=== PATIENT | female | born 1955 | race Caucasian/White ===

== ENCOUNTER 2018-12-15 15:04 | Inpatient (IN) | payer OTHER ==
[~2018-12-15] VITALS: Ht 162.6 cm; Wt 70.8 kg
--- NOTE | 2018-12-15 08:30 | NUR ---
FREDDY RN NOTES ADMITTED A 63 Y/O FEMALE NON VERBAL UNABLE TO MAKE NEEDS KNOWN , ESRD PTS ON HEMODIALYSIS ,ADMITTING DX OF HYPOTENSION .PTS IS ANOXIC ENCEPHALOPATHY, ADMISSION ROUTINE CARE RENDERED ,ORDER VERIFIED WITH PATRICA BRISCOE ,PTS ON VENT DEPENDENT WTH TRACHEOSTOMY AND GTUBE FEEDING , V/S STABLE AFEBRILE , ALL NEEDS ATTENDED TOO CALL LIGHT WITHIN REACH KEPT PTS CLEAN DRY AND COMFORTABLE .WILL CONTINUE TO MONITOR PTS. Addendum: 12/16/18 at 0346 by CARRINGTON MORELOS RN PTS ADMITTED AT 2030 NOT 0830
--- NOTE | 2018-12-15 15:11 | NUR ---
PT ELI BAEZ [facility] "from [facility] was going to dialysis center and when they took BP it was 70s so they sent her here" PT IS AAOX0, NOTED RESPIRATORY DISTRESS, RT AT BEDSIDE FOR MECH VENT SET UP, ON MECH VENT VIA TRACH, HOOKED TO MONITOR, KEPT RESTED AND COMFORTABLE, WILL CONTINUE TO MONITOR.
[2018-12-15 15:25] VITALS: BP 60/27
--- NOTE | 2018-12-15 15:25 | NUR ---
PT SEEN AND EXAMINED BY DR. LIMON
--- NOTE | 2018-12-15 15:27 | NUR ---
IV LINE ESTABLISHED AT [facility], LABS DRAWNED AND SENT TO LAB.
--- NOTE | 2018-12-15 15:27 | NUR ---
RT NOTE PT PLACED ON VENT PER MD ORDER. SETTINGS ENDORSED BY TRANSPORT RT SIMV 6 500 PS 10 40% +5. ALARMS SET PER PROTOCOL AND AUDIBLE. VENT PLUGGED IN TO RED OUTLET. AMBU BAG AT BED SIDE. PT HAS SHILEY [address] CUFF INFLATED. TRACH TUBE MIDLINE AND SECURE. NO DISTRESS NOTED AT MOMENT. Addendum: 12/15/18 at 1530 by ELLIS GAMEZ RT Amended: Links added.
[2018-12-15] MEDS ORDERED: IV NS 0.9% 500 ML BAG IV ONE (15:30)
--- NOTE | 2018-12-15 15:35 | NUR ---
MINISTER AT BEDSIDE FOR XRAY.
[2018-12-15 15:45] LABS: BASOPHILS # (AUTO) 0.1 /CMM (0.0-0.2); BASOPHILS % (AUTO) 0.7 % (0.0-2.0); EOSINOPHILS % (AUTO) 3.5 % (0.0-6.0); HEMATOCRIT 32 % (33-45); HEMOGLOBIN 10.6 g/dL (11.5-14.8); LYMPHOCYTES # (AUTO) 2.6 /CMM (0.8-4.8); LYMPHOCYTES % (AUTO) 26.2 % (20.0-44.0); MEAN CORPUSCULAR HGB CONC 34 g/dl (31.0-36.0); MEAN CORPUSCULAR VOLUME 92 fL (82-100); MONOCYTES # (AUTO) 0.5 /CMM (0.1-1.30); MONOCYTES % (AUTO) 4.9 % (2.0-12.0); NEUTROPHILS # (AUTO) 6.4 /CMM (1.8-8.9); NEUTROPHILS % (AUTO) 64.7 % (43.0-81.0); PLATELET COUNT (AUTO) 397 /CMM (150-450); RED BLOOD CELL COUNT(AUTO) 3.43 MIL/uL (4.0-5.2)
[2018-12-15 15:54] LABS: CALCIUM, SERUM 10.2 mg/dL (8.5-10.1); CARBON DIOXIDE 25 mmol/L (21-32); CHLORIDE 94 mmol/L (98-107); GLUCOSE 138 mg/dL (74-106); POTASSIUM 3.3 mmol/L (3.5-5.1); SODIUM SERUM 128 mmol/L (136-145); UREA NITROGEN, BLOOD 37 mg/dL (7-18)
[2018-12-15 15:59] LABS: ALANINE AMINOTRANSFERASE 13 U/L (12-78); ALBUMIN 3.2 g/dL (3.4-5.0); ALKALINE PHOSPHATASE 87 U/L (46-116); ASPARTATE AMINOTRANSFERASE 13 U/L (15-37); BILIRUBIN,DIRECT 0.1 mg/dL (0.0-0.2); BILIRUBIN,TOTAL 0.3 mg/dL (0.2-1.0); SERUM AMMONIA 13 umol/L (11-32); TOTAL PROTEIN, SERUM 8.4 g/dL (6.4-8.2)
[2018-12-15 16:11] LABS: THYROID STIMULATING HORMONE 4.383 uIU/mL (0.358-3.74)
[2018-12-15] MEDS ORDERED: ERGO500014 GT (16:13)
[2018-12-15] MEDS ORDERED: LACT10SO GT (16:13)
[2018-12-15] MEDS ORDERED: METO-295 GT (16:13)
[2018-12-15] MEDS ORDERED: CARV25TA2 GT (16:13)
[2018-12-15] MEDS ORDERED: FOLI0.8T2 GT (16:13)
[2018-12-15] MEDS ORDERED: PANT40SU2 GT (16:13)
[2018-12-15] MEDS ORDERED: HYDR-4077 GT (16:13)
[2018-12-15] MEDS ORDERED: ISOS10TA2 GT (16:13)
[2018-12-15] MEDS ORDERED: INSU100V10 SQ (16:13)
[2018-12-15] MEDS ORDERED: BISA10SU8 RC (16:13)
[2018-12-15] MEDS ORDERED: NA P133E RC (16:13)
[2018-12-15] MEDS ORDERED: CLON0.1T GT (16:13)
[2018-12-15] MEDS ORDERED: ACET-868 GT ×2 (16:13)
[2018-12-15] MEDS ORDERED: CALC0.253 GT (16:13)
[2018-12-15] MEDS ORDERED: GLIP10TA11 GT (16:13)
[2018-12-15] MEDS ORDERED: LOSA50TA39 GT (16:13)
[2018-12-15] MEDS ORDERED: MAGN400O6 GT (16:13)
[2018-12-15] MEDS ORDERED: INSU100V11 SQ (16:13)
[2018-12-15] MEDS ORDERED: NIFE30TA89 GT (16:13)
[2018-12-15] MEDS ORDERED: FERR300L GT (16:13)
[2018-12-15] MEDS ORDERED: VIT500LI GT (16:14)
[2018-12-15] MEDS ORDERED: NUT.237L67 GT (16:14)
[2018-12-15] MEDS ORDERED: ZINC220C8 GT (16:14)
--- NOTE | 2018-12-15 16:27 | NUR ---
PT IS WHEELED TO CT SCAN VIA LAS PROTOCOL.
[2018-12-15 17:14] LABS: BAND % (MANUAL) 3 % (0.0-5.0); EOSINOPHILS % (MANUAL) 3 % (0-4); LYMPHOCYTES % (MANUAL) 23 % (16-48); MONOCYTES % (MANUAL) 6 % (0-11.0); MYELOCYTES % 1 % (0-0); NEUTROPHILS % (MANUAL) 64 (42-76)
[2018-12-15 17:15] VITALS: BP 72/30
--- NOTE | 2018-12-15 17:17 | NUR ---
CALLED NURSING SUP. FOR TELE BED
--- NOTE | 2018-12-15 17:53 | NUR ---
TELE 102
--- NOTE | 2018-12-15 17:54 | NUR ---
YONATHAN PAGED, INTELLIGENCE SPECIALIST
--- NOTE | 2018-12-15 19:20 | NUR ---
REPORT GIVEN TO MOY ABERNATHY FOR CHELSY.
--- NOTE | 2018-12-15 19:24 | NUR ---
RECEIVED REPORT FROM MARCE WINTER FOR CHELSY
--- NOTE | 2018-12-15 19:28 | NUR ---
Sammie adhikari in [facility] - 12/15/18 at 2036 by MAO GAVE REPORT TO CARRINGTON ATKINSON CHELSY
--- NOTE | 2018-12-15 19:32 | NUR ---
YONATHAN PAGED, DENIA CIFUENTES WARP SPINNER REAL ESTATE RECRUITER
--- NOTE | 2018-12-15 19:44 | NUR ---
FREDDY 102
[2018-12-15 19:50] VITALS: BP 127/66
[2018-12-15] MEDS ORDERED: MAGNESIUM HYDROXIDE 30 ML UDC PO PRN (20:00)
[2018-12-15] MEDS ORDERED: ONDANSETRON HCL/PF 4 MG/2 ML VIAL IVP PRN (20:00)
[2018-12-15] MEDS ORDERED: NEPRO VAN 237 ML CAN GT SCH ×2 (20:00→22:00)
[2018-12-15] MEDS ORDERED: Z GUARD REMEDY 2 OZ OINT TP PRN (20:00)
[2018-12-15] MEDS ORDERED: MAG HYDROX/AL HYDROX/SIMETH 30 ML UDC PO PRN (20:00)
[2018-12-15] MEDS ORDERED: ACETAMINOPHEN 325 MG TABLET PO PRN (20:00)
[2018-12-15] MEDS ORDERED: HYDROCODONE/APAP 5/325MG 1 EACH TABLET PO PRN (20:00)
[2018-12-15] MEDS ORDERED: BISACODYL SUPP (10 MG) 10 MG/SUPP.RECT SUPP.RECT RC PRN (20:00)
[2018-12-15] MEDS ORDERED: NA PHOS,M-B/NA PHOS,DI-BA 1 EA ENEMA RC PRN (20:00)
[2018-12-15] MEDS ORDERED: MAGNESIUM HYDROXIDE 30 ML UDC GT PRN (20:00)
[2018-12-15] MEDS ORDERED: ACETAMINOPHEN 325 MG TABLET MC PRN (20:00)
--- NOTE | 2018-12-15 20:00 | NUR ---
ATTEMPTED TO GIVE REPORT TO FREDDY NURSE FOR CHELSY, STATES WILL CALL BACK
--- NOTE | 2018-12-15 20:22 | NUR ---
ATTEMPTED TO GIVE REPORT TO FREDDY NURSE FOR CHELSY, STATES WILL CALL BACK
--- NOTE | 2018-12-15 20:28 | NUR ---
GAVE REPORT TO CARRINGTON WINTER FOR CHELSY
[2018-12-15 20:30] VITALS: BP 139/76
--- NOTE | 2018-12-15 20:35 | NUR ---
TRANSFERRED PT PER ACLS PROTOCOL WITH RT
--- NOTE | 2018-12-15 20:47 | NUR ---
PT MOVED TO [facility] ROOM 102. CONNECTED BACK TO VENT, PLUGGED INTO RED OUTLET. ALARMS ARE ON AUDIBLE. CONT PULSE OX CONNECTED. NO RESP DISTRESS OR SOB NOTED. Addendum: 12/15/18 at 2047 by BETZAIDA CORONADO RT Amended: Links added.
[2018-12-15] MEDS: INSULIN DETEMIR 100 UNIT/ML CARTRIDGE SQ SCH (22:00)
--- NOTE | 2018-12-15 22:00 | NUR ---
FREDDY RN NOTES LEVEMIR NOT GIVEN D/T MEDS NOT AVAILABLE AT THIS TIME.
[2018-12-16] VITALS: BP 121/58
[2018-12-16] MEDS ORDERED: DEXTROSE 50%-WATER 50 ML DISP.SYRIN IV PRN
--- NOTE | 2018-12-16 | NUR ---
FREDDY RN NOTES BLOOD SUGAR FOR 10PM IS 202MG/DL -4 UNITS OF REGULAR INSULIN GIVEN PER SLIDING SCALE,PTS ON GT FEEDING. NO RESIDUAL NOTED.
[2018-12-16] MEDS: glipiZIDE 10 MG TABLET GT SCH ×3 (00:20→21:36)
[2018-12-16] MEDS: METOCLOPRAMIDE HCL 10 MG TABLET GT SCH ×4 (00:20→18:08)
[2018-12-16] MEDS: BLOOD SUGAR DIAGNOSTIC 1 EACH STRIP IN SCH ×4 (00:55→17:08)
[2018-12-16] MEDS: INSULIN DETEMIR 100 UNIT/ML CARTRIDGE SQ SCH (00:57)
[2018-12-16] MEDS: INSULIN REGULAR, HUMAN 100 UNIT/ML 3 ML VIAL SQ PRN ×5 (00:58→22:36)
[2018-12-16] MEDS ORDERED: NEPRO 1,000 ML BOTTLE GT PRN ×2 (03:00)
[2018-12-16 04:00] VITALS: BP 111/84
[2018-12-16 07:13] LABS: BASOPHILS % (AUTO) 0.4 % (0.0-2.0); EOSINOPHILS % (AUTO) 3.5 % (0.0-6.0); HEMATOCRIT 27 % (33-45); HEMOGLOBIN 9.3 g/dL (11.5-14.8); LYMPHOCYTES # (AUTO) 2.3 /CMM (0.8-4.8); LYMPHOCYTES % (AUTO) 24.7 % (20.0-44.0); MEAN CORPUSCULAR HGB CONC 35 g/dl (31.0-36.0); MEAN CORPUSCULAR VOLUME 91 fL (82-100); MONOCYTES # (AUTO) 0.4 /CMM (0.1-1.30); MONOCYTES % (AUTO) 4.8 % (2.0-12.0); NEUTROPHILS # (AUTO) 6.1 /CMM (1.8-8.9); NEUTROPHILS % (AUTO) 66.6 % (43.0-81.0); PLATELET COUNT (AUTO) 336 /CMM (150-450); RED BLOOD CELL COUNT(AUTO) 2.96 MIL/uL (4.0-5.2); WHITE BLOOD COUNT (AUTO) 9.1 K/uL (4.3-11.0)
[2018-12-16 07:26] LABS: CALCIUM, SERUM 9.4 mg/dL (8.5-10.1); CREATININE 4.3 mg/dL (0.6-1.3); MAGNESIUM 2.8 mg/dL (1.8-2.4); PHOSPHORUS 5.7 mg/dL (2.5-4.9); POTASSIUM 3.3 mmol/L (3.5-5.1)
[2018-12-16 07:33] LABS: THYROID STIMULATING HORMONE 2.502 uIU/mL (0.358-3.74)
--- NOTE | 2018-12-16 07:44 | NUR ---
FREDDY RN NOTE RECEIVED PATIENT IN BED , ALL NEEDS ATTENDED VENT SETTING ORDERED , ANBU BAG AT [facility] AT ALL TIME , ON TELE MONITOR SR , RT AC HL INTACT BED IN LOWEST AND LOCKED POSITION , NOT IN DISTRESS AT THIS TIME ,SPUTUM CX DONE BY RT ON G TUBE FEEDING ORDERED.BED IN LOWEST AND LOCKED POSITION
[2018-12-16 08:00] VITALS: BP 122/63
[2018-12-16] MEDS: ZINC SULFATE 220 MG CAPSULE GT SCH (08:26)
[2018-12-16] MEDS: FERROUS SULFATE UDC 300 MG/5 ML UDC GT SCH ×2 (08:26→16:22)
[2018-12-16] MEDS: ASCORBIC ACID 500 MG TABLET GT SCH (08:26)
[2018-12-16] MEDS: LACTULOSE 10 G/15 ML UDC (PYXIS) GT SCH (08:26)
[2018-12-16] MEDS: CALCITRIOL 0.25 MCG CAPSULE GT SCH (08:26)
[2018-12-16] MEDS: PANTOPRAZOLE 40 MG/PACK PACK GT SCH ×2 (08:27→16:23)
[2018-12-16] MEDS: VIT B CMPLX 3/FA/VIT C/BIOTIN 1 TAB TABLET GT SCH (08:27)
[2018-12-16] MEDS ORDERED: Medication Not On Formulary EA (Folic Acid/Vitamin B Comp W-C (Nephro-Vite Tablet) 0.8 M GT SCH (09:00)
[2018-12-16] MEDS ORDERED: ACETAMINOPHEN 325 MG TABLET MC SCH (09:00)
[2018-12-16] MEDS ORDERED: PANTOPRAZOLE 40 MG VIAL IV SCH (09:00)
--- NOTE | 2018-12-16 09:36 | NUR ---
FREDDY RN NOTE MEDICAL RECORD OBTAINED FROM SNF .PLACED IN CHART
[2018-12-16 09:58] LABS: BAND % (MANUAL) 5 % (0.0-5.0); LYMPHOCYTES % (MANUAL) 23 % (16-48); MONOCYTES % (MANUAL) 10 % (0-11.0); MYELOCYTES % 1 % (0-0); NEUTROPHILS % (MANUAL) 61 (42-76)
[2018-12-16 12:00] VITALS: BP_SYST 102; BP_DIAS 29; BP_DIAS 39
--- NOTE | 2018-12-16 12:00 | NUR ---
FREDDY RN NOTE SPOKE WITH BARBARA HD NURSE ,NOTIFIED THAT PATIENT DID NOT HAD HD AT [facility]ENTER YESTERDAY STATED THAT WILL SPEAK WITH DOCTOR ABOUT HD TODAY, WILL F\\U
--- NOTE | 2018-12-16 13:45 | NUR ---
FREDDY RN NOTE [facility] MAT[facility] APPLIED ORDERED , FAMILY AT BEDSIDE ,ALL NEEDS ATTENDED
--- NOTE | 2018-12-16 14:36 | NUR ---
FREDDY RN NOTE DR STOKES NOTIFIED THAT PATIENT IS HERE , MISSED HD YESTERDAY, STATED THAT PATIENT WILL HAVE HD TODAY Addendum: 12/16/18 at 1546 by CYDNEY HELMS RN ON HD AT THIS TIME. FAMILY AT BEDSIDE, ALL NEEDS ATTENDED, WILL CONT TO MONITOR CLOSELY
[2018-12-16 16:00] VITALS: BP 140/43
--- NOTE | 2018-12-16 16:32 | NUR ---
FREDDY RN NOTE ON HD AT THIS TIME ,HOLD MEDS VIA G TUBE AT THIS TIME ,WILL F\U
--- NOTE | 2018-12-16 18:11 | NUR ---
FREDDY WINTER NOTE HD COMPLETED REMOVED 1600 ML OF FLUIDS BP 167/78 P84 T 98 Addendum: 12/16/18 at 1829 by CYDNEY HELMS RN FAMILY AT BEDSIDE, ALL NEEDS ATTENDED, KEEP CLEAN DRY , CONT ON G TUBE FEEDING ORDERED , CALL LIGHT WITHIN REACH
[2018-12-16 20:00] VITALS: BP 146/58
--- NOTE | 2018-12-16 20:20 | NUR ---
RT PT RECEIVED TRACHED ON [facility] VENT ON CHARTED SETTINGS. NO SIGNS OF RESP DISTRESS/SOB NOTED AT THIS TIME. AIRWAY PATENT AND SECURED. PT SUCTIONED. ALARMS SET AND AUDIBLE. AMBUBAG AT BEDSIDE. VENT CONNECTED TO RED OUTLET. WILL CONT. TO MONITOR. Addendum: 12/16/18 at 2020 by BRYANNA HENNESSY RT Amended: Links added.
[2018-12-16] MEDS: INSULIN GLARGINE, 100 UNIT/ML CARTRIDGE SQ SCH (22:34)
[2018-12-17] VITALS: BP 129/35
[2018-12-17] MEDS: BLOOD SUGAR DIAGNOSTIC 1 EACH STRIP IN SCH ×4 (00:49→17:43)
[2018-12-17] MEDS: METOCLOPRAMIDE HCL 10 MG TABLET GT SCH ×4 (00:51→17:21)
[2018-12-17 04:00] VITALS: BP 132/43
[2018-12-17] MEDS: INSULIN REGULAR, HUMAN 100 UNIT/ML 3 ML VIAL SQ PRN ×3 (05:39→17:46)
--- NOTE | 2018-12-17 07:45 | NUR ---
RT PT REC'D ON MECHANICAL VENT ON ORDERED SETTINGS. NO SOB, NO RESPIRATORY DISTRESS NOTED AT THIS TIME. TRACH TUBE PATENT, SECURE AND IN PLACE. BVM BY BEDSIDE. VENT PLUGGED IN RED OUTLET. VENT ALARMS ON AND AUDIBLE. PT SUCTIONED. WILL CONTINUE TO MONITOR. Addendum: 12/17/18 at 0946 by HERLINDA SPIVEY RT Amended: Links added.
[2018-12-17 08:00] VITALS: BP 119/42
--- NOTE | 2018-12-17 08:00 | NUR ---
TD/RN AM SHIFT INITIAL NOTES RECEIVED PT ASLEEP IN BED, NO ACUTE DISTRESS NOTED, PT OBTUNDED, ON VENTILATOR ON SIMV MODE, RESPIRATIONS EVEN AND UNLABORED, LUNG SOUNDS CLEAR, SUCTIONED FOR AIRWAY CLEARANCE. ON TELE WITH SINUS RHYTHM. GT FEEDING ON GOING, BOWEL SOUNDS PRESENT, NO GASTRIC GASTRIC RESIDUAL NOTED, FLUSHED, PATENT. PT IS COMFORTABLE, SCHEDULED AM MEDS TO BE GIVEN. CL WITHIN REACHED AND SAFETY MAINTAINED. ON GOING MONITORING.
[2018-12-17] MEDS: NEPRO 1,000 ML BOTTLE GT PRN (08:48)
[2018-12-17] MEDS: VIT B CMPLX 3/FA/VIT C/BIOTIN 1 TAB TABLET GT SCH (08:49)
[2018-12-17] MEDS: ASCORBIC ACID 500 MG TABLET GT SCH (08:49)
[2018-12-17] MEDS: FERROUS SULFATE UDC 300 MG/5 ML UDC GT SCH ×2 (08:49→17:20)
[2018-12-17] MEDS: PANTOPRAZOLE 40 MG/PACK PACK GT SCH ×2 (08:49→17:20)
[2018-12-17] MEDS: ZINC SULFATE 220 MG CAPSULE GT SCH (08:49)
[2018-12-17] MEDS: LACTULOSE 10 G/15 ML UDC (PYXIS) GT SCH (08:49)
[2018-12-17] MEDS: CALCITRIOL 0.25 MCG CAPSULE GT SCH (08:49)
[2018-12-17] MEDS: glipiZIDE 10 MG TABLET GT SCH ×2 (08:49→21:32)
[2018-12-17] MEDS: Z GUARD REMEDY 2 OZ OINT TP SCH (08:49)
--- NOTE | 2018-12-17 09:00 | NUR ---
TD/RN ROUNDS - DR. WYNN PT SEEN & EXAMINED BY DR. WYNN, WITH VERBAL ORDER TO CHANGE VENT SETTING TO AC, RATE OF 16. NEW ORDER NOTED AND CARRIED, RT NOTIFIED. MONITORING.
--- NOTE | 2018-12-17 09:10 | NUR ---
TD/RN ROUNDS - WOUND CONSULT PT SEEN AND EXAMINED BY WOUND NURSE PRASHANTH. NO NEW WOUND ORDER RECEIVED AT THIS TIME. NO CHANGE OF CONDITION. ON GOING MONITORING.
[2018-12-17] MEDS ORDERED: HYDROGEL DRESSING 90 GM TUBE TP PRN (09:30)
--- NOTE | 2018-12-17 09:30 | NUR ---
WOUND CARE CONSULT: PT PRESENTS WITH STAGE 3 ULCER TO SACRUM WHICH EXTENDS TO BILATERAL BUTTOCKS, LEFT HEEL STAGE 1 REDNESS AND RT HEEL CALLUS, PRESENT ON ADMISSION. RECOMMEND SURGICAL CONSULT. [facility] ALL SKIN PROTECTION AND WOUND CARE RECOMMENDATIONS DISCUSSED WITH NURSING STAFF. WILL SEE PRN. CROWLEY AGREEMENT WITH PLAN OF CARE. CURRENT DEBBY SCORE IS 10. Addendum: 12/17/18 at 0932 by PRASHANTH ADAN WNDNU Amended: Links added.
[2018-12-17 12:00] VITALS: BP 123/33
--- NOTE | 2018-12-17 12:00 | NUR ---
TD/RN NOON ROUNDS NO CHANGE OF CONDITION. MONITORING CONTINUED.
[2018-12-17] MEDS: HYDROGEL DRESSING 90 GM TUBE TP SCH (12:32)
[2018-12-17 16:00] VITALS: BP 146/33
--- NOTE | 2018-12-17 19:00 | NUR ---
TD/RN AM SHIFT END NOTES PT NOTED WITH NO ACUTE CHANGE OF CONDITION DURING THE SHIFT, ALL NEEDS MET. PT ENDORSED TO PM NURSE TO CONTINUE CARE. CL WITHIN REACHED AND SAFETY MAINTAINED.
[2018-12-17 20:00] VITALS: BP 103/81
--- NOTE | 2018-12-17 20:00 | NUR ---
FREDDY/RN NOTES: RECEIVED PT. IN BED W/ HOB ELEVATED. PT. IS OBTUNDED W/ EYES OPEN TO TACTILE STIMULI AND WHEN CALLING HER NAME. NO FACIAL GRIMACES OR MOANING NOTED. ON MECH. VENT. TOLERATING WELL. W/ GTF W/ NO RESIDUAL NOTED. ON TELE MONITOR W/ SR. HAS RIGHT SUBCLAVIAN HD CATH. HAS RAC G 2O PATENT AND INTACT W/ NO S/S OF INFECTION/INFILTRATION NOTED. BS CHECKED AT 2100 W/ LANTUS GIVEN. BEDS LOCKED AND IN LOW POSITION. WILL CONTINUE TO MONITOR. HAS A RECTAL TUBE IN PLACE. WILL CONTINUE TO MONITOR.
[2018-12-17] MEDS: INSULIN GLARGINE, 100 UNIT/ML CARTRIDGE SQ SCH (21:33)
[2018-12-18] VITALS: BP 102/54
[2018-12-18] MEDS: METOCLOPRAMIDE HCL 10 MG TABLET GT SCH ×4 (00:03→17:16)
[2018-12-18] MEDS: BLOOD SUGAR DIAGNOSTIC 1 EACH STRIP IN SCH ×4 (00:12→17:27)
[2018-12-18] MEDS: INSULIN REGULAR, HUMAN 100 UNIT/ML 3 ML VIAL SQ PRN ×5 (00:14→21:56)
[2018-12-18 04:00] VITALS: BP_SYST 140; BP_SYST 96; BP_DIAS 67; BP_DIAS 72
--- NOTE | 2018-12-18 07:10 | NUR ---
RN/FREDDY NOTES: REPORT GIVEN TO NEXT SHIFT NURSE FOR CHELSY.
--- NOTE | 2018-12-18 07:50 | NUR ---
FREDDY RN NOTE PATIENT IN BED NONVERBAL WITH TRACH TO VENT SETTING ORDERED ,AMBU BAG AT HOB AT ALL TIME WITH FLEXI SEAL RECTAL TUBE WITH LIQUID STOOL NOTED , ON [employer] MATRASS IN PLACE WITH G TUBE FEEDING ORDERED, KEEP HOB ELEVATED AT ALL TIME , RT AC HL INTACT , RT SUBCLAVIAN HD CATH IN PLACE , BED IN LOWEST AND LOCKED POSITION , WILL CONT TO MONITOR CLOSELY, NO SOB AT THIS TIME Addendum: 12/18/18 at 0844 by CYDNEY HELMS RN CORRECTION LT AC HL INTACT
[2018-12-18 08:00] VITALS: BP 111/55
[2018-12-18] MEDS: VIT B CMPLX 3/FA/VIT C/BIOTIN 1 TAB TABLET GT SCH (08:24)
[2018-12-18] MEDS: LACTULOSE 10 G/15 ML UDC (PYXIS) GT SCH (08:24)
[2018-12-18] MEDS: ZINC SULFATE 220 MG CAPSULE GT SCH (08:24)
[2018-12-18] MEDS: CALCITRIOL 0.25 MCG CAPSULE GT SCH (08:24)
[2018-12-18] MEDS: glipiZIDE 10 MG TABLET GT SCH ×2 (08:24→21:53)
[2018-12-18] MEDS: FERROUS SULFATE UDC 300 MG/5 ML UDC GT SCH ×2 (08:24→16:33)
[2018-12-18] MEDS: PANTOPRAZOLE 40 MG/PACK PACK GT SCH ×2 (08:24→16:31)
[2018-12-18] MEDS: ASCORBIC ACID 500 MG TABLET GT SCH (08:24)
[2018-12-18] MEDS: Z GUARD REMEDY 2 OZ OINT TP SCH (08:28)
[2018-12-18] MEDS: HYDROGEL DRESSING 90 GM TUBE TP SCH (08:28)
[2018-12-18] MEDS: NEPRO 1,000 ML BOTTLE GT PRN (10:11)
[2018-12-18 12:00] VITALS: BP 120/65
--- NOTE | 2018-12-18 12:00 | NUR ---
barbara rn note keep clean dry , all needs attended with g tube feeding as ordered ,will cont to monitor closely
--- NOTE | 2018-12-18 15:00 | NUR ---
FREDDY WINTER NOTE ON HD AT THIS TIME ,WILL CONT TO MONITOR CLOSELY Addendum: 12/18/18 at 1623 by CYDNEY HELMS RN HD COMPLETED, NO FLUIDS OUT BP 110/54 HR 96
[2018-12-18 16:00] VITALS: BP 98/49
[2018-12-18] MEDS: PIPERACILLIN /TAZOBACTAM 2.25 G in IV D5W 50 ML IV SCH ×2 (16:31→21:49)
[2018-12-18 17:51] LABS: BASOPHILS # (AUTO) 0.1 /CMM (0.0-0.2); BASOPHILS % (AUTO) 0.6 % (0.0-2.0); EOSINOPHILS % (AUTO) 3.5 % (0.0-6.0); HEMATOCRIT 28 % (33-45); HEMOGLOBIN 9.7 g/dL (11.5-14.8); LYMPHOCYTES # (AUTO) 2.2 /CMM (0.8-4.8); LYMPHOCYTES % (AUTO) 23.6 % (20.0-44.0); MEAN CORPUSCULAR HGB CONC 34 g/dl (31.0-36.0); MEAN CORPUSCULAR VOLUME 93 fL (82-100); MONOCYTES # (AUTO) 0.5 /CMM (0.1-1.30); MONOCYTES % (AUTO) 5.6 % (2.0-12.0); NEUTROPHILS # (AUTO) 6.2 /CMM (1.8-8.9); NEUTROPHILS % (AUTO) 66.7 % (43.0-81.0); PLATELET COUNT (AUTO) 340 /CMM (150-450); RED BLOOD CELL COUNT(AUTO) 3.07 MIL/uL (4.0-5.2); WHITE BLOOD COUNT (AUTO) 9.3 K/uL (4.3-11.0)
[2018-12-18 17:58] LABS: CALCIUM, SERUM 9.1 mg/dL (8.5-10.1); CREATININE 3.5 mg/dL (0.6-1.3)
[2018-12-18] MEDS ORDERED: PIPERACILLIN /TAZOBACTAM 3.375 G in IV D5W 50 ML IV SCH (18:00)
--- NOTE | 2018-12-18 18:05 | NUR ---
FREDDY RN NOTE TURN REPOSITION ON G TUBE FEEDING ORDERED ,NOT IN DISTRESS
--- NOTE | 2018-12-18 18:23 | NUR ---
FREDDY RN NOTE K 3.0 ,CALLED BARBARA RN HD NURSE NOTIFIED ABOUT THIS , STATED DURING HD WILL BE ADJUSTED, NO NEED TO CALL DOCTOR ,HE WILL F\U
[2018-12-18 20:00] VITALS: BP 110/62
--- NOTE | 2018-12-18 20:00 | NUR ---
FREDDY RN NOTE RECEIVED PATIENT'S REPORT FROM AM SHIFT RN. RECEIVED PATIENT IN BED NONVERBAL WITH TRACH TO VENT SETTING ORDERED ,AMBU BAG AT HOB AT ALL TIME WITH FLEXI SEAL RECTAL TUBE WITH LIQUID STOOL NOTED , ON [employer] MATRASS IN PLACE WITH G TUBE FEEDING ORDERED WITHOUT RESIDUAL NOTED. KEEP HOB ELEVATED AT ALL TIME , LEFT AC IV LINE IS PATIENT AND INTACT , RT SUBCLAVIAN HD CATH IN PLACE , NO SOB NOTED AT THIS TIME, ALL SAFETY MEASURES ARE IMPLEMENTED, BED IN LOWEST AND LOCKED POSITION , WILL CONT TO MONITOR CLOSELY.
[2018-12-18] MEDS: INSULIN GLARGINE, 100 UNIT/ML CARTRIDGE SQ SCH (21:55)
[2018-12-19] VITALS: BP 132/54
[2018-12-19] MEDS: METOCLOPRAMIDE HCL 10 MG TABLET GT SCH ×4 (01:01→17:39)
[2018-12-19] MEDS: BLOOD SUGAR DIAGNOSTIC 1 EACH STRIP IN SCH ×5 (01:02→23:07)
[2018-12-19] MEDS: INSULIN REGULAR, HUMAN 100 UNIT/ML 3 ML VIAL SQ PRN ×6 (01:12→23:00)
[2018-12-19 04:00] VITALS: BP 140/68
[2018-12-19] MEDS: PIPERACILLIN /TAZOBACTAM 2.25 G in IV D5W 50 ML IV SCH ×3 (05:19→21:37)
[2018-12-19 06:46] LABS: BASOPHILS # (AUTO) 0.1 /CMM (0.0-0.2); BASOPHILS % (AUTO) 0.8 % (0.0-2.0); EOSINOPHILS % (AUTO) 4.6 % (0.0-6.0); HEMATOCRIT 29 % (33-45); HEMOGLOBIN 9.9 g/dL (11.5-14.8); LYMPHOCYTES # (AUTO) 2.7 /CMM (0.8-4.8); LYMPHOCYTES % (AUTO) 28.3 % (20.0-44.0); MEAN CORPUSCULAR HGB CONC 35 g/dl (31.0-36.0); MEAN CORPUSCULAR VOLUME 92 fL (82-100); MONOCYTES # (AUTO) 0.5 /CMM (0.1-1.30); MONOCYTES % (AUTO) 5.1 % (2.0-12.0); NEUTROPHILS # (AUTO) 5.8 /CMM (1.8-8.9); NEUTROPHILS % (AUTO) 61.2 % (43.0-81.0); PLATELET COUNT (AUTO) 378 /CMM (150-450); RED BLOOD CELL COUNT(AUTO) 3.12 MIL/uL (4.0-5.2); WHITE BLOOD COUNT (AUTO) 9.5 K/uL (4.3-11.0)
[2018-12-19 06:48] LABS: CALCIUM, SERUM 9.7 mg/dL (8.5-10.1); CREATININE 4.1 mg/dL (0.6-1.3); POTASSIUM 3.6 mmol/L (3.5-5.1)
--- NOTE | 2018-12-19 07:07 | NUR ---
PT. RECEIVED ON AC 16, VT 550,FIO2 40% PEEP 5. BREATH SOUNDS RHONCHI BILATERAL Addendum: 12/19/18 at 0709 by CRISTY MARION RT Amended: Links added.
[2018-12-19 08:00] VITALS: BP 132/60
--- NOTE | 2018-12-19 08:00 | NUR ---
RN NOTES GOT A CALL FROM LAB PATIENT'S PROCALCITONIN IS 3.0. DR PICKETT NOTIFIED. WILL CONT. TO MONITOR PATIENT.
[2018-12-19] MEDS: FERROUS SULFATE UDC 300 MG/5 ML UDC GT SCH ×2 (09:45→16:43)
[2018-12-19] MEDS: VIT B CMPLX 3/FA/VIT C/BIOTIN 1 TAB TABLET GT SCH (09:45)
[2018-12-19] MEDS: LACTULOSE 10 G/15 ML UDC (PYXIS) GT SCH (09:45)
[2018-12-19] MEDS: CALCITRIOL 0.25 MCG CAPSULE GT SCH (09:45)
[2018-12-19] MEDS: ZINC SULFATE 220 MG CAPSULE GT SCH (09:45)
[2018-12-19] MEDS: ASCORBIC ACID 500 MG TABLET GT SCH (09:45)
[2018-12-19] MEDS: glipiZIDE 10 MG TABLET GT SCH ×2 (09:46→21:36)
[2018-12-19] MEDS: PANTOPRAZOLE 40 MG/PACK PACK GT SCH ×2 (09:51→16:43)
[2018-12-19] MEDS: Z GUARD REMEDY 2 OZ OINT TP SCH (09:52)
[2018-12-19] MEDS: HYDROGEL DRESSING 90 GM TUBE TP SCH (09:52)
[2018-12-19 12:00] VITALS: BP 138/73
--- NOTE | 2018-12-19 12:00 | NUR ---
OIL PROCESSING TECHNICIAN NOTES RECEIVED REPORT FROM MOY RYAN FOR PT'S CONTINUITY OF CARE.
[2018-12-19 16:00] VITALS: BP_SYST 177; BP_DIAS 74; BP_DIAS 75
--- NOTE | 2018-12-19 18:00 | NUR ---
PT RESTING IN BED WITH HOB ELEVATED.DTR AT BEDSIDE WHO SIGNED THE CONSENT FOR EXCISIONAL SACRAL WOUND DEBRIDEMENT THAT IS TO BE DONE TOMORROW BY RACHNA DAVIS.NO S/S OF PAIN OR DISTRESS.WILL MONITOR.
--- NOTE | 2018-12-19 19:48 | NUR ---
RT NOTE: RECEIVED TRACH PT ON [facility] VENT ON NOTED SETTINGS PER MD ORDERS. TRACH IS PATENT AND SECURED. CINDER CRANE OPERATOR DONE. SX DONE PRN. VENT PLUGGED INTO RED OUTLET. ALARMS ON AND AUDIBLE. LA MATTHEWS @ BEDSIDE. NO RESP DISTRESS AT THIS TIME. WILL CONT TO MONITOR PT. Addendum: 12/19/18 at 2311 by SHERRIE REDDING RT Amended: Links added.
[2018-12-19 20:00] VITALS: BP 128/64
--- NOTE | 2018-12-19 20:00 | NUR ---
telephone sterilizer notes received pts in bed obtunded on vent dependent well tolerated pts no sob no distress noted , on tele monitor sr on the monitor , v/s stable afebrile , due meds given as ordered ,on gt feeding well tolerated , no residual noted , turned and reposition q 2 hrs and prn hob elevated at all time for aspiration precaution , continue to monitor.
[2018-12-19] MEDS: NEPRO 1,000 ML BOTTLE GT PRN (20:26)
[2018-12-19] MEDS: INSULIN GLARGINE, 100 UNIT/ML CARTRIDGE SQ SCH (22:49)
[2018-12-20] VITALS: BP 117/51
--- NOTE | 2018-12-20 | NUR ---
telemetry nurse notes blood sugar for 12mn is 143 mg/dl,36 units of lantus and 2 units of regular insulin .given as ordered, kpt pts clean dry and comfortable,will check blood sugar again in am.
[2018-12-20] MEDS: METOCLOPRAMIDE HCL 10 MG TABLET GT SCH ×5 (00:01→23:37)
[2018-12-20 04:00] VITALS: BP 135/71
[2018-12-20] MEDS: PIPERACILLIN /TAZOBACTAM 2.25 G in IV D5W 50 ML IV SCH ×2 (04:23→12:30)
[2018-12-20] MEDS: INSULIN REGULAR, HUMAN 100 UNIT/ML 3 ML VIAL SQ PRN ×6 (05:38→23:45)
[2018-12-20] MEDS: BLOOD SUGAR DIAGNOSTIC 1 EACH STRIP IN SCH ×4 (05:55→23:31)
[2018-12-20 06:31] LABS: BASOPHILS # (AUTO) 0.1 /CMM (0.0-0.2); BASOPHILS % (AUTO) 0.7 % (0.0-2.0); HEMATOCRIT 27 % (33-45); HEMOGLOBIN 9.3 g/dL (11.5-14.8); LYMPHOCYTES # (AUTO) 2.1 /CMM (0.8-4.8); LYMPHOCYTES % (AUTO) 26.3 % (20.0-44.0); MEAN CORPUSCULAR HGB CONC 35 g/dl (31.0-36.0); MEAN CORPUSCULAR VOLUME 91 fL (82-100); MONOCYTES # (AUTO) 0.5 /CMM (0.1-1.30); MONOCYTES % (AUTO) 5.7 % (2.0-12.0); NEUTROPHILS % (AUTO) 62.3 % (43.0-81.0); PLATELET COUNT (AUTO) 349 /CMM (150-450); RED BLOOD CELL COUNT(AUTO) 2.92 MIL/uL (4.0-5.2); WHITE BLOOD COUNT (AUTO) 8.1 K/uL (4.3-11.0)
[2018-12-20 06:50] LABS: CALCIUM, SERUM 9.3 mg/dL (8.5-10.1); CREATININE 4.8 mg/dL (0.6-1.3); POTASSIUM 3.4 mmol/L (3.5-5.1)
--- NOTE | 2018-12-20 07:30 | NUR ---
telehealth director notes received pts in bed ,obtunded on vent dependent well tolerated pts.ambu bag at hob at all time ,no sob no distress noted , on tele monitor sr on the monitor , on gt feeding well tolerated , no residual noted , turned and reposition q 2 hrs and prn hob elevated at all time for aspiration precaution , continue to monitor.bed in lowest and locked position
[2018-12-20 08:00] VITALS: BP 114/75
[2018-12-20] MEDS: VIT B CMPLX 3/FA/VIT C/BIOTIN 1 TAB TABLET GT SCH (09:32)
[2018-12-20] MEDS: ZINC SULFATE 220 MG CAPSULE GT SCH (09:32)
[2018-12-20] MEDS: ASCORBIC ACID 500 MG TABLET GT SCH (09:32)
[2018-12-20] MEDS: glipiZIDE 10 MG TABLET GT SCH ×2 (09:32→20:11)
[2018-12-20] MEDS: CALCITRIOL 0.25 MCG CAPSULE GT SCH (09:33)
[2018-12-20] MEDS: FERROUS SULFATE UDC 300 MG/5 ML UDC GT SCH ×2 (09:33→17:00)
[2018-12-20] MEDS: LACTULOSE 10 G/15 ML UDC (PYXIS) GT SCH (09:33)
[2018-12-20] MEDS: PANTOPRAZOLE 40 MG/PACK PACK GT SCH ×2 (09:33→17:00)
[2018-12-20] MEDS: HYDROGEL DRESSING 90 GM TUBE TP SCH (09:34)
[2018-12-20] MEDS: Z GUARD REMEDY 2 OZ OINT TP SCH (09:35)
--- NOTE | 2018-12-20 09:39 | NUR ---
telegraphic typewriter installer notes Dr Correa at bedside aware of pt condition. no new order given at this time. all needs attended. we are continuing to monitor closely.
--- NOTE | 2018-12-20 10:05 | NUR ---
cable television access coordinator note yuan weber rn computing consultant at bedside aware that patient more awake, will try to remove restrain at this time
[2018-12-20 12:00] VITALS: BP 120/80
--- NOTE | 2018-12-20 12:00 | NUR ---
DRAPERY HAND NOTE SPOKE WITH CORINA REYNA RN UNDERWRITING SERVICE REPRESENTATIVE NOTIFIED THAT STOOL [facility] LIQUID WITH RECTAL TUBE STATED THAT WILL CHECK IT OUT
--- NOTE | 2018-12-20 13:13 | NUR ---
VETERINARY MEDICINE SCIENTIST NOTE PAT SYSTEM SOFTWARE PROGRAMMER AT BEDSIDE, SACRAL DEBRIDEMENT DONE ,KEEP CLEAN DRY WILL CONT TO MONITOR CLOSELY
--- NOTE | 2018-12-20 15:32 | NUR ---
WASHHOUSE HAND NOTE HD STARTED ,MARTHA WINTER HD AWARE THAT K 3.4 STATED THAT WILL ADJUST K WITH HD
[2018-12-20 16:00] VITALS: BP_SYST 95; BP_SYST 96; BP_DIAS 46; BP_DIAS 48
[2018-12-20] MEDS ORDERED: MEROPENEM 500 MG in IV NS 0.9% 50 ML IV SCH (16:00)
--- NOTE | 2018-12-20 17:04 | NUR ---
RT NOTE: PATIENT RECEIVED TRACHED ON ESPRIT VENT ALARMS VERIFIED AND AUDIBLE. SUCTIONED AND LAVAGED SMALL-LARGE AMOUNT OF THICK BLACK SECRETIONS. VENT PLUGGED INTO RED OUTLET. AMBU BAG AT HOB
--- NOTE | 2018-12-20 17:04 | NUR ---
SQL DATABASE ADMINISTRATOR NOTE ON HD AT THIS TIME HOLD MEDS FOR NOW
--- NOTE | 2018-12-20 18:00 | NUR ---
CT TECHNICIAN NOTE HD COMPLETED ,REMOVE 1L BP 125/46 HR 88
--- NOTE | 2018-12-20 18:27 | NUR ---
STOCK DIGGER NOTE ON G TUBE DEEDING ORDERED, KEEP HOB ELEVATED AT ALL TIME , WITH RECTAL TUBE, STILL WITH LIQUID STOOL NOTED ,NOT IN DISTRESS ,WILL CONT TO MONITOR CLOSELY
[2018-12-20] MEDS ORDERED: DOSING PER PHARMACY-AMIKACI IV XX PRN (18:30)
[2018-12-20] MEDS ORDERED: FEE PK DOSING 1 MIN EA MC ONE (18:55)
[2018-12-20] MEDS ORDERED: AMIKACIN 400 MG in IV D5W 100 ML IV PRN (19:00)
[2018-12-20] MEDS ORDERED: AMIKACIN 400 MG in IV D5W 100 ML IV ONE (19:00)
[2018-12-20 20:00] VITALS: BP 138/53
[2018-12-20] MEDS ORDERED: LEVOFLOXACIN (250MG) 250 MG TABLET PO SCH (20:00)
[2018-12-20] MEDS ORDERED: ERGOCALCIFEROL (VITAMIN D 2) 50,000 UNIT CAPSULE GT SCH (20:00)
--- NOTE | 2018-12-20 20:00 | NUR ---
INJECTION WAX MOLDER INITIAL NOTE RECEIVED PATIENT'S REPORT FROM AM SHIFT RN. RECEIVED PATIENT IN BED NONVERBAL WITH TRACH TO VENT SETTING ORDERED ,AMBU BAG AT HOB AT ALL TIME WITH FLEXI SEAL RECTAL TUBE WITH LIQUID STOOL NOTED , ON [employer] MATRASS IN PLACE WITH G TUBE FEEDING ORDERED WITHOUT RESIDUAL NOTED. KEEP HOB ELEVATED AT ALL TIME , LEFT AC IV LINE IS PATIENT AND INTACT , RT SUBCLAVIAN HD CATH IN PLACE , S/P HD 1 L OUT. NO SOB NOTED AT THIS TIME, ALL SAFETY MEASURES ARE IMPLEMENTED, BED IN LOWEST AND LOCKED POSITION , WILL CONT TO MONITOR CLOSELY.
[2018-12-20] MEDS: INSULIN GLARGINE, 100 UNIT/ML CARTRIDGE SQ SCH (21:18)
--- NOTE | 2018-12-20 23:24 | NUR ---
RT NOTES PT RECEIVED ON [facility] VENT ON THE FOLLOWING NOTED SETTINGS. PT SX'D. DOES NOT HAVE ANY BREATHING TX'S. NO RESP DISTRESS NOTED AT THIS TIME. VENT IS PLUGGED INTO RED OUTLET. ALARMS ARE ON AND AUDIBLE. AMBU BAG IS AT BEDSIDE. WILL CONT TO MONITOR PT. Addendum: 12/20/18 at 2326 by BETZAIDA CORONADO RT Amended: Links added.
[2018-12-21 00:46] VITALS: BP 139/75
[2018-12-21] MEDS: BLOOD SUGAR DIAGNOSTIC 1 EACH STRIP IN SCH ×2 (05:07→11:59)
[2018-12-21] MEDS: METOCLOPRAMIDE HCL 10 MG TABLET GT SCH ×2 (05:08→11:57)
[2018-12-21 05:18] VITALS: BP 138/76
[2018-12-21] MEDS: NEPRO 1,000 ML BOTTLE GT PRN (05:24)
--- NOTE | 2018-12-21 06:21 | NUR ---
GENERAL ADMINISTRATOR CLOSING NOTE ENDORSED PATIENT'S REPORT GIVEN TO AM SHIFT RN. RECEIVED PATIENT IN BED NONVERBAL WITH TRACH TO VENT SETTING ORDERED ,AMBU BAG AT HOB AT ALL TIME WITH FLEXI SEAL RECTAL TUBE WITH LIQUID STOOL NOTED , ON [employer] MATRASS IN PLACE WITH G TUBE FEEDING ORDERED WITHOUT RESIDUAL NOTED. KEEP HOB ELEVATED AT ALL TIME , LEFT AC IV LINE IS PATIENT AND INTACT , RT SUBCLAVIAN HD CATH IN PLACE , S/P HD 1 L OUT. NO SOB NOTED AT THIS TIME, ALL SAFETY MEASURES ARE IMPLEMENTED, BED IN LOWEST AND LOCKED POSITION , WILL CONT TO MONITOR CLOSELY.
--- NOTE | 2018-12-21 07:05 | NUR ---
RN INITIAL NOTES RECEIVED PT OBTUNDED, ON VENT. NO RESPIRATORY DISTRESS NOTED. NO SOB NOTED. HOB ELEVATED. PT SINUS RHYTHM ON MONITOR. GT IN PLACE. TOLERATING WELL. IV LINES IN PLACE. HD CATH PATENT. FLEXISEAL IN PLACE. BLE ELEVATED. PT COMFORTABLE. POSSIBLE TRANSFER TO [facility]. WILL MONITOR
[2018-12-21 07:22] LABS: CALCIUM, SERUM 9.2 mg/dL (8.5-10.1); CREATININE 3.2 mg/dL (0.6-1.3); POTASSIUM 3.3 mmol/L (3.5-5.1)
[2018-12-21 08:00] VITALS: BP 138/56
[2018-12-21] MEDS: LACTULOSE 10 G/15 ML UDC (PYXIS) GT SCH (08:17)
[2018-12-21] MEDS: FERROUS SULFATE UDC 300 MG/5 ML UDC GT SCH (08:17)
[2018-12-21] MEDS: glipiZIDE 10 MG TABLET GT SCH (08:18)
[2018-12-21] MEDS: PANTOPRAZOLE 40 MG/PACK PACK GT SCH (08:18)
[2018-12-21] MEDS: HYDROGEL DRESSING 90 GM TUBE TP SCH (08:18)
[2018-12-21] MEDS: ZINC SULFATE 220 MG CAPSULE GT SCH (08:18)
[2018-12-21] MEDS: CALCITRIOL 0.25 MCG CAPSULE GT SCH (08:18)
[2018-12-21] MEDS: Z GUARD REMEDY 2 OZ OINT TP SCH (08:18)
[2018-12-21] MEDS: VIT B CMPLX 3/FA/VIT C/BIOTIN 1 TAB TABLET GT SCH (08:18)
[2018-12-21] MEDS: ASCORBIC ACID 500 MG TABLET GT SCH (08:18)
[2018-12-21] MEDS ORDERED: AMIK250V13 IV (09:53)
[2018-12-21] MEDS ORDERED: RXAMI XX (09:53)
[2018-12-21] MEDS ORDERED: Levofloxacin (250MG) PO (09:53)
[2018-12-21] MEDS ORDERED: HYDR-4077 GT (09:53)
[2018-12-21 12:00] VITALS: BP 137/68
--- NOTE | 2018-12-21 12:04 | NUR ---
RT NOTES PT RECEIVED ON [facility] VENT ON THE FOLLOWING NOTED SETTINGS. PT SX'D. DOES NOT HAVE ANY BREATHING TX'S. NO RESP DISTRESS NOTED AT THIS TIME. VENT IS PLUGGED INTO RED OUTLET. ALARMS ARE ON AND AUDIBLE. AMBU BAG IS AT BEDSIDE. WILL CONT TO MONITOR PT.
--- NOTE | 2018-12-21 14:20 | NUR ---
RN NOTE: SPOKE WITH DR. VITAL RE: THE PATIENT'S POTASSIUM 3.3 AND PATIENT WAS LAST DIALYZED YESTERDAY. PER MD, NO NEED FOR A POTASSIUM REPLACEMENT. PATIENT CAN BE DISCHARGE TODAY AT [facility]. PRIMARY NURSE MADE AWARE.
[2018-12-21 16:00] VITALS: BP 145/64
--- NOTE | 2018-12-21 16:20 | NUR ---
RN NOTES PT LEFT VIA GURNEY TO [facility]. PT VS WNL. TRACH IN PLACE, CONNECTED TO PORTABLE VENT. NO RESPIRATORY DISTRESS NOTED. NO SIGNS OF PAIN NOTED. GT IN PLACE. IV LINE IN PLACE. FLEXISEAL PATENT. VS WNL. REPORT GIVEN TO MOY AREVALO. GIVEN ALL PERTINENT INFORMATION. PICTURES TAKEN AND PLACED IN THE CHARGE PRIOR DISCHARGE. LEFT IN STABLE CONDITION.
--- NOTE | 2018-12-21 16:30 | NUR ---
RN NOTES CALLED MAGDALENA (DAUGHTER) AND NOTIFIED OF PT'S TRANSFER TO [facility]
== END 2018-12-21 16:30 | DRG 130 ==
LOC: ER 15:11 → TELE1 19:54 → TELE-TD 20:04 → TELE1 12-19 10:06
PROVIDERS: ADMIT Registered Nurse; ATTEND Nurse Practitioner Acute Care
PROC: 5A1D70Z Performance of Urinary Filtration, Intermittent, Less than 6 Hours Per Day (ICD-10-PCS; principal; 2018-12-15)
PROC: 5A1955Z Respiratory Ventilation, Greater than 96 Consecutive Hours (ICD-10-PCS; principal; 2018-12-15)
PROC: 0JB70ZZ Excision of Back Subcutaneous Tissue and Fascia, Open Approach (ICD-10-PCS; 2018-12-20)
DX: J96.21 Acute and chronic respiratory failure with hypoxia (principal); J95.851 Ventilator associated pneumonia; G93.1 Anoxic brain damage, not elsewhere classified; L89.153 Pressure ulcer of sacral region, stage 3; D68.59 Other primary thrombophilia; E11.22 Type 2 diabetes mellitus with diabetic chronic kidney disease; R13.10 Dysphagia, unspecified; I12.0 Hypertensive chronic kidney disease with stage 5 chronic kidney disease or end stage renal disease; E83.39 Other disorders of phosphorus metabolism; E11.65 Type 2 diabetes mellitus with hyperglycemia; I95.3 Hypotension of hemodialysis; E87.1 Hypo-osmolality and hyponatremia; Z99.11 Dependence on respirator [ventilator] status; Z93.0 Tracheostomy status; N18.6 End stage renal disease; Z93.1 Gastrostomy status; Z99.2 Dependence on renal dialysis; Y84.8 Other medical procedures as the cause of abnormal reaction of the patient, or of later complication, without mention of misadventure at the time of the procedure; Y82.8 Other medical devices associated with adverse incidents; Y92.129 Unspecified place in nursing home as the place of occurrence of the external cause; E87.6 Hypokalemia; D63.1 Anemia in chronic kidney disease; E78.5 Hyperlipidemia, unspecified; Z79.4 Long term (current) use of insulin; Z86.73 Personal history of transient ischemic attack (TIA), and cerebral infarction without residual deficits; Z86.74 Personal history of sudden cardiac arrest; Z87.01 Personal history of pneumonia (recurrent); Z87.440 Personal history of urinary (tract) infections; Z90.49 Acquired absence of other specified parts of digestive tract; Z74.01 Bed confinement status; Z88.5 Allergy status to narcotic agent
CPT/HCPCS: 31720; 36415; 70450-TC; 71045-TC; 80048-TC; 80061-TC; 80076-TC; 80150; 82140-TC; 82962-TC; 83605-TC; 83735-TC; 84100-TC; 84443-TC; 84484-TC; 85025-TC; 85730-TC; 87040-TC; 87070-TC; 87081-TC; 87186-TC; 90935-TC; 94002-TC; 94003-TC; 94760-TC; 94762-TC; 94799-TC; 99082-TC; A4216; A6248; A6253; A6402; A6403; G0378; J0278; J1815; J2185; J2543; J7030; J7060; J8597

== ENCOUNTER 2019-01-26 18:06 | Inpatient (IN) | payer OTHER ==
[~2019-01-26] VITALS: Ht 160 cm; Wt 80.7 kg
[2019-01-26] VITALS (10 sets, daily range): BP systolic 91–127; BP diastolic 42–64
[~2019-01-26 18:06] MED LIST: ACET-868 GT; AMIK250V13 IV; BISA10SU8 RC; CALC0.253 GT; CLON0.1T GT; ERGO500014 GT; FERR300L GT; FOLI0.8T2 GT; GLIP10TA11 GT; HYDR-4077 GT; INSU100V10 SQ; INSU100V11 SQ; LACT10SO GT; Levofloxacin (250MG) PO; MAGN400O6 GT; METO-295 GT; NA P133E RC; NUT.237L67 GT; PANT40SU2 GT; RXAMI XX; VIT500LI GT; ZINC220C8 GT
--- NOTE | 2019-01-26 18:29 | NUR ---
RT NOTE PT PLACED ON VENT PER MD ORDER. PT HAS SHILEY 8 XLT PROXIMAL CUFFED TRACHEOSTOMY TUBE IN PLACE. CUFF INFLATED. TRACH TUBE MIDLINE AND SECURE. VENTILATOR SETTINGS ENDORSED BY TRANSPORT RT AC 16 550 40% +5. ALARMS SET PER PROTOCOL AND AUDIBLE. VENT PLUGGED IN TO RED OUTLET. AMBU BAG AT BED SIDE. NO DISTRESS NOTED AT MOMENT. Addendum: 01/26/19 at 1831 by ELLIS GAMEZ RT Amended: Links added.
--- NOTE | 2019-01-26 18:52 | NUR ---
PATIENT BB PRIVATE EMS FROM [facility] (OG FROM [facility]). WITH REPORT OF LOW HGB (6.1)
--- NOTE | 2019-01-26 18:53 | NUR ---
PATIENT OBTUNDED. VENT/TRACH. NO ACUTE DISTRESS. [facility]
[2019-01-26 19:06] LABS: BASOPHILS # (AUTO) 0.1 /CMM (0.0-0.2); BASOPHILS % (AUTO) 0.7 % (0.0-2.0); EOSINOPHILS % (AUTO) 1.1 % (0.0-6.0); LYMPHOCYTES # (AUTO) 1.4 /CMM (0.8-4.8); LYMPHOCYTES % (AUTO) 16.9 % (20.0-44.0); MEAN CORPUSCULAR HGB CONC 34 g/dl (31.0-36.0); MEAN CORPUSCULAR VOLUME 98 fL (82-100); MONOCYTES # (AUTO) 0.3 /CMM (0.1-1.30); MONOCYTES % (AUTO) 4.2 % (2.0-12.0); NEUTROPHILS # (AUTO) 6.3 /CMM (1.8-8.9); NEUTROPHILS % (AUTO) 77.1 % (43.0-81.0); PLATELET COUNT (AUTO) 325 /CMM (150-450); WHITE BLOOD COUNT (AUTO) 8.2 K/uL (4.3-11.0)
[2019-01-26 19:14] LABS: RED BLOOD CELL COUNT(AUTO) 1.98 MIL/uL (4.0-5.2)
[2019-01-26 19:16] LABS: HEMATOCRIT 19 % (33-45); HEMOGLOBIN 6.7 g/dL (11.5-14.8)
[2019-01-26 19:35] LABS: CALCIUM, SERUM 8.7 mg/dL (8.5-10.1); CARBON DIOXIDE 27 mmol/L (21-32); CHLORIDE 96 mmol/L (98-107); CREATININE 1.9 mg/dL (0.6-1.3); GLUCOSE 252 mg/dL (74-106); POTASSIUM 3.6 mmol/L (3.5-5.1); SODIUM SERUM 134 mmol/L (136-145); UREA NITROGEN, BLOOD 23 mg/dL (7-18)
--- NOTE | 2019-01-26 19:44 | NUR ---
PATIENT RESTING INSIDE ROOM. NO ACUTE DISTRESS. CONTINUE VENT/TRACH. REPORT GIVEN TO DEBBY WINTER FOR CHELSY
[2019-01-26 19:47] LABS: ALANINE AMINOTRANSFERASE 15 U/L (12-78); ALBUMIN 2.3 g/dL (3.4-5.0); ALKALINE PHOSPHATASE 104 U/L (46-116); ASPARTATE AMINOTRANSFERASE 21 U/L (15-37); BILIRUBIN,TOTAL 0.3 mg/dL (0.2-1.0); TOTAL PROTEIN, SERUM 7.3 g/dL (6.4-8.2)
--- NOTE | 2019-01-26 20:32 | NUR ---
CALLED [employer] CREDIT VERIFICATION CLERK DOCTOR PAGED
--- NOTE | 2019-01-26 20:47 | NUR ---
FREDDY BED 118-1, NURSE GRANT FOR REPORT
[2019-01-26 21:11] LABS: BAND % (MANUAL) 4 % (0.0-5.0); LYMPHOCYTES % (MANUAL) 10 % (16-48); METAMYELOCYTES % 4 % (0-0); MONOCYTES % (MANUAL) 3 % (0-11.0); NEUTROPHILS % (MANUAL) 79 (42-76)
--- NOTE | 2019-01-26 21:23 | NUR ---
PT BLOOD IS NOT READY YET, ENDORSED TO INPATIENT NURSE. CONSENT SIGNED BY DR. ARRIAGA ER PHYSICIAN
--- NOTE | 2019-01-26 21:23 | NUR ---
REPORT GIVEN TO MOY LAY FOR CHELSY; PT WILL BE TRANSPORTED VIA ACLS PROTOCOL
--- NOTE | 2019-01-26 21:35 | NUR ---
RN ADMITTING NOTES ADMITTED PT FROM ER VIA GURNEY, PT IS NONVERBAL, OBTUNDED. WITH INTACT SHILEY XLT ON MECH VENT, NO SOB NOTED. GTUBE CLAMPED, INTACT AND IN PLACED. RCHEST WALL HD CATH C/D/I. LTHUMB G20 AND LHAND G22 PATENT, C/D/I. NO OVERT BLEEDING NOTED. VS TAKEN AND PHYSICAL ASSESSMENT DONE. SAFETY MEASURES AND ASPIRATION PRECAUTION IN PLACED. WILL CONT TO MONITOR PER GALA LYONS RN, PT FOR 1UNIT RBC BLOOD TRANSFUSION, ER MD SIGNED CONSENT. AWAITING FOR BLOOD. NOTIFIED CHRISTOPHE MORRISSEY FOR ADMITTING ORDERS
[2019-01-26 21:47] LABS: THYROID STIMULATING HORMONE 2.273 uIU/mL (0.358-3.74)
[2019-01-26] MEDS ORDERED: Z GUARD REMEDY 2 OZ OINT TP PRN (23:00)
[2019-01-27] VITALS (9 sets, daily range): BP systolic 120–167; BP diastolic 43–68
[2019-01-27] MEDS ORDERED: NEPRO VAN 237 ML CAN GT SCH
[2019-01-27] MEDS ORDERED: NEPRO 1,000 ML BOTTLE GT PRN
--- NOTE | 2019-01-27 03:01 | NUR ---
MOY NOTES CLARIFIED WITH CHRISTOPHE MORRISSEY ORDER FOR BLOOD TRANSFUSION. PER CHRISTOPHE MORRISSEY, JUST TRANSFUSE 1 UNIT RBC AND CONT TUBE FEEDING Addendum: 01/27/19 at 0303 by ALIREZA DIEZ RN ENTRY FOR 2300
--- NOTE | 2019-01-27 04:00 | NUR ---
RN NOTES PT'S DIRSO=682.2, COOLING MEASURES PROVIDED. WILL CONT TO MONITOR
[2019-01-27 04:52] LABS: FERRITIN 2853 ng/mL (8-388)
--- NOTE | 2019-01-27 05:00 | NUR ---
RN NOTES RECHECKED TEMPT= 98.2. WILL CONT TO MONITOR
[2019-01-27 05:21] LABS: IRON, SERUM 37 ug/dl (50-175)
--- NOTE | 2019-01-27 06:00 | NUR ---
RN NOTES PT'S TEMPT= 98.6
--- NOTE | 2019-01-27 06:40 | NUR ---
RN NOTES PT IN STABLE CONDITION. NO ACUTE CHANGES THROUGHOUT SHIFT. NO OVERT BLEEDING NOTED. SAFETY MEASURES AND ASPIRATION PRECAUTION OBSERVED AT ALL TIMES. ALL NEEDS ANTICIPATED. ENDORSED TO AM RN FOR CHELSY
[2019-01-27 07:08] LABS: TOTAL IRON BINDING CAPACITY 129 ug/dl (250-450)
[2019-01-27 07:28] LABS: BASOPHILS % (AUTO) 0.4 % (0.0-2.0); EOSINOPHILS % (AUTO) 0.7 % (0.0-6.0); HEMATOCRIT 22 % (33-45); HEMOGLOBIN 7.5 g/dL (11.5-14.8); LYMPHOCYTES # (AUTO) 1.4 /CMM (0.8-4.8); LYMPHOCYTES % (AUTO) 15.3 % (20.0-44.0); MEAN CORPUSCULAR HGB CONC 34 g/dl (31.0-36.0); MEAN CORPUSCULAR VOLUME 96 fL (82-100); MONOCYTES # (AUTO) 0.4 /CMM (0.1-1.30); MONOCYTES % (AUTO) 4.5 % (2.0-12.0); NEUTROPHILS # (AUTO) 7.4 /CMM (1.8-8.9); NEUTROPHILS % (AUTO) 79.1 % (43.0-81.0); PLATELET COUNT (AUTO) 355 /CMM (150-450); RED BLOOD CELL COUNT(AUTO) 2.31 MIL/uL (4.0-5.2); WHITE BLOOD COUNT (AUTO) 9.4 K/uL (4.3-11.0)
--- NOTE | 2019-01-27 07:31 | NUR ---
telesales team leader note received patient in bed , awake but obtunded with trach to Vent setting as ordered . Ambu bag at hob at all time , sat 100% . with g tube feeding as ordered tolerated well ,lt thumb and lt hand hl intact , rt cw hd cath in place , bed in lowest and locked position , call light within reach. will cont to monitor closely
[2019-01-27 07:43] LABS: CALCIUM, SERUM 9.1 mg/dL (8.5-10.1); CREATININE 2.5 mg/dL (0.6-1.3); MAGNESIUM 2.6 mg/dL (1.8-2.4); PHOSPHORUS 2.3 mg/dL (2.5-4.9); POTASSIUM 3.5 mmol/L (3.5-5.1)
[2019-01-27 08:06] LABS: BAND % (MANUAL) 4 % (0.0-5.0); EOSINOPHILS % (MANUAL) 1 % (0-4); LYMPHOCYTES % (MANUAL) 14 % (16-48); MONOCYTES % (MANUAL) 6 % (0-11.0); MYELOCYTES % 2 % (0-0); NEUTROPHILS % (MANUAL) 73 (42-76)
[2019-01-27] MEDS: CALCITRIOL 0.25 MCG CAPSULE GT SCH (08:54)
[2019-01-27] MEDS: ZINC SULFATE 220 MG CAPSULE GT SCH (08:54)
[2019-01-27] MEDS: LACTULOSE 10 G/15 ML UDC (PYXIS) GT SCH (08:55)
[2019-01-27] MEDS: glipiZIDE 10 MG TABLET GT SCH ×2 (08:55→21:35)
[2019-01-27] MEDS: FERROUS SULFATE UDC 300 MG/5 ML UDC GT SCH ×2 (08:55→17:04)
[2019-01-27] MEDS: PANTOPRAZOLE 40 MG/PACK PACK GT SCH ×2 (08:55→17:04)
[2019-01-27] MEDS ORDERED: DEXTROSE 50%-WATER 50 ML DISP.SYRIN IV PRN (09:30)
--- NOTE | 2019-01-27 09:31 | NUR ---
ASHLEY WINTER NOTE NOTED T 100.2 COOLING MEASURE PROVIDED . ALSO SPOKE WITH CORINA WINTER VIBRATORY PILE DRIVER NOTIFIED THAT TYLENOL WAS HOLD AND BLOOD SUGAR FROM LAB TODAY 303 MG\DL ,ORDERED TYLENOL AND MOD SLIDING SCALE .WILL F\U Addendum: 01/27/19 at 1055 by CYDNEY HELMS RN TURN ,REPOSITION DONE, KEEP CLEAN DRY
[2019-01-27] MEDS: ACETAMINOPHEN 650 MG/20.3 ML UDC GT PRN (09:37)
[2019-01-27] MEDS ORDERED: NEUTRA PHOS 1 POWD.PACKET NG ONE (11:30)
[2019-01-27] MEDS: INSULIN REGULAR, HUMAN 100 UNIT/ML 3 ML VIAL SQ PRN ×2 (11:43→17:32)
[2019-01-27] MEDS: BLOOD SUGAR DIAGNOSTIC 1 EACH STRIP IN SCH ×2 (11:56→17:35)
--- NOTE | 2019-01-27 11:56 | NUR ---
ASHLEY WINTER NOTE BLOOD SUGAR 508 MG\DL REPEATED. CALLED TO CORINA WINTER DYNAMIC ETCHING PROCESSOR OK TO CONT TO GIVE 15 UNITES INSULIN FROM SLIDING SCALE AND NO NEW ORDER AT THIS TIME Addendum: 01/27/19 at 1159 by CYDNEY HELMS RN T 97.8 AT THIS TIME
[2019-01-27] MEDS: CLONIDINE HCL 0.1 MG TABLET GT PRN (12:02)
--- NOTE | 2019-01-27 12:07 | NUR ---
RECRUITER SPECIALIST NOTE BP 167/68 CLONIDINE 0.1 MG VIA G TUBE GIVEN. WILL CONT TO MONITOR CLOSELY
[2019-01-27] MEDS ORDERED: EPOETIN ALFA (10,000 UNIT) 10,000 UNIT/ML VIAL IV ONE (12:30)
--- NOTE | 2019-01-27 12:49 | NUR ---
public safety telecommunicator note per dr cook Epogen will be given with hd today ,will f\u
--- NOTE | 2019-01-27 13:30 | NUR ---
telephone diaphragm assembler note hd started as ordered
--- NOTE | 2019-01-27 15:42 | NUR ---
telecom network manager note per [facility] lab patient has mrsa swab , placed on isolation per protocol. Denny ramos rn senior benefits specialist notified with order Bactroban oint bid , order carried out
--- NOTE | 2019-01-27 15:50 | NUR ---
ANIMAL CYTOLOGIST NOTE HD COMPLETED, 1100 ML OF FLUIDS REMOVED, BP 110/30 P 92
[2019-01-27] MEDS: MUPIROCIN OINT 2% 22 GM TUBE TP SCH (17:04)
[2019-01-27 17:14] LABS: OCCULT BLOOD STOOL POSITIVE (NEGATIVE)
--- NOTE | 2019-01-27 17:37 | NUR ---
EMBROIDERY ASSISTANT NOTE BLOOD SUGAR 310 MG]\ DL ,12 UNITS INSULIN COVERAGE DONE ORDERED , STOOL FOR OB COLLECTED ORDERED , KEEP CLEAN DRY , ALL NEEDS ATTENDED
--- NOTE | 2019-01-27 18:40 | NUR ---
FOOD STAND MANAGER NOTE PATIENT RESTING COMFORTABLY AT THIS TIME. WITH VENT SETTING ORDERED, AMBU BAG AT HOB , RUNNING G TUBE FEEDING FOR 16 HOUR ORDERED KEEP HOB ELEVATED AT ALL TIME, NO RESIDUAL NOTED, WILL CONT TO MONITOR CLOSELY
--- NOTE | 2019-01-27 19:20 | NUR ---
HORTICULTURAL WORKER NOTE REPORT GIVEN BEDSIDE. PATIENT RECEIVED IN BED OBTUNDED. PATIENT ON TOLERATED VENT SETTINGS NO S/S OF RESP DISTRESS. PATIENT TURNED FOR COMFORT. PATIENT HR CONTROLLED AFIB ON THE MONITOR HR 110'S. MIDLINE PLACED IN ORLY. PATENT INTACT. RN WILL CONTINUE TO MONITOR. SAFETY PRECAUTIONS IN PLACE.
--- NOTE | 2019-01-27 20:03 | NUR ---
PATIENT RECEIVED ON TRACH TO VENT WITH SETTINGS OF AC 16, 500 VT, 40%, +5. SUCTIONED FOR MINIMAL, THIN, YELLOW SECRETIONS. AMBU BAG AT BEDSIDE. VENT AND PULSE OXIMETER ALARMS AUDIBLE AND VISIBLE. VENT PLUGGED INTO RED OUTLET. Addendum: 01/27/19 at 2004 by ENMANUEL ALEGRE RT Amended: Links added.
[2019-01-27] MEDS: INSULIN GLARGINE, 100 UNIT/ML CARTRIDGE SQ SCH (21:41)
[2019-01-28] VITALS (8 sets, daily range): BP systolic 118–150; BP diastolic 57–75
[2019-01-28] MEDS: INSULIN REGULAR, HUMAN 100 UNIT/ML 3 ML VIAL SQ PRN ×4 (00:10→18:33)
[2019-01-28] MEDS: BLOOD SUGAR DIAGNOSTIC 1 EACH STRIP IN SCH ×4 (00:11→18:04)
[2019-01-28] MEDS: ACETAMINOPHEN 650 MG/20.3 ML UDC GT PRN ×2 (00:15→11:49)
--- NOTE | 2019-01-28 00:43 | NUR ---
PLANE CAPTAIN NOTE PATIENT NOTED TO BE FEBRILE TYLENOL 650 MG GIVEN AND COOLING MEASURES IMPLEMENTED. RN WILL CONTINUE TO MONITOR. MD AWARE OF PT FEVER, BLOOD CULTURE PENDING Addendum: 01/28/19 at 0045 by HERMINIA GODOY RN Amended: Links added.
[2019-01-28] MEDS: MUPIROCIN OINT 2% 22 GM TUBE TP SCH ×2 (06:32→18:04)
[2019-01-28 06:56] LABS: BASOPHILS % (AUTO) 0.4 % (0.0-2.0); EOSINOPHILS % (AUTO) 0.7 % (0.0-6.0); HEMATOCRIT 23 % (33-45); HEMOGLOBIN 7.7 g/dL (11.5-14.8); LYMPHOCYTES # (AUTO) 2.4 /CMM (0.8-4.8); LYMPHOCYTES % (AUTO) 24.4 % (20.0-44.0); MEAN CORPUSCULAR HGB CONC 34 g/dl (31.0-36.0); MEAN CORPUSCULAR VOLUME 95 fL (82-100); MONOCYTES # (AUTO) 0.5 /CMM (0.1-1.30); MONOCYTES % (AUTO) 5.5 % (2.0-12.0); NEUTROPHILS # (AUTO) 6.8 /CMM (1.8-8.9); PLATELET COUNT (AUTO) 315 /CMM (150-450); RED BLOOD CELL COUNT(AUTO) 2.38 MIL/uL (4.0-5.2); WHITE BLOOD COUNT (AUTO) 9.8 K/uL (4.3-11.0)
[2019-01-28 07:16] LABS: CREATININE 2.8 mg/dL (0.6-1.3); MAGNESIUM 2.5 mg/dL (1.8-2.4); PHOSPHORUS 2.1 mg/dL (2.5-4.9); POTASSIUM 3.3 mmol/L (3.5-5.1)
[2019-01-28 07:25] LABS: BAND % (MANUAL) 6 % (0.0-5.0); LYMPHOCYTES % (MANUAL) 21 % (16-48); MONOCYTES % (MANUAL) 5 % (0-11.0); NEUTROPHILS % (MANUAL) 62 (42-76)
[2019-01-28 07:26] LABS: METAMYELOCYTES % 2 % (0-0); MYELOCYTES % 4 % (0-0)
[2019-01-28] MEDS: LACTULOSE 10 G/15 ML UDC (PYXIS) GT SCH (09:00)
--- NOTE | 2019-01-28 10:05 | NUR ---
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 INCONTINENCE ASSOCIATED SKIN DAMAGE NOTED TO RT LOWER BUTTOCK OVER SCARRING, AND LEFT GREAT TOE AMPUTATION SCAR NOTED, PRESENT ON ADMISSION. SOME LEAKAGE NOTED AROUND G TUBE SITE. PT IS INCONTINENT OF LOOSE STOOL. PT IS VENT-DEPENDENT. RECOMMENDATIONS MADE FOR WOUND CARE AND SKIN PROTECTION. RECOMMEND SURGICAL CONSULT. DR KAVYA AGUILAR NOTIFIED OF CONSULT REQUEST. WILL SEE PRRanda TRIPLETT IN AGREEMENT WITH PLAN OF CARE. PT ON BEATRICE ISOFLEX LOW AIRLOSS BED. CURRENT DEBBY SCORE IS 10. Addendum: 01/28/19 at 1008 by PRASHANTH ADAN WNDNU Amended: Links added.
[2019-01-28] MEDS: FERROUS SULFATE UDC 300 MG/5 ML UDC GT SCH ×2 (10:51→16:40)
[2019-01-28] MEDS: CALCITRIOL 0.25 MCG CAPSULE GT SCH (10:52)
[2019-01-28] MEDS: PANTOPRAZOLE 40 MG/PACK PACK GT SCH ×2 (10:52→16:40)
[2019-01-28] MEDS: ZINC SULFATE 220 MG CAPSULE GT SCH (10:52)
[2019-01-28] MEDS: glipiZIDE 10 MG TABLET GT SCH ×2 (10:52→21:39)
--- NOTE | 2019-01-28 11:00 | NUR ---
RN NOTE SPOKE WITH DR VITAL REGARDING POTASSIUM 3.3, NO NEW ORDERS, PHARMACY AWARE. WILL MONITOR.
[2019-01-28] MEDS: NEPRO 1,000 ML BOTTLE GT PRN (11:49)
[2019-01-28] MEDS ORDERED: NEUTRA PHOS 1 POWD.PACKET GT ONE (12:00)
[2019-01-28] MEDS: DAKINS QUARTER STRENGTH (0.125%) 480 ML BOTTLE TOP SCH (14:05)
--- NOTE | 2019-01-28 16:00 | NUR ---
RN NOTE PT NOTED TO HAVE FEVER, MOTOR VEHICLE CLERK JOHN NOTIFIED, HE ORDERED TO DO BLOOD CULTURES, AND URINE CULTURE, AND MONITOR FEVER. COOLING MEASURES INITIATED, WILL MONITOR CLOSELY.
--- NOTE | 2019-01-28 19:30 | NUR ---
ICE SKATING COACH NOTE REPORT GIVEN BEDSIDE. PATIENT RECEIVED IN BED OBTUNDED. PATIENT ON TOLERATED VENT SETTINGS NO S/S OF RESP DISTRESS. PATIENT TURNED FOR COMFORT. PATIENT SR ON THE MONITOR HR 90'S. MIDLINE IN ORLY PATENT INTACT NO S/S OF INFECTION. PATENT INTACT. RN WILL CONTINUE TO MONITOR. SAFETY PRECAUTIONS IN PLACE.
[2019-01-28] MEDS: INSULIN GLARGINE, 100 UNIT/ML CARTRIDGE SQ SCH (21:48)
[2019-01-29] VITALS (8 sets, daily range): BP systolic 129–161; BP diastolic 50–88
[2019-01-29] MEDS: BLOOD SUGAR DIAGNOSTIC 1 EACH STRIP IN SCH ×5 (00:53→23:17)
[2019-01-29] MEDS: MUPIROCIN OINT 2% 22 GM TUBE TP SCH ×2 (05:48→18:02)
[2019-01-29] MEDS: INSULIN REGULAR, HUMAN 100 UNIT/ML 3 ML VIAL SQ PRN ×4 (05:51→23:17)
[2019-01-29 06:28] LABS: BASOPHILS # (AUTO) 0.1 /CMM (0.0-0.2); BASOPHILS % (AUTO) 0.6 % (0.0-2.0); EOSINOPHILS % (AUTO) 1.5 % (0.0-6.0); HEMATOCRIT 22 % (33-45); HEMOGLOBIN 7.5 g/dL (11.5-14.8); LYMPHOCYTES # (AUTO) 2.2 /CMM (0.8-4.8); LYMPHOCYTES % (AUTO) 23.7 % (20.0-44.0); MEAN CORPUSCULAR HGB CONC 35 g/dl (31.0-36.0); MEAN CORPUSCULAR VOLUME 95 fL (82-100); MONOCYTES # (AUTO) 0.5 /CMM (0.1-1.30); MONOCYTES % (AUTO) 5.5 % (2.0-12.0); NEUTROPHILS # (AUTO) 6.4 /CMM (1.8-8.9); NEUTROPHILS % (AUTO) 68.7 % (43.0-81.0); PLATELET COUNT (AUTO) 323 /CMM (150-450); WHITE BLOOD COUNT (AUTO) 9.3 K/uL (4.3-11.0)
--- NOTE | 2019-01-29 06:30 | NUR ---
ITEM REPAIR MANAGER NOTE NO ACUTE CHANGES THROUGH THE SHIFT, NO S/S OF DISTRESS. ALL NEEDS MET, MEDS GIVEN ORDERED. ENDORSED POC TO AM FOR CHELSY. HR SR IN THE 90'S NO S/S OF RESP DISTRESS. SAFETY PRECAUTIONS IN PLACE .
[2019-01-29 06:40] LABS: CALCIUM, SERUM 9.4 mg/dL (8.5-10.1); CREATININE 3.6 mg/dL (0.6-1.3); POTASSIUM 3.3 mmol/L (3.5-5.1)
[2019-01-29 06:50] LABS: MAGNESIUM 2.6 mg/dL (1.8-2.4)
--- NOTE | 2019-01-29 07:39 | NUR ---
RT Pt received trached on the vent with noted settings. Pt is awake but does not seem to follow commands. Vent alarms are set and audible with BVM on bedside. DRUG ABUSE PROGRAM COORDINATOR cuff pressure noted. Vent is plugged into red outlet. No respiratory distress noted at this time. Addendum: 01/29/19 at 1400 by ALEXIS MARCELO RT Amended: Links added.
--- NOTE | 2019-01-29 07:44 | NUR ---
RN/ MS NOTES RECEIVED PATIENT IN BED AWAKE BUT OBTUNDED, OPEN EYES, ON HEMODYLAYSIS CURRENTLY, ON VENTILATOR TO TRACHE WITH ORDERED SETTINGS, NOTED RR 27, TELE MONITOR SINUS TACHY AT 119, WILL MONITOR. ON G TUBE FEEDING, AT 40CC/H L THUMB HAS A 22, L HAND HAS A 20, ORLY HD CATH ALL FLUSHING WELL, AND HD CATH BRUIT AND THRILL NOTED. BED LOCKED IN LOWEST POSITION, CALL LIGHT W/IN REACH, POC DISCUSSED WITH PATIENT.
--- NOTE | 2019-01-29 08:28 | NUR ---
inpatient coder Notes Reported to Marcin Employment Specialist that hg is 7.5 patient on hd at this time and breathing is labored 27, on telemonitor st hr 124 stated no new order at this time
[2019-01-29] MEDS: LACTULOSE 10 G/15 ML UDC (PYXIS) GT SCH (08:33)
[2019-01-29] MEDS: PANTOPRAZOLE 40 MG/PACK PACK GT SCH ×2 (08:34→16:42)
[2019-01-29] MEDS: CALCITRIOL 0.25 MCG CAPSULE GT SCH (08:34)
[2019-01-29] MEDS: ZINC SULFATE 220 MG CAPSULE GT SCH (08:34)
[2019-01-29] MEDS: ACETAMINOPHEN 650 MG/20.3 ML UDC GT PRN ×2 (08:34→20:42)
[2019-01-29] MEDS: glipiZIDE 10 MG TABLET GT SCH ×2 (08:34→20:01)
[2019-01-29] MEDS: FERROUS SULFATE UDC 300 MG/5 ML UDC GT SCH ×2 (08:35→16:42)
[2019-01-29] MEDS: DAKINS QUARTER STRENGTH (0.125%) 480 ML BOTTLE TOP SCH (08:45)
--- NOTE | 2019-01-29 08:55 | NUR ---
TELE/RN NOTES TYLENLOL GIVEN 650MG VIA G-TUBE, FOR FEVER OF 101.8. WILL CONTINUE TO MONITOR.
--- NOTE | 2019-01-29 10:01 | NUR ---
TELE/RN NOTES HEMODLYASIS COMPLETED, 126/53, HR 97, 100% O2, TEMP: 99.3. 1 LITER OF FLUID OUT. DR. AGUILAR CALLED WITH ORDER TO GET CONSENT FOR INCISIONAL DEBRIDEMENT LEFT HIP AND SACRAL.
[2019-01-29] MEDS ORDERED: CELLULOSE,OXIDIZED 1 EA PACK MC ONE (10:30)
[2019-01-29] MEDS ORDERED: CELLULOSE,OXIDIZED 1 PKT EACH MC ONE (10:30)
[2019-01-29] MEDS ORDERED: SILVER NITRATE APPLICATOR 1 EA BOX TP ONE (10:30)
--- NOTE | 2019-01-29 11:10 | NUR ---
DELINQUENCY COUNSELOR NOTE PER DR LAUREN ASHTON TO MARIA DOLORES G TUBE FEEDING AT THIS TIME CONSENT DONE , SPOKE WITH TRESSA DAUGHTER FOR SACRAL AND LR HIP DEBRIDEMENT
[2019-01-29] MEDS ORDERED: LIDOCAINE 1%-EPI 1:100,000 20 ML VIAL TP ONE (17:00)
--- NOTE | 2019-01-29 17:56 | NUR ---
TELE/RN NOTES DR. AGUILAR SURGEON AND ELANA RN. PATTERN WORKER, AT BEDSIDE DEBRIDEMENT DONE ON SACRAL AND L-HIP, PATIENT CLEANED AND DRIED REPOSITIONED WILL CONTINUE TO MONITOR.
--- NOTE | 2019-01-29 18:08 | NUR ---
SENIOR QUALITY TECHNICIAN NOTE SURECELL WAS NOT USED BY ,RETURN TP PHARMACY
--- NOTE | 2019-01-29 18:53 | NUR ---
BUNDLER SEASONAL GREENERY NOTES PATIENT OBTUNDED OPEN EYES SOMETIMES. HAS A TRACH PRESENT WITH VENTILATOR ON ORDERED SETTINGS. SATURATION IS 100%. VITAL SIGNS STABLE, HEART RATE IS AT 92. IV ACCESS IN THUMB AND ORLY MIDLINE BOTH W/O S/S OF INFECTION OR INFILTRATION. COOLING MEASURES USED FOR FEVER AND CONTROLLED. BLOOD SUGAR MONITORED AND INSULIN GIVEN PER PROTOCOL. NEPRO FEEDING VIA G TUBE @ 40ML/H. PATIENT BED LOCKED IN LOWEST POSITION WITH BED ALARM ON. ENDORSED PATIENT TO NIGHT NURSE TO CONTINUE CARE AND MONITOR PRESCRIBED.
--- NOTE | 2019-01-29 19:15 | NUR ---
TELE/RN INITIAL NOTES RECEIVED PT IN BED, OBTUNDED. DTR AT BEDSIDE. SINUS TACHY 100S ON TELE. WITH INTA[facility], SPO2 100%. NO SOB NOTED. HOB ELEVATED. GTUBE INTACT AND IN PLACED. WITH ONGOING GTF NEPRO AT 40 ML/HR, TOLERATING WELL. RCW HD CATH, C/D/I. NOTED WITH PATENT ORLY MIDLINE AND LHAND G22 HEPLOCK, C/D/I. S/P WOUND DEBRIDEMENT, DRESSING INTACT AND NO PROFUSE BLEEDING ON SACRAL AND LEFT HIP WOUND. SAFETY MEASURES AND ASPIRATION PRECAUTION IN PLACED. WILL CONT TO MONITOR
--- NOTE | 2019-01-29 20:00 | NUR ---
RN NOTES NOTED PT FEBRILE WITH TEMPT OF 101.3, COOLING MEASURES PROVIDED. WILL ADMINISTER ANTIPYRETIC ORDERED. WILL CONT TO MONITOR PT
[2019-01-29] MEDS: ONDANSETRON HCL/PF 4 MG/2 ML VIAL IVP PRN (20:01)
--- NOTE | 2019-01-29 21:30 | NUR ---
RN NOTES RECHECKED PT'S TEMPT= 98.3. WILL CONT TO MONITOR PT
[2019-01-29] MEDS: INSULIN GLARGINE, 100 UNIT/ML CARTRIDGE SQ SCH (23:16)
[2019-01-29] MEDS: NEPRO 1,000 ML BOTTLE GT PRN (23:17)
[2019-01-30] VITALS (12 sets, daily range): BP systolic 109–170; BP diastolic 49–91
[2019-01-30] MEDS: ACETAMINOPHEN 650 MG/20.3 ML UDC GT PRN ×2 (03:26→16:12)
[2019-01-30] MEDS: BLOOD SUGAR DIAGNOSTIC 1 EACH STRIP IN SCH ×3 (05:56→17:53)
[2019-01-30] MEDS: INSULIN REGULAR, HUMAN 100 UNIT/ML 3 ML VIAL SQ PRN ×3 (05:57→17:52)
[2019-01-30] MEDS: MUPIROCIN OINT 2% 22 GM TUBE TP SCH ×2 (05:58→17:40)
[2019-01-30 06:26] LABS: BASOPHILS % (AUTO) 0.3 % (0.0-2.0); EOSINOPHILS % (AUTO) 0.7 % (0.0-6.0); LYMPHOCYTES % (AUTO) 20.1 % (20.0-44.0); MEAN CORPUSCULAR HGB CONC 34 g/dl (31.0-36.0); MEAN CORPUSCULAR VOLUME 96 fL (82-100); MONOCYTES # (AUTO) 0.6 /CMM (0.1-1.30); MONOCYTES % (AUTO) 6.4 % (2.0-12.0); NEUTROPHILS # (AUTO) 7.1 /CMM (1.8-8.9); NEUTROPHILS % (AUTO) 72.5 % (43.0-81.0); PLATELET COUNT (AUTO) 308 /CMM (150-450); RED BLOOD CELL COUNT(AUTO) 2.07 MIL/uL (4.0-5.2); WHITE BLOOD COUNT (AUTO) 9.7 K/uL (4.3-11.0)
[2019-01-30 06:38] LABS: CALCIUM, SERUM 8.7 mg/dL (8.5-10.1); POTASSIUM 3.3 mmol/L (3.5-5.1)
[2019-01-30 06:46] LABS: HEMATOCRIT 20 % (33-45); HEMOGLOBIN 6.7 g/dL (11.5-14.8)
--- NOTE | 2019-01-30 06:50 | NUR ---
RN NOTES PT IN STABLE CONDITION. NO ACUTE CHANGES THROUGHOUT SHIFT. ALL NEEDS ANTICIPATED, SAFETY MEASURES OBSERVED AT ALL TIMES. RECEIVED CRIT LAB H/H: 6.7, INSULATION WORKER INTERIOR SURFACE TAHMINA BADILLO NOTIFIED. AWAITING FOR ORDERS. ENDORSE TO AM RN TO FOLLOW UP AND FOR CHELSY
--- NOTE | 2019-01-30 07:05 | NUR ---
RATING SPECIALIST OPENING NOTES RECEIVED PT LYING ON BED,OBTUNDED.ON MECH VENT.ON TEL HR IS 80 WITH SR.NO SOB AND ACUTE DISTRESS NOTED.ON G TUBE FEEDING WITH NEPRO @45ML/HR.MINIMAL GASTRIC RESIDUAL NOTED.MIDLINE IS ON ORLY AND IV LINE IS ON LEFT HAND G22,SITE IS CLEAN,DRY AND INTACT.NO INFILTRATION NOTED.NO PAIN NOTED FOR NOW.SAFETY IS MAINTAINED AT ALL TIMES.BED IS IN LOW POSITION AND LOCKED.SIDE RAILS UP X2.CALL LIGHT IS WITHIN REACH.WILL CONTINUE TO MONITOR THE PT CLOSELY AND MONITOR FOR ACTIVE BLEEDING.
[2019-01-30 07:54] LABS: BAND % (MANUAL) 9 % (0.0-5.0); EOSINOPHILS % (MANUAL) 3 % (0-4); LYMPHOCYTES % (MANUAL) 22 % (16-48); MONOCYTES % (MANUAL) 7 % (0-11.0); NEUTROPHILS % (MANUAL) 59 (42-76)
[2019-01-30] MEDS: LACTULOSE 10 G/15 ML UDC (PYXIS) GT SCH (08:39)
[2019-01-30] MEDS: glipiZIDE 10 MG TABLET GT SCH ×2 (08:39→20:31)
[2019-01-30] MEDS: FERROUS SULFATE UDC 300 MG/5 ML UDC GT SCH ×2 (08:39→16:12)
[2019-01-30] MEDS: PANTOPRAZOLE 40 MG/PACK PACK GT SCH ×2 (08:40→16:12)
[2019-01-30] MEDS: CALCITRIOL 0.25 MCG CAPSULE GT SCH (08:40)
[2019-01-30] MEDS: ZINC SULFATE 220 MG CAPSULE GT SCH (08:41)
[2019-01-30] MEDS: PROSOURCE / PROSTAT (PYXIS) 30 ML UDC GT SCH (11:22)
[2019-01-30] MEDS: DAKINS QUARTER STRENGTH (0.125%) 480 ML BOTTLE TOP SCH (12:07)
--- NOTE | 2019-01-30 12:25 | NUR ---
GIS SCIENTIST NOTES PT HAS DONE WITH BLOOD TRANSFUSION 285ML,PT TOLERATED WELL.VITAL SIGNS ARE STABLE AND NO ACTIVE ALLERGIC REACTIONS NOTED.
--- NOTE | 2019-01-30 12:25 | NUR ---
LEASE OUT MAN NOTES CLARIFIED WITH DR.HANNEN FOWLER TO OBTAIN THE ORDERS FOR TO REPEAT HEMOGLOBIN AND HEMATOCRIT S/P BLOOD TRANSFUSION,SAID WILL DO TOMORROW AM.
[2019-01-30] MEDS ORDERED: FEE PK DOSING 1 MIN EA MC ONE (16:58)
[2019-01-30] MEDS ORDERED: VANCOMYCIN 500 MG in IV D5W 100 ML IV PRN (17:00)
[2019-01-30] MEDS: SUCRALFATE 1 G/10 ML UDC GT SCH ×2 (17:40→22:23)
[2019-01-30] MEDS ORDERED: VANCOMYCIN 1 GM in IV D5W 250 ML IV ONE (18:00)
[2019-01-30] MEDS: MEROPENEM 500 MG in IV NS 0.9% 50 ML IV SCH (18:24)
--- NOTE | 2019-01-30 18:35 | NUR ---
RN HOMECARE CLOSING NOTES PT IS LYING ON BED,OBTUNDED.ON MECH VENT.ON TEL HR IS 78 WITH SR.NO SOB AND ACUTE DISTRESS NOTED.ON G TUBE FEEDING WITH NEPRO @40ML/HR.MINIMAL GASTRIC RESIDUAL NOTED.MIDLINE IS ON ORLY AND IV LINE IS ON LEFT HAND G22,SITE IS CLEAN,DRY AND INTACT.NO INFILTRATION NOTED.NO PAIN NOTED FOR NOW.SAFETY IS MAINTAINED AT ALL TIMES.BED IS IN LOW POSITION AND LOCKED.SIDE RAILS UP X2.CALL LIGHT IS WITHIN REACH.S/P 1 UNIT OF BLOOD TRANSFUSION IS DONE AND CONTINUE TO MONITOR THE H/H IN AM.NO SIGNIFICANT CHANGES NOTED IN THE SHIFT.RESPIRATIONS EVEN AND NONLABORED.WILL ENDORSE TO BANDAGE WRAPPING MACHINE OPERATOR RN FOR CHESLY.
--- NOTE | 2019-01-30 19:10 | NUR ---
TELE/RN INITIAL NOTES RECEIVED PT IN BED, OBTUNDED. SR 80S ON TELE. WITH INTACT SHILEY XLT ON MECH VENT, SPO2 100%. NO SOB NOTED. HOB ELEVATED. GTUBE INTACT AND IN PLACED. WITH ONGOING GTF NEPRO AT 40 ML/HR, TOLERATING WELL. RCW HD CATH, C/D/I. NOTED WITH PATENT ORLY MIDLINE AND LHAND G22 HEPLOCK, C/D/I. SAFETY MEASURES AND ASPIRATION PRECAUTION IN PLACED. WILL CONT TO MONITOR
[2019-01-30] MEDS: INSULIN GLARGINE, 100 UNIT/ML CARTRIDGE SQ SCH (22:24)
[2019-01-31] VITALS (33 sets, daily range): BP systolic 97–158; BP diastolic 47–103
--- NOTE | 2019-01-31 | NUR ---
RN NOTES PT'S SLDVR=515.3, WILL ADMINISTER PRN ACETAMINOPHEN ORDERED. COOLING MEASURES PROVIDED. WILL CONT TO MONITOR PT
[2019-01-31] MEDS: ACETAMINOPHEN 650 MG/20.3 ML UDC GT PRN ×3 (00:36→12:21)
[2019-01-31] MEDS: INSULIN REGULAR, HUMAN 100 UNIT/ML 3 ML VIAL SQ PRN ×2 (00:39→23:02)
[2019-01-31] MEDS: BLOOD SUGAR DIAGNOSTIC 1 EACH STRIP IN SCH ×5 (00:41→23:02)
--- NOTE | 2019-01-31 02:00 | NUR ---
RN NOTES PT'S TEMPT=99.8
[2019-01-31] MEDS: NEPRO 1,000 ML BOTTLE GT PRN (03:11)
--- NOTE | 2019-01-31 04:30 | NUR ---
RN NOTES NOTED PT SINUS TACHY HR ON 140S, NOTED PT DESATTING ON 70S WITH LABORED BREATHING. PT IS TACHYPNEIC 34-36. CN ELFEGO AT BEDSIDE. RT, CYNTHIA AT BEDSIDE. CHECKED ALL VENT SETTINGS, PT WAS SUCTIONED AND FIO2 WAS INCREASED TO 100%. ROLLER PNEUMATIC TAHMINA BADILLO AT BEDSIDE. ICU CHOPPING MACHINE OPERATOR RENEE WAS NOTIFIED. 0450 BS=94, GTF HELD FOR NOW. OPERATING ROOM RNAPOLONIA AT BEDSIDE. PT STILL NOTED IN DISTRESS, TACHYPNEIC AND TACHYCARDIC. SPOKE WITH RACHNA BADILLO TOGETHER WITH ICU CHOPPING MACHINE OPERATOR, RENEE. ABG, LABS, EKG, CXR AND TRANSFER TO ICU WAS ORDERED. VS FOLLOWS: T:101.3; P:142; R:36; BP:157/92; SPO2 100% ON 100%FIO2. RN NOTES [address] ON MONITOR 140'S. PATIENT ON VENT; NOTED WITH O2 SAT ON HIGH 70'S; HAD A FEVER EARLIER TYLENOL WAS GIVEN. PATIENT ALSO TACHYPNEIC AT 30-36. RT, CYNTHIA AT BEDSIDE. BUMPED UP TO 100%FI02. BP 183/69. CALLED OPERATING ROOM RN AND PAGED EPIC. 0450 BS TAKEN 94; GT FDG TURNED OFF FOR NOW; CONTINUE TO BE TACHYPNEIC; ABG AND EKG ORDERED. CXR ALSO ORDERED; RADIOLOGY DEPT NOTIFIED. TAHMINA BADILLO NP SPOKE TO PRIMARY RN ALIREZA AND ICU CHOPPING MACHINE OPERATORGENIE WINTER. V/S 157/92- 141- 36-101.3 TEMP. STILL ON 100% FI02. WILL TRANSFER PATIENT TO ICU. AIRCRAFT PNEUDRAULIC SYSTEMS MECHANIC, RASHIDA MADE AWARE. CALLED ICU FOR BED.
--- NOTE | 2019-01-31 05:00 | NUR ---
RN NOTES REPORT GIVEN TO CHARGE AUTHORIZER. GENIE. PT TRANSFERRED TO ICU VIA ACLS PROTOCOL, PRIMARY RN, RT, AND CN GENIE FOLLOWING
--- NOTE | 2019-01-31 05:01 | NUR ---
RN NOTES [address] ON MONITOR 140'S. PATIENT ON VENT; NOTED WITH O2 SAT ON HIGH 70'S; HAD A FEVER EARLIER TYLENOL WAS GIVEN. PATIENT ALSO TACHYPNEIC AT 30-36. RT, CYNTHIA AT BEDSIDE. BUMPED UP TO 100%FI02. BP 183/69. CALLED FLYING I INSTRUCTOR AND PAGED EPIC. 0450 BS TAKEN 94; GT FDG TURNED OFF FOR NOW; CONTINUE TO BE TACHYPNEIC; ABG AND EKG ORDERED. CXR ALSO ORDERED; RADIOLOGY DEPT NOTIFIED. TAHMINA BADILLO NP SPOKE TO PRIMARY RN ALIREZA AND ICU ELEVATED WORK PLATFORM OPERATOR GENIE. V/S 157/92- 141- 36-101.3 TEMP. STILL ON 100% FI02. WILL TRANSFER PATIENT TO ICU. FOUR ROLL CALENDER OPERATOR, RASHIDA MADE AWARE. CALLED ICU FOR BED.
[2019-01-31 05:07] LABS: ABG BASE EXCESS -0.6 mmol/L; ABG OXYGEN SATURATION 99.3 % (92.0-98.5); ABG PCO2 30.7 mmHg (35.0-45.0); ABG PH 7.477 (7.350-7.450); ABG PO2 353.9 mmHg (75.0-100.0); AaDO2 328.4 mmHg; COHb 0.3 % (0.5-1.5); MetHb 0.7 % (0.0-1.5); O2Hb 98.3 % (94.0-97.0); PEEP,BG 5 cm H2O; SITE, ABG Right Radial; VT, ABG 550 mL
--- NOTE | 2019-01-31 05:10 | NUR ---
ICU/RN-PT. TRANSFERRED TO ICU BY BED PER ACLS PROTOCOL, ON CONTINUOUS BAGGING VIA TRACH BY RT CYNTHIA W/ CONTINUOUS EKG MONITORING . PT. OBTUNDED, NOT IN ANY DISTRESS, WAS IMMEDIATELY HOOKED UP TO THE TRAVELING SALES EXECUTIVE W/ HR-135, BP-132/79, SATS-100% , W/ TRACH SHILEY XLT#8 W/ SETTINGS AC-16,VT-550, FIO2-100%,PEEP+5. PT. IS A FULL CODE. TEMPT-101.9/F. WILL INITIATE CONTINUOUS COOLING MEASURES. PT. IS ON CONTACT ISOLATION FOR MRSA NARES.
[2019-01-31] MEDS: MEROPENEM 500 MG in IV NS 0.9% 50 ML IV SCH ×2 (05:18→17:02)
--- NOTE | 2019-01-31 05:18 | NUR ---
pt was transferred to ICU due to increase in HR. Addendum: 01/31/19 at 0519 by AL SIMPSON RT Amended: Links added.
--- NOTE | 2019-01-31 05:30 | NUR ---
RN NOTES BP = 163/83 Addendum: 01/31/19 at 0619 by ALIREZA DIEZ RN WRONG ENTRY
--- NOTE | 2019-01-31 05:40 | NUR ---
ICU/RN- ACNP Randa BADILLO NOTIFIED OF PT. ABGS, EKG AND LATEST CXR, WELL PT. RECENT BLOOD CULTURES AND ANTIBIOTIC. ALSO MADE AWARE OF PT. LATEST TEMPT.-101.9/AX, W/ PHONE ORDER. TO GIVE NS 500ML IV BOLUS.
[2019-01-31 05:42] LABS: BASOPHILS % (AUTO) 0.2 % (0.0-2.0); EOSINOPHILS % (AUTO) 1.6 % (0.0-6.0); HEMATOCRIT 24 % (33-45); LYMPHOCYTES % (AUTO) 10.5 % (20.0-44.0); MEAN CORPUSCULAR HGB CONC 34 g/dl (31.0-36.0); MEAN CORPUSCULAR VOLUME 92 fL (82-100); MONOCYTES # (AUTO) 0.3 /CMM (0.1-1.30); MONOCYTES % (AUTO) 2.7 % (2.0-12.0); PLATELET COUNT (AUTO) 322 /CMM (150-450); RED BLOOD CELL COUNT(AUTO) 2.56 MIL/uL (4.0-5.2); WHITE BLOOD COUNT (AUTO) 9.5 K/uL (4.3-11.0)
[2019-01-31] MEDS ORDERED: IV NS 0.9% 500 ML IV ONE (06:00)
[2019-01-31] MEDS: MUPIROCIN OINT 2% 22 GM TUBE TP SCH ×2 (06:10→17:03)
--- NOTE | 2019-01-31 06:22 | NUR ---
ICU/RN-REMAINS FEBRILE. T-102.7/F, CONTINUOUS COOLING MEASURES DONE, MEDICATED W/ TYLENOL 650MG/GT. WILL REASSESS FOR PRN EFFECTIVENESS.
[2019-01-31 06:24] LABS: CALCIUM, SERUM 9.4 mg/dL (8.5-10.1); CREATININE 3.5 mg/dL (0.6-1.3); MAGNESIUM 2.3 mg/dL (1.8-2.4); PHOSPHORUS 2.6 mg/dL (2.5-4.9); POTASSIUM 3.4 mmol/L (3.5-5.1)
--- NOTE | 2019-01-31 07:15 | NUR ---
LENS EXAMINER INITIAL NOTES RECEIVED PT IN BED, SLEEPING HOWEVER EASILY AROUSABLE TO TOUCH. PT OBTUNDED. NO SOB OR ACUTE SIGNS OF DISTRESS NOTED. BREATHING IS EVEN AND UNLABORED. PT TRACHED AND ON MECHANICAL VENT. VENT SETTINGS ASSESSED FOR ACCURACY. PT TOLERATING SETTINGS WELL. RIGHT UPPER ARM MIDLINE LINE NOTED TO BE C/D/I. NO REDNESS OR SIGNS OF INFILTRATION NOTED. RIGHT CHEST WALL HD CATH IN PLACE AND DRESSING SECURED AND CLEANED. GTUBE NOTED. PLACEMENT VERIFIED VIA AUSCULTATION. PT TOLERATING TUBE FEEDINGS WELL. NO RESIDUALS ASPIRATED AT THIS TIME. HOB ELEVATED, ASPIRATION PRECAUTIONS MAINTAINED. CHINO CATHETER NOTED TO BE C/D/I AND DRAINING TOP GRAVITY. PT NOTED TO BE FEBRILE AT THIS TIME WITH A CURRENT TEMP OF 101.3. WILL CONTINUE WITH COOLING MEASURES. BED IN LOW LOCKED POSITION, SIDE RAILS UP X3, WILL CONTINUE TO MONITOR
[2019-01-31] MEDS: LACTULOSE 10 G/15 ML UDC (PYXIS) GT SCH (08:46)
[2019-01-31] MEDS: SUCRALFATE 1 G/10 ML UDC GT SCH ×4 (08:46→21:41)
[2019-01-31] MEDS: FERROUS SULFATE UDC 300 MG/5 ML UDC GT SCH ×2 (08:47→17:02)
[2019-01-31] MEDS: PANTOPRAZOLE 40 MG/PACK PACK GT SCH ×2 (08:47→17:02)
[2019-01-31] MEDS: ZINC SULFATE 220 MG CAPSULE GT SCH (08:47)
[2019-01-31] MEDS: PROSOURCE / PROSTAT (PYXIS) 30 ML UDC GT SCH (08:47)
[2019-01-31] MEDS: DAKINS QUARTER STRENGTH (0.125%) 480 ML BOTTLE TOP SCH (09:16)
[2019-01-31] MEDS: CALCITRIOL 0.25 MCG CAPSULE GT SCH (09:16)
[2019-01-31] MEDS: glipiZIDE 10 MG TABLET GT SCH ×2 (09:16→21:41)
--- NOTE | 2019-01-31 18:30 | NUR ---
RCP NOTES: FLEXI SEAL PT NOTED WITH LIQUID STOOL POST LACTULOSE ADMINISTRATION. FLEXI SEAL INSERTED TO FURTHER PROTECT PT'S SACRAL WOUNDS
--- NOTE | 2019-01-31 19:03 | NUR ---
POST ANESTHESIA CARE UNIT NURSE CLOSING NOTES PT REMAINS STABLE. FIO2 TITRATED TO 45%. PT TOLERATING WELL. VSS. PT AFEBRILE WITH A CURRENT TEMP OF 98.9. FLEXI SEAL REMAINS INTACT. INVASIVE LINES C/D/I. PT REPOSITIONED AND TURNED PER PROTOCOL. PRN CARE RENDERED. SAFETY MEASURES IN PLACE. ENDORSED TO NIGHTSHIFT RN FOR CHELSY
--- NOTE | 2019-01-31 19:30 | NUR ---
OPERATIONS PROGRAM MANAGER NOTE RECEIVED PT IN BED SLEEPING BUT EASILY AROUSABLE TO LIGHT TOUCH. ON MECH VENT WITH SETTINGS WELL TOLERATED. HOB ELEVATED AND ON ASPIRATION PRECAUTIONS. ISOLATION PRECAUTIONS OBSERVED. TELE-SR 90'S. IV ORLY MIDLINE CLEAN AND PATENT. GT FEEDING WELL TOLERATED AND NO RESIDUALS NOTED. RECTAL TUBE IN PLACE AND DRAINING BY GRAVITY. WILL CONTINUE TO MONITOR.
[2019-01-31] MEDS: ERGOCALCIFEROL (VITAMIN D 2) 50,000 UNIT CAPSULE GT SCH (22:32)
[2019-01-31] MEDS: INSULIN GLARGINE, 100 UNIT/ML CARTRIDGE SQ SCH (23:00)
[2019-02-01] VITALS (42 sets, daily range): BP systolic 106–184; BP diastolic 30–99
[2019-02-01] MEDS: hydrALAZINE HCL 50 MG TABLET GT PRN ×3 (00:07→21:47)
[2019-02-01 04:27] LABS: BASOPHILS # (AUTO) 0.1 /CMM (0.0-0.2); BASOPHILS % (AUTO) 0.5 % (0.0-2.0); EOSINOPHILS % (AUTO) 2.1 % (0.0-6.0); HEMATOCRIT 22 % (33-45); HEMOGLOBIN 7.4 g/dL (11.5-14.8); LYMPHOCYTES # (AUTO) 1.8 /CMM (0.8-4.8); LYMPHOCYTES % (AUTO) 14.5 % (20.0-44.0); MEAN CORPUSCULAR HGB CONC 34 g/dl (31.0-36.0); MEAN CORPUSCULAR VOLUME 93 fL (82-100); MONOCYTES # (AUTO) 0.5 /CMM (0.1-1.30); MONOCYTES % (AUTO) 3.9 % (2.0-12.0); NEUTROPHILS # (AUTO) 9.7 /CMM (1.8-8.9); PLATELET COUNT (AUTO) 326 /CMM (150-450); RED BLOOD CELL COUNT(AUTO) 2.32 MIL/uL (4.0-5.2); WHITE BLOOD COUNT (AUTO) 12.3 K/uL (4.3-11.0)
[2019-02-01] MEDS: MEROPENEM 500 MG in IV NS 0.9% 50 ML IV SCH ×2 (04:33→16:55)
[2019-02-01] MEDS: NEPRO 1,000 ML BOTTLE GT PRN (04:34)
[2019-02-01 04:38] LABS: CALCIUM, SERUM 9.3 mg/dL (8.5-10.1); CREATININE 3.9 mg/dL (0.6-1.3); MAGNESIUM 2.4 mg/dL (1.8-2.4); PHOSPHORUS 2.5 mg/dL (2.5-4.9); POTASSIUM 3.5 mmol/L (3.5-5.1)
[2019-02-01] MEDS: BLOOD SUGAR DIAGNOSTIC 1 EACH STRIP IN SCH ×4 (05:50→23:09)
[2019-02-01] MEDS: MUPIROCIN OINT 2% 22 GM TUBE TP SCH ×2 (05:51→17:20)
[2019-02-01] MEDS: INSULIN REGULAR, HUMAN 100 UNIT/ML 3 ML VIAL SQ PRN ×4 (06:19→23:10)
[2019-02-01] MEDS: ACETAMINOPHEN 650 MG/20.3 ML UDC GT PRN ×2 (06:28→16:56)
--- NOTE | 2019-02-01 06:53 | NUR ---
HVAC DESIGN MECHANICAL ENGINEER NOTE PT REMAINED STABLE DURING SHIFT. NO ACUTE DISTRESS NOTED. VENT SETTINGS WELL TOLERATED. SUCTIONED NEEDED. ALL DUE MEDS GIVEN ORDERED AND WELL TOLERATED. ALL NEEDS ATTENDED TO PROMPTLY. REPOSITIONED Q2H. ISOLATION PRECAUTIONS MAINTAINED. NOTED WITH TEMP 99.6, GAVE TYLENOL AND STARTED COOLING MEASURES. WILL ENDORSE TO NEXT SHIFT FOR CONTINUITY OF CARE.
--- NOTE | 2019-02-01 07:05 | NUR ---
REPAIRER FINISHED METAL INITIAL NOTES RECEIVED PT IN BED, SLEEPING HOWEVER EASILY AROUSABLE TO TOUCH. PT OBTUNDED. NO SOB OR ACUTE SIGNS OF DISTRESS NOTED. BREATHING IS EVEN AND UNLABORED. PT TRACHED AND ON MECHANICAL VENT. VENT SETTINGS ASSESSED FOR ACCURACY. PT TOLERATING SETTINGS WELL. RIGHT UPPER ARM MIDLINE LINE NOTED TO BE C/D/I. NO REDNESS OR SIGNS OF INFILTRATION NOTED. RIGHT CHEST WALL HD CATH IN PLACE AND DRESSING SECURED AND CLEANED. GTUBE NOTED. PLACEMENT VERIFIED VIA AUSCULTATION. PT TOLERATING TUBE FEEDINGS WELL. NO RESIDUALS ASPIRATED AT THIS TIME. HOB ELEVATED, ASPIRATION PRECAUTIONS MAINTAINED. CHINO CATHETER NOTED TO BE C/D/I AND DRAINING TOP GRAVITY. PT AFEBRILE WITH A TEMP OF 98.7. VSS. BED IN LOW LOCKED POSITION, SIDE RAILS UP X3, WILL CONTINUE TO MONITOR
[2019-02-01] MEDS: FERROUS SULFATE UDC 300 MG/5 ML UDC GT SCH ×2 (08:09→16:54)
[2019-02-01] MEDS: SUCRALFATE 1 G/10 ML UDC GT SCH ×4 (08:09→21:45)
[2019-02-01] MEDS: ZINC SULFATE 220 MG CAPSULE GT SCH (08:09)
[2019-02-01] MEDS: PROSOURCE / PROSTAT (PYXIS) 30 ML UDC GT SCH (08:09)
[2019-02-01] MEDS: PANTOPRAZOLE 40 MG/PACK PACK GT SCH ×2 (08:09→16:54)
[2019-02-01] MEDS: glipiZIDE 10 MG TABLET GT SCH ×2 (08:09→21:45)
[2019-02-01] MEDS: LACTULOSE 10 G/15 ML UDC (PYXIS) GT SCH (08:10)
[2019-02-01] MEDS: DAKINS QUARTER STRENGTH (0.125%) 480 ML BOTTLE TOP SCH (09:00)
--- NOTE | 2019-02-01 09:00 | NUR ---
CONSULTING NETWORKING ENGINEER NOTES: LINE REMOVAL F/U DR NAVA CONTACTED IN REGARDS TO PT'S HD LINE REMOVAL. STATES THAT HE IS SORTING OUT WHO WILL REMOVE PT'S HD LINE. PT SCHEDULED TO RECEIVE HD BEFORE LINE REMOVAL
[2019-02-01] MEDS: CALCITRIOL 0.25 MCG CAPSULE GT SCH (11:48)
--- NOTE | 2019-02-01 18:00 | NUR ---
PT S/P HD. 500 CC REMOVED
--- NOTE | 2019-02-01 18:57 | NUR ---
FIELD ACCOUNT DIRECTOR CLOSING NOTES PT REMAINS STABLE AND CONTINUES TOLERATING VENT SETTINGS WELL. VSS. FLEXI SEAL REMAINS INTACT. INVASIVE LINES C/D/I. PT REPOSITIONED AND TURNED PER PROTOCOL. PRN CARE RENDERED. SAFETY MEASURES IN PLACE. ENDORSED TO NIGHTSHIFT RN FOR CHELSY
--- NOTE | 2019-02-01 19:21 | NUR ---
PATIENT RECEIVED TRACHED SHILEY 8 XLT ON MECHANICAL VENTILATION WITH NOTED SETTINGS. AMBU BAG @ BEDSIDE. VENT PLUGGED TO RED OUTLET. ALARMS ON AND AUDIBLE. SUCTIONED SMALL AMOUNT OF WHITE THICK SECRETIONS. PATIENT STABLE AND NO RESPIRATORY DISTRESS NOTED AT THIS TIME. WILL MONITOR T/O SHIFT.
[2019-02-01] MEDS ORDERED: VANCOMYCIN 1 GM in IV D5W 250 ML IV ONE (20:00)
--- NOTE | 2019-02-01 21:50 | NUR ---
AIRPORT CLERK: HYDRALAZINE GIVEN FOR SBP ABOVE 160. WILL CONTINUE TO MONITOR EFFECTIVITY. VENT SETTINGS ORDERED WT NO ACUTE DISTRESS. OBEYS SIMPLE COMMANDS IN MALAY LANGUAGE SUCH OPENS MOUTH, OPENS HANDS/SQUEEZE HAND WHEN ASKED TO. GTF TOLERATED WELL. HOB AT 30 DEGREES. RECTAL TUBE INTACT WT BROWN LIQUID STOOLS NOTED. SAFETY PRECAUTION NOTED.
--- NOTE | 2019-02-01 23:00 | NUR ---
MARINE EQUIPMENT PRESERVATION INSPECTOR: REASSESSED AFTER GIVEN HYDRALAZINE WT GOOD EFFECT. SBP LESS THAN 160. WILL CONTINUE TO MONITOR.
[2019-02-01] MEDS: INSULIN GLARGINE, 100 UNIT/ML CARTRIDGE SQ SCH (23:09)
[2019-02-02] VITALS (19 sets, daily range): BP systolic 108–157; BP diastolic 48–82
--- NOTE | 2019-02-02 01:35 | NUR ---
DOMESTIC VIOLENCE COUNSELOR: OBTAINED ORDER FROM RACHNA MARTEL TO TRANSFER TO [facility].
[2019-02-02] MEDS: ACETAMINOPHEN 650 MG/20.3 ML UDC GT PRN ×3 (01:48→21:08)
--- NOTE | 2019-02-02 03:00 | NUR ---
CHANGE MANAGEMENT SPECIALIST: REASSESSED AFTER GIVEN TYLENOL WT GOOD EFFECT. NO FACIAL GRIMACE AT THIS TIME. APPEARS CALM AND RELAXED. FI02 DECREASED TO 40%.
[2019-02-02] MEDS: MEROPENEM 500 MG in IV NS 0.9% 50 ML IV SCH ×2 (05:00→16:18)
[2019-02-02] MEDS: NEPRO 1,000 ML BOTTLE GT PRN (05:01)
[2019-02-02] MEDS: MUPIROCIN OINT 2% 22 GM TUBE TP SCH ×2 (05:07→17:41)
[2019-02-02] MEDS: BLOOD SUGAR DIAGNOSTIC 1 EACH STRIP IN SCH ×4 (05:17→23:56)
[2019-02-02] MEDS: INSULIN REGULAR, HUMAN 100 UNIT/ML 3 ML VIAL SQ PRN (05:20)
[2019-02-02 05:22] LABS: BASOPHILS # (AUTO) 0.1 /CMM (0.0-0.2); BASOPHILS % (AUTO) 0.6 % (0.0-2.0); EOSINOPHILS % (AUTO) 1.8 % (0.0-6.0); LYMPHOCYTES # (AUTO) 1.5 /CMM (0.8-4.8); LYMPHOCYTES % (AUTO) 14.6 % (20.0-44.0); MEAN CORPUSCULAR HGB CONC 33 g/dl (31.0-36.0); MEAN CORPUSCULAR VOLUME 92 fL (82-100); MONOCYTES # (AUTO) 0.4 /CMM (0.1-1.30); MONOCYTES % (AUTO) 3.9 % (2.0-12.0); NEUTROPHILS # (AUTO) 8.4 /CMM (1.8-8.9); NEUTROPHILS % (AUTO) 79.1 % (43.0-81.0); PLATELET COUNT (AUTO) 277 /CMM (150-450); WHITE BLOOD COUNT (AUTO) 10.6 K/uL (4.3-11.0)
[2019-02-02 05:37] LABS: CALCIUM, SERUM 8.9 mg/dL (8.5-10.1); CREATININE 2.7 mg/dL (0.6-1.3); MAGNESIUM 2.2 mg/dL (1.8-2.4); PHOSPHORUS 1.4 mg/dL (2.5-4.9); RED BLOOD CELL COUNT(AUTO) 1.96 MIL/uL (4.0-5.2)
[2019-02-02 05:38] LABS: HEMATOCRIT 18 % (33-45)
--- NOTE | 2019-02-02 05:45 | NUR ---
INTERNAL AFFAIRS INVESTIGATOR: REPORT GIVEN TO MOY LI.
--- NOTE | 2019-02-02 06:00 | NUR ---
SHELL SORTER: TRANSFERRED TO [facility] ROOM 114-1 WT NO CHANGE OF CONDITION.
--- NOTE | 2019-02-02 06:03 | NUR ---
RN [facility] NOTE PATIENT TRANSFERRED FROM ICU, RESTING IN BED, TRACH TO VENT ON SETTINGS ORDERED, NO S/SX OF CARDIAC OR RESPIRATORY DISTRESS, ON TELE SR/ST, RECTAL TUBE IN PLACE DRAINING DARK BROWN STOOL, ORLY MIDLINE TKO, LEFT HAND 22G SL, RCW HD CATHETER COVERED, SKIN KEPT CLEAN AND DRY, SAFETY MAINTAINED AT ALL TIMES, BED IN LOW, LOCKED POSITION, CALL LIGHT WITHIN REACH, WILL CONTINUE TO MONITOR FOR ANY CHANGES IN CONDITION.
[2019-02-02] MEDS ORDERED: VANCOMYCIN 500 MG in IV D5W 100 ML IV PRN (07:00)
--- NOTE | 2019-02-02 07:00 | NUR ---
[facility]/RN OPENING NOTES PATIENT RECEIVED IN BED RESTING COMFORTABLY. ON TELE, HR IS 84 WITH A SR. PATIENT ON VENTILATOR WITH PRESCRIBED SETTINGS. O2 SATURATION NOTED 98%. PATIENT ALERT ABLE TO RESPOND WITH STIMULI. SKIN WARM AND DRY TO TOUCH. NO S/S OF ACUTE DISTRESS NOTED. RESPIRATION EVEN AND UNLABORED. NO SHORTNESS OF BREATH NOTED. NO S/S OF PAIN OR DISCOMFORT NOTED AT THIS TIME. IV SITE ON LEFT HAND GAUGE 22 NOTED WITH NO S/S OF INFECTION, NO S/S OF INFILTRATION NOTED. IV FLUSHED AT THIS TIME. WILL CONTINUE TO MONITOR PATIENT PER PLAN OF CARE. SAFETY MEASURES MAINTAINED. CALL LIGHT WITHIN REACH.
[2019-02-02] MEDS: glipiZIDE 10 MG TABLET GT SCH ×2 (08:42→21:07)
[2019-02-02] MEDS: CALCITRIOL 0.25 MCG CAPSULE GT SCH (08:42)
[2019-02-02] MEDS: ZINC SULFATE 220 MG CAPSULE GT SCH (08:42)
[2019-02-02] MEDS: SUCRALFATE 1 G/10 ML UDC GT SCH ×4 (08:43→21:07)
[2019-02-02] MEDS: FERROUS SULFATE UDC 300 MG/5 ML UDC GT SCH ×2 (08:43→16:17)
[2019-02-02] MEDS: PANTOPRAZOLE 40 MG/PACK PACK GT SCH ×2 (08:43→16:18)
[2019-02-02] MEDS: LACTULOSE 10 G/15 ML UDC (PYXIS) GT SCH (08:43)
[2019-02-02] MEDS: DAKINS QUARTER STRENGTH (0.125%) 480 ML BOTTLE TOP SCH (08:44)
[2019-02-02] MEDS: PROSOURCE / PROSTAT (PYXIS) 30 ML UDC GT SCH (08:49)
[2019-02-02 08:58] LABS: BAND % (MANUAL) 2 % (0.0-5.0); EOSINOPHILS % (MANUAL) 1 % (0-4); LYMPHOCYTES % (MANUAL) 6 % (16-48); MONOCYTES % (MANUAL) 4 % (0-11.0); NEUTROPHILS % (MANUAL) 87 (42-76)
[2019-02-02] MEDS ORDERED: NEUTRA PHOS 1 POWD.PACKET GT ONE (12:00)
--- NOTE | 2019-02-02 12:00 | NUR ---
[facility] RN NOTES ORDERED TO GIVE 1 UNIT OF PRBC FOR HGB IS 6.NEW ORDERS NOTED AND CARRIED OUT.
--- NOTE | 2019-02-02 15:00 | NUR ---
[facility] RN NOTES TEMP IS NOTED 101.2 ORALLY WHILE WE START THE BLOOD TRANSFUSION.HOLD THE BLOOD TRANSFUSION AND PROVIDED COOLING MEASURES AND TYLENOL BY G TUBE.,PCP MADE AWARE.
--- NOTE | 2019-02-02 16:04 | NUR ---
[facility] RN NOTES PER PHARMACIST MICHELA FORBES VANCO LEVEL IS 26 POST HD,HOLD IV VANCOMYCIN 500MG FOR TODAY.
--- NOTE | 2019-02-02 16:30 | NUR ---
PATIENT SEEN AND EXAMINED BY DR FOWLER, RELAYED TO DR REGARDING PATIENT ELEVATED TEMP. DR DUQUE WITH NEW ORDER TO HOLD BLOOD TRANSFUSION UNTILL TEMPERATURE <99 F. VERBAL ORDER NOTED AND CARRIED OUT AND READ BACK TO THE DOCTOR.
--- NOTE | 2019-02-02 16:31 | NUR ---
RT NOTE: PATIENT RECEIVED TRACH ON MECHANICAL VENT. ALARMS VERIFIED AND AUDIBLE. SUCTIONED MODERATE-LARGE AMOUNT OF THICK BLACK SECRETIONS. VENT PLUGGED INTO RED OUTLET. AMBU BAG AT [facility].
--- NOTE | 2019-02-02 19:10 | NUR ---
[facility]/RN CLOSING NOTES PATIENT IN BED RESTING COMFORTABLY. ON TELE, HR IS 94 WITH SR. PATIENT ON VENTILATOR WITH PRESCRIBED SETTINGS. O2 SATURATION NOTED 99. TRACH INTACT, PATENT, IN MIDLINE, SECURED WITH TRACH TIE. PATIENT OBTUNDED, NON VERBAL. NO S/S OF ACUTE DISTRESS NOTED. RESPIRATION EVEN AND UNLABORED. NO SHORTNESS OF BREATH NOTED. NO S/S OF PAIN OR DISCOMFORT NOTED. ORLY MIDLINE AND LEFT HAND 22 GAUGE PERIPHERAL NOTED WITH NO S/S OF INFECTION, NO S/S OF INFILTRATION NOTED. IV LINES FLUSHED. ALL DUE MEDS GIVEN ORDER. PATIENT TOLERATED WELL. G-TUBE IN PLACE, PATENT. NO RESIDUAL NOTED. RECTAL TUBE PATENT DRAINING WELL. HOB KEPT ELEVATED AT ALL TIME. SUCTIONED PATIENT NEEDED. SAFETY MEASURES MAINTAINED. BED AT THE LOWEST POSITION. CALL LIGHT WITHIN REACH. Addendum: 02/02/19 at 1915 by MARTÍNEZ NORIEGA RN ENDORSED TO MEDICAL DEVICE SALES RN FOR CHELSY
--- NOTE | 2019-02-02 19:16 | NUR ---
RN OPENING NOTES RECEIVED BEDSIDE REPORT, PATIENT IN BED NON VERBAL, OPENS EYES. NO SIGNS OF ANY PAIN OR ANY DISCOMFORT. ON TELE MONITOR, SR. HAS A RECTAL TUBE. LAST HD TODAY WITH 1 LITER OUT. PATIENT IS CONTRACTED WITH MULTIPLE WOUNDS. ON GTF WITH NEPRO RUNNING AT 40ML/HR. HAS A RIGHT UA MIDLINE TKO, LEFT HAND #22 SALINE LOCKED. AND RIGHT CHEST WALL HD CATH THAT IS PENDING TO BE REMOVED DUE TO INFECTION. LAST GLUCOSE WAS 65, PER NOC SHIFT RN, BS 60-100 NO ORDERS. BLOOD TRANSFUSION WAS HELD DUE TO PATIENT'S TEMPERATURE >99F. FAMILY ON BEDSIDE. BED LOCKED AND IN LOWEST POSITION. WILL CONT TO MONITOR CLOSELY
--- NOTE | 2019-02-02 21:00 | NUR ---
RN NOTE TYLENOL WAS GIVEN Q6H PRN FOR 100.0F
[2019-02-02] MEDS: INSULIN GLARGINE, 100 UNIT/ML CARTRIDGE SQ SCH (21:18)
--- NOTE | 2019-02-02 21:19 | NUR ---
RN NOTE LANTUS WAS HELD DUE TO PATIENT'S BS WAS 84 MG/DL. PER DAY SHIFT, PATIENT'S BS AT 1200 WAS 65 AND AT 1800 WAS 66.
--- NOTE | 2019-02-02 22:59 | NUR ---
RN NOTE LUDWIN CALLED, TALKED TO KIMI SHIRLEY. PATIENT'S BLOOD CX CAME BACK GRAM NEGATIVE RODS.
[2019-02-03] VITALS (8 sets, daily range): BP systolic 123–178; BP diastolic 65–78
[2019-02-03] MEDS: hydrALAZINE HCL 50 MG TABLET GT PRN (00:17)
--- NOTE | 2019-02-03 00:17 | NUR ---
RN NOTE PATIENT'S BP PER VAULT MECHANIC WAS 178/72, RECHECKED AND IT WAS 170/67. WILL ADMINISTER HYDRALAZINE PRN FOR SBP >160
[2019-02-03] MEDS: CLONIDINE HCL 0.1 MG TABLET GT PRN (01:42)
--- NOTE | 2019-02-03 01:42 | NUR ---
RN NOTE RECHECKED PATIENT'S BLOOD PRESSURE AFTER HYDRALAZINE ADMINISTRATION. BP 162/65 WITH HR OF 80. WILL ADMINISTER ANOTHER PRN BP MEDICATION CLONIDINE 0.1 MG. WILL CONTINUE TO MONITOR PATIENT CLOSELY
--- NOTE | 2019-02-03 02:29 | NUR ---
RN NOTES RECHECKED PATIENT'S TEMP, IT WAS 100F. WILL ADMINISTER TYLENOL. RECHECKED PATIENT'S SBP ON RIGHT ARM, IT WAS 167. BUT ON THE RIGHT LEG, SBP IS 127. WILL CONTINUE TO MONITOR CLOSELY. Addendum: 02/03/19 at 0325 by EUGENIA AUGUST RN COLD MEASURES WAS GIVEN TO THE PATIENT TO LOWER TEMP
[2019-02-03] MEDS: ACETAMINOPHEN 650 MG/20.3 ML UDC GT PRN ×3 (03:08→23:59)
[2019-02-03] MEDS: NEPRO 1,000 ML BOTTLE GT PRN (04:17)
--- NOTE | 2019-02-03 04:45 | NUR ---
RN NOTE PATIENT'S TEMPERATURE WENT DOWN TO 98.8F. WILL GO TO LAB TO ADMINISTER 1 UNIT OF RBC. BLOOD PRESSURE ALSO WENT DOWN TO 153/66
--- NOTE | 2019-02-03 05:50 | NUR ---
RN NOTE WILL ADMINISTER MERREM IV AFTER BLOOD TRANSFUSION
[2019-02-03] MEDS: BLOOD SUGAR DIAGNOSTIC 1 EACH STRIP IN SCH ×3 (06:29→18:15)
[2019-02-03] MEDS: MUPIROCIN OINT 2% 22 GM TUBE TP SCH ×2 (06:30→17:10)
--- NOTE | 2019-02-03 06:56 | NUR ---
RN CLOSING NOTE PATIENT IN BED, NONVERBAL. RECEIVING BLOOD TRANSFUSION, TOLERATING WELL. AFEBRILE, BP WNL, VS WNL. MERREM NOT GIVEN AT 0500, WILL ENDORSE TO DAY SHIFT TO ADMINISTER AFTER BLOOD TRANSFUSION. PATIENT HAS A RECTAL TUBE, 350ML OUT. REPLACE THE BAG. WOUND CARE DONE. ON TELE MONITOR, SR. ON GTF NEPRO AT 40ML/HR, NO RESIDUAL. NO INSULIN COVERAGE GIVEN. PLAN TO REMOVE HD CATH DUE TO INFECTION. PATIENT WAS GIVEN HYDRALAZINE X1 AND CLONIDINE X1 FOR SBP >160. WILL ENDORSE EVERYTHING TO DAY SHIFT NURSE
--- NOTE | 2019-02-03 08:00 | NUR ---
TD/RN AM SHIFT INITIAL NOTES RECEIVED PT ASLEEP IN BED, PT NON-VERBAL, OPEN EYES. NO GRIMACING, ACTIVE BLEEDING OR ACUTE RESPIRATORY DISTRESS NOTED. VENTILATOR DEPENDENT WITH RATES SET PRESCRIBED, SATURATING @ 100% RESPIRATIONS EVEN AND UNLABORED, LUNG SOUNDS CLEAR. ON TELE MONITORING, SINUS TACHY, HR 119. PT WITH ON GOING TRANSFUSION OF 1 UNIT OF PRBC @ 120CC/HR, IV SITE, FLUSHED, PATENT WITH NO S/S OF INFECTION. GTF ON GOING @ 40CC/HR, NO GASTRIC RESIDUAL NOTED, FLUSHED, PATENT. RECTAL TUBE IN PLACED NOTED WITH LIQUID LIGHT BROWN FECAL OUTPUT. DVT SLEEVE AND PUMP ON. PT IS COMFORTABLE AT THIS TIME. WILL CALL LAB FOR CBC DRAW AFTER TRANSFUSION IS COMPLETED. SCHEDULED AM MEDS TO BE GIVEN. CL WITHIN REACHED, SAFETY MAINTAINED AND ISOLATION OBSERVED. ON GOING MONITORING.
--- NOTE | 2019-02-03 08:30 | NUR ---
TD/RN TRANSFUSION - COMPLETED PT TOLERATED TRANSFUSION OF 1 UNIT OF PRBC, NO ADVERSE REACTION NOTED DURING OR POST TRANSFUSION. LABORATORY CALLED TO DRAW CBC. ON GOING MONITORING.
[2019-02-03 08:40] LABS: BASOPHILS # (AUTO) 0.2 /CMM (0.0-0.2); BASOPHILS % (AUTO) 1.3 % (0.0-2.0); EOSINOPHILS % (AUTO) 1.8 % (0.0-6.0); HEMATOCRIT 23 % (33-45); HEMOGLOBIN 7.9 g/dL (11.5-14.8); LYMPHOCYTES # (AUTO) 1.7 /CMM (0.8-4.8); LYMPHOCYTES % (AUTO) 13.8 % (20.0-44.0); MEAN CORPUSCULAR HGB CONC 34 g/dl (31.0-36.0); MEAN CORPUSCULAR VOLUME 92 fL (82-100); MONOCYTES # (AUTO) 0.5 /CMM (0.1-1.30); MONOCYTES % (AUTO) 4.1 % (2.0-12.0); PLATELET COUNT (AUTO) 333 /CMM (150-450); RED BLOOD CELL COUNT(AUTO) 2.52 MIL/uL (4.0-5.2); WHITE BLOOD COUNT (AUTO) 12.6 K/uL (4.3-11.0)
[2019-02-03] MEDS: MEROPENEM 500 MG in IV NS 0.9% 50 ML IV SCH ×2 (08:41→16:27)
[2019-02-03 08:45] LABS: CALCIUM, SERUM 8.7 mg/dL (8.5-10.1); CREATININE 2.3 mg/dL (0.6-1.3); POTASSIUM 3.6 mmol/L (3.5-5.1)
[2019-02-03] MEDS: SUCRALFATE 1 G/10 ML UDC GT SCH ×4 (09:10→22:37)
[2019-02-03] MEDS: PANTOPRAZOLE 40 MG/PACK PACK GT SCH ×2 (09:10→16:27)
[2019-02-03] MEDS: LACTULOSE 10 G/15 ML UDC (PYXIS) GT SCH (09:10)
[2019-02-03] MEDS: FERROUS SULFATE UDC 300 MG/5 ML UDC GT SCH ×2 (09:10→16:26)
[2019-02-03] MEDS: glipiZIDE 10 MG TABLET GT SCH ×2 (09:10→22:38)
[2019-02-03] MEDS: ZINC SULFATE 220 MG CAPSULE GT SCH (09:10)
[2019-02-03] MEDS: CALCITRIOL 0.25 MCG CAPSULE GT SCH (09:10)
[2019-02-03] MEDS: DAKINS QUARTER STRENGTH (0.125%) 480 ML BOTTLE TOP SCH (09:12)
[2019-02-03] MEDS: PROSOURCE / PROSTAT (PYXIS) 30 ML UDC GT SCH (09:13)
[2019-02-03 09:32] LABS: BAND % (MANUAL) 8 % (0.0-5.0); EOSINOPHILS % (MANUAL) 3 % (0-4); LYMPHOCYTES % (MANUAL) 10 % (16-48); MONOCYTES % (MANUAL) 4 % (0-11.0); NEUTROPHILS % (MANUAL) 75 (42-76)
[2019-02-03] MEDS: INSULIN REGULAR, HUMAN 100 UNIT/ML 3 ML VIAL SQ PRN ×2 (12:55→18:17)
--- NOTE | 2019-02-03 13:10 | NUR ---
TELE1/RN CONSENTS OBTAINED CONSENTS FOR DIALYSIS TREATMENT AND REMOVAL OF DIALYSIS CATHETER OBTAINED FROM PT'S AND WITNESSED BY ANOTHER NURSE. CONSENTS FILED IN PT'S CHART. PT NOTED WITH ELEVATED TEMPERATURE, COOLING MEASURES APPLIED. ON GOING MONITORING.
--- NOTE | 2019-02-03 18:10 | NUR ---
TELE1/WAREHOUSE PRICING AND INVENTORY CLERK CATHETER REMOVED DIALYSIS CATHETER REMOVED BY RACHNA EDDY. CATHETER TIP AND CATHETER SITE CULTURES TAKEN. PT TOLERATED PROCEDURE.
--- NOTE | 2019-02-03 19:30 | NUR ---
TELE1/RN AM SHIFT END NOTES ALL NEEDS MET. PT NOTED WITH SLIGHT ELEVATED TEMPERATURE AROUND NOON, LAST CHECKED 98.7. PT ENDORSED TO PM NURSE TO CONTINUE CARE. CL WITHIN REACHED, SAFETY MAINTAINED AND ISOLATION OBSERVED.
--- NOTE | 2019-02-03 20:14 | NUR ---
SUPPLY SERVICE WORKER OPENING NOTES: PATIENT OBTUNDED. VENT/TRACH. NO ACUTE DISTRESS. AMBUBAG AT BEDSIDE. WILL CONTINUE TO MONITER
[2019-02-03] MEDS: INSULIN GLARGINE, 100 UNIT/ML CARTRIDGE SQ SCH (22:39)
[2019-02-04] VITALS (7 sets, daily range): BP systolic 120–181; BP diastolic 52–89
[2019-02-04] MEDS: BLOOD SUGAR DIAGNOSTIC 1 EACH STRIP IN SCH ×5 (00:44→21:13)
[2019-02-04] MEDS: INSULIN REGULAR, HUMAN 100 UNIT/ML 3 ML VIAL SQ PRN ×5 (00:48→21:15)
[2019-02-04] MEDS: CLONIDINE HCL 0.1 MG TABLET GT PRN (01:53)
[2019-02-04] MEDS: NEPRO 1,000 ML BOTTLE GT PRN (03:39)
[2019-02-04] MEDS: MEROPENEM 500 MG in IV NS 0.9% 50 ML IV SCH ×2 (05:00→16:19)
--- NOTE | 2019-02-04 06:26 | NUR ---
BUTCHER OR [employer]GOODS MAKER CLOSING NOTES PATIENT OBTUNDED. VENT/TRACH. NO ACUTE DISTRESS. AMBUBAG AT BEDSIDE.SPIKED FEVER DURING THE NIGHT AND HAD A SLIGHT CHANGE IN BP TRENDING UP. GAVE ALL PRN MEDICATIONS PROTOCOL. PT IS NOW STABLE. WILL ENDORE TO MORNING SHIFT TO MONITER.
[2019-02-04] MEDS: MUPIROCIN OINT 2% 22 GM TUBE TP SCH ×2 (06:31→17:13)
[2019-02-04 06:59] LABS: CALCIUM, SERUM 9.2 mg/dL (8.5-10.1); CREATININE 2.9 mg/dL (0.6-1.3); POTASSIUM 3.3 mmol/L (3.5-5.1)
--- NOTE | 2019-02-04 08:00 | NUR ---
TELE1/RN AM SHIFT INITIAL NOTES RECEIVED PT ASLEEP IN BED, PT NON-VERBAL, OPEN EYES. NO GRIMACING, ACTIVE BLEEDING OR ACUTE RESPIRATORY DISTRESS NOTED. VENTILATOR DEPENDENT WITH RATES SET PRESCRIBED, SATURATING @ 100% RESPIRATIONS EVEN AND UNLABORED, LUNG SOUNDS CLEAR. ON TELE MONITORING, SINUS RHYTHM, HR 92. IV SITE FLUSHED, PATENT WITH NO S/S OF INFECTION, SL. DRESSING INTACT AND DRY WHERE DIALYSIS CATHETER WAS REMOVED, YESTERDAY. GTF ON GOING @ 40CC/HR, NO GASTRIC RESIDUAL NOTED, FLUSHED, PATENT. RECTAL TUBE IN PLACED NOTED WITH LIQUID LIGHT BROWN FECAL OUTPUT. DVT SLEEVE AND PUMP ON. PT IS COMFORTABLE AT THIS TIME. SCHEDULED AM MEDS TO BE GIVEN. CL WITHIN REACHED, SAFETY MAINTAINED AND ISOLATION OBSERVED. ON GOING MONITORING.
[2019-02-04] MEDS: CALCITRIOL 0.25 MCG CAPSULE GT SCH (08:39)
[2019-02-04] MEDS: glipiZIDE 10 MG TABLET GT SCH ×2 (08:40→21:13)
[2019-02-04] MEDS: PANTOPRAZOLE 40 MG/PACK PACK GT SCH ×2 (08:40→16:19)
[2019-02-04] MEDS: LACTULOSE 10 G/15 ML UDC (PYXIS) GT SCH (08:40)
[2019-02-04] MEDS: PROSOURCE / PROSTAT (PYXIS) 30 ML UDC GT SCH (08:40)
[2019-02-04] MEDS: SUCRALFATE 1 G/10 ML UDC GT SCH ×4 (08:40→21:13)
[2019-02-04] MEDS: ZINC SULFATE 220 MG CAPSULE GT SCH (08:40)
[2019-02-04] MEDS: FERROUS SULFATE UDC 300 MG/5 ML UDC GT SCH ×2 (08:40→16:19)
[2019-02-04] MEDS: DAKINS QUARTER STRENGTH (0.125%) 480 ML BOTTLE TOP SCH (08:41)
[2019-02-04] MEDS ORDERED: DEXTROSE 50%-WATER 50 ML DISP.SYRIN IV PRN (11:00)
--- NOTE | 2019-02-04 12:00 | NUR ---
TELE1/RN NOON ROUNDS NO ACUTE CHANGE OF CONDITION. MONITORING CONTINUED.
--- NOTE | 2019-02-04 17:30 | NUR ---
TELE1/RN AM SHIFT END NOTES ALL NEEDS. NO ACUTE CHANGE OF CONDITION NOTED DURING THE SHIFT. PT ENDORSED TO PM NURSE TO CONTINUE CARE.
--- NOTE | 2019-02-04 17:30 | NUR ---
TELE1/RN PM ROUNDS PM CARE PROVIDED, NO CHANGE OF CONDITION. MONITORING CONTINUED.
--- NOTE | 2019-02-04 19:45 | NUR ---
FREELANCE TRANSLATOR NOTE: RECEIVED PT ON BED OBTUNDED WITH NO APPARENT DISTRESS NOTED. NO FACIAL GRIMACING OR ANY SIGNS OF PAIN NOTED. [facility], SETTINGS ORDERED. SATURATING WELL. GT INTACT WITH NO RESIDUAL NOTED AT THIS TIME. FLEXISEAL INTACT AND PATENT, DRAINING WELL. KEPT CLEAN, DRY AND COMFORTABLE. SAFETY AND FALL PRECAUTIONS OBSERVED AND MAINTAINED. WILL CONTINUE TO MONITOR PT.
[2019-02-04] MEDS: ACETAMINOPHEN 650 MG/20.3 ML UDC GT PRN (21:13)
[2019-02-04] MEDS: hydrALAZINE HCL 50 MG TABLET GT PRN ×2 (21:13)
[2019-02-04] MEDS: INSULIN GLARGINE, 100 UNIT/ML CARTRIDGE SQ SCH (21:14)
--- NOTE | 2019-02-04 22:01 | NUR ---
PRODUCTION OFFICER NOTE: BP 175/62, HYDRALAZINE PRN GIVEN ORDERED FOR SBP >160. BP RECHECKED AFTER 45MINS, BP WENT DOWN TO 160/54. WILL CONTINUE TO MONITOR PT.
[2019-02-05] VITALS (7 sets, daily range): BP systolic 125–189; BP diastolic 47–60
[2019-02-05] MEDS: BLOOD SUGAR DIAGNOSTIC 1 EACH STRIP IN SCH ×6 (00:02→21:50)
[2019-02-05] MEDS: INSULIN REGULAR, HUMAN 100 UNIT/ML 3 ML VIAL SQ PRN ×5 (00:04→21:51)
[2019-02-05] MEDS: CLONIDINE HCL 0.1 MG TABLET GT PRN ×2 (00:56→12:48)
--- NOTE | 2019-02-05 01:30 | NUR ---
TRUCK DISPATCHER NOTE: BP 171/57, CLONIDINE PRN GIVEN ORDERED. BP RECHECKED, IT WENT DOWN TO 157/60. WILL CONTINUE TO MONITOR PT.
[2019-02-05] MEDS: NEPRO 1,000 ML BOTTLE GT PRN (04:40)
[2019-02-05] MEDS: MEROPENEM 500 MG in IV NS 0.9% 50 ML IV SCH ×2 (04:41→16:36)
[2019-02-05] MEDS: hydrALAZINE HCL 50 MG TABLET GT PRN (05:12)
[2019-02-05] MEDS: MUPIROCIN OINT 2% 22 GM TUBE TP SCH ×2 (05:12→18:10)
[2019-02-05 06:24] LABS: BASOPHILS # (AUTO) 0.1 /CMM (0.0-0.2); BASOPHILS % (AUTO) 1.1 % (0.0-2.0); EOSINOPHILS % (AUTO) 2.4 % (0.0-6.0); HEMATOCRIT 23 % (33-45); HEMOGLOBIN 7.9 g/dL (11.5-14.8); LYMPHOCYTES # (AUTO) 1.7 /CMM (0.8-4.8); LYMPHOCYTES % (AUTO) 14.1 % (20.0-44.0); MEAN CORPUSCULAR HGB CONC 34 g/dl (31.0-36.0); MEAN CORPUSCULAR VOLUME 93 fL (82-100); MONOCYTES # (AUTO) 0.5 /CMM (0.1-1.30); MONOCYTES % (AUTO) 4.2 % (2.0-12.0); NEUTROPHILS # (AUTO) 9.3 /CMM (1.8-8.9); NEUTROPHILS % (AUTO) 78.2 % (43.0-81.0); PLATELET COUNT (AUTO) 335 /CMM (150-450); RED BLOOD CELL COUNT(AUTO) 2.53 MIL/uL (4.0-5.2); WHITE BLOOD COUNT (AUTO) 11.9 K/uL (4.3-11.0)
--- NOTE | 2019-02-05 06:34 | NUR ---
FINANCIAL ASSISTANCE ADVISOR NOTE: NO CHANGES NOTED THROUGHOUT THE SHIFT. BP WAS HIGH AROUND 0400, 174/55. HYDRALAZINE PRN GIVEN, BP RECHECKED 159/62. NO FACIAL GRIMACING OR ANY SIGNS OF PAIN NOTED. PT AFEBRILE. ON MECH VENT, SETTINGS ORDERED. SATURATING WELL. SINUS RHYTHM ON TELE MONITOR HR 86BPM. GT INTACT AND PATENT, NO RESIDUAL NOTED AT THIS TIME. HEAD OF BED KEPT ELEVATED. ABLE TO TOLERATE FEEDING WELL. FLEXISEAL INTACT WITH 300CC OUTPUT. KEPT CLEAN, DRY AND COMFORTABLE. SAFETY AND FALL PRECAUTIONS OBSERVED AND MAINTAINED. WILL ENDORSE TO DAY SHIFT RN FOR CONTINUITY OF CARE.
[2019-02-05 07:03] LABS: CALCIUM, SERUM 9.9 mg/dL (8.5-10.1); CREATININE 3.1 mg/dL (0.6-1.3); MAGNESIUM 2.5 mg/dL (1.8-2.4); POTASSIUM 3.4 mmol/L (3.5-5.1)
[2019-02-05 07:04] LABS: BAND % (MANUAL) 4 % (0.0-5.0); EOSINOPHILS % (MANUAL) 3 % (0-4); LYMPHOCYTES % (MANUAL) 21 % (16-48); METAMYELOCYTES % 1 % (0-0); MONOCYTES % (MANUAL) 3 % (0-11.0); MYELOCYTES % 1 % (0-0); NEUTROPHILS % (MANUAL) 67 (42-76)
--- NOTE | 2019-02-05 07:50 | NUR ---
RT Pt received with a Curex.Coley 8 xlt proximal trach on the vent with noted settings. Pt is awake but does not follow commands. Vent alarms are set and audible with BVM by bedside. LICENSED MENTAL HEALTH PROFESSIONAL cuff pressure noted. Vent is plugged into red outlet. No respiratory distress noted at this time. Addendum: 02/05/19 at 0846 by ALEXIS MARCELO RT Amended: Links added.
--- NOTE | 2019-02-05 08:00 | NUR ---
TELE1/RN AM SHIFT INITIAL NOTES RECEIVED PT ASLEEP IN BED, PT NON-VERBAL, OPEN EYES. NO GRIMACING, ACTIVE BLEEDING OR ACUTE RESPIRATORY DISTRESS NOTED. VENTILATOR DEPENDENT WITH RATES SET PRESCRIBED, SATURATING @ 100% RESPIRATIONS EVEN AND UNLABORED, LUNG SOUNDS CLEAR. ON TELE MONITORING, SINUS RHYTHM WITH ELEVATED T-WAVE, HR 84. IV SITE FLUSHED, PATENT WITH NO S/S OF INFECTION, SL. DRESSING INTACT AND DRY WHERE DIALYSIS CATHETER WAS REMOVED, YESTERDAY. GTF ON GOING @ 40CC/HR, NO GASTRIC RESIDUAL NOTED, FLUSHED, PATENT. RECTAL TUBE IN PLACED NOTED WITH LIQUID LIGHT BROWN FECAL OUTPUT. DVT SLEEVE AND PUMP ON. PT IS COMFORTABLE AT THIS TIME. BS CHECKED, 141 NO S/S OF HYPERGLYCEMIA, WILL BE GIVEN 2 UNITS OF REGULAR INSULIN PER ORDERED SIDING SCALE. OTHER SCHEDULED AM MEDS TO BE GIVEN. CL WITHIN REACHED, SAFETY MAINTAINED AND ISOLATION OBSERVED. ON GOING MONITORING.
[2019-02-05] MEDS: PROSOURCE / PROSTAT (PYXIS) 30 ML UDC GT SCH (08:33)
[2019-02-05] MEDS: PANTOPRAZOLE 40 MG/PACK PACK GT SCH ×2 (08:35→16:34)
[2019-02-05] MEDS: CALCITRIOL 0.25 MCG CAPSULE GT SCH (08:35)
[2019-02-05] MEDS: FERROUS SULFATE UDC 300 MG/5 ML UDC GT SCH ×2 (08:35→16:34)
[2019-02-05] MEDS: ZINC SULFATE 220 MG CAPSULE GT SCH (08:35)
[2019-02-05] MEDS: SUCRALFATE 1 G/10 ML UDC GT SCH ×4 (08:35→21:50)
[2019-02-05] MEDS: glipiZIDE 10 MG TABLET GT SCH ×2 (08:35→21:50)
[2019-02-05] MEDS: LACTULOSE 10 G/15 ML UDC (PYXIS) GT SCH (08:35)
[2019-02-05] MEDS: DAKINS QUARTER STRENGTH (0.125%) 480 ML BOTTLE TOP SCH (08:36)
--- NOTE | 2019-02-05 15:00 | NUR ---
TELE1/RN ROUNDS - DR. DUMONT NOTIFIED DR. DUMONT OF TRENDING ELEVATED BP OF PT. PT HAS NO ROUTINE BP MEDS, ONLY PRN. NO NEW ORDERS RECEIVED AT THIS TIME.
[2019-02-05] MEDS: hydrALAZINE HCL 50 MG TABLET PO SCH (16:34)
[2019-02-05] MEDS ORDERED: hydrALAZINE HCL 50 MG TABLET PO SCH (17:00)
--- NOTE | 2019-02-05 17:30 | NUR ---
TELE1/RN AFTERNOON ROUNDS PM CARE PROVIDED, NO CHANGE OF CONDITION.
--- NOTE | 2019-02-05 19:33 | NUR ---
TELE1/RN AM SHIFT END NOTES ALL NEEDS MET, NO ACUTE CHANGE OF CONDITION NOTED DURING THE SHIFT. PT ENDORSED TO PM NURSE TO CONTINUE CARE. CL WITHIN REACHED, SAFETY MAINTAINED AND ISOLATION OBSERVED.
--- NOTE | 2019-02-05 19:45 | NUR ---
AUTOMATION MACHINE BUILDER NOTE PATIENT RECEIVED IN BED. PATIENT'S FAMILY AT BEDSIDE. FAMILY INSTRUCTED ON INFECTION CONTROL. INSTRUCTED ON USE OF GOWNS AND HAND WASHING. PATIENT TOLERATING VENT SETTINGS NO S/S OF ACUTE DISTRESS. FECAL TUBE DRAINING. HR SR 84 WITH ELEVATED T WAVE NOTED. PATIENT TURNED FOR FOR COMFORT. SAFETY PRECAUTIONS IN PLACE. RN WILL CONTINUE TO MONITOR.
[2019-02-05] MEDS: INSULIN GLARGINE, 100 UNIT/ML CARTRIDGE SQ SCH (21:52)
--- NOTE | 2019-02-05 22:07 | NUR ---
PATIENT RECEIVED TRACHED SHILEY 8 XLT ON MECHANICAL VENTILATION WITH NOTED SETTINGS. PT IS ALERT AND NON VERBAL. AMBU BAG @ BEDSIDE. VENT PLUGGED TO RED OUTLET. ALARMS ON AND AUDIBLE. SUCTIONED SMALL AMOUNT OF WHITE THICK SECRETIONS. PATIENT STABLE AND NO RESPIRATORY DISTRESS NOTED AT THIS TIME. WILL CONTINUE TO MONITOR THE PT.
[2019-02-06] VITALS (9 sets, daily range): BP systolic 142–180; BP diastolic 5–77
[2019-02-06] MEDS: BLOOD SUGAR DIAGNOSTIC 1 EACH STRIP IN SCH ×6 (01:27→21:54)
[2019-02-06] MEDS: INSULIN REGULAR, HUMAN 100 UNIT/ML 3 ML VIAL SQ PRN ×4 (01:28→21:59)
[2019-02-06] MEDS: MEROPENEM 500 MG in IV NS 0.9% 50 ML IV SCH ×2 (04:16→16:34)
[2019-02-06] MEDS: MUPIROCIN OINT 2% 22 GM TUBE TP SCH ×2 (05:42→17:11)
[2019-02-06 06:32] LABS: BASOPHILS # (AUTO) 0.2 /CMM (0.0-0.2); BASOPHILS % (AUTO) 1.9 % (0.0-2.0); EOSINOPHILS % (AUTO) 3.1 % (0.0-6.0); HEMATOCRIT 25 % (33-45); HEMOGLOBIN 8.4 g/dL (11.5-14.8); LYMPHOCYTES # (AUTO) 1.6 /CMM (0.8-4.8); LYMPHOCYTES % (AUTO) 16.7 % (20.0-44.0); MEAN CORPUSCULAR HGB CONC 34 g/dl (31.0-36.0); MEAN CORPUSCULAR VOLUME 91 fL (82-100); MONOCYTES # (AUTO) 0.4 /CMM (0.1-1.30); NEUTROPHILS # (AUTO) 7.2 /CMM (1.8-8.9); NEUTROPHILS % (AUTO) 74.3 % (43.0-81.0); PLATELET COUNT (AUTO) 411 /CMM (150-450); WHITE BLOOD COUNT (AUTO) 9.7 K/uL (4.3-11.0)
[2019-02-06 07:16] LABS: CALCIUM, SERUM 9.8 mg/dL (8.5-10.1); CREATININE 3.4 mg/dL (0.6-1.3); MAGNESIUM 2.4 mg/dL (1.8-2.4); PHOSPHORUS 3.1 mg/dL (2.5-4.9); POTASSIUM 3.2 mmol/L (3.5-5.1)
--- NOTE | 2019-02-06 07:20 | NUR ---
RN OPENING NOTES RECEIVED BEDSIDE REPORT, PATIENT OBTUNDED AND NON VERBAL. PER NOC SHIFT, PATIENT ONLY RESPONDS TO DUTCH LANGUAGE. IN TELE MONITOR SR/ST. HAS FLEXI SEAL WITH 500 TOTAL FROM YESTERDAY. PATIENT HAS MULTIPLE WOUNDS, NOTED IN CHART. ON GTF WITH NEPRO RUNNING AT 40ML/HR. HAS A RIGHT UPPER ARM MIDLINE SALINE LOCKED. ACCUCHECKS Q4H. CONTINUE HOSPITALIZATIONS. BED LOCKED AND IN LOWEST POSITION. WILL CONTINUE TO MONITOR PATIENT
--- NOTE | 2019-02-06 07:57 | NUR ---
RN NOTES LAB CALLED, BUN IS CRITICAL HIGH - 82. PATIENT HAS NOT HAD DIALYSIS SINCE 02/02.
[2019-02-06] MEDS: PANTOPRAZOLE 40 MG/PACK PACK GT SCH ×2 (08:13→16:17)
[2019-02-06] MEDS: SUCRALFATE 1 G/10 ML UDC GT SCH ×4 (08:13→21:54)
[2019-02-06] MEDS: PROSOURCE / PROSTAT (PYXIS) 30 ML UDC GT SCH (08:13)
[2019-02-06] MEDS: CALCITRIOL 0.25 MCG CAPSULE GT SCH (08:13)
[2019-02-06] MEDS: glipiZIDE 10 MG TABLET GT SCH ×2 (08:13→21:54)
[2019-02-06] MEDS: hydrALAZINE HCL 50 MG TABLET PO SCH ×3 (08:14→16:17)
[2019-02-06] MEDS: ZINC SULFATE 220 MG CAPSULE GT SCH (08:14)
[2019-02-06] MEDS: LACTULOSE 10 G/15 ML UDC (PYXIS) GT SCH (08:15)
[2019-02-06] MEDS: DAKINS QUARTER STRENGTH (0.125%) 480 ML BOTTLE TOP SCH (08:16)
[2019-02-06] MEDS: FERROUS SULFATE UDC 300 MG/5 ML UDC GT SCH ×2 (08:19→16:17)
[2019-02-06 10:24] LABS: BAND % (MANUAL) 4 % (0.0-5.0); EOSINOPHILS % (MANUAL) 1 % (0-4); LYMPHOCYTES % (MANUAL) 26 % (16-48); MONOCYTES % (MANUAL) 7 % (0-11.0); MYELOCYTES % 2 % (0-0); NEUTROPHILS % (MANUAL) 60 (42-76)
[2019-02-06] MEDS: NEPRO 1,000 ML BOTTLE GT PRN (16:24)
--- NOTE | 2019-02-06 16:31 | NUR ---
RN NOTES PATIENT'S BP WENT UP TO SBP 179. ADMINISTERED SCHEDULED APRESOLINE AT 1630. WILL RECHECK BP IN 30 MINUTES
--- NOTE | 2019-02-06 17:20 | NUR ---
RT RECD PT TRACHED INTACT AND SECURED ON MECH VENT CHUCKIE ORDERED SETTING ALARMS ON AND AUDIBLE BAG AND MASK AT HOB SX THICK YELLOW MOD AMOUNT OF SECRETIONS NO RESP DISTRESS THROUGHT SHIIFT WILL CONT TO MONITOR
--- NOTE | 2019-02-06 17:23 | NUR ---
RN NOTES RECHECKED BP, 142/62
--- NOTE | 2019-02-06 18:39 | NUR ---
RN CLOSING NOTES PATIENT IN BED, OBTUNDED. RESPONDS TO [place] LANGUAGE. ALL MEDS GIVEN. PATIENT HAS GTF, NEPRO AT 40 ML/HR. HAS RIGHT UPPER ARM MIDLINE, SALINE LOCKED. INSULIN COVERAGE GIVEN ONCE. WOUND CARE DONE. HAS FLEXISEAL WITH 100ML OUTPUT. ORDER FOR BETADINE ON OLD HD SITE. PATIENT ON VENT, SATING 100%. NO SIGNS OF PAIN OR ANY SOB. BED LOCKED, WILL ENDORSE TO NOC SHIFT RN FOR CONT OF CARE
--- NOTE | 2019-02-06 19:50 | NUR ---
RN INITIAL NOTES: RECEIVED REPORT FROM DAY RN. PT IN BED, OBTUNDED, MECH VENT TRACHE DEPENDENT WITH THE FF SETTINGS, AC 16, TV 550, FIO2 40% PEEP 5, GIOVANI AGUIRRE #[id number]. PT IS NON VERBAL, OPEN EYES, PER REPORT ABL;E TO FOLLOW COMMAND IN LUXEMBOURGER. ISOLATION MRSA AND ESBL URINE. S/P REMOVAL OF HD CATHETER BY DR LAUREN Finney ON 02/03/19, NO ACTIVE BLEEDING NOTED ON THE PREVIOUS HD SITE. IV ACCESS PATENT AND FLUSHING WELL, ON HL. PT CONNECTED TO SPO2 MONITOR, CURRENT SPO2 100%. ON TELE SINUS RHYTHM HR 97. BLE OFFLOADED, AND PLACED PILLOWS IN BETWEEN LEGS. HAS GTUBE IN PLACED, RECEIVING NEPHRO 40ML/HR. SAFETY PRECAUTIONS FOR FALL INITIATED, CALL LIGHT IN REACH, WILL CONTINUE MONITORING PT. Addendum: 02/07/19 at 0053 by OLIVA WHEAT RN CORRECTION OF ENTRY: GIOVANI AGUIRRE #[id number] NOT 18
--- NOTE | 2019-02-06 19:58 | NUR ---
PATIENT RECEIVED TRACHED SHILEY 8 XLT ON MECHANICAL VENTILATION WITH NOTED SETTINGS. TRACH INTACT AND SECURED. PT IS NON VERBAL AND RESPONDS TO STIMULI WHEN SUCTION . AMBU BAG @ BEDSIDE. VENT PLUGGED TO RED OUTLET. ALARMS ON AND AUDIBLE. SUCTIONED SMALL AMOUNT OF WHITE THICK SECRETIONS. PATIENT STABLE AND NO RESPIRATORY DISTRESS NOTED AT THIS TIME. WILL CONTINUE TO MONITOR THE PT.
--- NOTE | 2019-02-06 20:00 | NUR ---
RN NOTES: ASPIRATION PRECAUTIONS INITIATED
--- NOTE | 2019-02-06 20:14 | NUR ---
RN NOTES: ABDOMEN SOFT TO TOUCH WITH ACTIVE BOWEL SOUND HEAR UPON AUSCULTATION. PT HAS GTUBE IN PLACED, NO RESIDUAL OBTAINED, ABLE TO FLUSHED WITH 30CC OF WATER WITHOUT ANY RESISTANCE. NO ACTIVE BLEEDING NOTED ON GTUBE SITE. WILL CONTINUE TO MONITOR
[2019-02-06] MEDS: INSULIN GLARGINE, 100 UNIT/ML CARTRIDGE SQ SCH (21:59)
--- NOTE | 2019-02-06 22:00 | NUR ---
RN NOTES: OLD HD ACCESS SITE PAINTED WITH BETADINE ORDERED
--- NOTE | 2019-02-06 22:00 | NUR ---
ACCU CHECK: BLOOD SUGAR TEST RESULT IS 250, 6UNITS OF INSULIN GIVEN PER SLIDING SCALE, PT ON GTUBE FEEDING, WILL MONITOR FOR ANY S/S OF HYPOGLYCEMIA
[2019-02-06] MEDS: hydrALAZINE HCL 50 MG TABLET GT PRN (22:13)
--- NOTE | 2019-02-06 22:15 | NUR ---
PRN APRESOLINE: RECHECK PT'S BP AND RESULT FOLLOWS: 180/77 HR 103 RR 20 SPO2 100%, PRN APRESOLINE 50 MG TAB ADMINISTERED VIA GTUBE AT THIS TIME, WILL RECHECK BP IN AN HOUR
[2019-02-07] VITALS (10 sets, daily range): BP systolic 114–217; BP diastolic 43–96
[2019-02-07] MEDS: CLONIDINE HCL 0.1 MG TABLET GT PRN (00:16)
--- NOTE | 2019-02-07 00:17 | NUR ---
PRN CATAPRES: PT BP STILL ELEVATED 179/75 PRN CATAPRES ADMINISTERED VIA GTUBE, WILL RECHECK BP IN AN HOUR TO EVALUATE EFFECTIVENESS OF THE MEDICATION
[2019-02-07] MEDS: BLOOD SUGAR DIAGNOSTIC 1 EACH STRIP IN SCH ×6 (01:07→22:21)
[2019-02-07] MEDS: INSULIN REGULAR, HUMAN 100 UNIT/ML 3 ML VIAL SQ PRN ×3 (01:10→22:22)
--- NOTE | 2019-02-07 01:10 | NUR ---
ACCU CHECK: BLOOD SUGAR RESULT OF 266, 9UNITS OF INSULIN GIVEN PER SLIDING SCALE
--- NOTE | 2019-02-07 02:16 | NUR ---
RN NOTES: RECHECK BP 217/43 HR 108 SPO2 100%, PAGED SUPERVISOR KOSHER DIETARY SERVICE EPIC MD AWAITING FOR CALL BACK
--- NOTE | 2019-02-07 02:22 | NUR ---
RN NOTES: SPOKED WITH DR GOTTI, RELAYED THE SITUATION, PER MD T/O CLONIDINE PATCH 0.1MG/24HR PATCH WEEKLY FOR HTN
--- NOTE | 2019-02-07 02:38 | NUR ---
RN NOTES: CONTACTED CAMERA TUNING ENGINEER PHARMACIST TO VERIFY NEW MED ORDER
[2019-02-07] MEDS: CLONIDINE HCL 0.1MG/24H PTWK 1 EA PATCH TD SCH (02:48)
[2019-02-07] MEDS: MEROPENEM 500 MG in IV NS 0.9% 50 ML IV SCH ×2 (04:36→17:31)
--- NOTE | 2019-02-07 05:00 | NUR ---
RN NOTES: ASSISTED CYLINDER STEAMER IN PROVING BED BATH TO THE PT, CHANGED JUAN JOSÉ VALVE, WOUND CARE PROVIDED AT THIS TIME, NEW SUCTION SET UP PROVIDED.
[2019-02-07] MEDS: MUPIROCIN OINT 2% 22 GM TUBE TP SCH ×2 (05:27→17:40)
[2019-02-07] MEDS: ONDANSETRON HCL/PF 4 MG/2 ML VIAL IVP PRN ×2 (06:20→14:42)
--- NOTE | 2019-02-07 06:20 | NUR ---
RN NOTES: PT BEEN COUGHING, AND ENDED UP VOMITING THE FEEDING SHE RECEIVED, X1 EPISODE, HOB 30 DEGREES, REMAINS ON ASPIRATION PRECAUTIONS, ABDOMEN SOFT TO TOUCH, GTUBE HAS NO RESIDUAL OBTAINED. PRN ZOFRAN ADMINISTERED IVP, WILL CONTINUE TO MONITOR AND REASSESS
--- NOTE | 2019-02-07 06:21 | NUR ---
RN NOTES: TURNED OFF FEEDING AT THIS TIME, GTUBE CLAMPED, WILL MONITOR FOR ANY EPISODE OF VOMITING.
--- NOTE | 2019-02-07 06:36 | NUR ---
RN CLOSING NOTES: PT IN BED, OPEN EYES SPONTANEOUSLY, TOLERATED MECH VENT SETTING WELL, AMBU BAG AT BED SIDE. CLONIDINE PATCH REMAINS IN PLACED/ATTACHED ON LEFT UPPER CHEST AREA. GTUBE REMAINS IN PLACED, CLAMPED. ON SINUS TACH HR 101. BLE KEPT OFFLOADED. IV ACCESS REMAINS PATENT AND FLUSHING WELL. ASPIRATION PRECAUTIONS MAINTAINED, KEPT HOB 30 DEGREES. VS REMAINS STABLE, NEEDS ATTENDED. NO ACTIVE BLEEDING NOTED. SAFETY PRECAUTIONS FOR FALL REMAINS ENGAGED, CALL LIGHT IN REACH, WILL ENDORSE TO DAY RN FOR CONTINUITY OF CARE.
[2019-02-07 06:48] LABS: CALCIUM, SERUM 9.7 mg/dL (8.5-10.1); CREATININE 3.3 mg/dL (0.6-1.3); MAGNESIUM 2.7 mg/dL (1.8-2.4); PHOSPHORUS 3.6 mg/dL (2.5-4.9); POTASSIUM 3.7 mmol/L (3.5-5.1)
[2019-02-07 06:53] LABS: BASOPHILS % (AUTO) 0.3 % (0.0-2.0); EOSINOPHILS % (AUTO) 2.2 % (0.0-6.0); HEMATOCRIT 26 % (33-45); LYMPHOCYTES % (AUTO) 22.3 % (20.0-44.0); MEAN CORPUSCULAR HGB CONC 35 g/dl (31.0-36.0); MEAN CORPUSCULAR VOLUME 91 fL (82-100); MONOCYTES # (AUTO) 0.4 /CMM (0.1-1.30); MONOCYTES % (AUTO) 4.5 % (2.0-12.0); NEUTROPHILS # (AUTO) 6.2 /CMM (1.8-8.9); NEUTROPHILS % (AUTO) 70.7 % (43.0-81.0); PLATELET COUNT (AUTO) 421 /CMM (150-450); RED BLOOD CELL COUNT(AUTO) 2.85 MIL/uL (4.0-5.2); WHITE BLOOD COUNT (AUTO) 8.7 K/uL (4.3-11.0)
--- NOTE | 2019-02-07 07:10 | NUR ---
READING RECOVERY TEACHER OPENING NOTES: RECEIVED REPORT FROM PM NURSE.PT IN BED, OPEN EYES SPONTANEOUSLY, TOLERATING VENT SETTINGS ORDERED , AMBU BAG AT BED SIDE.ON GTUBE FEEDING. ON TELE MONITOR SINUS RHYTHM. HR 90. IV ACCESS REMAINS PATENT AND FLUSHING WELL. ASPIRATION PRECAUTIONS MAINTAINED, KEPT HOB 30 DEGREES. NO SOB NO DISTRESS NOTED.BED IS LOW AND IN LOCKED POSITION.CALL LIGHT IN REACH.WILL CONTINUE TO MONITOR.
[2019-02-07 08:25] LABS: BAND % (MANUAL) 6 % (0.0-5.0); EOSINOPHILS % (MANUAL) 1 % (0-4); LYMPHOCYTES % (MANUAL) 26 % (16-48); MONOCYTES % (MANUAL) 5 % (0-11.0); NEUTROPHILS % (MANUAL) 62 (42-76)
[2019-02-07] MEDS: SUCRALFATE 1 G/10 ML UDC GT SCH ×4 (08:45→22:16)
[2019-02-07] MEDS: CALCITRIOL 0.25 MCG CAPSULE GT SCH (08:46)
[2019-02-07] MEDS: FERROUS SULFATE UDC 300 MG/5 ML UDC GT SCH ×2 (08:46→17:33)
[2019-02-07] MEDS: PANTOPRAZOLE 40 MG/PACK PACK GT SCH ×2 (08:47→17:31)
[2019-02-07] MEDS: ZINC SULFATE 220 MG CAPSULE GT SCH (08:47)
[2019-02-07] MEDS: hydrALAZINE HCL 50 MG TABLET PO SCH ×4 (08:47→17:32)
[2019-02-07] MEDS: glipiZIDE 10 MG TABLET GT SCH ×2 (08:47→22:16)
[2019-02-07] MEDS: LACTULOSE 10 G/15 ML UDC (PYXIS) GT SCH (08:59)
[2019-02-07] MEDS: PROSOURCE / PROSTAT (PYXIS) 30 ML UDC GT SCH (09:01)
[2019-02-07] MEDS: DAKINS QUARTER STRENGTH (0.125%) 480 ML BOTTLE TOP SCH (09:30)
[2019-02-07] MEDS: NITROGLYCERIN PACKET 1 GM PACKET TOP SCH ×2 (12:35→17:49)
[2019-02-07] MEDS: ACETAMINOPHEN 650 MG/20.3 ML UDC GT PRN (12:37)
--- NOTE | 2019-02-07 13:00 | NUR ---
FARM PRODUCT PURCHASER NOTE SEEN BY ,UPDATED ABOUT PATIENT CONDITION WITH LABS,GOT NEW ORDERS.ON LINE HOLIDAY.SHE SAID SHE WILL TALK TO ID REGARDING NEW CATH INSERTION.
[2019-02-07] MEDS ORDERED: VANCOMYCIN 1 GM in IV D5W 250 ML IV ONE (16:00)
--- NOTE | 2019-02-07 16:00 | NUR ---
PREMIUM NOTE INTEREST CALCULATOR CLERK NOTE RELAYED KUB RESULT GOT ORDER O DECREASE TUBE G TUBE FEEDING TO 20ML/HR.
--- NOTE | 2019-02-07 17:15 | NUR ---
PATIENT AMBASSADOR NOTE ENDORSED TO MOY LAMAS FOR CHELSY.PATIENT IN STABLE CONDITION.
--- NOTE | 2019-02-07 17:20 | NUR ---
CYLINDER GRINDER NOTE RECEIVED PATIENT FROM CHAYO RN ,PATIENTWITH TRACH TO VENT SETTING ORDERED , AMBU BAG AT HOB AT ALL TIME ,PATIENT IS OBTUNDED, NONVERBAL , WITH FLEXSEAL RECTAL TUBE IN PLACE WITH BROWN LIQUID STOOL NOTED , ON H TUBE FEEDING ORDERED AT 20 ML PER HOUR KEEP HOB ELEVATED AT ALL TIME , RT UPPER ARM MID LINE IN PLACE, NOTED VANCOMYCIN INFUSION , BLOOD SUGAR CHECKED 117 MG\DL, NO COVERAGE WITH INSULIN NEED AT THIS TIME , ON ISOFLEX AIR BED FOR SKIN MANAGEMENT, WILL CONT TO MONIOTR CLOSELY
--- NOTE | 2019-02-07 20:00 | NUR ---
DISEASE AND INSECT CONTROL BOSS NOTES RECEIVED PT ON BED. A/O X 1. NON VERBAL ON TELE MONITOR SR 100. [facility] SETTING SATURATING WELL. IV ACCESS ORLY MIDLINE HL, PATENT AND INTACT. GTUBE FEEDING NEPRO @ 20CC/HR. HEAD OF BED ELEVATED. SIDE RAILS UP. CALL LIGHT WITHIN REACH. BED ALARM ON. WILL CONTINUE TO MONITOR PT CLOSELY.
[2019-02-07] MEDS: ERGOCALCIFEROL (VITAMIN D 2) 50,000 UNIT CAPSULE GT SCH (22:18)
[2019-02-07] MEDS: INSULIN GLARGINE, 100 UNIT/ML CARTRIDGE SQ SCH (22:21)
[2019-02-08] VITALS (8 sets, daily range): BP systolic 100–133; BP diastolic 40–85
[2019-02-08] MEDS: NITROGLYCERIN PACKET 1 GM PACKET TOP SCH ×4 (00:21→18:21)
[2019-02-08] MEDS: NEPRO 1,000 ML BOTTLE GT PRN ×2 (00:42→15:59)
[2019-02-08] MEDS: BLOOD SUGAR DIAGNOSTIC 1 EACH STRIP IN SCH ×6 (00:47→21:14)
[2019-02-08] MEDS: INSULIN REGULAR, HUMAN 100 UNIT/ML 3 ML VIAL SQ PRN ×5 (00:48→21:21)
[2019-02-08] MEDS: MEROPENEM 500 MG in IV NS 0.9% 50 ML IV SCH ×2 (04:56→17:35)
[2019-02-08] MEDS: MUPIROCIN OINT 2% 22 GM TUBE TP SCH ×2 (04:57→18:48)
[2019-02-08] MEDS ORDERED: VANCOMYCIN 500 MG in IV D5W 100 ML IV PRN (06:00)
[2019-02-08 06:54] LABS: BASOPHILS # (AUTO) 0.1 /CMM (0.0-0.2); BASOPHILS % (AUTO) 0.5 % (0.0-2.0); EOSINOPHILS % (AUTO) 2.1 % (0.0-6.0); HEMATOCRIT 25 % (33-45); HEMOGLOBIN 8.6 g/dL (11.5-14.8); LYMPHOCYTES % (AUTO) 20.1 % (20.0-44.0); MEAN CORPUSCULAR HGB CONC 34 g/dl (31.0-36.0); MEAN CORPUSCULAR VOLUME 91 fL (82-100); MONOCYTES # (AUTO) 0.5 /CMM (0.1-1.30); MONOCYTES % (AUTO) 5.1 % (2.0-12.0); NEUTROPHILS # (AUTO) 7.3 /CMM (1.8-8.9); NEUTROPHILS % (AUTO) 72.2 % (43.0-81.0); PLATELET COUNT (AUTO) 440 /CMM (150-450); RED BLOOD CELL COUNT(AUTO) 2.76 MIL/uL (4.0-5.2); WHITE BLOOD COUNT (AUTO) 10.1 K/uL (4.3-11.0)
--- NOTE | 2019-02-08 07:14 | NUR ---
SURGICAL SUPPLY ASSISTANT NOTES NO ACUTE CHANGES NOTED DURING THE SHIFT. NO BLEEDING NOTED IN THE WOUNDS. PROVIDED COMFORT AND SAFETY. WILL ENDORSE TO THE AM NURSE FOR CONTINUITY OF CARE.
[2019-02-08 07:31] LABS: BILIRUBIN,TOTAL 0.4 mg/dL (0.2-1.0); CREATININE 3.6 mg/dL (0.6-1.3); MAGNESIUM 2.6 mg/dL (1.8-2.4); PHOSPHORUS 4.5 mg/dL (2.5-4.9); POTASSIUM 3.6 mmol/L (3.5-5.1); TOTAL PROTEIN, SERUM 7.2 g/dL (6.4-8.2)
--- NOTE | 2019-02-08 07:31 | NUR ---
BUTCHER SCULLION OPENING NOTES RECEIVED PT ON BED. A/O X 1. NON VERBAL ON TELE MONITOR SR 105. PT ON MECH VENT SETTINGS PRESCRIBED, SATURATING WELL. ORLY MIDLINE INTACT AND PATENT. GTUBE FEEDING NEPRO @ 20CC/HR. HEAD OF BED ELEVATED. SAFETY MEASURES IN PLACE. BED IN LOW LOCKED POSITION, SIDE RAILS UP, CALL LIGHT WITHIN REACH, BED ALARM ON. WILL CONTINUE TO MONITOR.
[2019-02-08 07:40] LABS: BAND % (MANUAL) 6 % (0.0-5.0); EOSINOPHILS % (MANUAL) 1 % (0-4); LYMPHOCYTES % (MANUAL) 16 % (16-48); METAMYELOCYTES % 1 % (0-0); MONOCYTES % (MANUAL) 6 % (0-11.0); NEUTROPHILS % (MANUAL) 70 (42-76)
[2019-02-08] MEDS: FERROUS SULFATE UDC 300 MG/5 ML UDC GT SCH ×2 (08:23→16:55)
[2019-02-08] MEDS: LACTULOSE 10 G/15 ML UDC (PYXIS) GT SCH (08:23)
[2019-02-08] MEDS: CALCITRIOL 0.25 MCG CAPSULE GT SCH (08:23)
[2019-02-08] MEDS: SUCRALFATE 1 G/10 ML UDC GT SCH ×4 (08:23→21:13)
[2019-02-08] MEDS: PANTOPRAZOLE 40 MG/PACK PACK GT SCH ×2 (08:23→16:55)
[2019-02-08] MEDS: glipiZIDE 10 MG TABLET GT SCH ×2 (08:23→21:13)
[2019-02-08] MEDS: ZINC SULFATE 220 MG CAPSULE GT SCH (08:23)
[2019-02-08] MEDS: hydrALAZINE HCL 50 MG TABLET PO SCH ×3 (08:24→16:56)
[2019-02-08] MEDS: DAKINS QUARTER STRENGTH (0.125%) 480 ML BOTTLE TOP SCH (09:38)
[2019-02-08] MEDS: PROSOURCE / PROSTAT (PYXIS) 30 ML UDC GT SCH (09:39)
--- NOTE | 2019-02-08 19:55 | NUR ---
SEWER BRICKLAYER CLOSING NOTES PT ON BED. A/O X 1. NON VERBAL ON TELE MONITOR ST 10O'S. PT ON MECH VENT SETTINGS PRESCRIBED, SATURATING WELL. ORLY MIDLINE INTACT AND PATENT. GTUBE FEEDING NEPRO @ 20CC/HR. HEAD OF BED ELEVATED. SAFETY MEASURES IN PLACE. BED IN LOW LOCKED POSITION, SIDE RAILS UP, CALL LIGHT WITHIN REACH, BED ALARM ON. CARE ENDORSED TO CLAMPER RN. .
--- NOTE | 2019-02-08 20:00 | NUR ---
RN INITIAL NOTES RECEIVED PT ON BED. A/O X 1.FAMILY AT BEDSIDE. NON VERBAL ON TELE MONITOR ST HR111. [facility] PRESCRIBED, SATURATING WELL. R UA MIDLINE INTACT AND PATENT S/L. G-TUBE FEEDING NEPRO @ 20CC/HR. HEAD OF BED ELEVATED. SAFETY MEASURES IN PLACE. BED IN LOW LOCKED POSITION, SIDE RAILS UP, CALL LIGHT WITHIN REACH, BED ALARM ON. WILL CONTINUE TO MONITOR.
[2019-02-08] MEDS: INSULIN GLARGINE, 100 UNIT/ML CARTRIDGE SQ SCH (21:19)
[2019-02-09] VITALS: BP 110/62
[2019-02-09] MEDS: BLOOD SUGAR DIAGNOSTIC 1 EACH STRIP IN SCH ×6 (00:53→22:29)
[2019-02-09] MEDS: NITROGLYCERIN PACKET 1 GM PACKET TOP SCH ×4 (00:53→19:13)
[2019-02-09] MEDS: INSULIN REGULAR, HUMAN 100 UNIT/ML 3 ML VIAL SQ PRN ×4 (00:59→22:44)
[2019-02-09 04:00] VITALS: BP 124/61
[2019-02-09] MEDS: MEROPENEM 500 MG in IV NS 0.9% 50 ML IV SCH ×2 (05:14→19:15)
[2019-02-09] MEDS: MUPIROCIN OINT 2% 22 GM TUBE TP SCH ×2 (05:28→18:00)
--- NOTE | 2019-02-09 06:16 | NUR ---
RN CLOSING NOTES PT ON BED. A/O X 1. NON VERBAL ON TELE MONITOR ST 10O'S. PT ON MECH VENT SETTINGS PRESCRIBED, SATURATING WELL. ORLY MIDLINE INTACT AND PATENT. GTUBE FEEDING NEPRO @ 20CC/HR. HEAD OF BED ELEVATED. SAFETY MEASURES IN PLACE. BED IN LOW LOCKED POSITION, SIDE RAILS UP, CALL LIGHT WITHIN REACH, BED ALARM ON. CARE ENDORSED TO AM SHIFT RN.
[2019-02-09 06:46] LABS: BASOPHILS % (AUTO) 0.5 % (0.0-2.0); EOSINOPHILS % (AUTO) 1.8 % (0.0-6.0); HEMATOCRIT 22 % (33-45); HEMOGLOBIN 7.3 g/dL (11.5-14.8); LYMPHOCYTES # (AUTO) 2.1 /CMM (0.8-4.8); LYMPHOCYTES % (AUTO) 22.6 % (20.0-44.0); MEAN CORPUSCULAR HGB CONC 34 g/dl (31.0-36.0); MEAN CORPUSCULAR VOLUME 92 fL (82-100); MONOCYTES # (AUTO) 0.4 /CMM (0.1-1.30); NEUTROPHILS # (AUTO) 6.5 /CMM (1.8-8.9); NEUTROPHILS % (AUTO) 71.1 % (43.0-81.0); PLATELET COUNT (AUTO) 471 /CMM (150-450); RED BLOOD CELL COUNT(AUTO) 2.34 MIL/uL (4.0-5.2); WHITE BLOOD COUNT (AUTO) 9.2 K/uL (4.3-11.0)
[2019-02-09 07:03] LABS: ALBUMIN 1.9 g/dL (3.4-5.0); BILIRUBIN,TOTAL 0.3 mg/dL (0.2-1.0); CALCIUM, SERUM 9.6 mg/dL (8.5-10.1); CREATININE 3.9 mg/dL (0.6-1.3); MAGNESIUM 2.7 mg/dL (1.8-2.4); PHOSPHORUS 4.5 mg/dL (2.5-4.9); POTASSIUM 3.6 mmol/L (3.5-5.1); TOTAL PROTEIN, SERUM 6.8 g/dL (6.4-8.2)
--- NOTE | 2019-02-09 07:47 | NUR ---
PAINT TESTER OPENING NOTES RECEIVED PT ON BED. A/O X 1. NON VERBAL ON TELE MONITOR SR 90's. PT ON MECH VENT SETTINGS PRESCRIBED, SATURATING WELL. ORLY MIDLINE INTACT AND PATENT. GTUBE FEEDING NEPRO @ 20CC/HR. HEAD OF BED ELEVATED. SAFETY MEASURES IN PLACE. BED IN LOW LOCKED POSITION, SIDE RAILS UP, CALL LIGHT WITHIN REACH, BED ALARM ON. WILL CONTINUE TO MONITOR.
[2019-02-09 08:00] VITALS: BP 148/75
[2019-02-09] MEDS: glipiZIDE 10 MG TABLET GT SCH ×2 (08:27→22:28)
[2019-02-09] MEDS: CALCITRIOL 0.25 MCG CAPSULE GT SCH (08:27)
[2019-02-09] MEDS: SUCRALFATE 1 G/10 ML UDC GT SCH ×4 (08:27→22:22)
[2019-02-09] MEDS: LACTULOSE 10 G/15 ML UDC (PYXIS) GT SCH (08:27)
[2019-02-09] MEDS: ZINC SULFATE 220 MG CAPSULE GT SCH (08:27)
[2019-02-09] MEDS: hydrALAZINE HCL 50 MG TABLET PO SCH ×3 (08:28→19:14)
[2019-02-09] MEDS: FERROUS SULFATE UDC 300 MG/5 ML UDC GT SCH ×2 (08:28→19:12)
[2019-02-09] MEDS: PANTOPRAZOLE 40 MG/PACK PACK GT SCH ×2 (08:28→19:12)
[2019-02-09 08:29] LABS: BAND % (MANUAL) 4 % (0.0-5.0); EOSINOPHILS % (MANUAL) 3 % (0-4); LYMPHOCYTES % (MANUAL) 13 % (16-48); MONOCYTES % (MANUAL) 3 % (0-11.0); MYELOCYTES % 1 % (0-0); NEUTROPHILS % (MANUAL) 76 (42-76)
[2019-02-09] MEDS: PROSOURCE / PROSTAT (PYXIS) 30 ML UDC GT SCH (09:00)
[2019-02-09] MEDS: DAKINS QUARTER STRENGTH (0.125%) 480 ML BOTTLE TOP SCH (11:27)
[2019-02-09 12:00] VITALS: BP 136/67
[2019-02-09 16:00] VITALS: BP 124/61
[2019-02-09 20:00] VITALS: BP 133/68
--- NOTE | 2019-02-09 20:00 | NUR ---
RN INITIAL NOTES RECEIVED PT ON BED. A/O X 1. NON VERBAL ON TELE MONITOR SR 93. PT ON MECH VENT SETTINGS PRESCRIBED, SATURATING WELL. ORLY MIDLINE INTACT AND PATENT. GTUBE FEEDING NEPRO @ 20CC/HR. HEAD OF BED ELEVATED. SAFETY MEASURES IN PLACE. BED IN LOW LOCKED POSITION, SIDE RAILS UP, CALL LIGHT WITHIN REACH, BED ALARM ON. PT COMPLETED HD. WILL CONTINUE TO MONITOR.
--- NOTE | 2019-02-09 20:01 | NUR ---
RT Pt rec'd with a shiley 8 xlt proximal trach on mechanical vent with charted settings. Pt is awake but does not follow commands. Vent alarms are set and audible with BVM by bedside. CORN MILLER cuff pressure noted. Vent is plugged into red outlet. No respiratory distress noted at this time. will continue to monitor. Addendum: 02/09/19 at 2002 by HERLINDA SPIVEY RT Amended: Links added.
--- NOTE | 2019-02-09 20:16 | NUR ---
CLAIMS ACCOUNT SPECIALIST CLOSING NOTES PT ON BED. A/O X 1. NON VERBAL ON TELE MONITOR SR 90's. PT ON MECH VENT SETTINGS PRESCRIBED, SATURATING WELL. ORLY MIDLINE INTACT AND PATENT. GTUBE FEEDING NEPRO @ 20CC/HR. HEAD OF BED ELEVATED. CVC CATHETER SUCCESFULLY PLACED TODAY. DIALYSIS COMPLETED W/ 1900CC REMOVED. SAFETY MEASURES IN PLACE. BED IN LOW LOCKED POSITION, SIDE RAILS UP, CALL LIGHT WITHIN REACH, BED ALARM ON. WILL CONTINUE TO MONITOR.
[2019-02-09] MEDS: INSULIN GLARGINE, 100 UNIT/ML CARTRIDGE SQ SCH (22:38)
[2019-02-10] VITALS (8 sets, daily range): BP systolic 92–143; BP diastolic 41–63
[2019-02-10] MEDS: NITROGLYCERIN PACKET 1 GM PACKET TOP SCH ×4 (01:03→17:09)
[2019-02-10] MEDS: BLOOD SUGAR DIAGNOSTIC 1 EACH STRIP IN SCH ×6 (02:13→21:18)
[2019-02-10] MEDS: INSULIN REGULAR, HUMAN 100 UNIT/ML 3 ML VIAL SQ PRN ×2 (02:17→21:20)
[2019-02-10] MEDS: NEPRO 1,000 ML BOTTLE GT PRN (05:33)
[2019-02-10] MEDS: MEROPENEM 500 MG in IV NS 0.9% 50 ML IV SCH ×2 (05:33→16:37)
[2019-02-10] MEDS: MUPIROCIN OINT 2% 22 GM TUBE TP SCH ×2 (05:38→17:06)
--- NOTE | 2019-02-10 07:31 | NUR ---
RN CLOSING NOTES PT ON BED. A/O X 1. NON VERBAL ON TELE MONITOR SR 90's. PT ON MECH VENT SETTINGS PRESCRIBED, SATURATING WELL. ORLY MIDLINE INTACT AND PATENT. GTUBE FEEDING NEPRO @ 20CC/HR. HEAD OF BED ELEVATED. SAFETY MEASURES IN PLACE. BED IN LOW LOCKED POSITION, SIDE RAILS UP, CALL LIGHT WITHIN REACH, BED ALARM ON. WILL CONTINUE TO MONITOR.
--- NOTE | 2019-02-10 07:39 | NUR ---
AUTOMATIC OUTSOLE CUTTER OPENING NOTES RECEIVED PT LYING ON BED,CAM OPEN EYES AND NONVERBAL.TRACH AND VENT DEPENDENT,TOLERATING WELL.ON TELE HR IS [address]NO SOB AND ACUTE DISTRESS NOTED.HAS G TUBE WITH G TUBE FEEDING PRESENT AND FLEXI SEAL IN PLACE.MINIMAL GASTRIC RESIDUAL NOTED.HD CATH ON RIGHT FEMORAL AND IV LINE IS ON RIGHT UA MIDLINE,SL.SITE IS CLEAN,DRY AND INTACT.NO INFILTRATION NOTED.SAFETY IS MAINTAINED AT ALL TIMES.BED IS IN LOW POSITION AND LOCKED.CALL LIGHT IS WITHIN REACH.WILL CONTINUE TO MONITOR THE PT CLOSELY.
[2019-02-10] MEDS: SUCRALFATE 1 G/10 ML UDC GT SCH ×4 (08:02→21:18)
[2019-02-10] MEDS: LACTULOSE 10 G/15 ML UDC (PYXIS) GT SCH (08:05)
[2019-02-10] MEDS: glipiZIDE 10 MG TABLET GT SCH ×2 (08:05→21:18)
[2019-02-10] MEDS: ZINC SULFATE 220 MG CAPSULE GT SCH (08:05)
[2019-02-10] MEDS: hydrALAZINE HCL 50 MG TABLET PO SCH ×3 (08:05→16:38)
[2019-02-10] MEDS: FERROUS SULFATE UDC 300 MG/5 ML UDC GT SCH ×2 (08:05→16:37)
[2019-02-10] MEDS: CALCITRIOL 0.25 MCG CAPSULE GT SCH (08:05)
[2019-02-10] MEDS: PANTOPRAZOLE 40 MG/PACK PACK GT SCH ×2 (08:11→16:37)
[2019-02-10] MEDS: DAKINS QUARTER STRENGTH (0.125%) 480 ML BOTTLE TOP SCH (08:20)
[2019-02-10] MEDS: PROSOURCE / PROSTAT (PYXIS) 30 ML UDC GT SCH (08:21)
[2019-02-10 08:31] LABS: CALCIUM, SERUM 9.6 mg/dL (8.5-10.1); CREATININE 3.1 mg/dL (0.6-1.3); MAGNESIUM 2.6 mg/dL (1.8-2.4); PHOSPHORUS 3.6 mg/dL (2.5-4.9); POTASSIUM 3.5 mmol/L (3.5-5.1)
--- NOTE | 2019-02-10 09:00 | NUR ---
DEBT MANAGEMENT COUNSELOR NOTES HD IS STARTED.PT TOLERATED WELL. Addendum: 02/10/19 at 1112 by DAVID GARCIA RN WRONG INTERVENTION.
[2019-02-10 09:10] LABS: BASOPHILS % (AUTO) 0.4 % (0.0-2.0); EOSINOPHILS % (AUTO) 1.1 % (0.0-6.0); HEMATOCRIT 23 % (33-45); HEMOGLOBIN 7.9 g/dL (11.5-14.8); LYMPHOCYTES # (AUTO) 2.4 /CMM (0.8-4.8); LYMPHOCYTES % (AUTO) 22.9 % (20.0-44.0); MEAN CORPUSCULAR HGB CONC 34 g/dl (31.0-36.0); MEAN CORPUSCULAR VOLUME 93 fL (82-100); MONOCYTES # (AUTO) 0.5 /CMM (0.1-1.30); MONOCYTES % (AUTO) 4.3 % (2.0-12.0); NEUTROPHILS # (AUTO) 7.6 /CMM (1.8-8.9); NEUTROPHILS % (AUTO) 71.3 % (43.0-81.0); PLATELET COUNT (AUTO) 479 /CMM (150-450); RED BLOOD CELL COUNT(AUTO) 2.51 MIL/uL (4.0-5.2); WHITE BLOOD COUNT (AUTO) 10.7 K/uL (4.3-11.0)
--- NOTE | 2019-02-10 13:00 | NUR ---
BRAND AMBASSADORS PROMOTIONAL SALES NOTES CHECKED BLOOD SUGAR IS 67,RECHECKED AGAIN IT IS 66.NO COMPLICATIONS NOTED.FAMILY IS AT BEDSIDE.
[2019-02-10 13:11] LABS: EOSINOPHILS % (MANUAL) 2 % (0-4); LYMPHOCYTES % (MANUAL) 25 % (16-48); METAMYELOCYTES % 1 % (0-0); MONOCYTES % (MANUAL) 2 % (0-11.0); MYELOCYTES % 5 % (0-0); NEUTROPHILS % (MANUAL) 65 (42-76)
--- NOTE | 2019-02-10 15:43 | NUR ---
LAMP STACK DEVELOPER NOTES DR.ANDONIAN Amaya SEEN AND EXAMINED THE PT,THE ABDOMEN IS SOFT AND NO FURTHER EPISODES OF NAUSEA AND VOMITING,ORDERED TO INCREASE THE TUBE FEEDING NEPRO TO 45CC/HR.NEW ORDERS NOTED AND CARRIED OUT.
--- NOTE | 2019-02-10 17:10 | NUR ---
HOG FEEDER NOTES CHECKED THE BLOOD SUGAR IS 27,RECHECKED IT IS 33.GIVEN IV DEXTROSE 50ML.RECHECKED IT IS 165
--- NOTE | 2019-02-10 18:46 | NUR ---
CONTROL TOWER OPERATOR CLOSING NOTES PT IS LYING ON BED WITH TRACH AND VENT DEPENDENT,CAN OPEN EYES AND NON VERBAL.ON TELE HR IS 100 WITH SR.WITH G TUBE FEEDING,TOLERATING WELL WITH INCREASED DOSE RATE.WITH FLEXI SEAL WITH SOFT LIQUID STOOL WITH NO SIGNIFICANT CHANGES NOTED IN THE SHIFT.RESPIRATION IS EVEN AND NONLABORED.IV LINE IS IN PLACE.ENDORSED TO CORPORATE PILOT RN FOR CHELSY.
--- NOTE | 2019-02-10 20:15 | NUR ---
PATTERNMAKER PRESSURE CAST OPENING NOTES RECEIVED REPORT FROM DAVID RN. PATIENT OBTUNDED BUT RESPONDS TO TACTILE STIMULI. BREATHING EVEN & UNLABORED W/ TRACH INTACT & TOLERATING VENT SETTINGS AC 16, TV 550, FIO2 40%, PEEP 5. NO S/S OF RESPIRATORY DISTRESS. ON TELE W/ SINUS RHYTHM W/ PVC'S, HR 91. RIGHT UPPER ARM MIDLINE INTACT & PATENT W/ DRESSING CDI ON TKO. RIGHT FEMORAL HD CATH IN PLACE W/ NO SIGNS OF COMPLICATION NOTED. G-TUBE PATENT & FLUSHING WELL W/ GTF @ 45 ML/HR, TOLERATING WELL. FLEXISEAL W/ LIQUID, BROWN STOOL NOTED. NO S/S OF PAIN OR DISCOMFORT @ THIS TIME. SAFETY MEASURES IN PLACE W/ SIDE RAILS UP & BED ALARM ON. HOB ELEVATED FOR ASPIRATION PRECAUTIONS. WILL CONTINUE TO MONITOR.
--- NOTE | 2019-02-10 20:23 | NUR ---
RT Pt rec'd with a shiley 8 xlt proximal trach on mechanical vent with charted settings. Pt is awake but does not follow commands. Vent alarms are set and audible with BVM by bedside. STACK SUPERVISOR cuff pressure noted. Vent is plugged into red outlet. No respiratory distress noted at this time. will continue to monitor. Addendum: 02/10/19 at 2022 by HERLINDA SPIVEY RT Amended: Links added.
[2019-02-10] MEDS: INSULIN GLARGINE, 100 UNIT/ML CARTRIDGE SQ SCH (21:21)
[2019-02-11] VITALS: BP 157/60
[2019-02-11] MEDS: NITROGLYCERIN PACKET 1 GM PACKET TOP SCH ×4 (01:05→17:00)
[2019-02-11] MEDS: ACETAMINOPHEN 650 MG/20.3 ML UDC GT PRN ×2 (01:05→12:41)
[2019-02-11] MEDS: BLOOD SUGAR DIAGNOSTIC 1 EACH STRIP IN SCH ×6 (01:09→22:06)
[2019-02-11] MEDS: INSULIN REGULAR, HUMAN 100 UNIT/ML 3 ML VIAL SQ PRN ×6 (01:11→22:16)
[2019-02-11 04:00] VITALS: BP 126/57
[2019-02-11] MEDS: MEROPENEM 500 MG in IV NS 0.9% 50 ML IV SCH ×2 (05:25→16:51)
[2019-02-11] MEDS: MUPIROCIN OINT 2% 22 GM TUBE TP SCH ×2 (05:28→17:13)
[2019-02-11 06:47] LABS: BASOPHILS # (AUTO) 0.1 /CMM (0.0-0.2); BASOPHILS % (AUTO) 0.7 % (0.0-2.0); EOSINOPHILS % (AUTO) 1.3 % (0.0-6.0); HEMATOCRIT 24 % (33-45); HEMOGLOBIN 8.3 g/dL (11.5-14.8); LYMPHOCYTES # (AUTO) 2.2 /CMM (0.8-4.8); LYMPHOCYTES % (AUTO) 20.3 % (20.0-44.0); MEAN CORPUSCULAR HGB CONC 34 g/dl (31.0-36.0); MEAN CORPUSCULAR VOLUME 92 fL (82-100); MONOCYTES # (AUTO) 0.4 /CMM (0.1-1.30); MONOCYTES % (AUTO) 3.7 % (2.0-12.0); NEUTROPHILS # (AUTO) 7.9 /CMM (1.8-8.9); PLATELET COUNT (AUTO) 546 /CMM (150-450); RED BLOOD CELL COUNT(AUTO) 2.62 MIL/uL (4.0-5.2); WHITE BLOOD COUNT (AUTO) 10.6 K/uL (4.3-11.0)
[2019-02-11 06:59] LABS: CALCIUM, SERUM 9.3 mg/dL (8.5-10.1); CREATININE 2.8 mg/dL (0.6-1.3); POTASSIUM 3.8 mmol/L (3.5-5.1)
--- NOTE | 2019-02-11 07:05 | NUR ---
AUTOMOTIVE GENERAL SALES MANAGER OPENING NOTES RECEIVED PT LYING ON BED,CAN OPEN EYES AND NONVERBAL.TRACH AND VENT DEPENDENT WITH AC 16,TV-550,FIO2-40%,PEEP-5,TOLERATING WELL.ON TELE HR IS [address]NO SOB AND ACUTE DISTRESS NOTED.HAS G TUBE WITH G TUBE FEEDING NEPRO @45CC/HR IS RUNNING AND FLEXI SEAL IN PLACE.MINIMAL GASTRIC RESIDUAL NOTED.HD CATH ON RIGHT FEMORAL AND IV LINE IS ON RIGHT UA MIDLINE,SL.SITE IS CLEAN,DRY AND INTACT.NO INFILTRATION NOTED.SAFETY IS MAINTAINED AT ALL TIMES.BED IS IN LOW POSITION AND LOCKED.CALL LIGHT IS WITHIN REACH.WILL CONTINUE TO MONITOR THE PT CLOSELY.
[2019-02-11 08:00] VITALS: BP 127/51
[2019-02-11 08:00] LABS: BAND % (MANUAL) 3 % (0.0-5.0); LYMPHOCYTES % (MANUAL) 15 % (16-48); MONOCYTES % (MANUAL) 1 % (0-11.0); MYELOCYTES % 1 % (0-0); NEUTROPHILS % (MANUAL) 80 (42-76)
[2019-02-11] MEDS: SUCRALFATE 1 G/10 ML UDC GT SCH ×4 (08:10→22:06)
[2019-02-11] MEDS: CALCITRIOL 0.25 MCG CAPSULE GT SCH (08:38)
[2019-02-11] MEDS: LACTULOSE 10 G/15 ML UDC (PYXIS) GT SCH (08:38)
[2019-02-11] MEDS: glipiZIDE 10 MG TABLET GT SCH ×2 (08:38→22:07)
[2019-02-11] MEDS: FERROUS SULFATE UDC 300 MG/5 ML UDC GT SCH ×2 (08:38→16:53)
[2019-02-11] MEDS: PANTOPRAZOLE 40 MG/PACK PACK GT SCH ×2 (08:39→16:53)
[2019-02-11] MEDS: ZINC SULFATE 220 MG CAPSULE GT SCH (08:39)
[2019-02-11] MEDS: hydrALAZINE HCL 50 MG TABLET PO SCH ×3 (08:40→16:52)
[2019-02-11] MEDS: DAKINS QUARTER STRENGTH (0.125%) 480 ML BOTTLE TOP SCH (08:49)
[2019-02-11] MEDS: PROSOURCE / PROSTAT (PYXIS) 30 ML UDC GT SCH (09:39)
[2019-02-11 12:00] VITALS: BP 117/51
[2019-02-11] MEDS: NEPRO 1,000 ML BOTTLE GT PRN (12:42)
[2019-02-11 16:00] VITALS: BP 131/54
[2019-02-11] MEDS ORDERED: VANCOMYCIN 1 GM in IV D5W 250 ML IV ONE (17:00)
--- NOTE | 2019-02-11 18:30 | NUR ---
CRYPTOLOGIC SUPPORT SPECIALIST CLOSING NOTES PT IS LYING ON BED WITH TRACH AND VENT DEPEND,TOLERATING WELL.RESPIRATION IS EVEN AND NONLABORED.NO SIGNIFICANT CHANGES NOTED IN THE SHIFT.PT IS CLEAN AND DRY.ALL DUE MEDS ARE GIVEN.WITH FLEXI SEAL.ENDORSED TO ELECTROMECHANICAL ASSEMBLY TECHNICIAN RN FOR CHELSY
[2019-02-11 20:00] VITALS: BP 117/42
--- NOTE | 2019-02-11 20:00 | NUR ---
RN INITIAL NOTES RECEIVED PT LYING ON BED,CAM OPEN EYES AND NONVERBAL.TRACH AND VENT DEPENDENT,TOLERATING WELL. ON TELE HR IS [address]NO SOB AND ACUTE DISTRESS NOTED.HAS G TUBE WITH G TUBE FEEDING PRESENT AND FLEXI SEAL IN PLACE.MINIMAL GASTRIC RESIDUAL NOTED.HD CATH ON RIGHT FEMORAL AND IV LINE IS ON RIGHT UA MIDLINE,SL.SITE IS CLEAN,DRY AND INTACT.NO INFILTRATION NOTED.SAFETY IS MAINTAINED AT ALL TIMES.BED IS IN LOW POSITION AND LOCKED.CALL LIGHT IS WITHIN REACH.WILL CONTINUE TO MONITOR THE PT CLOSELY.
[2019-02-11] MEDS: INSULIN GLARGINE, 100 UNIT/ML CARTRIDGE SQ SCH (22:14)
[2019-02-12] VITALS (7 sets, daily range): BP systolic 93–146; BP diastolic 42–75
[2019-02-12] MEDS: NITROGLYCERIN PACKET 1 GM PACKET TOP SCH ×5 (00:51→23:52)
[2019-02-12] MEDS: BLOOD SUGAR DIAGNOSTIC 1 EACH STRIP IN SCH ×6 (02:05→21:40)
[2019-02-12] MEDS: INSULIN REGULAR, HUMAN 100 UNIT/ML 3 ML VIAL SQ PRN ×5 (02:07→21:49)
[2019-02-12] MEDS: MEROPENEM 500 MG in IV NS 0.9% 50 ML IV SCH ×2 (05:37→17:10)
[2019-02-12] MEDS: MUPIROCIN OINT 2% 22 GM TUBE TP SCH ×2 (06:35→17:11)
[2019-02-12 07:01] LABS: CALCIUM, SERUM 9.8 mg/dL (8.5-10.1); CREATININE 3.4 mg/dL (0.6-1.3); POTASSIUM 3.8 mmol/L (3.5-5.1)
--- NOTE | 2019-02-12 07:30 | NUR ---
RN NOTED RECEIVED PATIENT IN BED, ASLEEP,AROUSES TO TACTILE STIMULI, TRACH TO VENT, NO SOB AND TOLERATES VENT SETTING ORDERED, SATURATING 98%. HOB ELEVATED. SINUS TACH ON THE MONITOR WITH HR 113. IV ACCES ON THE (R) UA: MIDLINE-INTACT AND PATENT WITH DRESSING IN PLACE,CLEAN AND DRY. GT IN PLACE, PLACEMENT CONFIRMED THROUGH AUSCULTATION. NO GASTRIC RESIDUAL TAKEN AT THIS TIME. WITH FLEXISEAL IN PLACE, DRAINAGE: BROWNISH, LIQUIDITY. HOB KEPT ELEVATED, SAFETY MEASURES OBSERVED AND MAINTAINED. BED IN LOW AND LOCKED POSITIONED. CALL LIGHT WITHIN REACH. ISOLATION PRECAUTION IMPLEMENTED.WILL CONTINUE TO MONITOR AND ANTICIPATE NEEDS
--- NOTE | 2019-02-12 07:31 | NUR ---
RN CLOSING NOTES PT IS LYING ON BED WITH TRACH AND VENT DEPEND,TOLERATING WELL.RESPIRATION IS EVEN AND NONLABORED.NO SIGNIFICANT CHANGES NOTED IN THE SHIFT.PT IS CLEAN AND DRY.ALL DUE MEDS ARE GIVEN.WITH FLEXI SEAL.ENDORSED TO VERTICAL MILL OPERATOR RN FOR CHELSY
[2019-02-12] MEDS: hydrALAZINE HCL 50 MG TABLET PO SCH ×3 (09:00→17:00)
--- NOTE | 2019-02-12 09:00 | NUR ---
RN NOTES BLOOD PRESSURE NOT GIVEN DUE TO BP BELOW PARAMETER BP SYSTOLIC BP AT 90
[2019-02-12] MEDS: LACTULOSE 10 G/15 ML UDC (PYXIS) GT SCH (09:36)
[2019-02-12] MEDS: glipiZIDE 10 MG TABLET GT SCH ×2 (09:36→21:43)
[2019-02-12] MEDS: FERROUS SULFATE UDC 300 MG/5 ML UDC GT SCH ×2 (09:36→17:08)
[2019-02-12] MEDS: PROSOURCE / PROSTAT (PYXIS) 30 ML UDC GT SCH (09:36)
[2019-02-12] MEDS: SUCRALFATE 1 G/10 ML UDC GT SCH ×4 (09:36→21:43)
[2019-02-12] MEDS: PANTOPRAZOLE 40 MG/PACK PACK GT SCH ×2 (09:37→17:09)
[2019-02-12] MEDS: ZINC SULFATE 220 MG CAPSULE GT SCH (09:37)
[2019-02-12] MEDS: CALCITRIOL 0.25 MCG CAPSULE GT SCH (09:37)
[2019-02-12] MEDS: NEPRO 1,000 ML BOTTLE GT PRN (09:38)
[2019-02-12] MEDS: DAKINS QUARTER STRENGTH (0.125%) 480 ML BOTTLE TOP SCH (09:38)
--- NOTE | 2019-02-12 13:00 | NUR ---
RN NOTES BLOOD PRESSURE MEDICATION NOT GIVEN DUE TO BLOOD PRESSURE BELOW PARAMETER SYSTOLIC BLOOD PRESSURE AT 90
--- NOTE | 2019-02-12 16:00 | NUR ---
RN NOTES OBTAINED CONSENT FOR SERIES DEBRIDEMENT OF THE SACRAL AREA FROM MAGDALENA HUNT (DAUGHTER). VERIFIED WITH JOSE, CHARGE NURSE
--- NOTE | 2019-02-12 17:00 | NUR ---
RN NOTES BLOOD PRESSURE MEDICATION NOT GIVEN DUE TO PATIENT SCHEDULE FOR DIALYSIS TREATMENT
--- NOTE | 2019-02-12 19:20 | NUR ---
RN NOTES ENDORSED PATIENT FOR CONTINUITY OF CARE. PATIENT ON ONGOING DIALYSIS TREATMENT. NO ACUTE CHANGES WITHIN THE SHIFT. NOT ON ANY FORM OF DISTRESS. ALL NURSING NEEDS ATTENDED. SAFETY MEASURES IN PLACE AT ALL TIMES. CALL LIGHT WITHIN REACH. ISOLATION PRECAUTION IMPLEMENTED AT ALL TIMES
[2019-02-12] MEDS: INSULIN GLARGINE, 100 UNIT/ML CARTRIDGE SQ SCH (21:47)
[2019-02-13] VITALS: BP 110/54
[2019-02-13] MEDS: BLOOD SUGAR DIAGNOSTIC 1 EACH STRIP IN SCH ×6 (01:11→21:03)
[2019-02-13] MEDS: INSULIN REGULAR, HUMAN 100 UNIT/ML 3 ML VIAL SQ PRN ×4 (01:16→21:07)
[2019-02-13 04:00] VITALS: BP 131/44
[2019-02-13] MEDS: MEROPENEM 500 MG in IV NS 0.9% 50 ML IV SCH ×2 (04:43→16:37)
[2019-02-13] MEDS: MUPIROCIN OINT 2% 22 GM TUBE TP SCH ×2 (05:04→16:37)
[2019-02-13] MEDS: NITROGLYCERIN PACKET 1 GM PACKET TOP SCH ×3 (05:06→17:52)
--- NOTE | 2019-02-13 07:30 | NUR ---
RN NOTED RECEIVED PATIENT IN BED, ASLEEP,AROUSES TO TACTILE STIMULI, TRACH TO VENT, NO SOB AND TOLERATES VENT SETTING ORDERED, SATURATING 98%. HOB ELEVATED. SINUS TACH ON THE MONITOR WITH HR . IV ACCES ON THE (R) UA: MIDLINE-INTACT AND PATENT WITH DRESSING IN PLACE,CLEAN AND DRY. GT IN PLACE, PLACEMENT CONFIRMED THROUGH AUSCULTATION. NO GASTRIC RESIDUAL TAKEN AT THIS TIME. WITH FLEXISEAL IN PLACE, DRAINAGE: BROWNISH, LIQUIDITY. HOB KEPT ELEVATED, SAFETY MEASURES OBSERVED AND MAINTAINED. BED IN LOW AND LOCKED POSITIONED. CALL LIGHT WITHIN REACH. ISOLATION PRECAUTION IMPLEMENTED.WILL CONTINUE TO MONITOR AND ANTICIPATE NEEDS
[2019-02-13 08:00] VITALS: BP 127/57
[2019-02-13] MEDS: SUCRALFATE 1 G/10 ML UDC GT SCH ×4 (09:16→21:03)
[2019-02-13] MEDS: LACTULOSE 10 G/15 ML UDC (PYXIS) GT SCH (09:16)
[2019-02-13] MEDS: FERROUS SULFATE UDC 300 MG/5 ML UDC GT SCH ×2 (09:17→12:26)
[2019-02-13] MEDS: PROSOURCE / PROSTAT (PYXIS) 30 ML UDC GT SCH (09:17)
[2019-02-13] MEDS: glipiZIDE 10 MG TABLET GT SCH ×2 (09:17→21:03)
[2019-02-13] MEDS: PANTOPRAZOLE 40 MG/PACK PACK GT SCH ×2 (09:18→16:32)
[2019-02-13] MEDS: ZINC SULFATE 220 MG CAPSULE GT SCH (09:18)
[2019-02-13] MEDS: CALCITRIOL 0.25 MCG CAPSULE GT SCH (09:18)
[2019-02-13] MEDS: hydrALAZINE HCL 50 MG TABLET PO SCH ×3 (09:20→16:34)
[2019-02-13] MEDS: DAKINS QUARTER STRENGTH (0.125%) 480 ML BOTTLE TOP SCH (09:20)
[2019-02-13] MEDS: NEPRO 1,000 ML BOTTLE GT PRN (10:43)
[2019-02-13 12:00] VITALS: BP 127/54
[2019-02-13 16:00] VITALS: BP 109/57
--- NOTE | 2019-02-13 18:12 | NUR ---
RT RECD PT TRACHED INTACT & SECURED ON MECH VENT CHUCKIE'D ORDERED SETTINGS, ALARMS ON AND AUDIBLE BAG AND MASK AT HOB SX THICK YELLOW OD AMOUNT OF SECRETIONS NO RESP DISTRESS THROUGHOUT SHIFT WILL CONT TO MONITOR
--- NOTE | 2019-02-13 19:20 | NUR ---
RN NOTES ENDORSED PATIENT FOR CONTINUITY OF CARE. NO ACUTE CHANGES WITHIN THE SHIFT. NOT ON ANY FORM OF DISTRESS. ALL NURSING NEEDS ATTENDED. SAFETY MEASURES IN PLACE AT ALL TIMES. CALL LIGHT WITHIN REACH. ISOLATION PRECAUTION IMPLEMENTED AT ALL TIMES
[2019-02-13 20:00] VITALS: BP 110/53
[2019-02-13] MEDS: METRONIDAZOLE 500 MG TABLET PO SCH (21:03)
[2019-02-13] MEDS: INSULIN GLARGINE, 100 UNIT/ML CARTRIDGE SQ SCH (21:08)
[2019-02-14] VITALS: BP 124/54
[2019-02-14] MEDS: NITROGLYCERIN PACKET 1 GM PACKET TOP SCH ×4 (00:57→17:06)
[2019-02-14] MEDS: BLOOD SUGAR DIAGNOSTIC 1 EACH STRIP IN SCH ×6 (01:26→21:49)
[2019-02-14] MEDS: INSULIN REGULAR, HUMAN 100 UNIT/ML 3 ML VIAL SQ PRN ×5 (01:31→21:51)
[2019-02-14 04:00] VITALS: BP 146/57
[2019-02-14] MEDS: MEROPENEM 500 MG in IV NS 0.9% 50 ML IV SCH ×2 (05:01→17:05)
[2019-02-14] MEDS: METRONIDAZOLE 500 MG TABLET PO SCH ×3 (05:08→21:43)
[2019-02-14] MEDS: CLONIDINE HCL 0.1MG/24H PTWK 1 EA PATCH TD SCH (05:08)
[2019-02-14] MEDS: MUPIROCIN OINT 2% 22 GM TUBE TP SCH ×2 (05:10→17:08)
--- NOTE | 2019-02-14 07:00 | NUR ---
MOP WORKER OPENING NOTES RECEIVED PATIENT IN BED, ASLEEP, AROUSES TO TACTILE STIMULI. TRACH TO VENT, TOLERATES VENT SETTING ORDERED, SATURATING 98%, NO SOB NOTED. HOB ELEVATED. ON TELE MONITOR SR WITH HR 80S. IV ACCES ON THE (R) UA: MIDLINE-INTACT AND PATENT WITH DRESSING IN PLACE, CLEAN AND DRY. GT IN PLACE, PLACEMENT CONFIRMED THROUGH AUSCULTATION. NO GASTRIC RESIDUAL TAKEN AT THIS TIME. WITH FLEXISEAL IN PLACE, DRAINAGE: BROWNISH, LIQUIDITY. SAFETY MEASURES IN PLACE. BED IN LOW AND LOCKED POSITIONED. CALL LIGHT WITHIN REACH. ISOLATION PRECAUTION IMPLEMENTED. WILL CONTINUE TO MONITOR AND ANTICIPATE NEEDS.
[2019-02-14 08:00] VITALS: BP 159/71
--- NOTE | 2019-02-14 08:45 | NUR ---
JUSTICE PROFESSOR NOTES HD AT BEDSIDE. WILL HOLD MEDICATIONS FOR NOW. WILL CONT TO MONITOR PT.
[2019-02-14] MEDS: DAKINS QUARTER STRENGTH (0.125%) 480 ML BOTTLE TOP SCH (09:00)
--- NOTE | 2019-02-14 10:15 | NUR ---
DIETITIAN NOTES SPOKE WITH FNS REGARDING PATIENT'S LACTULOSE AND PATIENT'S LOOSE STOOL. SPOKE WITH RACHNA BARNHART STUDENT AND STATED "I WILL TALK TO DR. MORRISSEY IF WE SHOULD CONTINUE IT OR HOLD IT." HOLDING PATIENT'S LACTULOSE FOR NOW.
[2019-02-14] MEDS: SUCRALFATE 1 G/10 ML UDC GT SCH ×4 (10:47→21:43)
[2019-02-14] MEDS: FERROUS SULFATE UDC 300 MG/5 ML UDC GT SCH ×2 (10:47→17:07)
[2019-02-14] MEDS: ZINC SULFATE 220 MG CAPSULE GT SCH (10:47)
[2019-02-14] MEDS: hydrALAZINE HCL 50 MG TABLET PO SCH ×3 (10:48→17:07)
[2019-02-14] MEDS: PANTOPRAZOLE 40 MG/PACK PACK GT SCH ×2 (10:48→17:07)
[2019-02-14] MEDS: CALCITRIOL 0.25 MCG CAPSULE GT SCH (10:48)
[2019-02-14] MEDS: glipiZIDE 10 MG TABLET GT SCH ×2 (10:48→21:43)
[2019-02-14] MEDS: PROSOURCE / PROSTAT (PYXIS) 30 ML UDC GT SCH (10:51)
[2019-02-14 12:00] VITALS: BP 122/63
[2019-02-14] MEDS: LACTULOSE 10 G/15 ML UDC (PYXIS) GT SCH (12:39)
[2019-02-14] MEDS: NEPRO 1,000 ML BOTTLE GT PRN (13:21)
[2019-02-14 16:00] VITALS: BP 119/50
[2019-02-14] MEDS ORDERED: SILVER NITRATE APPLICATOR 1 EA BOX TP STA (18:50)
--- NOTE | 2019-02-14 19:15 | NUR ---
HIDE AND SKIN COLERER CLOSING NOTES PATIENT IN BED, ASLEEP, AROUSES TO TACTILE STIMULI. TRACH TO VENT, TOLERATES VENT SETTING ORDERED, SATURATING 100%, NO SOB NOTED. HOB ELEVATED. ON TELE MONITOR SINUS TACHY WITH HR 100S. IV ACCES ON THE (R) UA: MIDLINE-INTACT AND PATENT WITH DRESSING IN PLACE, CLEAN AND DRY. GT IN PLACE, PLACEMENT CONFIRMED THROUGH AUSCULTATION. NO GASTRIC RESIDUAL NOTED. WITH FLEXISEAL IN PLACE, DRAINAGE: BROWNISH, LIQUIDITY. SAFETY MEASURES IN PLACE THROUGHOUT SHIFT. BED IN LOW AND LOCKED POSITIONED. CALL LIGHT WITHIN REACH. ISOLATION PRECAUTION IMPLEMENTED. ALL MD ORDERS ATTENDED. ALL PATIENT NEEDS ANTICIPATE AND ATTENDED. ENDORSED TO CROWN PERFORATOR OPERATOR NURSE FOR CHELSY.
--- NOTE | 2019-02-14 19:21 | NUR ---
RT NOTE: RECEIVED TRACH PT ON [facility] VENT ON NOTED SETTINGS PER MD ORDERS. TRACH IS PATENT AND SECURED. OSHA INSPECTOR DONE. SX DONE PRN. VENT PLUGGED INTO RED OUTLET. ALARMS ON AND AUDIBLE. LA MATTHEWS @ BEDSIDE. NO RESP DISTRESS AT THIS TIME. WILL CONT TO MONITOR PT. Addendum: 02/15/19 at 0554 by SHERRIE REDDING RT Amended: Links added.
[2019-02-14 20:00] VITALS: BP 103/44
[2019-02-14] MEDS: INSULIN GLARGINE, 100 UNIT/ML CARTRIDGE SQ SCH (21:50)
[2019-02-14] MEDS: ERGOCALCIFEROL (VITAMIN D 2) 50,000 UNIT CAPSULE GT SCH (22:00)
[2019-02-15] VITALS (9 sets, daily range): BP systolic 99–148; BP diastolic 43–68
[2019-02-15] MEDS: BLOOD SUGAR DIAGNOSTIC 1 EACH STRIP IN SCH ×6 (01:00→21:10)
[2019-02-15] MEDS: MEROPENEM 500 MG in IV NS 0.9% 50 ML IV SCH ×2 (05:18→18:04)
[2019-02-15] MEDS: METRONIDAZOLE 500 MG TABLET PO SCH ×3 (05:21→21:09)
[2019-02-15] MEDS: MUPIROCIN OINT 2% 22 GM TUBE TP SCH ×2 (05:22→17:40)
[2019-02-15] MEDS: NITROGLYCERIN PACKET 1 GM PACKET TOP SCH ×5 (05:22→23:21)
[2019-02-15 05:27] LABS: BASOPHILS # (AUTO) 0.1 /CMM (0.0-0.2); EOSINOPHILS % (AUTO) 2.3 % (0.0-6.0); LYMPHOCYTES # (AUTO) 2.4 /CMM (0.8-4.8); LYMPHOCYTES % (AUTO) 22.4 % (20.0-44.0); MEAN CORPUSCULAR HGB CONC 34 g/dl (31.0-36.0); MEAN CORPUSCULAR VOLUME 92 fL (82-100); MONOCYTES # (AUTO) 0.6 /CMM (0.1-1.30); MONOCYTES % (AUTO) 5.2 % (2.0-12.0); NEUTROPHILS # (AUTO) 7.3 /CMM (1.8-8.9); NEUTROPHILS % (AUTO) 69.1 % (43.0-81.0); PLATELET COUNT (AUTO) 391 /CMM (150-450); RED BLOOD CELL COUNT(AUTO) 2.23 MIL/uL (4.0-5.2); WHITE BLOOD COUNT (AUTO) 10.5 K/uL (4.3-11.0)
[2019-02-15 05:29] LABS: HEMATOCRIT 20 % (33-45)
[2019-02-15 05:30] LABS: HEMOGLOBIN 6.8 g/dL (11.5-14.8)
[2019-02-15 05:40] LABS: CALCIUM, SERUM 9.2 mg/dL (8.5-10.1); CREATININE 3.3 mg/dL (0.6-1.3); MAGNESIUM 2.4 mg/dL (1.8-2.4); PHOSPHORUS 2.7 mg/dL (2.5-4.9); POTASSIUM 4.2 mmol/L (3.5-5.1)
[2019-02-15 06:00] LABS: LYMPHOCYTES % (MANUAL) 15 % (16-48); MONOCYTES % (MANUAL) 5 % (0-11.0); NEUTROPHILS % (MANUAL) 80 (42-76)
--- NOTE | 2019-02-15 06:05 | NUR ---
TELE-1/EDUCATIONAL PROGRAMMING DIRECTOR RECEIVED CRITICAL RESULT HGB 6.[address] MCCRACKEN. NEW ORDER FOR 1 UNIT PRBC STAT.
--- NOTE | 2019-02-15 07:20 | NUR ---
AUTOMATION TECHNOLOGIST NOTES BLOOD READY. PICKED UP BY SOON CHARGE NURSE
[2019-02-15] MEDS: SUCRALFATE 1 G/10 ML UDC GT SCH ×4 (07:30→21:09)
--- NOTE | 2019-02-15 07:30 | NUR ---
PSYCHOLOGICAL ANTHROPOLOGIST NOTES PT PICKED UP FOR SCHEDULED SURGERY. 1 UNIT PRBC SENT WITH THEM
--- NOTE | 2019-02-15 07:30 | NUR ---
ASSEMBLER HANDBAGS AM NOTES RECEIVED PATIENT IN BED, ASLEEP, AROUSES TO TACTILE STIMULI. SHILEY #8 TRACH TO MECHANICAL VENT, WELL TOLERATED,VENT SETTING ORDERED, SATURATING 100%, NO SOB NOTED. BREATHING EVEN AND UNLABORED, HOB ELEVATED. ON TELE MONITOR SR WITH HR 80S. IV ACCES ON THE (R) UA: MIDLINE-INTACT AND PATENT WITH DRESSING IN PLACE, CLEAN AND DRY. GT IN PLACE,CHECKED FOR PLACEMENT, 0 RESIDUAL, NPO FOR NOW. WITH FLEXISEAL IN PLACE, DRAINAGE: BROWNISH, LIWUID TO SEMIFORMED, SAFETY MEASURES IN PLACE. BED IN LOW AND LOCKED POSITIONED. CALL LIGHT WITHIN REACH. ISOLATION PRECAUTION IMPLEMENTED. WILL CONTINUE TO MONITOR AND ANTICIPATE NEEDS.
[2019-02-15] MEDS ORDERED: ANESTHESIA TRAY IN PYXIS 1 EA TRAY MC ONE (07:47)
[2019-02-15] MEDS ORDERED: HEPARIN SODIUM, PORCINE 1,000 UNIT/ML VIAL ONE (07:48)
[2019-02-15] MEDS ORDERED: LIDOCAINE HCL/PF 1% 30 ML SDV ONE (08:00)
[2019-02-15] MEDS: glipiZIDE 10 MG TABLET GT SCH ×2 (08:26→21:09)
[2019-02-15] MEDS: ZINC SULFATE 220 MG CAPSULE GT SCH (08:26)
[2019-02-15] MEDS: CALCITRIOL 0.25 MCG CAPSULE GT SCH (08:26)
[2019-02-15] MEDS: PANTOPRAZOLE 40 MG/PACK PACK GT SCH ×2 (08:26→17:39)
[2019-02-15] MEDS: PROSOURCE / PROSTAT (PYXIS) 30 ML UDC GT SCH (08:26)
[2019-02-15] MEDS: FERROUS SULFATE UDC 300 MG/5 ML UDC GT SCH ×2 (08:26→17:39)
[2019-02-15] MEDS: DAKINS QUARTER STRENGTH (0.125%) 480 ML BOTTLE TOP SCH (08:27)
[2019-02-15] MEDS: hydrALAZINE HCL 50 MG TABLET PO SCH ×3 (08:27→17:00)
--- NOTE | 2019-02-15 08:36 | NUR ---
HAND SILVERING SUPERVISOR NOTES PATIETN BACK FROM SURGERY. S/P PERMACATH PLACEMENT LAKIA Chaparro Y DR MCCRACKEN. VSS
[2019-02-15] MEDS: NEPRO 1,000 ML BOTTLE GT PRN (10:13)
--- NOTE | 2019-02-15 13:15 | NUR ---
SKIING INSTRUCTOR NOTES ACCUCHECK, BS 134 MG/DL. NO INSULIN COVERAGE GIVEN, PATIENT JUST RESTARTED ON GT FEEDING.
--- NOTE | 2019-02-15 15:00 | NUR ---
GROCERY SPECIALIST NOTES PM CARE AND PRESCRIBED WOUND TREATMENT DONE. LARGE HEMATOMA FOUND ABOVE THE MIDLINE AREA. NOT WARM. NON TENDER. PICTURE TAKEN. REPORTED TO DR. LEONARD MORRISSEY. CHARGE NURSE SOON AWARE. PATIENT HAD PERMACATH PLACEMENT THIS MORNING AND HAD 1 UNIT PRBC GIVEN AT SURGERY. Addendum: 02/15/19 at 1604 by BRANDAN PURVIS RN ADDENDUM INCIDENT REPORT FILED: Unique Id: [id number]
--- NOTE | 2019-02-15 16:39 | NUR ---
BATCH MIXING TRUCK DRIVER NOTES PER DR. MORRISSEY, DC MIDLINE. ALSO INFORMED THAT PER EMILIO HD NURSE, HD WILL BE DONE TOMORROW AND HE WILL ALSO REMOVE RIGHT FEMORAL CATH.
[2019-02-15] MEDS: INSULIN REGULAR, HUMAN 100 UNIT/ML 3 ML VIAL SQ PRN ×2 (17:56→21:15)
--- NOTE | 2019-02-15 17:56 | NUR ---
DRILL PRESS OPERATOR FOR METAL NOTES ACCUCHECK. BS 207 MG/DL. ADMINISTERED 6 UNITS HUM R PER SS.
--- NOTE | 2019-02-15 18:00 | NUR ---
hep lock started in to right hand with # 22 angio catheter used all technical documentation specialist , midline discontinued with all aseptic tech no signs of redness or swelling noted around midline site, Midline catheter completed pressure dressing applied with no bleeding noted
--- NOTE | 2019-02-15 18:11 | NUR ---
RT NOTE PT REMAINS MECHANICALLY VENTILATED VIA SHILEY 8 XLT-P CUFFED TRACHEOSTOMY TUBE. CUFF INFLATED. TRACH TUBE MIDLINE AND SECURE. VENTILATOR SETTINGS PRESCRIBED. ALARMS SET PER PROTOCOL AND AUDIBLE. VENT PLUGGED IN TO RED OUTLET. AMBU BAG AT BED SIDE. NO DISTRESS NOTED. PT AWAKE AND ALERT. Addendum: 02/15/19 at 1811 by ELLIS GAMEZ RT Amended: Links added.
--- NOTE | 2019-02-15 18:31 | NUR ---
RIDES ATTENDANT AM NOTES PATIENT RESTING IN BED, ASLEEP, AROUSES TO TACTILE STIMULI. SHILEY #8 TRACH TO MECHANICAL VENT, WELL TOLERATED,VENT SETTING ORDERED, SATURATING 100%, NO SOB NOTED. BREATHING EVEN AND UNLABORED, HOB ELEVATED. ON TELE MONITOR ST WITH HR 100S. IV ACCES ON THE (R) HAND G 22, INTACT AND PATENT, SITE CLEAR. S/P PERMACATH PLACEMENT LCW, CDI DRESSING. GT IN PLACE,CHECKED FOR PLACEMENT, ONGOING AT 45 ML/HR,0 RESIDUAL. WITH FLEXISEAL IN PLACE, DRAINAGE: BROWNISH, LIQUID TO SEMIFORMED, SAFETY MEASURES IN PLACE. BED IN LOW AND LOCKED POSITIONED. CALL LIGHT WITHIN REACH. ISOLATION PRECAUTION IMPLEMENTED. TURNED AND REPOSITIONED Q 2 HOURS. ALL NEEDS MET AT THIS TIME. NO OTHER SIGNIFICANT CHANGE IN CONDITION. WILL ENDORSE TO NEXT SHIFT FOR CHELSY.
--- NOTE | 2019-02-15 19:10 | NUR ---
COLORS CUSTODIAN NOTE RECEIVED PT RESTING WITH HOB ELEVATED, OBTUNDED, TRACH TO VENT ON SETTINGS ORDERED, ON TELE SR, NO S/SX OF CARDIAC OR RESPIRATORY DISTRESS, FLEXISEAL IN PLACE DRAINING BROWN LIQUID STOOL, R FEMORAL HD CATH, LCW PERMACATH, BOTH DRESSINGS COVERED, RIGHT HAND #22G PATENT FLUSHING WELL WITH NS AT 75ML/HR, SKIN KEPT CLEAN AND DRY, SAFETY MAINTAINED AT ALL TIMES, BED IN LOW LOCKED POSITION WILL CONTINUE TO MONITOR FOR ANY CHANGES.
[2019-02-15] MEDS: ACETAMINOPHEN 650 MG/20.3 ML UDC GT PRN (21:09)
[2019-02-15] MEDS: INSULIN GLARGINE, 100 UNIT/ML CARTRIDGE SQ SCH (21:13)
[2019-02-16] VITALS (10 sets, daily range): BP systolic 92–156; BP diastolic 40–62
[2019-02-16] MEDS: BLOOD SUGAR DIAGNOSTIC 1 EACH STRIP IN SCH ×7 (01:08→21:13)
[2019-02-16] MEDS: INSULIN REGULAR, HUMAN 100 UNIT/ML 3 ML VIAL SQ PRN (01:11)
[2019-02-16] MEDS: METRONIDAZOLE 500 MG TABLET PO SCH ×3 (05:05→21:06)
[2019-02-16] MEDS: MEROPENEM 500 MG in IV NS 0.9% 50 ML IV SCH ×2 (05:05→16:50)
[2019-02-16] MEDS: MUPIROCIN OINT 2% 22 GM TUBE TP SCH ×2 (05:06→18:34)
[2019-02-16] MEDS: NITROGLYCERIN PACKET 1 GM PACKET TOP SCH ×3 (05:06→18:32)
--- NOTE | 2019-02-16 05:58 | NUR ---
RT NOTE RECEIVED TRACH PATIENT WITH SHILEY # 8 XLT ON NOTED VENT SETTINGS. PRN SUCTION WAS DONE VENT PLUGGED INTO RED OUTLET . ALARMS ARE SET AND AUDIBLE. PATIENT TRACH IS SECURED AND PATENT. PATIENT STABLE THROUGHOUT THE SHIFT. WILL CONTINUE TO MONITOR PATIENT. Addendum: 02/16/19 at 0558 by NAVEEN GAMEZ RT Amended: Links added.
[2019-02-16 06:16] LABS: BASOPHILS # (AUTO) 0.1 /CMM (0.0-0.2); BASOPHILS % (AUTO) 0.6 % (0.0-2.0); EOSINOPHILS % (AUTO) 2.9 % (0.0-6.0); LYMPHOCYTES # (AUTO) 2.3 /CMM (0.8-4.8); MEAN CORPUSCULAR HGB CONC 34 g/dl (31.0-36.0); MEAN CORPUSCULAR VOLUME 93 fL (82-100); MONOCYTES # (AUTO) 0.5 /CMM (0.1-1.30); MONOCYTES % (AUTO) 5.1 % (2.0-12.0); NEUTROPHILS # (AUTO) 6.9 /CMM (1.8-8.9); NEUTROPHILS % (AUTO) 68.4 % (43.0-81.0); PLATELET COUNT (AUTO) 366 /CMM (150-450); RED BLOOD CELL COUNT(AUTO) 2.07 MIL/uL (4.0-5.2); WHITE BLOOD COUNT (AUTO) 10.1 K/uL (4.3-11.0)
[2019-02-16 06:31] LABS: CALCIUM, SERUM 9.2 mg/dL (8.5-10.1); CREATININE 3.6 mg/dL (0.6-1.3); MAGNESIUM 2.7 mg/dL (1.8-2.4); PHOSPHORUS 3.3 mg/dL (2.5-4.9); POTASSIUM 4.1 mmol/L (3.5-5.1)
[2019-02-16 06:42] LABS: HEMATOCRIT 19 % (33-45); HEMOGLOBIN 6.5 g/dL (11.5-14.8)
--- NOTE | 2019-02-16 06:45 | NUR ---
SLAB STRIPPER NOTE CALL FROM LAB REPORTING CRITICAL VALUE OF HGB 6.5 AND HCT 19, CONTACTED SHELBY LOPEZ MD FOR FURTHER ORDERS, AWAITING RESPONSE.
--- NOTE | 2019-02-16 06:59 | NUR ---
NOVELTY MAKER NOTE CALL TO [employer] PAGE TO LYNN SIMONS
[2019-02-16 07:19] LABS: BAND % (MANUAL) 4 % (0.0-5.0); LYMPHOCYTES % (MANUAL) 23 % (16-48); MONOCYTES % (MANUAL) 4 % (0-11.0); NEUTROPHILS % (MANUAL) 67 (42-76)
[2019-02-16 07:20] LABS: EOSINOPHILS % (MANUAL) 2 % (0-4)
--- NOTE | 2019-02-16 07:45 | NUR ---
RN NOTE: RECEIVED PATIENT IN BED, AWAKE, NON-VERBAL AND SPONTANEOUSLY OPEN HER EYES. RESPIRATION EVEN AND UNLABORED. ON VENT-TRACH AND SATURATING 100%. NO FACIAL GRIMACING NOTED. GT FEEDING NEPHRO @45ML/HR CONTINUOUSLY INFUSING, WITH NO RESIDUAL NOTED. (L) CHEST WALL HD CATH AND (R) FEMORAL GROIN HD CATH NOTED IN PLACED WITH TRANSPARENT DRESSING. FLEXISEAL IN PLACED AND NOTED WITH LIQUID DARK RED STOOL. HOB ELEVATED. ON CONTACT ISOLATION FOR MRSA NARES AND ESBL URINE. CALL LIGHT WITHIN REACH. NEEDS ANTICIPATED.
[2019-02-16] MEDS: SUCRALFATE 1 G/10 ML UDC GT SCH ×4 (07:55→21:06)
--- NOTE | 2019-02-16 08:04 | NUR ---
RN NOTE: CALLED AND SPOKE WITH DR. VITAL REGARDING THE PATIENT'S HGB/HCT 6.5 TODAY. PER MD, GIVE 1 UNIT PRBC WITH HEMODIALYSIS TODAY. ORDER, NOTED AND CARRIED OUT.
[2019-02-16] MEDS: PROSOURCE / PROSTAT (PYXIS) 30 ML UDC GT SCH (08:29)
[2019-02-16] MEDS: FERROUS SULFATE UDC 300 MG/5 ML UDC GT SCH ×2 (08:29→16:50)
[2019-02-16] MEDS: CALCITRIOL 0.25 MCG CAPSULE GT SCH (08:29)
[2019-02-16] MEDS: ZINC SULFATE 220 MG CAPSULE GT SCH (08:29)
[2019-02-16] MEDS: glipiZIDE 10 MG TABLET GT SCH ×2 (08:29→21:06)
[2019-02-16] MEDS: PANTOPRAZOLE 40 MG/PACK PACK GT SCH ×2 (08:29→16:50)
[2019-02-16] MEDS: DAKINS QUARTER STRENGTH (0.125%) 480 ML BOTTLE TOP SCH (08:30)
[2019-02-16] MEDS: hydrALAZINE HCL 50 MG TABLET PO SCH ×3 (09:00→17:30)
--- NOTE | 2019-02-16 09:00 | NUR ---
RN NOTE: PATIENT'S BP MEDICATION APRESOLINE WAS HELD DUE TO HEMODIALYSIS TODAY. AWAITING FOR THE HD NURSE.
--- NOTE | 2019-02-16 11:10 | NUR ---
RN NOTE: DR MORRISSEY IN THE ROOM AND SHOWED HIM THE LIQUID DARK RED STOOL OBSERVED IN THE FLEXISEAL. MD WITH NO NEW ORDER AT THIS TIME. HE WAS AWARE THAT PATIENT WILL RECEIVE A 1 UNIT PRBC WITH HEMODIALYSIS TODAY.
--- NOTE | 2019-02-16 12:00 | NUR ---
RN NOTE: PATIENT CURRENTLY ON HEMODIALYSIS. NITROGLYCERIN OINTMENT WAS HELD. 1 UNIT PRBC WILL BE ADMINISTERED WITH HEMODIALYSIS.
--- NOTE | 2019-02-16 13:00 | NUR ---
RN NOTE: PATIENT STILL ON HEMODIALYSIS AT THIS TIME. HELD APRESOLINE.
[2019-02-16] MEDS: NEPRO 1,000 ML BOTTLE GT PRN (15:07)
--- NOTE | 2019-02-16 18:00 | NUR ---
RN NOTE: CALLED AND SPOKE WITH MAGDALENA (DAUGHTER) AND SHE WAS INFORMED ABOUT THE PATIENT'S HGB FOR TODAY. AND THAT PATIENT WAS NOT DISCHARGE YET AND HAD HEMODIALYSIS AND 1 UNIT OF PRBC WAS INFUSED.
[2019-02-16 19:09] LABS: BASOPHILS # (AUTO) 0.1 /CMM (0.0-0.2); BASOPHILS % (AUTO) 0.6 % (0.0-2.0); EOSINOPHILS % (AUTO) 2.9 % (0.0-6.0); HEMATOCRIT 22 % (33-45); HEMOGLOBIN 7.4 g/dL (11.5-14.8); LYMPHOCYTES # (AUTO) 1.9 /CMM (0.8-4.8); LYMPHOCYTES % (AUTO) 20.2 % (20.0-44.0); MEAN CORPUSCULAR HGB CONC 34 g/dl (31.0-36.0); MEAN CORPUSCULAR VOLUME 90 fL (82-100); MONOCYTES # (AUTO) 0.4 /CMM (0.1-1.30); MONOCYTES % (AUTO) 4.6 % (2.0-12.0); NEUTROPHILS # (AUTO) 6.7 /CMM (1.8-8.9); NEUTROPHILS % (AUTO) 71.7 % (43.0-81.0); PLATELET COUNT (AUTO) 308 /CMM (150-450); RED BLOOD CELL COUNT(AUTO) 2.41 MIL/uL (4.0-5.2); WHITE BLOOD COUNT (AUTO) 9.3 K/uL (4.3-11.0)
--- NOTE | 2019-02-16 19:20 | NUR ---
TELE/RN RECEIVED PT IN BED, OBTUNDED. WITH INTACT SHILEY XLT, TOLERATING CURRENT VENT SETTINGS WELL. NO SOB. SR ON TELE. IN NO SIGNS OF PAIN NOTED. GTUBE INTACT AND IN PLACED, WITH ONGOING GTF NEPRO AT 45 ML/HR, TOLERATING WELL. HOB ELEVATED. LHAND G22 HEPLOCK PATENT, C/D/I. RFEMORAL HD CATH AND LCHEST WALL HD CATH C/D/I. FLEXISEAL INTACT AND IN PLACED. CALL LIGHT WITHIN EASY REACH. SAFETY MEASURES AND ASPIRATION PRECAUTION IN PLACED. CALL LIGHT WITHIN EASY REACH. WILL CONT TO MONITOR
--- NOTE | 2019-02-16 19:30 | NUR ---
RN NOTE: BEDSIDE REPORT GIVEN TO PM SHIFT NURSE FOR CONTINUITY OF CARE. PATIENT ON STABLE CONDITION. STAT CBC WAS DONE AND RELAYED TO PM SHIFT NURSE TO REPORT WITH THE GENETICIST MD.
[2019-02-16 20:54] LABS: BAND % (MANUAL) 2 % (0.0-5.0); EOSINOPHILS % (MANUAL) 5 % (0-4); LYMPHOCYTES % (MANUAL) 13 % (16-48); MONOCYTES % (MANUAL) 2 % (0-11.0); NEUTROPHILS % (MANUAL) 78 (42-76)
[2019-02-16] MEDS: INSULIN GLARGINE, 100 UNIT/ML CARTRIDGE SQ SCH (21:14)
[2019-02-17] VITALS (11 sets, daily range): BP systolic 94–164; BP diastolic 47–95
[2019-02-17] MEDS: INSULIN REGULAR, HUMAN 100 UNIT/ML 3 ML VIAL SQ PRN ×3 (00:13→21:11)
[2019-02-17] MEDS: BLOOD SUGAR DIAGNOSTIC 1 EACH STRIP IN SCH ×6 (00:13→21:04)
[2019-02-17] MEDS: NITROGLYCERIN PACKET 1 GM PACKET TOP SCH ×4 (00:17→18:16)
[2019-02-17] MEDS: ACETAMINOPHEN 650 MG/20.3 ML UDC GT PRN ×2 (00:31→15:56)
[2019-02-17] MEDS: MUPIROCIN OINT 2% 22 GM TUBE TP SCH ×2 (05:03→18:18)
[2019-02-17] MEDS: MEROPENEM 500 MG in IV NS 0.9% 50 ML IV SCH ×2 (05:05→19:01)
[2019-02-17] MEDS: METRONIDAZOLE 500 MG TABLET PO SCH ×3 (05:06→21:03)
[2019-02-17 06:36] LABS: BASOPHILS # (AUTO) 0.1 /CMM (0.0-0.2); BASOPHILS % (AUTO) 0.8 % (0.0-2.0); HEMATOCRIT 21 % (33-45); HEMOGLOBIN 7.2 g/dL (11.5-14.8); LYMPHOCYTES # (AUTO) 2.6 /CMM (0.8-4.8); LYMPHOCYTES % (AUTO) 22.6 % (20.0-44.0); MEAN CORPUSCULAR HGB CONC 35 g/dl (31.0-36.0); MEAN CORPUSCULAR VOLUME 90 fL (82-100); MONOCYTES # (AUTO) 0.6 /CMM (0.1-1.30); MONOCYTES % (AUTO) 5.2 % (2.0-12.0); NEUTROPHILS # (AUTO) 7.8 /CMM (1.8-8.9); NEUTROPHILS % (AUTO) 68.4 % (43.0-81.0); PLATELET COUNT (AUTO) 346 /CMM (150-450); RED BLOOD CELL COUNT(AUTO) 2.27 MIL/uL (4.0-5.2); WHITE BLOOD COUNT (AUTO) 11.5 K/uL (4.3-11.0)
--- NOTE | 2019-02-17 06:39 | NUR ---
RN NOTES PT IN STABLE CONDITION. NO ACUTE CHANGES THROUGHOUT SHIFT. ALL NEEDS ANTICIPATED. SAFETY MEASURES AND ASPIRATION PRECAUTION OBSERVED AT ALL TIMES. ENDORSED TO AM RN FOR CHELSY
[2019-02-17 07:18] LABS: BAND % (MANUAL) 3 % (0.0-5.0); EOSINOPHILS % (MANUAL) 4 % (0-4); LYMPHOCYTES % (MANUAL) 26 % (16-48); MONOCYTES % (MANUAL) 5 % (0-11.0); NEUTROPHILS % (MANUAL) 62 (42-76)
[2019-02-17 07:34] LABS: CALCIUM, SERUM 9.1 mg/dL (8.5-10.1); CREATININE 2.9 mg/dL (0.6-1.3); MAGNESIUM 2.5 mg/dL (1.8-2.4); PHOSPHORUS 2.7 mg/dL (2.5-4.9); POTASSIUM 3.3 mmol/L (3.5-5.1)
[2019-02-17] MEDS: FERROUS SULFATE UDC 300 MG/5 ML UDC GT SCH ×2 (08:12→16:35)
[2019-02-17] MEDS: SUCRALFATE 1 G/10 ML UDC GT SCH ×4 (08:12→21:03)
[2019-02-17] MEDS: PANTOPRAZOLE 40 MG/PACK PACK GT SCH ×2 (08:12→16:35)
[2019-02-17] MEDS: glipiZIDE 10 MG TABLET GT SCH ×2 (08:12→21:03)
[2019-02-17] MEDS: PROSOURCE / PROSTAT (PYXIS) 30 ML UDC GT SCH (08:12)
[2019-02-17] MEDS: CALCITRIOL 0.25 MCG CAPSULE GT SCH (08:13)
[2019-02-17] MEDS: ZINC SULFATE 220 MG CAPSULE GT SCH (08:13)
[2019-02-17] MEDS: DAKINS QUARTER STRENGTH (0.125%) 480 ML BOTTLE TOP SCH (08:24)
[2019-02-17] MEDS: hydrALAZINE HCL 50 MG TABLET PO SCH ×4 (08:28→18:16)
--- NOTE | 2019-02-17 11:13 | NUR ---
RN NOTE PER DR VITAL NO NEED TO REPLACE POTASSIUM TODAY. PHARMACY AWARE.
--- NOTE | 2019-02-17 13:53 | NUR ---
RT Pt received trach'd and on [facility] vent w charted settings. Vent is plugged into the red outlet w alarms on and audible. Pt trach is secure and patent. Pt sx'd for moderate secretions. No respiratory distress noted. Will continue to monitor. Addendum: 02/17/19 at 1400 by OLIVIER SALINAS RT Amended: Links added.
[2019-02-17] MEDS: NEPRO 1,000 ML BOTTLE GT PRN (16:40)
[2019-02-17] MEDS ORDERED: FEE PK DOSING 1 MIN EA MC ONE (17:53)
[2019-02-17] MEDS ORDERED: VANCOMYCIN 1 GM in IV D5W 250 ML IV ONE (18:00)
[2019-02-17] MEDS ORDERED: FUROSEMIDE 20 MG/2 ML VIAL IV ONE (18:30)
--- NOTE | 2019-02-17 19:20 | NUR ---
MANAGER MACHINE NOTE RECEIVED PT RESTING WITH HOB ELEVATED, OBTUNDED, TRACH TO VENT ON SETTINGS ORDERED, ON TELE ST, NO S/SX OF CARDIAC OR RESPIRATORY DISTRESS, FLEXISEAL IN PLACE DRAINING BROWN LIQUID STOOL, LCW PERMACATH, DRESSING COVERED, RIGHT HAND #22G AND LEFT THUMB #22G, BOTH PATENT FLUSHING WELL, SKIN KEPT CLEAN AND DRY, SAFETY MAINTAINED AT ALL TIMES, BED IN LOW LOCKED POSITION WILL CONTINUE TO MONITOR FOR ANY CHANGES.
[2019-02-17] MEDS ORDERED: diphenhydrAMINE HCL 50 MG/ML VIAL IV PRN (19:30)
--- NOTE | 2019-02-17 19:30 | NUR ---
RN NOTE PT HAD BLOOD TRANSFUSION STARTED AROUND 1620, PRE TRANSFUSION TEMP WAS 100.0F AXILLARY, PER DR YUNI SANTANA TO GIVE TYLENOL AND PROCEED WITH TRANSFUSION. FIRST HOUR OF TRANSFUSION VS WERE STABLE, TEMP FLUCTUATED TO 99.5 F AXILLARY. AFTER INCREASING RATE OF BLOOD TO 150ML/HR, WITHIN 30 MIN, AROUND 1800 PT BECAME TACHYCARDIC, HR 160S, AND TACHYPNEIC RR 35-40. BLOOD STOPPED, LEONARD MORRISSEY NOTIFIED, ORDERED LASIX 60 MG IVP ONCE, SBP SPIKED TO 160-180MMHG, SCHEDULED HYDRALAZINE ADMINISTERED, LASIX GIVEN. COOLING MEASURES IN PLACE. LATER TEMP SPIKED TO 103F AX. BLOOD TRANSFUSION REACTION WORK UP ORDERED AND FOLLOWED THROUGH. VS STABLE. ENDORSED TO CARAMEL CANDY MAKER HELPER TO COLLECT URINE AND GIVE BENADRYL.
--- NOTE | 2019-02-17 20:00 | NUR ---
ARC AND GAS WELDER NOTE COOLING MEASURES INITIATED DUE TO TEMPERATURE 102.8, WILL COTNINUE TO MONITOR FOR ANY CHANGES.
[2019-02-17] MEDS ORDERED: methylPREDNISolone SOD SUCC 125 MG/2ML VIAL IV ONE (21:00)
[2019-02-17] MEDS: INSULIN GLARGINE, 100 UNIT/ML CARTRIDGE SQ SCH (21:10)
[2019-02-17 22:22] LABS: BASOPHILS % (AUTO) 0.2 % (0.0-2.0); EOSINOPHILS % (AUTO) 0.9 % (0.0-6.0); HEMATOCRIT 24 % (33-45); HEMOGLOBIN 8.1 g/dL (11.5-14.8); LYMPHOCYTES # (AUTO) 0.2 /CMM (0.8-4.8); LYMPHOCYTES % (AUTO) 4.9 % (20.0-44.0); MEAN CORPUSCULAR HGB CONC 34 g/dl (31.0-36.0); MEAN CORPUSCULAR VOLUME 91 fL (82-100); MONOCYTES % (AUTO) 0.5 % (2.0-12.0); NEUTROPHILS # (AUTO) 4.6 /CMM (1.8-8.9); NEUTROPHILS % (AUTO) 93.5 % (43.0-81.0); PLATELET COUNT (AUTO) 348 /CMM (150-450); RED BLOOD CELL COUNT(AUTO) 2.66 MIL/uL (4.0-5.2); WHITE BLOOD COUNT (AUTO) 4.9 K/uL (4.3-11.0)
[2019-02-17 23:15] LABS: BAND % (MANUAL) 12 % (0.0-5.0); LYMPHOCYTES % (MANUAL) 7 % (16-48); METAMYELOCYTES % 4 % (0-0); MONOCYTES % (MANUAL) 1 % (0-11.0); MYELOCYTES % 2 % (0-0); NEUTROPHILS % (MANUAL) 74 (42-76)
--- NOTE | 2019-02-17 23:20 | NUR ---
JOINERY PATTERNMAKER NOTE CALL FROM LAB TO REPORT POSSIBLE BLOOD TRANSFUSION REACTION AND HOLD ALL BLOOD TRANSFUSIONS UNTIL RED CROSS TESTS BLOOD GIVEN TO PT.
[2019-02-18] VITALS: BP 117/59
[2019-02-18] MEDS: BLOOD SUGAR DIAGNOSTIC 1 EACH STRIP IN SCH ×6 (00:02→21:33)
[2019-02-18] MEDS: INSULIN REGULAR, HUMAN 100 UNIT/ML 3 ML VIAL SQ PRN ×6 (00:06→21:38)
[2019-02-18] MEDS: NITROGLYCERIN PACKET 1 GM PACKET TOP SCH ×4 (00:50→17:34)
[2019-02-18 04:00] VITALS: BP 168/77
[2019-02-18] MEDS: ACETAMINOPHEN 650 MG/20.3 ML UDC GT PRN (05:19)
[2019-02-18] MEDS: hydrALAZINE HCL 50 MG TABLET GT PRN (05:19)
[2019-02-18] MEDS: METRONIDAZOLE 500 MG TABLET PO SCH ×3 (05:19→21:02)
[2019-02-18] MEDS: MUPIROCIN OINT 2% 22 GM TUBE TP SCH ×2 (05:21→17:34)
[2019-02-18] MEDS: MEROPENEM 500 MG in IV NS 0.9% 50 ML IV SCH ×2 (05:21→17:00)
[2019-02-18] MEDS ORDERED: VANCOMYCIN 500 MG in IV D5W 100 ML IV PRN (06:00)
--- NOTE | 2019-02-18 06:08 | NUR ---
AUCTION CLERK NOTE PT GLUCOSE CHECKED 538 GIVEN 15 U INSULIN PER PROTOCOL AND RECHECKED 30 MINUTES LATER BS 500 CALL TO LYNN LOPEZ FOR FURTHER ORDERS, NEW ORDER FOR 10 UNITS INSULIN AND RECHECK IN 30 MINUTES. WILL CONTINUE TO MONITOR FOR CHANGES.
[2019-02-18] MEDS ORDERED: INSULIN REGULAR, HUMAN 100 UNIT/ML 3 ML VIAL SQ ONE (06:11)
--- NOTE | 2019-02-18 06:43 | NUR ---
PT SKILLED NOTE GLUCOSE RECHECKED NOW 458, INFORMED SHELBY LOPEZ MD AWAITING FOR ANY NEW ORDERS.
[2019-02-18 06:53] LABS: EOSINOPHILS % (AUTO) 0.1 % (0.0-6.0); HEMATOCRIT 26 % (33-45); HEMOGLOBIN 8.8 g/dL (11.5-14.8); LYMPHOCYTES # (AUTO) 0.5 /CMM (0.8-4.8); LYMPHOCYTES % (AUTO) 3.4 % (20.0-44.0); MEAN CORPUSCULAR HGB CONC 33 g/dl (31.0-36.0); MEAN CORPUSCULAR VOLUME 91 fL (82-100); MONOCYTES # (AUTO) 0.2 /CMM (0.1-1.30); MONOCYTES % (AUTO) 1.2 % (2.0-12.0); NEUTROPHILS # (AUTO) 13.6 /CMM (1.8-8.9); NEUTROPHILS % (AUTO) 95.3 % (43.0-81.0); PLATELET COUNT (AUTO) 288 /CMM (150-450); WHITE BLOOD COUNT (AUTO) 14.3 K/uL (4.3-11.0)
[2019-02-18 07:06] LABS: APPEARANCE,URINE CLEAR (CLEAR); BILIRUBIN,URINE NEGATIVE (NEGATIVE); BLOOD, URINE 2+ Ery/uL (NEGATIVE); COLOR,URINE YELLOW (YELLOW); KETONES,URINE NEGATIVE (NEGATIVE); LEUKOCYTE ESTERASE ,URINE NEGATIVE (NEGATIVE); NITRITE, URINE NEGATIVE (NEGATIVE); PROTEIN,URINE 2+ mg/dl (NEGATIVE); UGLUCOSE 1+ mg/dL (NEGATIVE); UROBILINOGEN,URINE 0.2 EU/dL (0.2)
[2019-02-18 07:19] LABS: BACTERIA,URINE Few /HPF (None Seen); SQUAMOUS EPITHELIAL CELL,UR Few /HPF (None Seen); WBC,URINE 0-2 /HPF (0-3); YEAST,URINE Moderate /HPF (None Seen)
--- NOTE | 2019-02-18 07:20 | NUR ---
RN OPENING NOTES RECEIVED BEDSIDE REPORT, PATIENT IN BED OBTUNDED, NON VERBAL. RESPONDS TO TACTILE STIMULI. ON A VENT, SATING GOOD AT 100%. HAS A FLEXISEAL. ANURIC. LAST HD WAS 02/16 WITH 1.4L OUT. PER NOC SHIFT RNYOBANY GTF HAS BEEN HELD AT 0500 DUE TO GLUCOSE OF >500. ALSO, PATIENT WAS GIVEN SOLUMEDROL. MD AWARE, PER NOC SHIFT. WILL MONITOR BLOOD GLUCOSE THROUGHOUT THE DAY. PATIENT HAD A BLOOD TRANSFUSION YESTERDAY BUT HAD A REACTION. FOR NOW, HOLD ALL BLOOD TRANSFUSIONS. H&H THIS MORNING WAS NOT CRITICAL LOW, HGB OF 8.8. HAS A LEFT THUMB $22 AND RIGHT HAND #22 BOTH SALINE LOCKED. BED LOCKED AND IN LOWEST POSITION, WILL CONTINUE TO MONITOR
[2019-02-18 07:50] LABS: BAND % (MANUAL) 12 % (0.0-5.0); LYMPHOCYTES % (MANUAL) 4 % (16-48); NEUTROPHILS % (MANUAL) 81 (42-76)
[2019-02-18 07:51] LABS: MONOCYTES % (MANUAL) 1 % (0-11.0); MYELOCYTES % 2 % (0-0)
[2019-02-18 08:00] VITALS: BP 156/58
[2019-02-18 08:21] LABS: CALCIUM, SERUM 8.9 mg/dL (8.5-10.1); CREATININE 3.5 mg/dL (0.6-1.3); MAGNESIUM 2.5 mg/dL (1.8-2.4); PHOSPHORUS 3.1 mg/dL (2.5-4.9); POTASSIUM 4.1 mmol/L (3.5-5.1)
[2019-02-18] MEDS: SUCRALFATE 1 G/10 ML UDC GT SCH ×4 (08:43→21:02)
[2019-02-18] MEDS: ZINC SULFATE 220 MG CAPSULE GT SCH (08:43)
[2019-02-18] MEDS: PANTOPRAZOLE 40 MG/PACK PACK GT SCH ×2 (08:43→17:26)
[2019-02-18] MEDS: FERROUS SULFATE UDC 300 MG/5 ML UDC GT SCH ×2 (08:43→17:26)
[2019-02-18] MEDS: CALCITRIOL 0.25 MCG CAPSULE GT SCH (08:43)
[2019-02-18] MEDS: PROSOURCE / PROSTAT (PYXIS) 30 ML UDC GT SCH (08:44)
[2019-02-18] MEDS: hydrALAZINE HCL 50 MG TABLET PO SCH ×3 (08:44→17:00)
[2019-02-18] MEDS: glipiZIDE 10 MG TABLET GT SCH ×2 (08:44→21:02)
--- NOTE | 2019-02-18 08:45 | NUR ---
RN NOTES PATIENT'S BLOOD GLUCOSE WAS HIGH - 511, 545 AND 543. ADMINISTERED 10 UNITS OF INSULINE, MADE MD FROM LAST NIGHT AWARE. STILL AWAITING FOR TODAY'S MD LIST.
[2019-02-18] MEDS: DAKINS QUARTER STRENGTH (0.125%) 480 ML BOTTLE TOP SCH (09:05)
--- NOTE | 2019-02-18 09:40 | NUR ---
RN NOTES STILL WAITING FOR THE DOCTOR'S LIST.
--- NOTE | 2019-02-18 10:24 | NUR ---
RN NOTES DR MORRISSEY ORDERED 20 UNITS OF REG INSULIN ONCE SQ. AND ORDERED TO CONTINUE FEEDING EVEN PATIENT'S BLOOD GLUCOSE IS HIGH. IT WAS HIGH BECAUSE OF THE SOLUMEDROL THAT WAS GIVEN LAST NIGHT. ALSO, WBC WAS HIGH BECAUSE OF THE SAME REASON
[2019-02-18] MEDS ORDERED: INSULIN REGULAR, HUMAN 100 UNIT/ML 10 ML VIAL SQ ONE (10:30)
[2019-02-18 12:00] VITALS: BP 174/56
--- NOTE | 2019-02-18 12:00 | NUR ---
RN NOTES PATIENT'S BLOOD PRESSURE WAS 174/56. SCHEDULED HYPERTENSION MEDICATIONS ADMINISTERED. WILL CONTINUE MONITOR
--- NOTE | 2019-02-18 13:30 | NUR ---
RN NOTES BLOOD GLUCOSE AT 1300 WAS 438. ADMINISTERED THE SCHEDULED 15 UNITS. RECHECKED AFTER 30 MINS. BLOOD GLUCOSE WENT DOWN TO 403. MADE AWARE
[2019-02-18 16:00] VITALS: BP 167/65
--- NOTE | 2019-02-18 17:35 | NUR ---
RN NOTES PATIENT IS HAVING DIALYSIS RIGHT NOW. PER DIALYSIS NURSE, HOLD THE BLOOD PRESSURE MEDICATIONS. ALSO, WILL ENDORSE TO NOC SHIFT TO GIVE MERREM IV
--- NOTE | 2019-02-18 17:48 | NUR ---
RT RECD PT TRACHED INTATC & SECURED ON MECH VENT CHUCKIE ORDERED SETTINGS ALARMS ON AND AUDIBLE BAG AND MASK AT HOB VENT PLUGGED IN RED OUTLET, SX THICK YELLOW MOD AMOUNT OF SECRETIONS, MAINTAINED SP02 > 92% NO SOB WILL CONT TO MONITOR
--- NOTE | 2019-02-18 18:22 | NUR ---
RN NOTES RIGHT FEMORAL CATHETER HAS BEEN REMOVED BY DIALYSIS NURSE, PER MD ORDER.
--- NOTE | 2019-02-18 18:36 | NUR ---
RN CLOSING NOTES PATIENT STILL ON DIALYSIS. NO SOB OR PAIN. ON VENT, SATING >90%. BLOOD GLUCOSE HAS BEEN HIGH THROUGHOUT THE DAY ~ 400-500s. THIS AFTERNOON WAS AT 200s. MD AWARE. GIVE INSULIN FOR COVERAGE. ON GTF, NO RESIDUAL NOTED. MERREM IV HAS BEEN HELD BECAUSE OF DIALYSIS. HAS FLEXISEAL. WILL ENDORSE TO NOC SHIFT FOR CHELSY
--- NOTE | 2019-02-18 19:00 | NUR ---
RN NOTES MERREM IV NOT ADMINISTERED BECAUSE OF DIALYSIS.
--- NOTE | 2019-02-18 19:30 | NUR ---
WATER CHASER NOTE: RECEIVED PT ON BED OBTUNDED. FAMILY MEMBER AT BEDSIDE. NO APPARENT DISTRESS NOTED. NO FACIAL GRIMACING OR ANY SIGNS OF PAIN NOTED. ON [facility] VENT, SETTINGS ORDERED. SATURATING WELL. ON TELE MONITOR SINUS RHYTHM HR 78BPM. GT INTACT AND PATENT, NO RESIDUAL NOTED AT THIS TIME. FLEXISEAL INTACT, DRAINING WELL. KEPT CLEAN, DRY AND COMFORTABLE. SAFETY AND FALL PRECAUTIONS OBSERVED AND MAINTAINED. WILL CONTINUE TO MONITOR PT.
[2019-02-18 20:00] VITALS: BP 105/55
[2019-02-18] MEDS: INSULIN GLARGINE, 100 UNIT/ML CARTRIDGE SQ SCH (21:38)
[2019-02-19] VITALS: BP 108/60
[2019-02-19] MEDS: BLOOD SUGAR DIAGNOSTIC 1 EACH STRIP IN SCH ×6 (00:56→21:06)
[2019-02-19] MEDS: INSULIN REGULAR, HUMAN 100 UNIT/ML 3 ML VIAL SQ PRN ×4 (00:57→12:26)
[2019-02-19] MEDS: NEPRO 1,000 ML BOTTLE GT PRN (00:57)
[2019-02-19 04:00] VITALS: BP 100/56
[2019-02-19] MEDS: NITROGLYCERIN PACKET 1 GM PACKET TOP SCH ×4 (05:07→17:50)
[2019-02-19] MEDS: METRONIDAZOLE 500 MG TABLET PO SCH ×3 (05:08→20:54)
[2019-02-19] MEDS: MUPIROCIN OINT 2% 22 GM TUBE TP SCH ×2 (05:09→18:06)
[2019-02-19] MEDS: MEROPENEM 500 MG in IV NS 0.9% 50 ML IV SCH ×2 (05:09→17:50)
[2019-02-19 06:27] LABS: EOSINOPHILS % (AUTO) 0.4 % (0.0-6.0); HEMATOCRIT 24 % (33-45); HEMOGLOBIN 8.2 g/dL (11.5-14.8); LYMPHOCYTES # (AUTO) 1.6 /CMM (0.8-4.8); LYMPHOCYTES % (AUTO) 12.3 % (20.0-44.0); MEAN CORPUSCULAR HGB CONC 34 g/dl (31.0-36.0); MEAN CORPUSCULAR VOLUME 90 fL (82-100); MONOCYTES # (AUTO) 0.5 /CMM (0.1-1.30); NEUTROPHILS # (AUTO) 10.6 /CMM (1.8-8.9); NEUTROPHILS % (AUTO) 83.3 % (43.0-81.0); PLATELET COUNT (AUTO) 254 /CMM (150-450); RED BLOOD CELL COUNT(AUTO) 2.66 MIL/uL (4.0-5.2); WHITE BLOOD COUNT (AUTO) 12.7 K/uL (4.3-11.0)
--- NOTE | 2019-02-19 06:31 | NUR ---
DRAINLAYER NOTE: NO CHANGES NOTED THROUGHOUT THE SHIFT. ON [facility] VENT, SETTINGS ORDERED. NO SOB NOTED. NO FEVER NOTED THROUGHOUT THE SHIFT. GT INTACT AND PATENT, ABLE TO TOLERATE FEEDING WELL. KEPT HEAD OF BED ELEVATED. SINUS RHYTHM ON TELE MONITOR HR 78BPM. KEPT CLEAN, DRY AND COMFORTABLE. SAFETY AND FALL PRECAUTIONS OBSERVED AND MAINTAINED. WILL ENDORSE TO DAY SHIFT RN FOR CONTINUITY OF CARE.
[2019-02-19 06:57] LABS: CALCIUM, SERUM 8.7 mg/dL (8.5-10.1); CREATININE 2.7 mg/dL (0.6-1.3); MAGNESIUM 2.4 mg/dL (1.8-2.4); POTASSIUM 3.5 mmol/L (3.5-5.1)
[2019-02-19 07:17] LABS: BAND % (MANUAL) 4 % (0.0-5.0); LYMPHOCYTES % (MANUAL) 12 % (16-48); MONOCYTES % (MANUAL) 3 % (0-11.0); NEUTROPHILS % (MANUAL) 79 (42-76); PHOSPHORUS 1.9 mg/dL (2.5-4.9)
[2019-02-19 07:18] LABS: METAMYELOCYTES % 1 % (0-0); MYELOCYTES % 1 % (0-0)
--- NOTE | 2019-02-19 07:30 | NUR ---
MEDIA SERVICES SPECIALIST INITIAL NOTES RECEIVED PT IN BED, ON VENT TO TRACH SETTINGS MD ORDERED. AMBU BAG AT BEDSIDE. ISOLATION PRECAUTIONS IN PLACE. IV SITES FLUSHED/PATENT. NO S/SX OF DISTRESS NOTED. NEPRO RUNNING AT 45ML/HR. NO RESIDUAL NOTED. FLEXISEAL DRAINING. VS MONITORED. BED IN LOCKED/LOWEST POSITION. CALL LIGHT IN REACH.
[2019-02-19 08:00] VITALS: BP 110/62
--- NOTE | 2019-02-19 08:40 | NUR ---
RT NOTE: RECEIVED PT ON NOTED AC VENT SETTINGS. PT HAS TRACH SIZE 8 SHILEY XLT CUFFED. TRACH CHECKED SECURE AND PATENT. SPARE TRACH AND AMBU BAG @ BEDSIDE. ALARMS ON CHECKED AND AUDIBLE. WILL CONTINUE TO MONITOR. Addendum: 02/19/19 at 0842 by PIYUSH MORALES RT Amended: Links added.
[2019-02-19] MEDS: SUCRALFATE 1 G/10 ML UDC GT SCH ×4 (08:44→21:11)
[2019-02-19] MEDS: ZINC SULFATE 220 MG CAPSULE GT SCH (08:44)
[2019-02-19] MEDS: FERROUS SULFATE UDC 300 MG/5 ML UDC GT SCH ×2 (08:44→17:49)
[2019-02-19] MEDS: CALCITRIOL 0.25 MCG CAPSULE GT SCH (08:44)
[2019-02-19] MEDS: glipiZIDE 10 MG TABLET GT SCH ×2 (08:44→21:07)
[2019-02-19] MEDS: PANTOPRAZOLE 40 MG/PACK PACK GT SCH ×2 (08:44→17:50)
[2019-02-19] MEDS: PROSOURCE / PROSTAT (PYXIS) 30 ML UDC GT SCH (08:44)
[2019-02-19] MEDS: hydrALAZINE HCL 50 MG TABLET PO SCH ×3 (08:45→17:50)
[2019-02-19] MEDS: DAKINS QUARTER STRENGTH (0.125%) 480 ML BOTTLE TOP SCH (08:45)
[2019-02-19 12:00] VITALS: BP 129/60
[2019-02-19 16:00] VITALS: BP 130/87
--- NOTE | 2019-02-19 19:04 | NUR ---
CREAM CHEESE MAKER CLOSING NOTES PT IN STABLE CONDITION. PT TOLERATED TREATMENTS WELL. NO S/SX OF DISTRESS NOTED. WILL ENDORSE TO PM NURSE FOR CHELSY.
[2019-02-19 20:00] VITALS: BP 137/46
--- NOTE | 2019-02-19 20:00 | NUR ---
TELE/RN NOTES: RECEIVED PT. IN BED W/ HOB ELEVATED. OBTUNDED. NO S/S OF RESPIRATORY DISTRESS. NO FACIAL GRIMACES OR MOANING NOTED. ON CONTACT ISOLATION. ON MECH. VENT. AMBU BAG AT BEDSIDE. VENT. PLUGGED IN RED OUTLET. ON TELE MONITOR W/ SR. TOLERATING SETTINGS WELL. W/ GTF TOLERATING WELL W/ NO RESIDUAL NOTED. W/ FLEXISEAL DRAINING WELL. INCONTINENT CARE RENDERED. WILL CONTINUE TO MONITOR.
[2019-02-19] MEDS: INSULIN GLARGINE, 100 UNIT/ML CARTRIDGE SQ SCH (21:08)
[2019-02-20] VITALS (7 sets, daily range): BP systolic 109–149; BP diastolic 28–77
[2019-02-20] MEDS: BLOOD SUGAR DIAGNOSTIC 1 EACH STRIP IN SCH ×6 (00:28→22:03)
[2019-02-20] MEDS: INSULIN REGULAR, HUMAN 100 UNIT/ML 3 ML VIAL SQ PRN ×5 (00:39→22:10)
[2019-02-20] MEDS: NITROGLYCERIN PACKET 1 GM PACKET TOP SCH ×4 (00:40→17:52)
[2019-02-20] MEDS: NEPRO 1,000 ML BOTTLE GT PRN (00:42)
[2019-02-20] MEDS: MEROPENEM 500 MG in IV NS 0.9% 50 ML IV SCH ×2 (05:23→17:52)
[2019-02-20] MEDS: METRONIDAZOLE 500 MG TABLET PO SCH ×3 (05:24→22:04)
[2019-02-20] MEDS: MUPIROCIN OINT 2% 22 GM TUBE TP SCH ×2 (06:00→17:53)
--- NOTE | 2019-02-20 07:15 | NUR ---
CARDIOPULMONARY TECHNICIAN OPENING NOTES RECEIVED PT. IN BED W/ HOB ELEVATED. OBTUNDED. NO S/S OF RESPIRATORY DISTRESS. NO FACIAL GRIMACES OR MOANING NOTED. ON CONTACT ISOLATION. ON MECH. VENT. AMBU BAG AT BEDSIDE. VENT. PLUGGED IN RED OUTLET. ON TELE MONITOR W/ SR. TOLERATING SETTINGS WELL. W/ GTF TOLERATING WELL W/ NO RESIDUAL NOTED. W/ FLEXISEAL DRAINING WELL. INCONTINENT CARE RENDERED. WILL CONTINUE TO MONITOR.
[2019-02-20 07:25] LABS: BASOPHILS % (AUTO) 0.3 % (0.0-2.0); EOSINOPHILS % (AUTO) 1.6 % (0.0-6.0); HEMATOCRIT 24 % (33-45); HEMOGLOBIN 8.4 g/dL (11.5-14.8); LYMPHOCYTES # (AUTO) 2.4 /CMM (0.8-4.8); MEAN CORPUSCULAR HGB CONC 35 g/dl (31.0-36.0); MEAN CORPUSCULAR VOLUME 90 fL (82-100); MONOCYTES # (AUTO) 0.6 /CMM (0.1-1.30); MONOCYTES % (AUTO) 5.3 % (2.0-12.0); NEUTROPHILS # (AUTO) 7.4 /CMM (1.8-8.9); NEUTROPHILS % (AUTO) 69.8 % (43.0-81.0); PLATELET COUNT (AUTO) 257 /CMM (150-450); RED BLOOD CELL COUNT(AUTO) 2.65 MIL/uL (4.0-5.2); WHITE BLOOD COUNT (AUTO) 10.6 K/uL (4.3-11.0)
--- NOTE | 2019-02-20 07:36 | NUR ---
TELE/RN NOTES: REPORT GIVEN TO AM SHIFT NURSE FOR CHELSY.
[2019-02-20 07:37] LABS: CREATININE 3.1 mg/dL (0.6-1.3); MAGNESIUM 2.7 mg/dL (1.8-2.4); PHOSPHORUS 1.4 mg/dL (2.5-4.9); POTASSIUM 3.6 mmol/L (3.5-5.1)
[2019-02-20] MEDS: SUCRALFATE 1 G/10 ML UDC GT SCH ×4 (08:08→22:03)
[2019-02-20] MEDS: PANTOPRAZOLE 40 MG/PACK PACK GT SCH ×2 (09:16→17:52)
[2019-02-20] MEDS: glipiZIDE 10 MG TABLET GT SCH ×2 (09:16→22:03)
[2019-02-20] MEDS: CALCITRIOL 0.25 MCG CAPSULE GT SCH (09:16)
[2019-02-20] MEDS: FERROUS SULFATE UDC 300 MG/5 ML UDC GT SCH ×2 (09:16→17:52)
[2019-02-20] MEDS: ZINC SULFATE 220 MG CAPSULE GT SCH (09:16)
[2019-02-20] MEDS: hydrALAZINE HCL 50 MG TABLET PO SCH ×3 (09:17→17:53)
[2019-02-20] MEDS: DAKINS QUARTER STRENGTH (0.125%) 480 ML BOTTLE TOP SCH (09:17)
[2019-02-20] MEDS: PROSOURCE / PROSTAT (PYXIS) 30 ML UDC GT SCH (09:18)
[2019-02-20] MEDS ORDERED: MERO500V3 IV (14:21)
[2019-02-20] MEDS ORDERED: METR500T PO (14:21)
[2019-02-20] MEDS ORDERED: LINE600T2 PO (14:21)
--- NOTE | 2019-02-20 19:35 | NUR ---
RN CLOSING NOTES GAVE REPORT TO CATTERY OPERATOR RN. IN BED W/ HOB ELEVATED. OBTUNDED. NO S/S OF RESPIRATORY DISTRESS. NO FACIAL GRIMACES OR MOANING NOTED. ON CONTACT ISOLATION. ON MECH. VENT. AMBU BAG AT BEDSIDE. VENT. PLUGGED IN RED OUTLET. ON TELE MONITOR W/ SR. TOLERATING SETTINGS WELL. W/ GTF TOLERATING WELL W/ NO RESIDUAL NOTED. W/ FLEXISEAL DRAINING WELL. INCONTINENT CARE RENDERED. WILL ENDORSE CONTINUITY OF CARE TO CATTERY OPERATOR RN.
--- NOTE | 2019-02-20 20:00 | NUR ---
FREDDY RN OPENING NOTES RECEIVED PT. IN BED W/ HOB ELEVATED. OBTUNDED. NO S/S OF RESPIRATORY DISTRESS. PATIENT IS BEING DIALYSES WITH HD RN AT THE BEDSIDE. NO FACIAL GRIMACES OR MOANING NOTED. ON CONTACT ISOLATION. ON MECH. VENT. AMBU BAG AT BEDSIDE. VENT. PLUGGED IN RED OUTLET. ON TELE MONITOR W/ SR. TOLERATING SETTINGS WELL. W/ GTF TOLERATING WELL W/ NO RESIDUAL NOTED. W/ FLEXISEAL DRAINING WELL. INCONTINENT CARE RENDERED. PATIENT IS DISCHARGED TO [facility]. AWAITING FOR WAREHOUSE OPERATIONS ASSOCIATE AT 2300.BY AM SHIFT RN PATIENT REPORT IS ALREADY GIVEN TO SNF ADMITTING RN. WILL CONTINUE TO MONITOR PATIENT.
[2019-02-20] MEDS ORDERED: LINEZOLID 600 MG TABLET PO SCH (21:00)
[2019-02-20] MEDS: INSULIN GLARGINE, 100 UNIT/ML CARTRIDGE SQ SCH (22:08)
--- NOTE | 2019-02-20 23:00 | NUR ---
RT NOTE PT REC'D TRACHED ON [facility] VENT ON AC MODE. NO RESP DISTRESS OR SOB NOTED. CLIENT FINANCE ANALYST CUFF PRESSURE NOTED TRACH PATENT AND SECURED. SX'D FOR MOD AMT OF THICK PALE YELLOW SECRETIONS. ALARMS ARE SET AND AUDIBLE. VENT PLUGGED INTO RED OUTLET. AMBU BAG BEDSIDE. WILL CONTINUE TO MONITOR CLOSELY. Addendum: 02/20/19 at 2315 by HANNAH MARIANO RT Amended: Links added.
--- NOTE | 2019-02-20 23:15 | NUR ---
barbara rn note Patient left [facility] at 2315 with ambulnz. Patient is vent trach dependant tolerating settings well. patient has left with IV line in place due to continues iv antibiotics at the SNF. Wrist band and awake overnight monitor has been removed. wound care provided and pictures are taken, placed in the chart. vital sighs are wnl. B/P 122/30, HR 93 SPO2 100% RR 16 .
== END 2019-02-20 23:15 | DRG 711 ==
LOC: ER 18:10 → TELE1 21:06 → ICU 01-31 05:02 → TELE-TD 02-02 06:11 → TELE1 02-03 10:16
PROVIDERS: ADMIT Nurse Practitioner Acute Care; ATTEND Hospitalist
PROC: 30233N1 Transfusion of Nonautologous Red Blood Cells into Peripheral Vein, Percutaneous Approach (ICD-10-PCS; 2019-01-26)
PROC: 5A1955Z Respiratory Ventilation, Greater than 96 Consecutive Hours (ICD-10-PCS; 2019-01-26)
PROC: 5A1D70Z Performance of Urinary Filtration, Intermittent, Less than 6 Hours Per Day (ICD-10-PCS; 2019-01-27)
PROC: 0KBP0ZZ Excision of Left Hip Muscle, Open Approach (ICD-10-PCS; principal; 2019-01-29)
PROC: 5A1D70Z Performance of Urinary Filtration, Intermittent, Less than 6 Hours Per Day (ICD-10-PCS; principal; 2019-01-29)
PROC: 0JB70ZZ Excision of Back Subcutaneous Tissue and Fascia, Open Approach (ICD-10-PCS; principal; 2019-01-29)
PROC: 0KBN0ZZ Excision of Right Hip Muscle, Open Approach (ICD-10-PCS; principal; 2019-01-29)
PROC: 5A1D70Z Performance of Urinary Filtration, Intermittent, Less than 6 Hours Per Day (ICD-10-PCS; 2019-02-01)
PROC: 5A1D70Z Performance of Urinary Filtration, Intermittent, Less than 6 Hours Per Day (ICD-10-PCS; 2019-02-02)
PROC: 05PYX3Z Removal of Infusion Device from Upper Vein, External Approach (ICD-10-PCS; 2019-02-03)
PROC: 06HM33Z Insertion of Infusion Device into Right Femoral Vein, Percutaneous Approach (ICD-10-PCS; 2019-02-09)
PROC: 5A1D70Z Performance of Urinary Filtration, Intermittent, Less than 6 Hours Per Day (ICD-10-PCS; 2019-02-09)
PROC: B54BZZA Ultrasonography of Right Lower Extremity Veins, Guidance (ICD-10-PCS; 2019-02-09)
PROC: 5A1D70Z Performance of Urinary Filtration, Intermittent, Less than 6 Hours Per Day (ICD-10-PCS; 2019-02-10)
PROC: B546ZZA Ultrasonography of Right Subclavian Vein, Guidance (ICD-10-PCS; 2019-02-12)
PROC: 05H533Z Insertion of Infusion Device into Right Subclavian Vein, Percutaneous Approach (ICD-10-PCS; 2019-02-12)
PROC: 5A1D70Z Performance of Urinary Filtration, Intermittent, Less than 6 Hours Per Day (ICD-10-PCS; 2019-02-12)
PROC: 5A1D70Z Performance of Urinary Filtration, Intermittent, Less than 6 Hours Per Day (ICD-10-PCS; 2019-02-14)
PROC: 02HV33Z Insertion of Infusion Device into Superior Vena Cava, Percutaneous Approach (ICD-10-PCS; 2019-02-15)
PROC: B518YZA Fluoroscopy of Superior Vena Cava using Other Contrast, Guidance (ICD-10-PCS; 2019-02-15)
PROC: 0JH63XZ Insertion of Tunneled Vascular Access Device into Chest Subcutaneous Tissue and Fascia, Percutaneous Approach (ICD-10-PCS; 2019-02-15)
PROC: 5A1D70Z Performance of Urinary Filtration, Intermittent, Less than 6 Hours Per Day (ICD-10-PCS; 2019-02-16)
PROC: 5A1D70Z Performance of Urinary Filtration, Intermittent, Less than 6 Hours Per Day (ICD-10-PCS; 2019-02-18)
PROC: 5A1D70Z Performance of Urinary Filtration, Intermittent, Less than 6 Hours Per Day (ICD-10-PCS; 2019-02-20)
DX: T80.211A Bloodstream infection due to central venous catheter, initial encounter (principal); R65.20 Severe sepsis without septic shock; G93.1 Anoxic brain damage, not elsewhere classified; G93.41 Metabolic encephalopathy; E43 Unspecified severe protein-calorie malnutrition; Z99.11 Dependence on respirator [ventilator] status; A41.9 Sepsis, unspecified organism; J96.10 Chronic respiratory failure, unspecified whether with hypoxia or hypercapnia; L89.223 Pressure ulcer of left hip, stage 3; L89.154 Pressure ulcer of sacral region, stage 4; Y84.8 Other medical procedures as the cause of abnormal reaction of the patient, or of later complication, without mention of misadventure at the time of the procedure; E11.22 Type 2 diabetes mellitus with diabetic chronic kidney disease; Y92.129 Unspecified place in nursing home as the place of occurrence of the external cause; I12.0 Hypertensive chronic kidney disease with stage 5 chronic kidney disease or end stage renal disease; D62 Acute posthemorrhagic anemia; N18.6 End stage renal disease; Z99.2 Dependence on renal dialysis; E66.01 Morbid (severe) obesity due to excess calories; E87.1 Hypo-osmolality and hyponatremia; E83.41 Hypermagnesemia; E78.5 Hyperlipidemia, unspecified; E11.65 Type 2 diabetes mellitus with hyperglycemia; E83.39 Other disorders of phosphorus metabolism; N39.0 Urinary tract infection, site not specified; R13.10 Dysphagia, unspecified; R53.2 Functional quadriplegia; Z88.0 Allergy status to penicillin; Z93.1 Gastrostomy status; Z93.0 Tracheostomy status; Z86.74 Personal history of sudden cardiac arrest; Z90.49 Acquired absence of other specified parts of digestive tract; Z68.31 Body mass index [BMI] 31.0-31.9, adult; Z22.322 Carrier or suspected carrier of Methicillin resistant Staphylococcus aureus; B96.20 Unspecified Escherichia coli [E. coli] as the cause of diseases classified elsewhere; B96.4 Proteus (mirabilis) (morganii) as the cause of diseases classified elsewhere; Z16.12 Extended spectrum beta lactamase (ESBL) resistance; M46.28 Osteomyelitis of vertebra, sacral and sacrococcygeal region; E88.09 Other disorders of plasma-protein metabolism, not elsewhere classified; D63.8 Anemia in other chronic diseases classified elsewhere; L02.31 Cutaneous abscess of buttock; Z79.4 Long term (current) use of insulin; Z87.820 Personal history of traumatic brain injury; Z74.01 Bed confinement status
CPT/HCPCS: 31720; 36415; 36569; 36600; 71045-TC; 74018; 80048-TC; 80053-TC; 80061-TC; 80076-TC; 80202-TC; 81000-TC; 82272-TC; 82728-TC; 82803-TC; 82962-TC; 83540-TC; 83605-TC; 83735-TC; 84100-TC; 84443-TC; 84484-TC; 85025-TC; 85610-TC; 85730-TC; 86706; 86850-TC; 86921-TC; 87040-TC; 87070-TC; 87081-TC; 87086-TC; 87186-TC; 87340; 90935-TC; 93307-TC; 94002-TC; 94003-TC; 94760-TC; 94762-TC; 94799-TC; 99082-TC; A4216; A4623; A6253; A6402; A6403; A7526; C1750; G0378; J0885; J1200; J1644; J1815; J1940; J2185; J2405; J2930; J3370; J3490; J7040; J7050; J7060; P9016-BL

== ENCOUNTER 2019-03-26 18:59 | Inpatient (IN) | payer OTHER ==
[~2019-03-26] VITALS: Ht 149.9 cm; Wt 73.9 kg
[~2019-03-26 18:59] MED LIST changes: -AMIK250V13 IV; +LINE600T2 PO; -Levofloxacin (250MG) PO; +MERO500V3 IV; +METR500T PO; -RXAMI XX
--- NOTE | 2019-03-26 19:24 | NUR ---
[facility]E FROM [facility] C/O UNSTABLE VITAL SIGNS. PT IS VENT DEPENDENT. PT FINISHED DIALYSIS SESSION. PT IS NONVERBAL, REACTS TO AUDITORY STIMULI, TACHYCARDIC AND HYPERTENSIVE. VENT SETTINGS: 12BPM, TIDAL VOLUME 550, O2 40%, PEEP 5. GTUBE IN PLACE. HAS LEFT GREAT TOE AMPUTATION, BANDAGES ON BILATERAL FEET. ON MONITOR AND READY FOR EVAL.
[2019-03-26 20:00] VITALS: BP 135/52
--- NOTE | 2019-03-26 20:07 | NUR ---
FAMILY LIVING EDUCATOR AT BEDSIDE FOR BLOOD DRAW
[2019-03-26 20:20] LABS: BASOPHILS % (AUTO) 0.4 % (0.0-2.0); EOSINOPHILS % (AUTO) 3.2 % (0.0-6.0); HEMATOCRIT 22 % (33-45); HEMOGLOBIN 7.4 g/dL (11.5-14.8); LYMPHOCYTES # (AUTO) 0.9 /CMM (0.8-4.8); LYMPHOCYTES % (AUTO) 7.7 % (20.0-44.0); MEAN CORPUSCULAR HGB CONC 33 g/dl (31.0-36.0); MEAN CORPUSCULAR VOLUME 93 fL (82-100); MONOCYTES # (AUTO) 0.5 /CMM (0.1-1.30); MONOCYTES % (AUTO) 4.2 % (2.0-12.0); NEUTROPHILS # (AUTO) 9.8 /CMM (1.8-8.9); NEUTROPHILS % (AUTO) 84.5 % (43.0-81.0); PLATELET COUNT (AUTO) 369 /CMM (150-450); RED BLOOD CELL COUNT(AUTO) 2.37 MIL/uL (4.0-5.2); WHITE BLOOD COUNT (AUTO) 11.6 K/uL (4.3-11.0)
[2019-03-26 20:27] LABS: CARBON DIOXIDE 19 mmol/L (21-32); CHLORIDE 97 mmol/L (98-107); CREATININE 2.3 mg/dL (0.6-1.3); GLUCOSE 198 mg/dL (74-106); SODIUM SERUM 134 mmol/L (136-145); UREA NITROGEN, BLOOD 56 mg/dL (7-18)
[2019-03-26 20:33] LABS: POTASSIUM 2.8 mmol/L (3.5-5.1)
[2019-03-26 20:36] LABS: ALKALINE PHOSPHATASE 127 U/L (46-116); ASPARTATE AMINOTRANSFERASE 19 U/L (15-37); BILIRUBIN,DIRECT 0.1 mg/dL (0.0-0.2); BILIRUBIN,TOTAL 0.4 mg/dL (0.2-1.0)
[2019-03-26 20:37] LABS: ALANINE AMINOTRANSFERASE 18 U/L (12-78); ALBUMIN 2.3 g/dL (3.4-5.0); LIPASE 103 U/L (73-393); TOTAL PROTEIN, SERUM 7.3 g/dL (6.4-8.2)
[2019-03-26] MEDS ORDERED: POTASSIUM CHLORIDE 20 MEQ TAB.PRT.SR PO ONE ×2 (21:00→21:03)
--- NOTE | 2019-03-26 21:14 | NUR ---
CALLED [employer]. JALOUSIES INSTALLER DR HADLEY
--- NOTE | 2019-03-26 21:31 | NUR ---
CALLED [facility] FOR TELE BED
--- NOTE | 2019-03-26 21:34 | NUR ---
TELE BED 119-2 GIVEN
[2019-03-26 21:59] LABS: BAND % (MANUAL) 8 % (0.0-5.0); LYMPHOCYTES % (MANUAL) 10 % (16-48); METAMYELOCYTES % 4 % (0-0); MYELOCYTES % 2 % (0-0); NEUTROPHILS % (MANUAL) 76 (42-76)
[2019-03-26] MEDS ORDERED: POTASSIUM CHLORIDE 20 MEQ POWDER PACKET PO ONE (22:00)
--- NOTE | 2019-03-26 22:06 | NUR ---
REPORT GIVEN TO MOY LI FOR 119-2T
[2019-03-26] MEDS ORDERED: POTASSIUM CHLORIDE 20 MEQ POWDER PACKET ONE (22:09)
[2019-03-26 22:47] VITALS: BP 135/52
--- NOTE | 2019-03-26 22:47 | NUR ---
CHIEF OPERATOR SYNTHESIS NOTE RECEIVED PATIENT FROM ER, NON VERBAL RESTING WITH HOB ELEVATED, ST ON MONITOR, TRACH TO VENT ON SETTINGS ORDERED, NO PAIN NOTED VIA FLACC, G TUBE CLAMPED, CHINO CATHETER DRAINING CLOUDY YELLOW URINE, MULTIPLE WOUNDS COVERED WITH DRESSINGS, RAC # 20 G PATENT AND FLUSHING WELL, HEELS OFFLOADED, SAFETY MAINTAINED AT ALL TIMES, BED IN LOW LOCKED POSITION, CALL LIGHT WITHIN REACH, WILL CONTINUE TO MONITOR FOR ANY CHANGES.
--- NOTE | 2019-03-26 22:55 | NUR ---
[facility]
[2019-03-26] MEDS ORDERED: ONDANSETRON HCL/PF 4 MG/2 ML VIAL IVP PRN (23:30)
[2019-03-26] MEDS ORDERED: ACETAMINOPHEN 325 MG TABLET PO PRN (23:30)
[2019-03-26] MEDS ORDERED: MAGNESIUM HYDROXIDE 30 ML UDC PO PRN (23:30)
[2019-03-26] MEDS ORDERED: MAG HYDROX/AL HYDROX/SIMETH 30 ML UDC PO PRN (23:30)
[2019-03-26] MEDS ORDERED: Z GUARD REMEDY 2 OZ OINT TP PRN (23:30)
[2019-03-26] MEDS ORDERED: HYDROCODONE/APAP 5/325MG 1 EACH TABLET PO PRN (23:30)
[2019-03-26] MEDS ORDERED: ZOLPIDEM TARTRATE 5 MG TABLET PO PRN (23:30)
[2019-03-27] VITALS (9 sets, daily range): BP systolic 114–178; BP diastolic 33–81
[2019-03-27 06:56] LABS: BASOPHILS # (AUTO) 0.1 /CMM (0.0-0.2); BASOPHILS % (AUTO) 0.6 % (0.0-2.0); EOSINOPHILS % (AUTO) 2.5 % (0.0-6.0); LYMPHOCYTES # (AUTO) 1.9 /CMM (0.8-4.8); LYMPHOCYTES % (AUTO) 19.8 % (20.0-44.0); MEAN CORPUSCULAR HGB CONC 34 g/dl (31.0-36.0); MEAN CORPUSCULAR VOLUME 92 fL (82-100); MONOCYTES # (AUTO) 0.7 /CMM (0.1-1.30); MONOCYTES % (AUTO) 6.7 % (2.0-12.0); NEUTROPHILS # (AUTO) 6.9 /CMM (1.8-8.9); NEUTROPHILS % (AUTO) 70.4 % (43.0-81.0); PLATELET COUNT (AUTO) 338 /CMM (150-450); RED BLOOD CELL COUNT(AUTO) 2.16 MIL/uL (4.0-5.2); WHITE BLOOD COUNT (AUTO) 9.8 K/uL (4.3-11.0)
[2019-03-27 06:58] LABS: ALBUMIN 2.3 g/dL (3.4-5.0); BILIRUBIN,TOTAL 0.4 mg/dL (0.2-1.0); CALCIUM, SERUM 8.9 mg/dL (8.5-10.1); CREATININE 2.9 mg/dL (0.6-1.3); MAGNESIUM 2.2 mg/dL (1.8-2.4); PHOSPHORUS 3.8 mg/dL (2.5-4.9); POTASSIUM 3.4 mmol/L (3.5-5.1); TOTAL PROTEIN, SERUM 7.1 g/dL (6.4-8.2)
--- NOTE | 2019-03-27 07:15 | NUR ---
CRITICAL LAB TAKEN BY PANDA WINTER HGB 6.8 HCT 20
[2019-03-27 07:17] LABS: HEMATOCRIT 20 % (33-45); HEMOGLOBIN 6.8 g/dL (11.5-14.8)
--- NOTE | 2019-03-27 07:51 | NUR ---
QUALITY ASSURANCE MONITOR OPENING NOTES RECEIVED PATIENT IN BED. A/O X4 TAJIK SPEAKING NO SIGNS OR SYMPTOMS OF RESPIRATORY DISTRESS C/O LOW FLANK PAIN WILL MEDICATE ORDERED. SINUS ON THE MONITOR SKIN INATCT IVF RUNNING IN RAC # 20 GAUGE @ 75 ML/HR. AWAITING FOR BLOOD FROM BLOOD BANK HGB 5.9 HCT 18. SAFETY AND FALL PRECAUTIONS IN PLACE BED IN LOW POSITION CALL LIGHT WITHIN REACH WILL CONT TO MONITOR ACCORDINGLY. Addendum: 03/27/19 at 0755 by KAMLA MARCELO RN CHARTED ON WRONG PATIENT
--- NOTE | 2019-03-27 07:56 | NUR ---
VICE PRESIDENT OF PROCUREMENT OPENING NOTES RECEIVED PATIENT IN BED NOV VERBAL OBTUNDED. OPENS EYES SPONTANEOUSLY. NO SIGNS OR SYMPTOMS OF RESPIRATORY DISTRESS ON VENT TOLERATING SETTINGS ORDERED. SINUS ON MONITOR IN 80'S GT CLAMPED DIETARY CONSULT ORDERED.CHINO CATH DRAINING CLEAR YELLOW URINE. RAC #20 GAUGE SALINE LOCK PATENT AND FLUSHING WELL. LCW PORT A CATH.WOUNDS TO SACRUM AND BUTTOCKS. CRITICAL LAB HGB 6.8 AND HCT 20.WILL INFORM MD SAFETY AND ASPIRATION PRECAUTIONS IN PLACE BED IN LOW LOCKED POSITION CALL LIGHT WITHIN REACH WILL MONITOR ACCORDINGLY
[2019-03-27 08:50] LABS: EOSINOPHILS % (MANUAL) 3 % (0-4); LYMPHOCYTES % (MANUAL) 10 % (16-48); MONOCYTES % (MANUAL) 12 % (0-11.0); NEUTROPHILS % (MANUAL) 75 (42-76)
--- NOTE | 2019-03-27 09:39 | NUR ---
WOUND CARE CONSULT: PT PRESENTS WITH MULTIPLE WOUNDS INCLUDING RT HIP UNSTAGEABLE ULCER, BILATERAL BUTTOCK ULCERS AND LARGE STAGE 4 ULCER TO SACRUM WITH FOUL PURULENT DRAINAGE, PRESENT ON ADMISSION. RECOMMEND SURGICAL CONSULT. DR KAVYA AGUILAR AWARE OF CONSULT REQUEST. RECOMMENDATIONS MADE FOR WOUND CARE AND SKIN PROTECTION. DISCUSSED WITH NURSING STAFF. FIRST STEP LOW AIRLOSS MATTRESS ORDERED. DIETARY CONSULT ORDERED. WILL SEE PRRanda TRIPLETT IN AGREEMENT WITH PLAN OF CARE. CURRENT DEBBY SCORE IS 11. Addendum: 03/27/19 at 0941 by PRASHANTH ADAN WNDNU Amended: Links added.
[2019-03-27] MEDS ORDERED: INSU100V39 SQ (09:57)
[2019-03-27] MEDS ORDERED: ATOR10TA GT (09:57)
[2019-03-27] MEDS ORDERED: HYDR-4077 PO (09:57)
[2019-03-27] MEDS ORDERED: DIPH-530 GT (09:57)
[2019-03-27] MEDS ORDERED: INSU100I26 SQ (09:57)
[2019-03-27] MEDS ORDERED: CRAN450C GT (09:57)
[2019-03-27] MEDS ORDERED: ONDA4TAB5 GT (09:57)
[2019-03-27] MEDS ORDERED: OMEP40CA37 GT (09:57)
[2019-03-27] MEDS ORDERED: HYDROGEL DRESSING 90 GM TUBE TP PRN (10:00)
--- NOTE | 2019-03-27 11:11 | NUR ---
LEFT MESSAGE WITH EPIC FOR LEONARD MORRISSEY IN REGARDS TO LOW HGB AND ORDERS FRO TRANSFUSION OR IF PATIENT IS HAVING HD
[2019-03-27] MEDS: DAKINS HALF STRENGTH (0.25%) 480 ML BOTTLE TOP SCH (11:43)
[2019-03-27] MEDS: HYDROGEL DRESSING 90 GM TUBE TP SCH (11:44)
--- NOTE | 2019-03-27 12:39 | NUR ---
TELEPHONE CONSENT OBTAINED BY DAUGHTER MAGDALENA FOR PATIENT TO RECEIVE HEMODIALYSIS WHILE INPATIENT
--- NOTE | 2019-03-27 14:01 | NUR ---
DR PICKETT ORDERED 1 UNIT PRBC TELPHONE CONSENT OBTAINED FROM DAUGHTER MAGDALENA. AWITING TO SEE IF PATIENT WILL BE RECEIVING HD TODAY.
[2019-03-27] MEDS ORDERED: BISACODYL SUPP (10 MG) 10 MG/SUPP.RECT SUPP.RECT RC PRN (15:00)
[2019-03-27] MEDS ORDERED: NA PHOS,M-B/NA PHOS,DI-BA 1 EA ENEMA RC PRN (15:00)
[2019-03-27] MEDS ORDERED: BLOOD SUGAR DIAGNOSTIC 1 EACH STRIP IN PRN (15:00)
[2019-03-27] MEDS ORDERED: ACETAMINOPHEN 650 MG/20.3 ML UDC GT PRN (15:00)
[2019-03-27] MEDS ORDERED: CLONIDINE HCL 0.1 MG TABLET GT PRN (15:00)
[2019-03-27] MEDS ORDERED: ONDANSETRON 4 MG TAB.RAPDIS GT PRN (15:00)
[2019-03-27] MEDS ORDERED: INSULIN ASPART/LISPRO 100 UNIT/ML CARTRIDGE SQ PRN (15:00)
[2019-03-27] MEDS ORDERED: LACTULOSE 10 G/15 ML UDC (PYXIS) PO PRN (15:00)
[2019-03-27] MEDS ORDERED: DEXTROSE 50%-WATER 50 ML DISP.SYRIN IV PRN ×2 (15:00→22:30)
[2019-03-27] MEDS ORDERED: diphenhydrAMINE HCL ELIX 25 MG/10 ML UDC PO PRN (15:00)
[2019-03-27] MEDS ORDERED: NEPRO 1,000 ML BOTTLE GT PRN (15:30)
[2019-03-27] MEDS: ACETAMINOPHEN 650 MG/20.3 ML UDC GT SCH (15:38)
[2019-03-27] MEDS: FERROUS SULFATE UDC 300 MG/5 ML UDC GT SCH (17:47)
[2019-03-27] MEDS: NEPRO 1,000 ML BOTTLE GT SCH ×2 (17:48→19:18)
--- NOTE | 2019-03-27 18:03 | NUR ---
BLOOD BANK CALLED. PATIENT HAS ANTIBODIES AND BLOOD NOT AVAILABLE. WILL ORDER BLOOD FROM [facility] STAT
--- NOTE | 2019-03-27 18:55 | NUR ---
SALESFORCE CONSULTANT NOTES PATIENT IN BED NON VERBAL OBTUNDED. OPENS EYES SPONTANEOUSLY. NO SIGNS OR SYMPTOMS OF RESPIRATORY DISTRESS ON VENT TOLERATING SETTINGS ORDERED. SINUS ON MONITOR IN 80'S GTF RESUMED ORDERED 45 ML/HR .CHINO CATH DRAINING TEA COLORED URINE. RAC #20 GAUGE SALINE LOCK PATENT AND FLUSHING WELL. LCW PORT A CATH.WOUNDS TO SACRUM AND BUTTOCKS TREATMENT DONE ORDERED. ORDER FOR PRBCS TO BE INFUSED DURING HD AWAITING FOR BLOOD FROM [facility]. HD NURSES STATED PATIENT VOMITED ASSESSED AND MOSTY MUCUS NO FEEDING. SAFETY AND ASPIRATION PRECAUTIONS IN PLACE BED IN LOW LOCKED POSITION CALL LIGHT WILL ENDORSE TO NOC
--- NOTE | 2019-03-27 19:17 | NUR ---
REPORT ENDORSED TO NOC
--- NOTE | 2019-03-27 19:22 | NUR ---
RECREATIONAL THERAPIST NOTES RECEIVED PT ON BED. [facility] NO RESPIRATORY DISTRESS NOTED. ON TELE MONITOR ST 108. ON GOING HD, DIALYSIS NURSE AT BEDSIDE. IV ACCESS RAC G20 PATENT AND INTACT. CHINO CATH DRAINING YELLOW URINE. HEAD OF BED ELEVATED. SIDE RAILS UP. CALL LIGHT WITHIN REACH. BED ALARM ON. WILL CONTINUE TO MONITOR PT CLOSELY.
--- NOTE | 2019-03-27 20:22 | NUR ---
ROBOTIC WELD TECHNICIAN NOTES CALLED BLOODBANK FOR PRBC ORDERS. PER BLOODBANK BLOOD IS NOT READY.
[2019-03-27] MEDS: ATORVASTATIN 10 MG TABLET GT SCH (21:32)
[2019-03-27] MEDS: hydrALAZINE HCL 50 MG TABLET PO SCH (21:32)
[2019-03-27] MEDS: PANTOPRAZOLE 40 MG/PACK PACK GT SCH (21:32)
[2019-03-27] MEDS: INSULIN GLARGINE, 100 UNIT/ML CARTRIDGE SQ SCH (21:35)
[2019-03-27] MEDS: glipiZIDE 10 MG TABLET GT SCH (21:35)
--- NOTE | 2019-03-27 21:36 | NUR ---
CASH VAN SALESPERSON NOTES HD DONE. BP 152/69.
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
--- NOTE | 2019-03-27 21:50 | NUR ---
FLOOR COVERINGS INSTALLER NOTES CALLED DR RUSH FOR ORDER CLARIFICATION. PER DR RUSH. ACCUCHECK Q6H WITH INSULIN ASPART MODERATE SLIDING SCALE.
[2019-03-27] MEDS ORDERED: DEXTROSE 50%-WATER 50 ML DISP.SYRIN IVP PRN (22:30)
[2019-03-27] MEDS ORDERED: INSULIN REGULAR, HUMAN 100 UNIT/ML 3 ML VIAL SQ PRN (22:30)
--- NOTE | 2019-03-27 23:08 | NUR ---
TRAVELIFT OPERATOR NOTES BT INFUSING. V/S STABLE. NO RESPIRATORY DISTRESS NOTED. HD NURSE AT BEDSIDE.
[2019-03-27] MEDS: BLOOD SUGAR DIAGNOSTIC 1 EACH STRIP IN SCH (23:59)
[2019-03-28] VITALS (8 sets, daily range): BP systolic 121–158; BP diastolic 29–89
[2019-03-28] MEDS ORDERED: BLOOD SUGAR DIAGNOSTIC 1 EACH STRIP IN SCH
[2019-03-28] MEDS: INSULIN ASPART/LISPRO 100 UNIT/ML CARTRIDGE SQ PRN ×3 (00:02→17:29)
--- NOTE | 2019-03-28 00:58 | NUR ---
AUDIO VISUAL PROJECT MANAGER NOTES BT DONE. V/S STABLE. NO RESPIRATORY DISTRESS NOTED. WILL CONTINUE TO MONITOR PT CLOSELY.
[2019-03-28] MEDS: BLOOD SUGAR DIAGNOSTIC 1 EACH STRIP IN SCH ×3 (05:33→17:27)
[2019-03-28] MEDS: hydrALAZINE HCL 50 MG TABLET PO SCH ×3 (05:33→22:13)
[2019-03-28 06:34] LABS: CALCIUM, SERUM 9.3 mg/dL (8.5-10.1); CREATININE 2.6 mg/dL (0.6-1.3); MAGNESIUM 2.2 mg/dL (1.8-2.4); PHOSPHORUS 3.8 mg/dL (2.5-4.9); POTASSIUM 4.5 mmol/L (3.5-5.1)
[2019-03-28 06:40] LABS: BASOPHILS # (AUTO) 0.1 /CMM (0.0-0.2); HEMATOCRIT 27 % (33-45); HEMOGLOBIN 9.1 g/dL (11.5-14.8); MEAN CORPUSCULAR HGB CONC 34 g/dl (31.0-36.0); MEAN CORPUSCULAR VOLUME 91 fL (82-100); MONOCYTES # (AUTO) 0.6 /CMM (0.1-1.30); RED BLOOD CELL COUNT(AUTO) 2.95 MIL/uL (4.0-5.2)
[2019-03-28 06:43] LABS: PLATELET COUNT (AUTO) 366 /CMM (150-450)
[2019-03-28 06:44] LABS: BASOPHILS % (AUTO) 0.8 % (0.0-2.0); EOSINOPHILS % (AUTO) 2.9 % (0.0-6.0); LYMPHOCYTES # (AUTO) 1.9 /CMM (0.8-4.8); LYMPHOCYTES % (AUTO) 18.5 % (20.0-44.0); NEUTROPHILS # (AUTO) 7.2 /CMM (1.8-8.9); NEUTROPHILS % (AUTO) 71.8 % (43.0-81.0); WHITE BLOOD COUNT (AUTO) 10.1 K/uL (4.3-11.0)
[2019-03-28 07:18] LABS: BAND % (MANUAL) 1 % (0.0-5.0); EOSINOPHILS % (MANUAL) 1 % (0-4); LYMPHOCYTES % (MANUAL) 28 % (16-48); MONOCYTES % (MANUAL) 10 % (0-11.0); NEUTROPHILS % (MANUAL) 60 (42-76)
--- NOTE | 2019-03-28 07:21 | NUR ---
BARREL LEVELER NOTES NO ACUTE CHANGES NOTED DURING THE SHIFT. WILL ENDORSE TO THE AM NURSE FOR CONTINUITY OF CARE.
--- NOTE | 2019-03-28 07:27 | NUR ---
OCCUPATIONAL WORK EXPERIENCE TEACHER OPENING NOTES RECEIVED PATIENT IN BED NON VERBAL OBTUNDED. OPENS EYES SPONTANEOUSLY. NO SIGNS OR SYMPTOMS OF RESPIRATORY DISTRESS ON VENT TOLERATING SETTINGS ORDERED. SINUS ON MONITOR IN 80'S GTF RUNNING NEPHRO @ 45 ML/HR FOR 16 HRS CHINO CATH DRAINING DARK YELLOW URINE. RAC #20 GAUGE SALINE LOCK PATENT AND FLUSHING WELL. LCW PORT A CATH.WOUNDS TO SACRUM AND BUTTOCKS SAFETY AND ASPIRATION PRECAUTIONS IN PLACE BED IN LOW LOCKED POSITION CALL LIGHT WITHIN REACH WILL MONITOR ACCORDINGLY
[2019-03-28] MEDS: FERROUS SULFATE UDC 300 MG/5 ML UDC GT SCH ×2 (08:48→16:27)
[2019-03-28] MEDS: glipiZIDE 10 MG TABLET GT SCH ×2 (08:48→22:06)
[2019-03-28] MEDS: PANTOPRAZOLE 40 MG/PACK PACK GT SCH ×2 (08:49→22:03)
[2019-03-28] MEDS: CALCITRIOL 0.25 MCG CAPSULE GT SCH (08:49)
[2019-03-28] MEDS: VIT B CMPLX 3/FA/VIT C/BIOTIN 1 TAB TABLET GT SCH (08:49)
[2019-03-28] MEDS: ASCORBIC ACID 500 MG TABLET GT SCH (08:49)
[2019-03-28] MEDS: ACETAMINOPHEN 650 MG/20.3 ML UDC GT SCH (08:49)
[2019-03-28] MEDS: INSULIN GLARGINE, 100 UNIT/ML CARTRIDGE SQ SCH ×2 (08:50→22:08)
[2019-03-28] MEDS: DAKINS HALF STRENGTH (0.25%) 480 ML BOTTLE TOP SCH (08:53)
[2019-03-28] MEDS: HYDROGEL DRESSING 90 GM TUBE TP SCH (08:54)
[2019-03-28] MEDS ORDERED: ERGOCALCIFEROL (VITAMIN D 2) 50,000 UNIT CAPSULE GT SCH (15:00)
--- NOTE | 2019-03-28 17:41 | NUR ---
IV REMOVED FROM RAC # 20 UNABLE TO FLUSH LEAKING AT SITE. CATH INTACT MINIMAL BLEEDING
--- NOTE | 2019-03-28 18:47 | NUR ---
REGIONAL ECONOMIST NOTES PATIENT IN BED NON VERBAL OBTUNDED. OPENS EYES SPONTANEOUSLY. NO SIGNS OR SYMPTOMS OF RESPIRATORY DISTRESS ON VENT TOLERATING SETTINGS ORDERED. SINUS ON MONITOR IN 80'S GTF RESUMED ORDERED 45 ML/HR X 16 HR NO NAUSEA VOMITIG NOTED NO RESIDUAL CHINO CATH DRAINING TEA COLORED URINE. R HAND #20 GAUGE SALINE LOCK PATENT AND FLUSHING WELL. LCW PORT A CATH.WOUNDS TO SACRUM AND BUTTOCKS TREATMENT DONE ORDERED EXCESIONAL DEBRIDEMENT DONE TO SACRAL AND LEFT BUTTOCKS SAFETY AND ASPIRATION PRECAUTIONS IN PLACE BED IN LOW LOCKED POSITION CALL LIGHT WILL ENDORSE TO NOC
--- NOTE | 2019-03-28 19:12 | NUR ---
REPORT ENDORSED TO NOC
--- NOTE | 2019-03-28 19:50 | NUR ---
FREDDY RN NOTES PATIENT IN BED NON VERBAL OBTUNDED. OPENS EYES. NO SIGNS OR SYMPTOMS OF RESPIRATORY DISTRESS ON VENT TOLERATING SETTINGS ORDERED. SINUS TACH ON MONITOR HR 106. GTF ORDERED 45 ML/HR X16HR NO NAUSEA VOMITING NOTED NO RESIDUAL. CHINO CATH DRAINING URINE ON GRAVITY. R HAND #20 GAUGE SALINE LOCK PATENT AND FLUSHING WELL. LCW PORT A CATH IS INTACT. SAFETY AND ASPIRATION PRECAUTIONS ARE IN PLACE BED IN LOW LOCKED POSITION CALL LIGHT WITH IN REACH. WILL CONTINUE TO MONITOR PATIENT CLOSELY.
[2019-03-28] MEDS: ATORVASTATIN 10 MG TABLET GT SCH (22:03)
[2019-03-29] VITALS: BP 123/55
[2019-03-29] MEDS: BLOOD SUGAR DIAGNOSTIC 1 EACH STRIP IN SCH ×4 (00:33→18:29)
[2019-03-29] MEDS: INSULIN ASPART/LISPRO 100 UNIT/ML CARTRIDGE SQ PRN ×4 (00:37→18:30)
[2019-03-29 04:00] VITALS: BP 148/83
[2019-03-29] MEDS: hydrALAZINE HCL 50 MG TABLET PO SCH ×2 (05:33→12:43)
[2019-03-29 07:16] LABS: BASOPHILS # (AUTO) 0.1 /CMM (0.0-0.2); EOSINOPHILS % (AUTO) 3.8 % (0.0-6.0); HEMATOCRIT 27 % (33-45); LYMPHOCYTES # (AUTO) 1.8 /CMM (0.8-4.8); LYMPHOCYTES % (AUTO) 22.3 % (20.0-44.0); MEAN CORPUSCULAR HGB CONC 34 g/dl (31.0-36.0); MEAN CORPUSCULAR VOLUME 91 fL (82-100); MONOCYTES # (AUTO) 0.5 /CMM (0.1-1.30); MONOCYTES % (AUTO) 6.6 % (2.0-12.0); NEUTROPHILS # (AUTO) 5.4 /CMM (1.8-8.9); NEUTROPHILS % (AUTO) 66.3 % (43.0-81.0); PLATELET COUNT (AUTO) 375 /CMM (150-450); RED BLOOD CELL COUNT(AUTO) 2.94 MIL/uL (4.0-5.2); WHITE BLOOD COUNT (AUTO) 8.2 K/uL (4.3-11.0)
[2019-03-29 07:38] LABS: CALCIUM, SERUM 9.5 mg/dL (8.5-10.1); CREATININE 3.2 mg/dL (0.6-1.3); MAGNESIUM 2.3 mg/dL (1.8-2.4); PHOSPHORUS 4.3 mg/dL (2.5-4.9)
--- NOTE | 2019-03-29 07:49 | NUR ---
STARCH FACTORY LABORER OPENING NOTES RECEIVED BEDSIDE REPORT PATIENT IN BED NON VERBAL OBTUNDED. OPENS EYES SPONTANEOUSLY. NO SIGNS OR SYMPTOMS OF RESPIRATORY DISTRESS ON VENT TOLERATING SETTINGS ORDERED. SINUS ON MONITOR IN 80'S GTF RUNNING NEPHRO @ 45 ML/HR CHINO CATH DRAINING MINIMAL DARK YELLOW URINE. R HAND #20 GAUGE SL FLUSHING WELL. LCW PORT A CATH CURRENTLY RECEIVING HD SAFETY AND ASPIRATION PRECAUTIONS IN PLACE BED IN LOW LOCKED POSITION CALL LIGHT WITHIN REACH WILL MONITOR ACCORDINGLY
[2019-03-29 08:00] VITALS: BP 100/45
[2019-03-29 08:03] LABS: BAND % (MANUAL) 2 % (0.0-5.0); LYMPHOCYTES % (MANUAL) 22 % (16-48); MONOCYTES % (MANUAL) 5 % (0-11.0); MYELOCYTES % 2 % (0-0); NEUTROPHILS % (MANUAL) 69 (42-76)
[2019-03-29 09:03] VITALS: BP 100/45
[2019-03-29] MEDS: HYDROGEL DRESSING 90 GM TUBE TP SCH (09:50)
[2019-03-29] MEDS: DAKINS HALF STRENGTH (0.25%) 480 ML BOTTLE TOP SCH (09:50)
[2019-03-29] MEDS: VIT B CMPLX 3/FA/VIT C/BIOTIN 1 TAB TABLET GT SCH (09:51)
[2019-03-29] MEDS: FERROUS SULFATE UDC 300 MG/5 ML UDC GT SCH ×2 (09:51→17:16)
[2019-03-29] MEDS: ASCORBIC ACID 500 MG TABLET GT SCH (09:51)
[2019-03-29] MEDS: ACETAMINOPHEN 650 MG/20.3 ML UDC GT SCH (09:51)
[2019-03-29] MEDS: glipiZIDE 10 MG TABLET GT SCH (09:51)
[2019-03-29] MEDS: PANTOPRAZOLE 40 MG/PACK PACK GT SCH (09:51)
[2019-03-29] MEDS: INSULIN GLARGINE, 100 UNIT/ML CARTRIDGE SQ SCH (09:51)
[2019-03-29] MEDS: CALCITRIOL 0.25 MCG CAPSULE GT SCH (09:51)
[2019-03-29 12:00] VITALS: BP 114/50
[2019-03-29 16:00] VITALS: BP 119/57
--- NOTE | 2019-03-29 19:03 | NUR ---
GUTTER HANGER NOTES PATIENT IN BED NON VERBAL OBTUNDED. OPENS EYES SPONTANEOUSLY. NO SIGNS OR SYMPTOMS OF RESPIRATORY DISTRESS ON VENT TOLERATING SETTINGS ORDERED. SINUS ON MONITOR IN 80'S GTF RESUMED ORDERED 45 ML/HR X 16 HR NO NAUSEA VOMITING NOTED NO RESIDUAL CHINO CATH DRAINING TEA COLORED URINE. R HAND #20 GAUGE SALINE LOCK PATENT AND FLUSHING WELL. LCW PORT A CATH.WOUNDS TO SACRUM AND BUTTOCKS TREATMENT DONE ORDERED EXCISIONAL DEBRIDEMENT DONE TO SACRAL AND LEFT BUTTOCKS 03/18 . HD THIS AM 900 OUT SAFETY AND ASPIRATION PRECAUTIONS IN PLACE BED IN LOW LOCKED POSITION CALL LIGHT WILL ENDORSE TO NOC
--- NOTE | 2019-03-29 19:25 | NUR ---
PT VIA AMBULENZ DISCHARGED TO [facility]
== END 2019-03-29 19:25 | DRG 951 ==
LOC: ER 19:05 → TELE1 21:37
PROVIDERS: ADMIT Internal Medicine; ATTEND Nurse Practitioner Acute Care
PROC: 5A1945Z Respiratory Ventilation, 24-96 Consecutive Hours (ICD-10-PCS; principal; 2019-03-26)
PROC: 30233P1 Transfusion of Nonautologous Frozen Red Cells into Peripheral Vein, Percutaneous Approach (ICD-10-PCS; 2019-03-27)
PROC: 5A1D70Z Performance of Urinary Filtration, Intermittent, Less than 6 Hours Per Day (ICD-10-PCS; 2019-03-27)
PROC: 0KBP0ZZ Excision of Left Hip Muscle, Open Approach (ICD-10-PCS; 2019-03-28)
PROC: 0KBN0ZZ Excision of Right Hip Muscle, Open Approach (ICD-10-PCS; 2019-03-28)
PROC: 5A1D70Z Performance of Urinary Filtration, Intermittent, Less than 6 Hours Per Day (ICD-10-PCS; 2019-03-29)
DX: E87.6 Hypokalemia (principal); G93.1 Anoxic brain damage, not elsewhere classified; Z99.11 Dependence on respirator [ventilator] status; L89.154 Pressure ulcer of sacral region, stage 4; J96.11 Chronic respiratory failure with hypoxia; L89.894 Pressure ulcer of other site, stage 4; E11.22 Type 2 diabetes mellitus with diabetic chronic kidney disease; R53.2 Functional quadriplegia; I12.0 Hypertensive chronic kidney disease with stage 5 chronic kidney disease or end stage renal disease; N18.6 End stage renal disease; Z99.2 Dependence on renal dialysis; E78.5 Hyperlipidemia, unspecified; E03.9 Hypothyroidism, unspecified; I25.10 Atherosclerotic heart disease of native coronary artery without angina pectoris; D63.8 Anemia in other chronic diseases classified elsewhere; Z86.74 Personal history of sudden cardiac arrest; E11.65 Type 2 diabetes mellitus with hyperglycemia; E66.01 Morbid (severe) obesity due to excess calories; Z68.32 Body mass index [BMI] 32.0-32.9, adult; R13.10 Dysphagia, unspecified; Z93.1 Gastrostomy status; D72.829 Elevated white blood cell count, unspecified; Z74.01 Bed confinement status
CPT/HCPCS: 31720; 36415; 71045-TC; 80048-TC; 80053-TC; 80061-TC; 80076-TC; 82962-TC; 83690-TC; 83735-TC; 84100-TC; 84484-TC; 85025-TC; 86706; 86850-TC; 86921-TC; 87070-TC; 87081-TC; 87186-TC; 87340; 90935-TC; 94003-TC; 94760-TC; A4217; A6248; A6253; A6402; A6403; G0378; J1815; J7050; P9016-BL; Q0163

== ENCOUNTER 2019-04-02 18:45 | Inpatient (IN) | payer OTHER ==
[~2019-04-02] VITALS: Ht 160 cm; Wt 76.2 kg
[~2019-04-02 18:45] MED LIST changes: +ATOR10TA GT; +BISA10SU11 RC; -BISA10SU8 RC; +CRAN450C GT; +DIPH-530 GT; -HYDR-4077 GT; +HYDR-4077 PO; +INSU100I26 SQ; -INSU100V10 SQ; -INSU100V11 SQ; +INSU100V39 SQ; -LINE600T2 PO; -MAGN400O6 GT; -MERO500V3 IV; -METO-295 GT; -METR500T PO; +OMEP40CA37 GT; +ONDA4TAB5 GT; -PANT40SU2 GT; -ZINC220C8 GT
[2019-04-02] MEDS ORDERED: METH200S IJ (19:03)
[2019-04-02] MEDS ORDERED: METO-295 PO (19:03)
[2019-04-02] MEDS ORDERED: NIFE10CA2 PO (19:03)
[2019-04-02] MEDS ORDERED: LOSA50TA39 PO (19:03)
[2019-04-02] MEDS ORDERED: CARV25TA GT (19:03)
[2019-04-02] MEDS ORDERED: ISOS30TA6 PO (19:03)
--- NOTE | 2019-04-02 19:10 | NUR ---
Note undone in EDM - 04/02/19 at 0 by RAMAN PT BIB PA FROM SNF WITH A C/O ABNORMAL H&H. PT IS NON VERBAL, ON 3L O2 VIA NC, GTUBE NOTED, CHINO TO GRAVITY, BILATERAL HEEL PROTECTORS. WOUND NOTED ON RT FOOT. PT IS ON THE MONITOR AND CONTINUOUS PULSE OX.
--- NOTE | 2019-04-02 19:24 | NUR ---
PT REC'D THROUGH ER. PLACED ON [facility] VENT. CHUCKIE WELL NO ADVERSE REACTION. WILL CONTINUE TO MONITOR. Addendum: 04/02/19 at 1925 by YEE ERICKSON RT Amended: Links added.
[2019-04-02] MEDS ORDERED: IV NS 0.9% 500 ML BAG IV ONE (19:30)
[2019-04-02] MEDS ORDERED: ACETAMINOPHEN 650 MG/SUPP.RECT RC ONE ×2 (19:30→20:02)
[2019-04-02 19:48] LABS: BASOPHILS # (AUTO) 0.1 /CMM (0.0-0.2); BASOPHILS % (AUTO) 0.7 % (0.0-2.0); EOSINOPHILS % (AUTO) 3.4 % (0.0-6.0); HEMATOCRIT 23 % (33-45); HEMOGLOBIN 7.6 g/dL (11.5-14.8); LYMPHOCYTES # (AUTO) 1.2 /CMM (0.8-4.8); LYMPHOCYTES % (AUTO) 13.4 % (20.0-44.0); MEAN CORPUSCULAR HGB CONC 34 g/dl (31.0-36.0); MEAN CORPUSCULAR VOLUME 92 fL (82-100); MONOCYTES # (AUTO) 0.3 /CMM (0.1-1.30); MONOCYTES % (AUTO) 3.7 % (2.0-12.0); NEUTROPHILS # (AUTO) 6.8 /CMM (1.8-8.9); NEUTROPHILS % (AUTO) 78.8 % (43.0-81.0); PLATELET COUNT (AUTO) 378 /CMM (150-450); RED BLOOD CELL COUNT(AUTO) 2.46 MIL/uL (4.0-5.2); WHITE BLOOD COUNT (AUTO) 8.6 K/uL (4.3-11.0)
[2019-04-02 19:49] LABS: APPEARANCE,URINE Turbid (CLEAR); BILIRUBIN,URINE Negative (NEGATIVE); BLOOD, URINE Trace-lysed Ery/uL (NEGATIVE); COLOR,URINE Yellow (YELLOW); KETONES,URINE Negative (NEGATIVE); LEUKOCYTE ESTERASE ,URINE Large (NEGATIVE); NITRITE, URINE Negative (NEGATIVE); PROTEIN,URINE >=300 mg/dl (NEGATIVE); UGLUCOSE Negative (NEGATIVE); UROBILINOGEN,URINE 0.2 EU/dL (0.2)
[2019-04-02 19:55] LABS: PH,URINE >9.0 (5.0-8.0)
[2019-04-02 19:57] LABS: CALCIUM, SERUM 9.4 mg/dL (8.5-10.1); CARBON DIOXIDE 22 mmol/L (21-32); CHLORIDE 100 mmol/L (98-107); CREATININE 1.6 mg/dL (0.6-1.3); GLUCOSE 88 mg/dL (74-106); POTASSIUM 3.5 mmol/L (3.5-5.1); SODIUM SERUM 135 mmol/L (136-145); UREA NITROGEN, BLOOD 34 mg/dL (7-18)
--- NOTE | 2019-04-02 20:00 | NUR ---
VENT SETTINGS: AC18, TV550, FIO2 40%, PEEP 5
[2019-04-02 20:03] LABS: ALANINE AMINOTRANSFERASE 17 U/L (12-78); ALBUMIN 2.3 g/dL (3.4-5.0); ALKALINE PHOSPHATASE 115 U/L (46-116); ASPARTATE AMINOTRANSFERASE 15 U/L (15-37); BILIRUBIN,DIRECT 0.1 mg/dL (0.0-0.2); BILIRUBIN,TOTAL 0.3 mg/dL (0.2-1.0); TOTAL PROTEIN, SERUM 7.7 g/dL (6.4-8.2)
[2019-04-02 20:34] LABS: BACTERIA,URINE Many /HPF (None Seen); SQUAMOUS EPITHELIAL CELL,UR Few /HPF (None Seen)
[2019-04-02 20:35] LABS: URINE AMORPHOUS PHOSPHATES Many /HPF (None Seen)
[2019-04-02 20:44] LABS: BAND % (MANUAL) 4 % (0.0-5.0); EOSINOPHILS % (MANUAL) 1 % (0-4); LYMPHOCYTES % (MANUAL) 16 % (16-48); MONOCYTES % (MANUAL) 3 % (0-11.0); MYELOCYTES % 2 % (0-0); NEUTROPHILS % (MANUAL) 74 (42-76)
[2019-04-02] MEDS ORDERED: CEFTRIAXONE 1GM BAG (ER ONLY) 50 ML IV ONE ×2 (22:00→22:37)
[2019-04-02] MEDS ORDERED: CLONIDINE HCL 0.1 MG TABLET GT PRN (22:30)
[2019-04-02] MEDS ORDERED: DEXTROSE 50%-WATER 50 ML DISP.SYRIN IV PRN (22:30)
[2019-04-02] MEDS ORDERED: MAG HYDROX/AL HYDROX/SIMETH 30 ML UDC PO PRN (22:30)
[2019-04-02] MEDS ORDERED: BISACODYL SUPP (10 MG) 10 MG/SUPP.RECT SUPP.RECT RC PRN (22:30)
[2019-04-02] MEDS ORDERED: ONDANSETRON HCL/PF 4 MG/2 ML VIAL IVP PRN (22:30)
[2019-04-02] MEDS ORDERED: NEPRO VAN 237 ML CAN GT SCH (22:30)
[2019-04-02] MEDS ORDERED: MAGNESIUM HYDROXIDE 30 ML UDC PO PRN (22:30)
--- NOTE | 2019-04-02 22:30 | NUR ---
Erica CALLOWAY NP IS AT THE BEDSIDE.
--- NOTE | 2019-04-02 23:00 | NUR ---
REPORT GIVEN TO MOY WAY
--- NOTE | 2019-04-02 23:00 | NUR ---
PER BRODIE, PAPER COLORER- PT IS GOING TO [facility].
--- NOTE | 2019-04-02 23:31 | NUR ---
PT WAS CLEANED AND A NEW DIAPER APPLIED. PT HAS SACRAL WOUND AND RT BUTTOCK WOUND. NEW PACKING INSERTED IN SACRAL WOUND.
--- NOTE | 2019-04-02 23:38 | NUR ---
RT AT THE BEDSIDE FOR TRANSPORT TO [facility]. PT LEFT VIA GURNEY WITH VICKY, EMT AND RT.
--- NOTE | 2019-04-02 23:45 | NUR ---
YARDAGE CONTROL CLERKBUDGET CLERK NOTES Patient came to unit via joni. Patient is non-verbal, vent/trach dependent from SNF. Vent settings: AC-12, FiO2- 40%, TV- 550, PEEP- 5 with Shiley 8XL. Patient has sauceda catheter in place, draining clear placido colored urine. On tele monitor- sinus rhythm 95. Patient has a Dedrick cath on BEATRIZ. Upon skin assessment, sacral wound noted. Wound cleansed with NS, packed with gauze, covered with abdominal pad and secured by tape. Wound consult ordered. Patient is on KCl mattress. Safety measures in place. Head of bed elevated, side rails x 3 up. Will continue to monitor accordingly Addendum: 04/03/19 at 0614 by RAYNA VALERIO RN ADDITIONAL NOTES Patient is on rogers bed. KCl mattress ordered
[2019-04-03] VITALS (9 sets, daily range): BP systolic 98–155; BP diastolic 31–68
[2019-04-03] MEDS ORDERED: MEROPENEM 500 MG in IV NS 0.9% 50 ML IV SCH ×2
[2019-04-03] MEDS ORDERED: MEROPENEM 500 MG VIAL IV ONE (00:28)
[2019-04-03] MEDS: INSULIN REGULAR, HUMAN 100 UNIT/ML 3 ML VIAL SQ PRN ×4 (00:37→17:40)
[2019-04-03] MEDS: BLOOD SUGAR DIAGNOSTIC 1 EACH STRIP IN SCH ×4 (00:37→17:28)
--- NOTE | 2019-04-03 00:40 | NUR ---
RN NOTES BSL- 84mg/dL. No insulin coverage per sliding scale
[2019-04-03] MEDS: METOCLOPRAMIDE HCL 10 MG TABLET PO SCH ×4 (00:42→17:27)
[2019-04-03] MEDS ORDERED: NEPRO 1,000 ML BOTTLE GT PRN (02:00)
--- NOTE | 2019-04-03 04:00 | NUR ---
RN NOTES Patient's temp- 100F. Cooling measures in place. Will continue to monitor
[2019-04-03] MEDS: hydrALAZINE HCL 50 MG TABLET PO SCH ×4 (04:45→22:21)
[2019-04-03] MEDS: ISOSORBIDE MONONITRATE 20 MG TABLET PO SCH ×4 (04:45→22:21)
[2019-04-03] MEDS ORDERED: ISOSORBIDE MONONITRATE (30MG) 30 MG TAB.SR.24H PO SCH (05:00)
--- NOTE | 2019-04-03 05:10 | NUR ---
RN NOTES BSL- 94mg/dL. No insulin coverage per sliding scale
--- NOTE | 2019-04-03 05:30 | NUR ---
RN NOTES Patient's temp rechecked, 99.8F. Will continue to monitor
--- NOTE | 2019-04-03 06:16 | NUR ---
RN NOTES Called central supply for the [facility] bed, no answer. Left a message. Will endorse to AM MOY
[2019-04-03] MEDS: PANTOPRAZOLE 40 MG/PACK PACK GT SCH (06:28)
[2019-04-03 06:44] LABS: CALCIUM, SERUM 8.9 mg/dL (8.5-10.1); CREATININE 2.2 mg/dL (0.6-1.3); MAGNESIUM 2.3 mg/dL (1.8-2.4); PHOSPHORUS 2.9 mg/dL (2.5-4.9); POTASSIUM 3.6 mmol/L (3.5-5.1)
--- NOTE | 2019-04-03 06:48 | NUR ---
OPERATIONS GENERAL AGENT CLOSING NOTES Patient is non-verbal, vent dependent with the following settings: AC-12, FiO2- 40%, TV- 550, PEEP- 5 with Shiley 8XL. Patient on tele monitor- sinus rhythm to sinus tach 105. IV access on LAC g#18 intact and patent. Dedrick cath on BEATRIZ. On Gtube feeding: Nephro at 45mL/hr, no residuals. Santiago catheter in place, draining clear, placido- colored urine. Dressing changed, turned and repositioned, bilateral heels floated. All needs attended to. Will endorse continuity of care to oncoming RN
[2019-04-03 06:55] LABS: BASOPHILS % (AUTO) 0.5 % (0.0-2.0); EOSINOPHILS % (AUTO) 2.4 % (0.0-6.0); LYMPHOCYTES # (AUTO) 1.9 /CMM (0.8-4.8); LYMPHOCYTES % (AUTO) 22.1 % (20.0-44.0); MEAN CORPUSCULAR HGB CONC 34 g/dl (31.0-36.0); MEAN CORPUSCULAR VOLUME 92 fL (82-100); MONOCYTES # (AUTO) 0.4 /CMM (0.1-1.30); MONOCYTES % (AUTO) 4.9 % (2.0-12.0); NEUTROPHILS # (AUTO) 6.1 /CMM (1.8-8.9); NEUTROPHILS % (AUTO) 70.1 % (43.0-81.0); PLATELET COUNT (AUTO) 358 /CMM (150-450); WHITE BLOOD COUNT (AUTO) 8.8 K/uL (4.3-11.0)
[2019-04-03 06:59] LABS: THYROID STIMULATING HORMONE 3.499 uIU/mL (0.358-3.74)
[2019-04-03 07:01] LABS: HEMATOCRIT 20 % (33-45)
--- NOTE | 2019-04-03 07:03 | NUR ---
RN NOTES Critical value called by lab of Hct/Hgb of 7.0/ 20, respectively. WELDER APPRENTICE ARC Krzysztof made aware. A/W for orders
--- NOTE | 2019-04-03 07:41 | NUR ---
NUMERICAL TOOL PROGRAMMER OPENING NOTES RECEIVED PT IN BED LYING COMFORTABLY IN MODERATE HIGH BACKREST POSITION. OPEN HER EYES. NON VERBAL. NO FACIAL GRIMACING OR MOANING OBSERVED AT THIS TIME. CONTACT PRECAUTIONS MAINTAINED. ON [facility] VENT AT SETTINGS OF: AC TV- 550,R 12, FiO2- 40%, PEEP- 5 with Shiley 8XL, TOLERATING SETTINGS WELL WITH NO ACUTE DISTRESS NOTED. ON TELE-MONITORING SHOWS SR TO ST 95-110HR. IV ACCESS ON RIGHT HAND g#18 INTACT AND PATENT. SHAVONNE CATH ON BEATRIZ IN PLACE WITH DRESSING C/D/I. G-TUBE IN PLACE WITH FEEDING OF NEPHRO @ 45ML/HR IN PROGRESS AND TOLERATING WELL. ASPIRATION PRECAUTIONS MAINTAINED. CHINO CATH IN PLACE AND ACTIVELY DRAINING CLEAR YELLOW URINE TO BEDSIDE URINARY BAG. SAFETY MEASURES IN PLACE / BED IN LOW LOCKED POSITION WITH SR UP X3. CALL LIGHT IN REACH. WILL CONTINUE TO MONITOR PT ACCORDINGLY.
[2019-04-03] MEDS: ACETAMINOPHEN 325 MG TABLET PO PRN (08:58)
[2019-04-03] MEDS: LOSARTAN POTASSIUM 50 MG TABLET PO SCH ×3 (09:00→22:21)
[2019-04-03] MEDS ORDERED: FERROUS SULFATE UDC 300 MG/5 ML UDC GT SCH (09:00)
[2019-04-03] MEDS ORDERED: Medication Not On Formulary EA (Lactulose (Duphalac) 20 GM) GT SCH (09:00)
[2019-04-03] MEDS: NIFEdipine (10MG) 10 MG CAPSULE PO SCH (09:00)
[2019-04-03] MEDS: LACTULOSE 10 G/15 ML UDC (PYXIS) GT SCH (09:00)
[2019-04-03] MEDS ORDERED: Medication Not On Formulary EA (Omeprazole 40 MG) GT SCH (09:00)
[2019-04-03] MEDS: CARVEDILOL 25 MG TABLET PO SCH ×2 (09:00→17:00)
--- NOTE | 2019-04-03 09:00 | NUR ---
RN NOTES PT NOTED WITH ELEVATED TEMP OF 100.1F THIS MORNING. PRN TYLENOL 650MG ADMINISTERED VIA GT. COOLING MEASURES PROVIDED. WILL CONTINUE TO MONITOR.
[2019-04-03 09:11] LABS: EOSINOPHILS % (MANUAL) 1 % (0-4); LYMPHOCYTES % (MANUAL) 15 % (16-48); MONOCYTES % (MANUAL) 4 % (0-11.0); NEUTROPHILS % (MANUAL) 80 (42-76)
--- NOTE | 2019-04-03 10:08 | NUR ---
WOUND CARE CONSULT: PT PRESENTS WITH MULTIPLE WOUNDS INCLUDING LEFT EAR ESCHAR, LEFT BUTTOCK AND SACRAL STAGE 4 ULCERS, UNSTAGEABLE ULCER TO RT HIP AND STAGE 3 ULCER TO RT BUTTOCK, ALL PRESENT ON ADMISSION. G TUBE STOMA IS LARGE WITH HYPERGRANULAR TISSUE. DR KAVYA AGUILAR AWARE OF SURGICAL CONSULT REQUEST. RECOMMENDATIONS MADE FOR WOUND CARE AND SKIN PROTECTION. DISCUSSED WITH NURSING STAFF. PT ON BEATRICE ISOFLEX LOW AIRLOSS BED. WILL SEE PRN. TRIPLETT IN AGREEMENT WITH PLAN OF CARE. Addendum: 04/03/19 at 1015 by PRASHANTH ADAN WNDNU Amended: Links added.
--- NOTE | 2019-04-03 11:40 | NUR ---
RN NOTES PATIENT WITH LOW HGB 7 TODAY, DR MORRISSEY MADE AWARE WITH ORDER TO OBTAIN CONSENT AND TO TRANSFUSE 1 BAG OF PRBC. CALLED AND RECEIVED CONSENT FROM PT'S DAUGHTER MAGDALENA HUNT AND VERIFIED BY ANOTHER RN.
[2019-04-03] MEDS: DAKINS QUARTER STRENGTH (0.125%) 480 ML BOTTLE TOP SCH (12:06)
[2019-04-03] MEDS: MEROPENEM 500 MG in IV NS 0.9% 100 ML IV SCH (12:06)
[2019-04-03] MEDS: HYDROGEL DRESSING 90 GM TUBE TP SCH (12:06)
[2019-04-03] MEDS: Z GUARD REMEDY 2 OZ OINT TP PRN (12:14)
--- NOTE | 2019-04-03 14:00 | NUR ---
RN NOTES RECEIVED A CALL FROM [facility] ([employer]) THAT PATIENT HAS SPECIAL ANTIBODIES SO THEY WILL ORDER BLOOD OUTSIDE, IT WILL TAKE 4-5 HRS AND THEY WILL CALL IF THE BLOOD IS READY. CHARGE NURSE MADE AWARE.
[2019-04-03] MEDS ORDERED: *INSULIN ASPART NOVOLOG 100 UNIT/ML CARTRIDGE SQ PRN (15:30)
[2019-04-03] MEDS: FERROUS SULFATE UDC 300 MG/5 ML UDC GT SCH (17:17)
--- NOTE | 2019-04-03 19:30 | NUR ---
BIOLOGICAL TECHNICAL OFFICER NOTES RECEIVED ON BED,NON VERBAL,ON TRACH TO VENT,SETTINGS TOLERATED WELL.WITH CHINO CATH IN PLACE DRAINING SCANTY OUTPUT.WITH BEATRIZ SHAVONNE CATH FOR HD ACCESS.WITH SALINE LOCK LEFT HAND INTACT AND PATENT FOR MEDS.ON GT FEEDING OF NEPHRO AT 45ML/HR RATE X 16 HOURS.WITH 5ML RESIDUAL NOTED.ISOLATION PRECAUTION FOR HX OF ESBL OF WOUND AND NARES.MULTIPLE WOUND ON SACRAL AREA NOTED,DRESSING INTACT AND DRY.GEL BED IN USED FOR WOUND MANAGEMENT.FOR BLOOD TRANSFUSION OF 1 UNIT PRBC FOR HEMOGLOBIN OF 7.WILL CONTINUE TO MONITOR STATUS.SR-99 ON TELE MONITOR.
--- NOTE | 2019-04-03 19:31 | NUR ---
RN NOTES CALLED AND FOLLOWED UP BLOOD BANK ON PT 1 BAG OF PRBC, SPOKED TO BERT AND SAID THAT THE BLOOD WILL BE AVAILABLE IN 1 HOUR. ENDORSED TO DIRECTOR OF STRATEGIC PARTNERSHIPS NURSE EDUARDA TO F/U.
--- NOTE | 2019-04-03 19:47 | NUR ---
V BLOCK SAW OPERATOR CLOSING NOTES PATIENT IN BED WITH EYES OPEN AND LYING AT MODERATE HIGH BACK REST POSITION. NON-VERBAL. NO FACIAL GRIMACING OR MOANING OBSERVED AT THIS TIME. ALL NEEDS AND CARE PROVIDED WELL. SAFETY MEASURES KEPT IN PLACE. CONTACT PRECAUTIONS MAINTAINED. ON [facility] VENT AT SETTINGS OF: AC TV- 550,R 12, FiO2- 40%, PEEP- 5 with Shiley 8XL, TOLERATING SETTINGS WELL WITH NO ACUTE DISTRESS NOTED. ON TELE-MONITORING SHOWS SR TO ST 103 HR AT THIS TIME. IV ACCESS ON RIGHT HAND G#18 INTACT AND PATENT. SHAVONNE CATH ON BEATRIZ IN PLACE WITH DRESSING C/D/I. G-TUBE IN PLACE , FEEDING STOPPED AT 1800 AND TO RESTART AT 0200. ASPIRATION PRECAUTIONS MAINTAINED. CHINO CATH IN PLACE AND ACTIVELY DRAINING CLEAR YELLOW URINE TO BEDSIDE URINARY BAG. TURNED AND REPOSITIONED Q 2HRS AND PRN. KEPT CLEAN, DRY AND COMFORTABLE. BED IN LOW LOCKED POSITION WITH SIDE RAILS UP X3. BEDSIDE TABLE AND CALL LIGHT WITHIN REACH. ENDORSED TO ENTRY REP NURSE FOR CHELSY.
--- NOTE | 2019-04-03 20:26 | NUR ---
PATIENT RECEIVED TRACH SHILEY #8 XLT CUFFED ON MECHANICAL VENT WITH NOTED SETTINGS. PT IS NON VERBAL, RESPONDS TO STIMULI WHEN SUCTION. PROCUREMENT REPRESENTATIVE DONE. VENT PLUGGED INTO RED OUTLET. SPARE TRACH AND AMBU BAG AT BEDSIDE. SUCTIONED MODERATE AMOUNTS OF YELLOW THICK SECRETIONS. ALARMS ON AND AUDIBLE. WILL CONTINUE TO MONITOR THE PATIENT FOR ANY CHANGES
--- NOTE | 2019-04-03 22:00 | NUR ---
DERMATOLOGY NURSE NOTES STARTED ON 1 UNIT PRBC 320ML.WITH BP 155/61.DUE BLOOD PRESSURE MEDS ADMINISTERED VIA GT,FLUSHED AND KEPT PATENT.
[2019-04-04] VITALS (9 sets, daily range): BP systolic 114–162; BP diastolic 45–68
--- NOTE | 2019-04-04 00:15 | NUR ---
POST HOLE DIGGER NOTES ACCU-CHECK BLOOD SUGAR CHECK 266,COVERED WITH HUMULIN R 6 UNITS,GIVEN SQ ON LEFT DELTOID
[2019-04-04] MEDS: METOCLOPRAMIDE HCL 10 MG TABLET PO SCH ×4 (00:16→17:40)
[2019-04-04] MEDS: BLOOD SUGAR DIAGNOSTIC 1 EACH STRIP IN SCH ×4 (00:16→17:57)
[2019-04-04] MEDS: MEROPENEM 500 MG in IV NS 0.9% 100 ML IV SCH ×2 (00:17→11:00)
[2019-04-04] MEDS: INSULIN REGULAR, HUMAN 100 UNIT/ML 3 ML VIAL SQ PRN ×4 (00:30→17:54)
--- NOTE | 2019-04-04 01:11 | NUR ---
OPERATIONS ASST NOTES BLOOD TRANSFUSION COMPLETED,NO ADVERSE SIDE EFFECTS NOTED,BREATHING REGULAR,NOT IN NAY FORM OF DISTRESS.
--- NOTE | 2019-04-04 05:00 | NUR ---
FIREWOOD CUTTER NOTES MORNING CARE RENDERED,TOLERATED WELL.DRESSING CHANGED DONE ON SACRAL AREA WITH DAKINS SOLUTION.
--- NOTE | 2019-04-04 05:30 | NUR ---
REGISTERED NURSE CARDIAC TELEMETRY NOTES ACCU-CHECK BLOOD SUGAR CHECK 247,COVERED WITH HUMULIN R 4 UNITS PER SLIDING SCALE,GIVEN SQ ON LEFT LOWER ABDOMEN
[2019-04-04] MEDS: hydrALAZINE HCL 50 MG TABLET PO SCH ×3 (05:40→20:44)
[2019-04-04] MEDS: ISOSORBIDE MONONITRATE 20 MG TABLET PO SCH ×3 (05:41→20:43)
[2019-04-04] MEDS: NEPRO 1,000 ML BOTTLE GT PRN (05:48)
--- NOTE | 2019-04-04 06:29 | NUR ---
TICK ERADICATOR NOTES NO SIGNIFICANT CHANGE IN STATUS.AFEBRILE.GT FEEDING TOLERATED WELL.NO N/V/D NOTED.REPOSITION PER PROTOCOL,SPECIALTY MATTRESS ORDERED FOR WOUND MANAGEMENT.IN NO ACUTE DISTRESS.WILL ENDORSE TRO DAY NURSE FOR CHELSY.
[2019-04-04] MEDS: PANTOPRAZOLE 40 MG/PACK PACK GT SCH (07:16)
[2019-04-04 07:21] LABS: BASOPHILS # (AUTO) 0.1 /CMM (0.0-0.2); BASOPHILS % (AUTO) 0.9 % (0.0-2.0); EOSINOPHILS % (AUTO) 3.3 % (0.0-6.0); HEMATOCRIT 26 % (33-45); HEMOGLOBIN 8.8 g/dL (11.5-14.8); LYMPHOCYTES # (AUTO) 1.3 /CMM (0.8-4.8); LYMPHOCYTES % (AUTO) 15.6 % (20.0-44.0); MEAN CORPUSCULAR HGB CONC 34 g/dl (31.0-36.0); MEAN CORPUSCULAR VOLUME 91 fL (82-100); MONOCYTES # (AUTO) 0.4 /CMM (0.1-1.30); NEUTROPHILS # (AUTO) 6.4 /CMM (1.8-8.9); NEUTROPHILS % (AUTO) 75.2 % (43.0-81.0); PLATELET COUNT (AUTO) 362 /CMM (150-450); RED BLOOD CELL COUNT(AUTO) 2.83 MIL/uL (4.0-5.2); WHITE BLOOD COUNT (AUTO) 8.5 K/uL (4.3-11.0)
--- NOTE | 2019-04-04 07:31 | NUR ---
CALENDER RUNNER OPENING NOTES Patient received on ventilator, no sob noted, ventilator working as intended. Patient remains a/o x1. Patient has right hand IV, flowing. Feeding on at this time and will be off at 1800. Bed at the lowest setting, call light within reach.
[2019-04-04 07:38] LABS: CALCIUM, SERUM 9.2 mg/dL (8.5-10.1); CREATININE 3.1 mg/dL (0.6-1.3); MAGNESIUM 2.4 mg/dL (1.8-2.4); PHOSPHORUS 3.3 mg/dL (2.5-4.9); POTASSIUM 3.8 mmol/L (3.5-5.1)
[2019-04-04] MEDS: FERROUS SULFATE UDC 300 MG/5 ML UDC GT SCH ×2 (08:03→17:40)
[2019-04-04] MEDS: LACTULOSE 10 G/15 ML UDC (PYXIS) GT SCH (08:03)
[2019-04-04] MEDS: NIFEdipine (10MG) 10 MG CAPSULE PO SCH (08:03)
[2019-04-04] MEDS: LOSARTAN POTASSIUM 50 MG TABLET PO SCH ×2 (08:03→20:44)
[2019-04-04] MEDS: CARVEDILOL 12.5 MG TABLET PO SCH ×2 (08:08→17:00)
[2019-04-04] MEDS: HYDROGEL DRESSING 90 GM TUBE TP SCH (08:19)
[2019-04-04] MEDS: DAKINS QUARTER STRENGTH (0.125%) 480 ML BOTTLE TOP SCH (08:19)
--- NOTE | 2019-04-04 12:24 | NUR ---
SENIOR PROCESS CONTROL TECH NOTES BP MEDS HELD DUE TO LOW BP, 103/40.
[2019-04-04] MEDS ORDERED: SILVER NITRATE APPLICATOR 1 EA BOX TP ONE (14:00)
--- NOTE | 2019-04-04 18:03 | NUR ---
CLINICAL DOCUMENTATION CLERK CLOSING NOTES Patient remains on ventilator, remains a/o x0, sauceda cath draining well and is not obstructed. Feeding is now off at 1800, Right hand #18 flowing with no obstruction, HD was done today but no fluids were taken out. Blood cx sent to lab. Patient scheduled for wound debridement, consent received from her daughter, and supplies bedside. Patient's bed at the lowest setting, call light within reach. Will give report to MOY PEREZ for CHELSY bedside.
--- NOTE | 2019-04-04 19:05 | NUR ---
RT NOTE PATIENT RECEIVED TRACHED ON MECHANICAL VENTILATION. VENT PLUGGED TO RED OUTLET. AMBU BAG/BACK UP TRACH @ BEDSIDE. ALARMS ON AND AUDIBLE. PATIENT STABLE AT THIS TIME. WILL MONITOR CLOSELY. CONT. POX CONNECTED. Addendum: 04/05/19 at 0546 by MAREN ZAMUDIO RT Amended: Links added.
--- NOTE | 2019-04-04 19:15 | NUR ---
SHANK CARRIER NOTES RECEIVED ON RIGHT SIDE POSITION WITH HOB ELEVATED,GT FEEDING OFF THIS TIME,ON AT 0200.ON TRACHE TO VENT,SETTINGS TOLERATED WELL.CHINO CATH IN PLACE WITH SCANTY OUTPUT.SALINE LOCK RIGHT HAND INTACT AND PATENT.ON GEL BED FOR WOUND MANAGEMENT,.DRESSING TO SACRAL WOUND INTACT AND DRY.REPOSITION PER PROTOCOL WILL CONTINUE TO MONITOR STATUS.
--- NOTE | 2019-04-04 22:00 | NUR ---
AGRICULTURE ENGINEER NOTES EVENING CARE RENDERED WITH DEEP [place],TOLERATED WELL.HAD BOWEL MOVEMENT,CLEANED AND REPOSITIONED.
[2019-04-04] MEDS: ERGOCALCIFEROL (VITAMIN D 2) 50,000 UNIT CAPSULE GT SCH (22:25)
[2019-04-05] VITALS (7 sets, daily range): BP systolic 98–158; BP diastolic 42–74
--- NOTE | 2019-04-05 | NUR ---
KEYCASE ASSEMBLER NOTES ACCU-CHECK BLOOD SUGAR 252,COVERED WITH HUMULIN R 6 UNITS PER SLIDING SCALE.
[2019-04-05] MEDS: MEROPENEM 500 MG in IV NS 0.9% 100 ML IV SCH ×3 (00:06→23:54)
[2019-04-05] MEDS: BLOOD SUGAR DIAGNOSTIC 1 EACH STRIP IN SCH ×5 (00:06→23:55)
[2019-04-05] MEDS: METOCLOPRAMIDE HCL 10 MG TABLET PO SCH ×5 (00:07→23:55)
[2019-04-05] MEDS: INSULIN REGULAR, HUMAN 100 UNIT/ML 3 ML VIAL SQ PRN ×5 (00:28→18:17)
--- NOTE | 2019-04-05 04:00 | NUR ---
STEEPING PRESS TENDER NOTES MORNING CARE RENDERED WITH PIETRO ADAME,TOLERATED WELL.REPOSITIONED.GT FEEDING IN PROGRESS.
--- NOTE | 2019-04-05 05:00 | NUR ---
TRAINING DEVELOPMENT MANAGER NOTES ACCU-CHECK BLOOD SUGAR CHECK 164,3UNITS IVONNE MCCRAY,FOR WOUND DEBRIDEMENT AT BEDSIDE TODAY
[2019-04-05] MEDS: hydrALAZINE HCL 50 MG TABLET PO SCH ×3 (05:10→21:00)
[2019-04-05] MEDS: ISOSORBIDE MONONITRATE 20 MG TABLET PO SCH ×3 (05:10→21:04)
--- NOTE | 2019-04-05 06:06 | NUR ---
JIGGER MACHINE OPERATOR NOTES NO SIGNIFICANT CHANGE IN STATUS.WOUND DRESSING DONE.GT FEEDING HELD,FOR WOUND DEBRIDEMENT AT BEDSIDE.IN NO ACUTE DISTRESS.WILL ENDORSE TO DAY NURSE FOR CHELSY.
[2019-04-05] MEDS: PANTOPRAZOLE 40 MG/PACK PACK GT SCH (06:27)
[2019-04-05 06:29] LABS: BASOPHILS # (AUTO) 0.1 /CMM (0.0-0.2); BASOPHILS % (AUTO) 0.7 % (0.0-2.0); EOSINOPHILS % (AUTO) 4.2 % (0.0-6.0); HEMATOCRIT 25 % (33-45); HEMOGLOBIN 8.3 g/dL (11.5-14.8); LYMPHOCYTES # (AUTO) 1.8 /CMM (0.8-4.8); LYMPHOCYTES % (AUTO) 21.9 % (20.0-44.0); MEAN CORPUSCULAR HGB CONC 34 g/dl (31.0-36.0); MEAN CORPUSCULAR VOLUME 91 fL (82-100); MONOCYTES # (AUTO) 0.5 /CMM (0.1-1.30); NEUTROPHILS # (AUTO) 5.4 /CMM (1.8-8.9); NEUTROPHILS % (AUTO) 67.2 % (43.0-81.0); PLATELET COUNT (AUTO) 325 /CMM (150-450)
[2019-04-05 06:51] LABS: CALCIUM, SERUM 9.2 mg/dL (8.5-10.1); CREATININE 3.5 mg/dL (0.6-1.3); MAGNESIUM 2.6 mg/dL (1.8-2.4); PHOSPHORUS 3.1 mg/dL (2.5-4.9); POTASSIUM 4.2 mmol/L (3.5-5.1)
--- NOTE | 2019-04-05 07:47 | NUR ---
MS RN OPENING NOTES RECEIVED PATIENT ASLEEP, AROUSABLE TO VERBAL AND TACTILE STIMULI. HOB ELEVATED. ON VENTILATOR ORDERED WITHOUT S/S OF RESPIRATORY DISTRESS. RT HAND G#20 PERIPHERAL LINE INTACT AND PATENT. NO EVIDENCE OF PAIN NOR DISCOMFORT AT THIS TIME. BED IN LOWEST POSITION. BED SIDERAILS UP X2.
[2019-04-05] MEDS: LACTULOSE 10 G/15 ML UDC (PYXIS) GT SCH (08:48)
[2019-04-05] MEDS: NIFEdipine (10MG) 10 MG CAPSULE PO SCH (09:00)
[2019-04-05] MEDS: LOSARTAN POTASSIUM 50 MG TABLET PO SCH ×2 (09:00→21:05)
[2019-04-05] MEDS: CARVEDILOL 12.5 MG TABLET PO SCH ×2 (09:00→18:02)
[2019-04-05 09:07] LABS: EOSINOPHILS % (MANUAL) 3 % (0-4); LYMPHOCYTES % (MANUAL) 14 % (16-48); MONOCYTES % (MANUAL) 7 % (0-11.0); NEUTROPHILS % (MANUAL) 76 (42-76)
--- NOTE | 2019-04-05 09:21 | NUR ---
MS WINTER NOTES PATIENT WITH B/P OF 136/47, RECHECKED MANUALLY 112/50 HR:98 TEMP OF 100.3, BP MEDS HELD. DR MORRISSEY MADE AWARE WITH NO NEW ORDER AT THIS TIME WILL CONTINUE TO MONITOR Addendum: 04/05/19 at 1633 by KWAKU QUINTANILLA RN TYLENOL 650 MG GIVEN VIA GT FOR TEMP OF 100.3 WITH COOLING MEASURES INITIATED.
--- NOTE | 2019-04-05 09:30 | NUR ---
MS RN NOTES CALLED PHARMACY SPOOKE TO MICHELA REGARDING DAKINS SOLUTION AND VANCOMYCIN 500 MG IV ATB. AWAITING FOR MEDICATIONS.
[2019-04-05] MEDS: FERROUS SULFATE UDC 300 MG/5 ML UDC GT SCH ×2 (09:31→18:01)
[2019-04-05] MEDS: ACETAMINOPHEN 325 MG TABLET PO PRN ×2 (09:31→18:01)
[2019-04-05] MEDS: HYDROGEL DRESSING 90 GM TUBE TP PRN (09:34)
[2019-04-05] MEDS: HYDROGEL DRESSING 90 GM TUBE TP SCH (09:36)
[2019-04-05] MEDS ORDERED: FEE PK DOSING 1 MIN EA MC ONE (09:42)
[2019-04-05] MEDS ORDERED: VANCOMYCIN 1 GM in IV D5W 250 ML IV ONE (10:00)
--- NOTE | 2019-04-05 10:35 | NUR ---
MS RN NOTES TEMP RECHECKED 99.0 F. WILL CONTINUE TO MONITOR. IN NO APPARENT DISTRESS AT THIS TIME.
--- NOTE | 2019-04-05 11:38 | NUR ---
MS RN NOTES PER PHARMACY THEY WILL SEND VANCOMYCIN IV AND DAKINS SOLUTION , THEY HAD AN EMERGENCY EARLIER THAT'S WHY IT'S RUNNING LATE.
[2019-04-05] MEDS: DAKINS QUARTER STRENGTH (0.125%) 480 ML BOTTLE TOP SCH (12:08)
--- NOTE | 2019-04-05 12:49 | NUR ---
MS RN NOTES IV UNRULYO HELD, PATIENT WILL RECEIVED HD TREATMENT.
--- NOTE | 2019-04-05 13:00 | NUR ---
MS RN NOTES HELD HYDRALAZINE, ISMO, MERREM IV ATB. PATIENT IS CURRENTLY RECEIVING DIALYSIS.
--- NOTE | 2019-04-05 16:29 | NUR ---
MS WINTER NOTES HEMODIALYSIS TREATMENT COMPLETED, CHUCKIE WELL. NO S/S OF ACUTE DISTRESS OBSERVED. LEFT UPPER CHEST SHAVONNE CATH INTACT WITHOUT S/S OF COMPLICATIONS. Addendum: 04/05/19 at 1631 by KWAKU QUINTANILLA RN POST HD IV VANCO GIVEN ORDERED CHUCKIE WELL.
--- NOTE | 2019-04-05 18:39 | NUR ---
MS RN CLOSING NOTES PATIENT ASLEEP WITH EPISODES OF WAKEFULNESS. NON-VERBAL BUT RESPONSIVE TO VERBAL AND TACTILE STIMULI. HOB ELEVATED. ON VENTILATOR ORDERED WITHOUT S/S OF RESPIRATORY DISTRESS. RT HAND G#20 PERIPHERAL LINE INTACT AND PATENT. HAD HD TREATMENT TODAY CHUCKIE WELL WITH 1 LITER OUTPUT AND ALBUMIN GIVEN ORDERED PER HD NURSE. LEFT UPPER CHEST SHAVONNE CATH DRESSING INTACT WITHOUT S/S OF COMPLICATIONS TO CATHETER SITE. GT INTACT AND PATENT. NO RESIDUAL OBTAINED. NO EVIDENCE OF PAIN NOR DISCOMFORT AT THIS TIME. WOUND CARE DONE CHUCKIE WELL. BED IN LOWEST POSITION. BED SIDERAILS UP X2.
--- NOTE | 2019-04-05 19:00 | NUR ---
MS RN NOTE RECEIVED PT IN STABLE CONDITION, NON-VERBAL, OPENS EYES TO TOUCH. PT ON VENT TOLERATING SETTINGS WELL. GTUBE PATENT AND INTACT WITH MINIMAL RESIDUAL. CHINO IN PLACE WITH ADEQUATE URINE DRAINING. IV IN R HAND INTACT, FLUSHING WELL. CURRENTLY HAVING WOUND DEBRIDEMENT DONE AT BEDSIDE WITH QUALITY CONTROL CHEMIST. ALL CURRENT NEEDS ATTENDED TO. BED LOW, LOCKED UPPER RAILS UP, AND CALL LIGHT WITHIN REACH WILL CONT. TO MONITOR.
--- NOTE | 2019-04-05 19:20 | NUR ---
MS RN NOTES WOUND DEBRIDEMENT PERFORMED BY KIRSTY BRISCOE, PATIENT CHUCKIE WELL. ENDORSED TO ON COMING SHIFT.
[2019-04-05] MEDS: ALBUMIN 25% 25 GM in PREMIX 1 EA IV PRN (19:26)
--- NOTE | 2019-04-05 19:44 | NUR ---
RT NOTE PT RCVD TRACH'D ON MECHANICAL VENT WITH CHARTED SETTINGS. SX DONE. PT TRACH IS PATENT AND SECURE. VENT IS PLUGGED INTO RED OUTLET. ALARMS ARE ON AND AUDIBLE. AMBU BAG AT BEDSIDE. WILL CONTINUE TO MONITOR. Addendum: 04/05/19 at 1944 by JEFFERSON STAFFORD RT Amended: Links added.
--- NOTE | 2019-04-05 21:06 | NUR ---
WEIGHT REDUCTION SPECIALIST NOTE HYDRALAZINE HELD FOR BP OF 105/46. WILL CONT. TO MONITOR.
--- NOTE | 2019-04-05 21:17 | NUR ---
HOME CARE MUSIC THERAPIST NOTE AIR MATTRESS INSTALLED WITH CRYPTANALYST, WILL CONT. TO MONITOR.
[2019-04-06] VITALS (7 sets, daily range): BP systolic 112–167; BP diastolic 31–72
--- NOTE | 2019-04-06 | NUR ---
HISTORICAL GUIDE NOTE BREE HELD, PT.'S IV IS NOT IN PLACE. RN ATTEMPTED 3 TIMES, ICU NURSE ED ATTEMPTED TO PUT IV, NO INSERTION OCCURRED. WILL NOTIFY NURSING ASSISTANT WOMEN'S ROWING COACH AND STYRENE DEHYDRATION REACTOR OPERATOR [place]. WILL CONT. TO MONITOR PT.
[2019-04-06] MEDS: INSULIN REGULAR, HUMAN 100 UNIT/ML 3 ML VIAL SQ PRN ×5 (00:12→23:37)
--- NOTE | 2019-04-06 02:00 | NUR ---
MACHINING SUPERVISOR NOTE NOTIFIED [place] OF MULT ATTEMPTS TO START LINE AND 0000 DOSE OF MERREM HELD. NEW ORDER FOR MIDLINE IN AM. NEW ORDER CARRIED OUT. NURSING CUT OFF MACHINE HELPER NOTIFIED OF NEW ORDER. WILL CONT. TO MONITOR.
[2019-04-06] MEDS: ACETAMINOPHEN 325 MG TABLET PO PRN (02:36)
--- NOTE | 2019-04-06 02:42 | NUR ---
DIRECTOR OF CULTURE NOTE PRN TYLENOL 650 MG GT GIVEN FOR FEVER. WILL CONT. TO MONITOR.
[2019-04-06] MEDS: hydrALAZINE HCL 50 MG TABLET PO SCH ×3 (05:09→20:19)
[2019-04-06] MEDS: ISOSORBIDE MONONITRATE 20 MG TABLET PO SCH ×3 (05:09→20:19)
[2019-04-06] MEDS: METOCLOPRAMIDE HCL 10 MG TABLET PO SCH ×4 (05:09→23:26)
[2019-04-06] MEDS: PANTOPRAZOLE 40 MG/PACK PACK GT SCH (06:00)
[2019-04-06] MEDS: BLOOD SUGAR DIAGNOSTIC 1 EACH STRIP IN SCH ×4 (06:00→23:34)
[2019-04-06 06:27] LABS: CREATININE 2.6 mg/dL (0.6-1.3); MAGNESIUM 2.1 mg/dL (1.8-2.4); PHOSPHORUS 2.1 mg/dL (2.5-4.9); POTASSIUM 3.6 mmol/L (3.5-5.1)
[2019-04-06 06:28] LABS: BASOPHILS # (AUTO) 0.1 /CMM (0.0-0.2); BASOPHILS % (AUTO) 0.6 % (0.0-2.0); EOSINOPHILS % (AUTO) 3.9 % (0.0-6.0); HEMATOCRIT 23 % (33-45); HEMOGLOBIN 7.8 g/dL (11.5-14.8); LYMPHOCYTES # (AUTO) 2.2 /CMM (0.8-4.8); LYMPHOCYTES % (AUTO) 25.8 % (20.0-44.0); MEAN CORPUSCULAR HGB CONC 34 g/dl (31.0-36.0); MEAN CORPUSCULAR VOLUME 91 fL (82-100); MONOCYTES # (AUTO) 0.6 /CMM (0.1-1.30); MONOCYTES % (AUTO) 6.7 % (2.0-12.0); NEUTROPHILS # (AUTO) 5.4 /CMM (1.8-8.9); PLATELET COUNT (AUTO) 308 /CMM (150-450); RED BLOOD CELL COUNT(AUTO) 2.51 MIL/uL (4.0-5.2); WHITE BLOOD COUNT (AUTO) 8.5 K/uL (4.3-11.0)
--- NOTE | 2019-04-06 06:30 | NUR ---
VENETIAN BLIND WASHER NOTE PT IN STABLE CONDITION, NON-VERBAL, OPENS EYES TO TOUCH. PT ON VENT TOLERATING SETTINGS WELL. GTUBE PATENT AND INTACT WITH MINIMAL RESIDUAL, FEEDING INFUSING. CHINO IN PLACE WITH ADEQUATE URINE DRAINING. WOUND DRESSING CHANGED, PT REPOSITIONED Q2H, AND ISOLATION PRECAUTIONS IN PLACE. ALL CURRENT NEEDS ATTENDED TO. BED LOW, LOCKED UPPER RAILS UP, AND CALL LIGHT WITHIN REACH WILL CONT. TO MONITOR AND ENDORSE TO NEXT SHIFT FOR CHELSY.
[2019-04-06] MEDS ORDERED: VANCOMYCIN 500 MG in IV D5W 100 ML IV PRN (07:00)
--- NOTE | 2019-04-06 07:30 | NUR ---
EMPLOYMENT COACH NOTES PT IN BED, ASLEEP, RESPIRATIONS NORMAL, NO SIGN OF PAIN OR DISCOMFORT, NO FACIAL GRIMACING OR MOANING, GT FEEDING INFUSING WELL, KEPT HOB ELEVATED, REPOSITIONED FOR COMFORT, KEPT WARM AND COMFORTABLE.
[2019-04-06] MEDS: CARVEDILOL 12.5 MG TABLET PO SCH ×2 (08:55→17:04)
[2019-04-06] MEDS: NIFEdipine (10MG) 10 MG CAPSULE PO SCH (08:58)
[2019-04-06] MEDS: LOSARTAN POTASSIUM 50 MG TABLET PO SCH ×2 (08:58→20:19)
[2019-04-06] MEDS: LACTULOSE 10 G/15 ML UDC (PYXIS) GT SCH (09:12)
[2019-04-06] MEDS: FERROUS SULFATE UDC 300 MG/5 ML UDC GT SCH ×2 (09:12→17:04)
[2019-04-06] MEDS: HYDROGEL DRESSING 90 GM TUBE TP SCH (09:18)
[2019-04-06] MEDS: DAKINS QUARTER STRENGTH (0.125%) 480 ML BOTTLE TOP SCH (09:18)
[2019-04-06] MEDS ORDERED: ALTEPLASE CATHFLO 2 MG/VIAL XX ONE ×2 (10:00→12:00)
[2019-04-06 10:12] LABS: BAND % (MANUAL) 6 % (0.0-5.0); EOSINOPHILS % (MANUAL) 2 % (0-4); LYMPHOCYTES % (MANUAL) 22 % (16-48); MONOCYTES % (MANUAL) 6 % (0-11.0); MYELOCYTES % 2 % (0-0); NEUTROPHILS % (MANUAL) 61 (42-76)
--- NOTE | 2019-04-06 12:28 | NUR ---
PACKAGE WORKER NOTES PT IN BED, ASLEEP, RESPIRATIONS NORMAL, NO SIGN OF PAIN OR DISTRESS, GT FEEDING INFUSING WELL, TOLERATING WELL, DUE MEDS GIVEN ORDERED, TURNED AND REPOSITIONED Q2H.
[2019-04-06] MEDS: MEROPENEM 500 MG in IV NS 0.9% 100 ML IV SCH ×4 (13:22→23:26)
[2019-04-06] MEDS: LACTOBACILLUS RHAMNOSUS GG 1 EACH CAP.SPRINK PO SCH (17:04)
--- NOTE | 2019-04-06 18:06 | NUR ---
LIMOUSINE DRIVER NOTES PT IN BED, ASLEEP, EASY TO AROUSE, NON VERBAL, NO FACIAL GRIMACING OR MOANING, WOUND TREATMENTS AND DRESSING CHANGE DONE, TURNED AND REPOSITIONED Q2 HOURS, PM MEDS GIVEN, KEPT BOTH HEELS OFFLOADED, ALL NEEDS ATTENDED.
--- NOTE | 2019-04-06 19:05 | NUR ---
DIGITAL WATCH ASSEMBLER OPENING NOTES Received patient asleep with HOB elevated. On tele monitor- sinus rhythm 75. On mechanical ventilator, tolerating current settings, no distress noted. Santiago catheter in place, draining dark colored urine. No pain or distress notes. Safety measures in place. Isolation precautions maintained. Will continue to monitor accordingly
--- NOTE | 2019-04-06 20:05 | NUR ---
RN NOTES Talked to Sumanth to clarify if patient is to have dialysis tonight. As per Sumanth, no dialysis tonight, they will do it tomorrow
[2019-04-06] MEDS: LINEZOLID RTU BAG 600 MG in PREMIX 1 EA IV SCH (20:10)
--- NOTE | 2019-04-06 23:37 | NUR ---
RN NOTES BSL- 264mg/dL. 6units of insulin given per sliding scale
[2019-04-07] VITALS: BP 135/57
--- NOTE | 2019-04-07 | NUR ---
RN NOTES Temperature is 99.6F. Cooling measures in place. Will continue to monitor
[2019-04-07] MEDS: NEPRO 1,000 ML BOTTLE GT PRN (02:00)
[2019-04-07 04:00] VITALS: BP 142/68
[2019-04-07] MEDS: hydrALAZINE HCL 50 MG TABLET PO SCH ×3 (04:10→20:06)
[2019-04-07] MEDS: ISOSORBIDE MONONITRATE 20 MG TABLET PO SCH ×3 (04:10→20:06)
[2019-04-07] MEDS: METOCLOPRAMIDE HCL 10 MG TABLET PO SCH ×4 (05:44→23:33)
[2019-04-07] MEDS: BLOOD SUGAR DIAGNOSTIC 1 EACH STRIP IN SCH ×4 (05:46→23:39)
[2019-04-07] MEDS: INSULIN REGULAR, HUMAN 100 UNIT/ML 3 ML VIAL SQ PRN ×4 (05:47→23:42)
--- NOTE | 2019-04-07 05:48 | NUR ---
RN NOTES BSL- 218Mmg/dL. 4 units insulin given per sliding scale
[2019-04-07] MEDS: PANTOPRAZOLE 40 MG/PACK PACK GT SCH (06:01)
--- NOTE | 2019-04-07 06:57 | NUR ---
AUTO TRANSMISSION SPECIALIST CLOSING NOTES Patient in bed, non-verbal, opens eyes to tactile stimuli. Breathing even and unlabored. No sign of distress noted. On mechanical ventilator, tolerating current settings. Tele monitor in place- sinus rhythm 81. Santiago catheter in place draining dark colored urine. G-tube feeding running at 45mL/hr with 10mL residuals. Wound treatment done. Dressings changed. Turned and reposition. Safety measures in place. Isolation precaution maintained. Will endorse CHELSY to oncoming RN
[2019-04-07 07:14] LABS: BASOPHILS % (AUTO) 0.5 % (0.0-2.0); EOSINOPHILS % (AUTO) 2.2 % (0.0-6.0); HEMATOCRIT 21 % (33-45); HEMOGLOBIN 7.3 g/dL (11.5-14.8); LYMPHOCYTES % (AUTO) 20.5 % (20.0-44.0); MEAN CORPUSCULAR HGB CONC 34 g/dl (31.0-36.0); MEAN CORPUSCULAR VOLUME 91 fL (82-100); MONOCYTES # (AUTO) 0.4 /CMM (0.1-1.30); MONOCYTES % (AUTO) 4.5 % (2.0-12.0); NEUTROPHILS # (AUTO) 7.1 /CMM (1.8-8.9); NEUTROPHILS % (AUTO) 72.3 % (43.0-81.0); PLATELET COUNT (AUTO) 285 /CMM (150-450); RED BLOOD CELL COUNT(AUTO) 2.36 MIL/uL (4.0-5.2); WHITE BLOOD COUNT (AUTO) 9.8 K/uL (4.3-11.0)
[2019-04-07 07:31] LABS: CALCIUM, SERUM 8.4 mg/dL (8.5-10.1); CREATININE 3.2 mg/dL (0.6-1.3); MAGNESIUM 2.4 mg/dL (1.8-2.4); PHOSPHORUS 2.6 mg/dL (2.5-4.9); POTASSIUM 3.9 mmol/L (3.5-5.1)
--- NOTE | 2019-04-07 07:36 | NUR ---
MYO ZHU OPENING NOTES Patient received on room air, no sob noted, patient denies pain at this time. Patient remains a/o x4, right hand #20 gauge remains patent. Patient able to use fracture bedpan. Bed at the lowest setting, call light within reach. Addendum: 04/07/19 at 0752 by LEIGHTON GOMES RN MOY ZHU NOTES Patient received on ventilator, no sob noted, sauceda cath in place. Feeding on at 45 mL per hour NEPHRO. ORLY Midline #20 remains patent. bed at the lowest setting, call light within reach.
[2019-04-07 08:29] VITALS: BP 121/56
[2019-04-07] MEDS: LACTULOSE 10 G/15 ML UDC (PYXIS) GT SCH (08:40)
[2019-04-07] MEDS: LACTOBACILLUS RHAMNOSUS GG 1 EACH CAP.SPRINK PO SCH ×2 (08:40→17:21)
[2019-04-07] MEDS: CARVEDILOL 12.5 MG TABLET PO SCH ×2 (08:40→17:21)
[2019-04-07] MEDS: NIFEdipine (10MG) 10 MG CAPSULE PO SCH (08:41)
[2019-04-07] MEDS: HYDROGEL DRESSING 90 GM TUBE TP SCH (08:41)
[2019-04-07] MEDS: DAKINS QUARTER STRENGTH (0.125%) 480 ML BOTTLE TOP SCH (08:41)
[2019-04-07] MEDS: LOSARTAN POTASSIUM 50 MG TABLET PO SCH ×2 (08:41→20:06)
[2019-04-07] MEDS: FERROUS SULFATE UDC 300 MG/5 ML UDC GT SCH ×2 (08:47→17:21)
[2019-04-07 09:49] LABS: BAND % (MANUAL) 7 % (0.0-5.0); EOSINOPHILS % (MANUAL) 5 % (0-4); LYMPHOCYTES % (MANUAL) 24 % (16-48); METAMYELOCYTES % 1 % (0-0); MONOCYTES % (MANUAL) 5 % (0-11.0); MYELOCYTES % 2 % (0-0); NEUTROPHILS % (MANUAL) 56 (42-76)
[2019-04-07] MEDS: LINEZOLID RTU BAG 600 MG in PREMIX 1 EA IV SCH ×2 (09:57→20:05)
[2019-04-07] MEDS: MEROPENEM 500 MG in IV NS 0.9% 100 ML IV SCH ×2 (12:08→23:33)
--- NOTE | 2019-04-07 12:45 | NUR ---
RN MS NOTES Patient receving HD at this time. BP meds held.
[2019-04-07] MEDS: ALBUMIN 25% 25 GM in PREMIX 1 EA IV PRN (13:17)
[2019-04-07 16:00] VITALS: BP 122/61
--- NOTE | 2019-04-07 16:54 | NUR ---
RT NOTE: RECEIVED TRACH PT ON ORDERED NOTED VENT SETTINGS. NO RESPIRATORY DISTRESS NOTED. TRACH CHECKED SECURE AND PATENT. SXD AND LAVAGED PT Q ROUND AND NEEDED. TRACH CARE DONE. EMERGENCY EQUIPMENT @ BEDSIDE. VENT PLUGGED IN RED OUTLET. ALARMS CHECKED AND AUDIBLE. WILL CONTINUE TO MONITOR. Addendum: 04/07/19 at 1655 by PIYUSH MORALES RT Amended: Links added.
--- NOTE | 2019-04-07 17:49 | NUR ---
RN MS CLOSING NOTES Patient remains on the ventilator, no sob noted. Patient lying down comfortably, no s/s of pain at this time. Patient received HD and had 2L of fluid out. ORLY midline #20 remains patent at this time. Wound dressing changed and cleaned. Bed at the lowest setting, call light within reach, will give report to NOC RN for CHELSY bedside.
--- NOTE | 2019-04-07 19:40 | NUR ---
LOAN INSPECTOR OPENING NOTES RECEIVED PATIENT IN BED. EYES OPEN. NONVERBAL. WITH TRACH ON MECH. VENT. WITH ORDERED SETTINGS - TOLERATING WELL. NO DISTRESS NOTED. NO S/S OF PAIN OR DISCOMFORT. NO FACIAL GRIMACING. IV ON RIGHT UPPER ARM MIDLINES INTACT AND PATENT. PATIENT NOTED WITH GTUBE FEEDING. CURRENTLY OFF PER ORDER. PATIENT ALSO WITH CHINO CATH - INTACT AND DRAINING VERY LITTLE URINE OUTPUT. SKIN DRY AND WARM TO TOUCH. AFEBRILE. DRESSINGS CLEAN DRY AND ITACT. ALL OTHER NEEDS MET. HEAD OF BED ELEVATED. SAFETY MEASURES IN PLACE. WILL CONTINUE TO MONITOR.
[2019-04-07 19:56] VITALS: BP 130/41
[2019-04-08] VITALS (7 sets, daily range): BP systolic 131–161; BP diastolic 50–72
[2019-04-08] MEDS: NEPRO 1,000 ML BOTTLE GT PRN (03:05)
[2019-04-08] MEDS: ISOSORBIDE MONONITRATE 20 MG TABLET PO SCH ×3 (05:12→21:44)
[2019-04-08] MEDS: METOCLOPRAMIDE HCL 10 MG TABLET PO SCH ×3 (05:12→17:57)
[2019-04-08] MEDS: hydrALAZINE HCL 50 MG TABLET PO SCH ×3 (05:13→21:44)
[2019-04-08] MEDS: BLOOD SUGAR DIAGNOSTIC 1 EACH STRIP IN SCH ×3 (05:13→18:02)
[2019-04-08] MEDS: INSULIN REGULAR, HUMAN 100 UNIT/ML 3 ML VIAL SQ PRN ×3 (05:16→18:02)
[2019-04-08 06:25] LABS: BASOPHILS % (AUTO) 0.7 % (0.0-2.0); HEMATOCRIT 21 % (33-45); HEMOGLOBIN 7.1 g/dL (11.5-14.8); LYMPHOCYTES # (AUTO) 1.5 /CMM (0.8-4.8); LYMPHOCYTES % (AUTO) 21.6 % (20.0-44.0); MEAN CORPUSCULAR HGB CONC 35 g/dl (31.0-36.0); MEAN CORPUSCULAR VOLUME 90 fL (82-100); MONOCYTES # (AUTO) 0.4 /CMM (0.1-1.30); MONOCYTES % (AUTO) 5.3 % (2.0-12.0); NEUTROPHILS # (AUTO) 4.7 /CMM (1.8-8.9); NEUTROPHILS % (AUTO) 66.4 % (43.0-81.0); PLATELET COUNT (AUTO) 264 /CMM (150-450); RED BLOOD CELL COUNT(AUTO) 2.28 MIL/uL (4.0-5.2)
[2019-04-08] MEDS: PANTOPRAZOLE 40 MG/PACK PACK GT SCH (06:36)
--- NOTE | 2019-04-08 06:55 | NUR ---
PROCESS HELPER CLOSING NOTES PATIENT RESTING IN BED. NOT IN ANY DISTRESS. WITH TRACH ON MECH. VENT. WITH ORDERED SETTINGS - TOLERATING WELL. NO DISTRESS NOTED. NO S/S OF PAIN OR DISCOMFORT. NO FACIAL GRIMACING. IV ON RIGHT UPPER ARM MIDLINES INTACT AND PATENT. GTUBE FEEDING INTACT AND PATENT AND CURRENTLY INFUSING. CHINO CATH - INTACT AND DRAINING VERY LITTLE URINE OUTPUT. DRESSINGS CLEAN DRY AND INTACT. TURNED Q2H. ALL OTHER NEEDS MET. HEAD OF BED ELEVATED. SAFETY MEASURES IN PLACE. WILL ENDORSE TO ONCOMING NURSE FOR CHELSY.
[2019-04-08 06:57] LABS: CALCIUM, SERUM 8.6 mg/dL (8.5-10.1); CREATININE 2.3 mg/dL (0.6-1.3); PHOSPHORUS 2.1 mg/dL (2.5-4.9); POTASSIUM 3.5 mmol/L (3.5-5.1)
--- NOTE | 2019-04-08 07:39 | NUR ---
MS RN OPENING NOTES RECEIVED PATIENT ASLEEP, AROUSABLE TO VERBAL AND TACTILE STIMULI. HOB ELEVATED. ON VENTILATOR ORDERED WITHOUT S/S OF RESPIRATORY DISTRESS. TRACH INTACT SHILEY XLT # 8 PROXIMAL WITHOUT S/S OF COMPLICATIONS. ORLY MIDLINE #20 INTACT AND PATENT WITHOUT S/S OF COMPLICATIONS OBSERVED. GT INTACT AND PATENT WITH ONGOING NEPRO @ 45ML/HR CHUCKIE WELL. NO EVIDENCE OF PAIN NOR DISCOMFORT AT THIS TIME. BED IN LOWEST POSITION. BED SIDERAILS UP X2. Addendum: 04/08/19 at 0745 by KWAKU QUINTANILLA RN ON TELE MONITORING WITH SR: 80.
[2019-04-08 08:35] LABS: BAND % (MANUAL) 4 % (0.0-5.0); EOSINOPHILS % (MANUAL) 6 % (0-4); LYMPHOCYTES % (MANUAL) 19 % (16-48); MONOCYTES % (MANUAL) 4 % (0-11.0); NEUTROPHILS % (MANUAL) 67 (42-76)
[2019-04-08] MEDS: LACTULOSE 10 G/15 ML UDC (PYXIS) GT SCH (08:51)
[2019-04-08] MEDS: NIFEdipine (10MG) 10 MG CAPSULE PO SCH (08:52)
[2019-04-08] MEDS: FERROUS SULFATE UDC 300 MG/5 ML UDC GT SCH ×2 (08:52→17:57)
[2019-04-08] MEDS: LINEZOLID 600 MG TABLET GT SCH ×2 (08:52→21:43)
[2019-04-08] MEDS: CARVEDILOL 12.5 MG TABLET PO SCH ×2 (08:53→17:58)
[2019-04-08] MEDS: LACTOBACILLUS RHAMNOSUS GG 1 EACH CAP.SPRINK PO SCH ×2 (08:53→17:57)
[2019-04-08] MEDS: LOSARTAN POTASSIUM 50 MG TABLET PO SCH ×2 (08:54→21:45)
[2019-04-08] MEDS: HYDROGEL DRESSING 90 GM TUBE TP SCH (08:54)
[2019-04-08] MEDS: DAKINS QUARTER STRENGTH (0.125%) 480 ML BOTTLE TOP SCH (08:55)
[2019-04-08] MEDS ORDERED: SODI473S8 TOP (11:01)
[2019-04-08] MEDS ORDERED: Isosorbide Mononitrate PO (11:01)
[2019-04-08] MEDS ORDERED: CARV12.52 PO (11:01)
[2019-04-08] MEDS ORDERED: LINE600T GT (11:01)
[2019-04-08] MEDS: MEROPENEM 500 MG in IV NS 0.9% 100 ML IV SCH (12:28)
[2019-04-08] MEDS ORDERED: NEUTRA PHOS 1 POWD.PACKET GT ONE (12:30)
--- NOTE | 2019-04-08 12:54 | NUR ---
MS RN NOTES HELD HYDRALAZINE AND ISMO BP 146/51.
--- NOTE | 2019-04-08 14:19 | NUR ---
MS RN NOTES CALLED [facility] AND SPOKE TO LEA, PRIOR TO GIVING REPORT, PER LEA, "I DON'T HAVE ISOLATION ROOM AND I DON'T HAVE INQUIRY." INFORMED CASE MANAGEMENT BRODY AND BRODY WILL FOLLOW UP AND AMBULANCE ON WILL CALL.
--- NOTE | 2019-04-08 14:45 | NUR ---
MS RN NOTE PER CHARGE NURSE ARNEL D/C ON HOLD PENDING IF FACILITY HAS AN ISOLATION ROOM FOR PT.
--- NOTE | 2019-04-08 18:43 | NUR ---
MS RN CLOSING NOTES PATIENT RESPONSIVE TO VERBAL AND TACTILE STIMULI. OPENS EYES, NON-VERBAL. HOB ELEVATED. ON MECHANICAL VENTILATOR AC:12, TV 550. FIO2:40%, PEEP:5 WITHOUT S/S OF RESPIRATORY DISTRESS. TRACH INTACT SHILEY XLT # 8 PROXIMAL WITHOUT S/S OF COMPLICATIONS. ORLY MIDLINE #20 INTACT AND PATENT WITHOUT S/S OF COMPLICATIONS OBSERVED. GT INTACT AND PATENT NO RESIDUAL NOTED.WOUND CARE DONE CHUCKIE WELL. NO EVIDENCE OF PAIN NOR DISCOMFORT AT THIS TIME. BED IN LOWEST POSITION. BED SIDERAILS UP X2.
--- NOTE | 2019-04-08 19:45 | NUR ---
TELERN EYES CLOSED, APPEARS COMFORTABLE LYING ON HER RIGHT SIDE. VENT DEPENDENT NO RESPIRATORY DISTRESS. GT CLAMPED FOR NOW. SR ON THE MONITOR. PENDING DISCHARGE, FACILITY NO ISOLATION BED AVAILABLE AT THIS TIME. WILL FOLLOW UP IN AM. ISOLATION FOR VRE WOUNDS AND ESBL URINE PRECAUTIONARY MEASURES OBSERVED.CONTINUED MONITORING.
--- NOTE | 2019-04-08 22:25 | NUR ---
TELERN DUE MEDS ADMINISTERED VIA GT.. HS CARE STARTED, HAD SMALL LOOSE BM. REPOSITIONED FOR COMFORT.
[2019-04-09] VITALS: BP 147/55
[2019-04-09] MEDS: BLOOD SUGAR DIAGNOSTIC 1 EACH STRIP IN SCH ×5 (01:07→23:35)
[2019-04-09] MEDS: METOCLOPRAMIDE HCL 10 MG TABLET PO SCH ×5 (01:07→23:05)
[2019-04-09] MEDS: MEROPENEM 500 MG in IV NS 0.9% 100 ML IV SCH ×3 (01:08→23:05)
[2019-04-09] MEDS: INSULIN REGULAR, HUMAN 100 UNIT/ML 3 ML VIAL SQ PRN ×4 (01:21→23:39)
--- NOTE | 2019-04-09 01:31 | NUR ---
TELERN BS WAS 334, COVERED WITH 8 UNITS OF REGULAR INSULIN SQ PER SLIDING SCALE. OTHER DUE MEDS ADMINISTERED VIA GT.
[2019-04-09] MEDS: NEPRO 1,000 ML BOTTLE GT PRN (02:47)
[2019-04-09 04:22] VITALS: BP 150/70
[2019-04-09] MEDS: hydrALAZINE HCL 50 MG TABLET PO SCH ×3 (05:32→21:00)
[2019-04-09] MEDS: ISOSORBIDE MONONITRATE 20 MG TABLET PO SCH ×3 (05:32→21:00)
--- NOTE | 2019-04-09 07:00 | NUR ---
TELE BS WAS 169. ENDORSED TO INCOMING RN. HD ON PROGRESS.
--- NOTE | 2019-04-09 07:15 | NUR ---
RN NOTES PATIENT RECEIVED IN BED, MECHANICAL VENT DEPENDENT TOLERATING CURRENT SETTINGS. RESPIRATIONS EVEN AND UNLABORED, IN NO APPARENT PAIN OR DISCOMFORT AT THIS TIME. CHINO CATHETER IN PLACE DRAINING MINIMAL DARK YELLOW URINE MD AWARE, PT CURRENTLY ON HD. KEPT CLEAN AND COMFORTABLE WILL CONTINUE TO MONITOR, CALL LIGHT WITHIN EASY REACH
[2019-04-09] MEDS ORDERED: [UNRECOGNIZED DRUG - OTHER] IJ SCH (07:30)
[2019-04-09 08:00] VITALS: BP 109/57
[2019-04-09 08:30] LABS: BASOPHILS # (AUTO) 0.1 /CMM (0.0-0.2); BASOPHILS % (AUTO) 0.7 % (0.0-2.0); EOSINOPHILS % (AUTO) 4.2 % (0.0-6.0); HEMATOCRIT 24 % (33-45); HEMOGLOBIN 8.3 g/dL (11.5-14.8); LYMPHOCYTES # (AUTO) 1.2 /CMM (0.8-4.8); LYMPHOCYTES % (AUTO) 15.8 % (20.0-44.0); MEAN CORPUSCULAR HGB CONC 35 g/dl (31.0-36.0); MEAN CORPUSCULAR VOLUME 90 fL (82-100); MONOCYTES # (AUTO) 0.4 /CMM (0.1-1.30); MONOCYTES % (AUTO) 4.5 % (2.0-12.0); NEUTROPHILS # (AUTO) 5.8 /CMM (1.8-8.9); NEUTROPHILS % (AUTO) 74.8 % (43.0-81.0); PLATELET COUNT (AUTO) 319 /CMM (150-450); RED BLOOD CELL COUNT(AUTO) 2.64 MIL/uL (4.0-5.2); WHITE BLOOD COUNT (AUTO) 7.8 K/uL (4.3-11.0)
[2019-04-09 08:43] LABS: CALCIUM, SERUM 8.7 mg/dL (8.5-10.1); CREATININE 1.7 mg/dL (0.6-1.3); MAGNESIUM 1.9 mg/dL (1.8-2.4); PHOSPHORUS 1.7 mg/dL (2.5-4.9); POTASSIUM 3.2 mmol/L (3.5-5.1)
[2019-04-09] MEDS: LACTOBACILLUS RHAMNOSUS GG 1 EACH CAP.SPRINK PO SCH ×2 (09:00→17:47)
[2019-04-09] MEDS: LACTULOSE 10 G/15 ML UDC (PYXIS) GT SCH (09:00)
[2019-04-09] MEDS: LINEZOLID 600 MG TABLET GT SCH ×2 (09:00→20:47)
[2019-04-09] MEDS: FERROUS SULFATE UDC 300 MG/5 ML UDC GT SCH ×2 (09:05→17:48)
[2019-04-09] MEDS: DAKINS QUARTER STRENGTH (0.125%) 480 ML BOTTLE TOP SCH (09:11)
[2019-04-09] MEDS: HYDROGEL DRESSING 90 GM TUBE TP SCH (09:11)
[2019-04-09] MEDS: PANTOPRAZOLE 40 MG/PACK PACK GT SCH (09:12)
[2019-04-09 09:37] LABS: BAND % (MANUAL) 6 % (0.0-5.0); EOSINOPHILS % (MANUAL) 1 % (0-4); LYMPHOCYTES % (MANUAL) 15 % (16-48); METAMYELOCYTES % 1 % (0-0); MONOCYTES % (MANUAL) 3 % (0-11.0); MYELOCYTES % 3 % (0-0); NEUTROPHILS % (MANUAL) 71 (42-76)
[2019-04-09] MEDS: CARVEDILOL 12.5 MG TABLET PO SCH ×2 (10:22→16:27)
[2019-04-09] MEDS: LOSARTAN POTASSIUM 50 MG TABLET PO SCH ×2 (10:22→21:00)
[2019-04-09] MEDS: NIFEdipine (10MG) 10 MG CAPSULE PO SCH (10:22)
[2019-04-09] MEDS ORDERED: NEUTRA PHOS 1 POWD.PACKET NG ONE (14:00)
[2019-04-09] MEDS: ACETAMINOPHEN 325 MG TABLET PO PRN (14:19)
[2019-04-09] MEDS: PROSOURCE / PROSTAT (PYXIS) 30 ML UDC GT SCH ×2 (15:55→16:28)
[2019-04-09 16:00] VITALS: BP 101/45
--- NOTE | 2019-04-09 19:30 | NUR ---
RN OPENING NOTE RECEIVED PT. PT IN BED RESTING. NO S/S OF RESP DISTRESS/SOB. PT DOES NOT APPEAR TO BE IN PAIN AT THIS TIME. PT IS VENT DEPENDENT, O2 SAT WNL, BREATHING EVEN/UNLABORED. OBTUNDED, NON-VERBAL. CALL LIGHT WITHIN REACH, WILL CONT TO MONITOR.
--- NOTE | 2019-04-09 19:30 | NUR ---
RN NOTES PATIENT IN BED, MECHANICAL VENT DEPENDENT TOLERATING CURRENT SETTINGS. RESPIRATIONS EVEN AND UNLABORED, IN NO APPARENT PAIN OR DISCOMFORT AT THIS TIME. CHINO CATHETER IN PLACE DRAINING MINIMAL DARK YELLOW URINE AWARE, PT CURRENTLY ON HD TREATMENTS. PER CASE MANAGEMENT PT AWAITING ISOLATION BED AT [facility] FOR DISCHARGE, WILL CONTINUE TO FOLLOW UP. KEPT CLEAN AND COMFORTABLE WILL CONTINUE TO MONITOR, CALL LIGHT WITHIN EASY REACH. REPORT GIVEN TO RAPIER INSERTION LOOM FIXER RN FOR CONTINUITY OF CARE Addendum: 04/09/19 at 2020 by MICHELA BARTON RN RN NOTES TURNED AND REPOSITIONED Q2 HR AND PRN FOR PRESSURE RELIEF AND COMFORT
[2019-04-09 20:00] VITALS: BP 123/47
[2019-04-10] VITALS: BP 144/62
[2019-04-10 04:06] VITALS: BP 154/72
[2019-04-10] MEDS: hydrALAZINE HCL 50 MG TABLET PO SCH ×3 (06:05→21:00)
[2019-04-10] MEDS: PANTOPRAZOLE 40 MG/PACK PACK GT SCH (06:05)
[2019-04-10] MEDS: METOCLOPRAMIDE HCL 10 MG TABLET PO SCH ×4 (06:06→23:56)
[2019-04-10] MEDS: ISOSORBIDE MONONITRATE 20 MG TABLET PO SCH ×3 (06:07→21:00)
[2019-04-10] MEDS: BLOOD SUGAR DIAGNOSTIC 1 EACH STRIP IN SCH (06:16)
[2019-04-10] MEDS: INSULIN REGULAR, HUMAN 100 UNIT/ML 3 ML VIAL SQ PRN ×4 (06:19→18:11)
[2019-04-10 06:38] LABS: CALCIUM, SERUM 8.8 mg/dL (8.5-10.1); CREATININE 2.9 mg/dL (0.6-1.3); MAGNESIUM 2.1 mg/dL (1.8-2.4); PHOSPHORUS 3.5 mg/dL (2.5-4.9); POTASSIUM 3.4 mmol/L (3.5-5.1)
--- NOTE | 2019-04-10 07:39 | NUR ---
MS RN OPENING NOTES RECEIVED PATIENT IN BED, ASLEEP, AROUSABLE TO VERBAL AND TACTILE STIMULI. HOB ELEVATED. ON VENTILATOR ORDERED WITHOUT S/S OF RESPIRATORY DISTRESS. TRACH INTACT SHILEY XLT # 8 PROXIMAL. ORLY MIDLINE #20 INTACT AND PATENT NO COMPLICATIONS OBSERVED AT THIS TIME. GT INTACT AND PATENT WITH ONGOING NEPRO @ 45ML/HR CHUCKIE WELL. NO EVIDENCE OF PAIN NOR DISCOMFORT AT THIS TIME. BED IN LOWEST POSITION. BED SIDERAILS UP X2. CALL LIGHT WITHIN REACH. Addendum: 04/10/19 at 0759 by KWAKU QUINTANILLA RN ON TELE MONITORING WITH SR: 77
[2019-04-10 08:00] VITALS: BP 112/44
[2019-04-10] MEDS: LINEZOLID 600 MG TABLET GT SCH ×2 (08:33→21:08)
[2019-04-10] MEDS: FERROUS SULFATE UDC 300 MG/5 ML UDC GT SCH ×2 (08:33→17:26)
[2019-04-10] MEDS: LACTOBACILLUS RHAMNOSUS GG 1 EACH CAP.SPRINK PO SCH ×2 (08:33→17:26)
[2019-04-10] MEDS: LACTULOSE 10 G/15 ML UDC (PYXIS) GT SCH (08:33)
[2019-04-10] MEDS: CARVEDILOL 12.5 MG TABLET PO SCH ×2 (08:46→17:27)
[2019-04-10] MEDS: LOSARTAN POTASSIUM 50 MG TABLET PO SCH ×2 (08:47→21:06)
[2019-04-10] MEDS: NIFEdipine (10MG) 10 MG CAPSULE PO SCH (08:47)
[2019-04-10] MEDS: DAKINS QUARTER STRENGTH (0.125%) 480 ML BOTTLE TOP SCH (08:48)
[2019-04-10] MEDS: HYDROGEL DRESSING 90 GM TUBE TP SCH (08:49)
[2019-04-10] MEDS: PROSOURCE / PROSTAT (PYXIS) 30 ML UDC GT SCH ×2 (08:52→17:26)
--- NOTE | 2019-04-10 09:00 | NUR ---
MS RN NOTES HELD AM BP MEDS DUE TO LOW BP.
[2019-04-10 11:13] LABS: BASOPHILS # (AUTO) 0.1 /CMM (0.0-0.2); EOSINOPHILS % (AUTO) 6.4 % (0.0-6.0); HEMATOCRIT 22 % (33-45); HEMOGLOBIN 7.5 g/dL (11.5-14.8); LYMPHOCYTES # (AUTO) 2.3 /CMM (0.8-4.8); LYMPHOCYTES % (AUTO) 25.4 % (20.0-44.0); MEAN CORPUSCULAR HGB CONC 35 g/dl (31.0-36.0); MEAN CORPUSCULAR VOLUME 91 fL (82-100); MONOCYTES # (AUTO) 0.5 /CMM (0.1-1.30); NEUTROPHILS # (AUTO) 5.5 /CMM (1.8-8.9); NEUTROPHILS % (AUTO) 61.2 % (43.0-81.0); PLATELET COUNT (AUTO) 265 /CMM (150-450); RED BLOOD CELL COUNT(AUTO) 2.38 MIL/uL (4.0-5.2); WHITE BLOOD COUNT (AUTO) 9.1 K/uL (4.3-11.0)
--- NOTE | 2019-04-10 11:50 | NUR ---
MS RN NOTE PER PRIMARY HOSPITALIST DENIA CIFUENTES NP NO ORDERS TO REPLACE K LEVEL 3.4 TODAY. SHE WILL REVIEW AND RE-CHECK LABS TOMORROW.
[2019-04-10 12:00] VITALS: BP 144/86
[2019-04-10] MEDS ORDERED: DEXTROSE 50%-WATER 50 ML DISP.SYRIN IV PRN (12:00)
[2019-04-10] MEDS: MEROPENEM 500 MG in IV NS 0.9% 100 ML IV SCH ×2 (12:09→23:54)
[2019-04-10] MEDS: BLOOD SUGAR DIAGNOSTIC 1 EACH STRIP VI SCH ×3 (12:09→22:37)
[2019-04-10 14:26] LABS: BAND % (MANUAL) 2 % (0.0-5.0); EOSINOPHILS % (MANUAL) 2 % (0-4); LYMPHOCYTES % (MANUAL) 12 % (16-48); MONOCYTES % (MANUAL) 3 % (0-11.0); NEUTROPHILS % (MANUAL) 81 (42-76)
[2019-04-10] MEDS ORDERED: FOSFOMYCIN TROMETHAMINE 3 G/PKT PACKET PO ONE (15:00)
[2019-04-10 16:00] VITALS: BP 112/61
[2019-04-10] MEDS: NEPRO 1,000 ML BOTTLE GT PRN (16:12)
--- NOTE | 2019-04-10 18:57 | NUR ---
MS RN CLOSING NOTES PATIENT IN BED, ASLEEP, AROUSABLE TO VERBAL AND TACTILE STIMULI. HOB ELEVATED. ON MECHANICAL VENTILATION ORDERED, WITHOUT S/S OF RESPIRATORY DISTRESS. TRACH INTACT SHILEY XLT # 8 PROXIMAL. ORLY MIDLINE #20 INTACT AND PATENT NO COMPLICATIONS OBSERVED AT THIS TIME. LEFT UPPER CHEST SHAVONNE CATHETER INTACT WITHOUT S/S OF COMPLICATIONS. GT INTACT AND PATENT, NO RESIDUAL NOTED. NO EVIDENCE OF PAIN NOR DISCOMFORT AT THIS TIME. WOUND CARE DONE CHUCKIE WELL. BED IN LOWEST POSITION. BED SIDERAILS UP X2. CALL LIGHT WITHIN REACH. FAMILY AT BEDSIDE.
--- NOTE | 2019-04-10 19:38 | NUR ---
RN NOTES Received patient on bed with vent, settings noted, no SOB/respiratory distress noted. With FC indwelling well with dark yellow urine output noted. No discomfort noted at this time. On enhanced contact precaution observed by all HCPs and family. Kept patient clean, dry and comfortable. Call light within easy reach. Will continue to monitor accordingly.
[2019-04-10 20:00] VITALS: BP 106/55
[2019-04-10] MEDS ORDERED: LINEZOLID 600 MG TABLET PO SCH (21:00)
--- NOTE | 2019-04-10 21:00 | NUR ---
RN NOTES BP 106/55mmHg, HR 83bpm. Held Hydralazine at this time. Will continue to monitor patient recheck BP accordingly.
--- NOTE | 2019-04-10 22:00 | NUR ---
RN NOTES Rechecked BP 94/57mmHg. Held Isosorbide. Will continue to monitor the patient accordingly.
[2019-04-11] VITALS: BP 131/77
[2019-04-11] MEDS: NEPRO 1,000 ML BOTTLE GT PRN (01:57)
--- NOTE | 2019-04-11 02:00 | NUR ---
RN NOTES Re-started GTF with Nepro 1.8 @ 45ml/hr as ordered. Abdomen remained soft and non-tender, no distention noted. Patient noted no n/v. No residual noted. Will continue to monitor accordingly.
[2019-04-11 04:00] VITALS: BP 106/42
[2019-04-11] MEDS: hydrALAZINE HCL 50 MG TABLET PO SCH ×3 (04:32→22:28)
[2019-04-11] MEDS: ISOSORBIDE MONONITRATE 20 MG TABLET PO SCH ×3 (04:33→22:27)
[2019-04-11] MEDS: METOCLOPRAMIDE HCL 10 MG TABLET PO SCH ×3 (05:25→17:11)
--- NOTE | 2019-04-11 05:28 | NUR ---
RT Pt trach remains on [facility] vent settings t/o the night. No resp distress noted. Trach secure and patent. Addendum: 04/11/19 at 0529 by GHULAM ERWIN RT Amended: Links added.
[2019-04-11] MEDS: PANTOPRAZOLE 40 MG/PACK PACK GT SCH (06:18)
[2019-04-11] MEDS: BLOOD SUGAR DIAGNOSTIC 1 EACH STRIP VI SCH ×4 (06:43→22:53)
[2019-04-11] MEDS: INSULIN REGULAR, HUMAN 100 UNIT/ML 3 ML VIAL SQ PRN ×3 (06:49→17:14)
--- NOTE | 2019-04-11 07:07 | NUR ---
RN CLOSING NOTES Patient asleep, easily awaken, responsive to verbal and tactile stimuli. On vent, with settings noted, no SOB/respiratory distress noted. SpO2 100%. All due meds given as ordered. Wound dressing done as ordered, tolerated well. Afebrile the whole shift, no new unusualities noted. With GTF tolerated well Nepro 1.8 @ 45ml/hr as ordered. On tele monitor with SR noted. Endorsed to the next shift.
--- NOTE | 2019-04-11 07:32 | NUR ---
MS RN OPENING NOTES RECEIVED PATIENT IN BED, RESPONSIVE TO VERBAL AND TACTILE STIMULI. HOB ELEVATED. ON VENTILATOR ORDERED NO SOB OBSERVED. TRACH INTACT SHILEY XLT # 8 PROXIMAL. ORLY MIDLINE #20 INTACT AND PATENT NO COMPLICATIONS OBSERVED AT THIS TIME. LEFT UPPER CHEST SHAVONNE CATH INTACT. GT INTACT AND PATENT WITH ONGOING NEPRO @ 45ML/HR CHUCKIE WELL. NO EVIDENCE OF PAIN NOR DISCOMFORT AT THIS TIME. BED IN LOWEST POSITION. BED SIDERAILS UP X2. CALL LIGHT WITHIN REACH.
[2019-04-11 08:00] VITALS: BP 146/44
[2019-04-11] MEDS: LINEZOLID 600 MG TABLET GT SCH ×2 (08:39→22:26)
[2019-04-11] MEDS: FERROUS SULFATE UDC 300 MG/5 ML UDC GT SCH ×2 (08:40→17:11)
[2019-04-11] MEDS: LACTULOSE 10 G/15 ML UDC (PYXIS) GT SCH (08:40)
[2019-04-11] MEDS: LACTOBACILLUS RHAMNOSUS GG 1 EACH CAP.SPRINK PO SCH ×2 (08:40→17:10)
[2019-04-11] MEDS: PROSOURCE / PROSTAT (PYXIS) 30 ML UDC GT SCH ×2 (08:40→17:12)
[2019-04-11] MEDS: CARVEDILOL 12.5 MG TABLET PO SCH ×2 (08:41→17:11)
[2019-04-11] MEDS: NIFEdipine (10MG) 10 MG CAPSULE PO SCH (08:42)
[2019-04-11] MEDS: LOSARTAN POTASSIUM 50 MG TABLET PO SCH ×2 (08:42→22:27)
--- NOTE | 2019-04-11 08:42 | NUR ---
MS RN NOTES HEL AM BP MEDS, B/P 146/44, HR 78. PATIENT SCHEDULED TO HAVE HD TODAY.
[2019-04-11] MEDS: HYDROGEL DRESSING 90 GM TUBE TP SCH (08:47)
[2019-04-11] MEDS: DAKINS QUARTER STRENGTH (0.125%) 480 ML BOTTLE TOP SCH (08:47)
[2019-04-11 11:06] LABS: CREATININE 3.5 mg/dL (0.6-1.3); POTASSIUM 3.1 mmol/L (3.5-5.1)
[2019-04-11 11:09] LABS: MAGNESIUM 2.2 mg/dL (1.8-2.4); PHOSPHORUS 3.9 mg/dL (2.5-4.9)
[2019-04-11] MEDS: MEROPENEM 500 MG in IV NS 0.9% 100 ML IV SCH (11:20)
[2019-04-11] MEDS: ACETAMINOPHEN 325 MG TABLET PO PRN (11:49)
--- NOTE | 2019-04-11 12:06 | NUR ---
MS RN NOTES PATIENT WITH TEMP OF 100.1 ORAL, B/P 154/70, HR:84, R:22 O2 SAT 100%. TYLENOL 650 MG TAB GIVEN VIA GT, COOLING MEASURES INTIATED. DENIA CIFUENTES NP MADE AWARE WITH ORDER FOR BLOOD CULTURE NOTED AND CARRIED OUT.
[2019-04-11] MEDS: ALBUMIN 25% 25 GM in PREMIX 1 EA IV PRN (13:03)
--- NOTE | 2019-04-11 14:00 | NUR ---
MS RN NOTES TEMP RECHECKED, T: 98.4. ORAL. STILL RECEIVING HD TREATMENT, CHUCKIE WELL.
[2019-04-11 16:00] VITALS: BP 137/61
--- NOTE | 2019-04-11 18:30 | NUR ---
MS RN CLOSING NOTE PT IN BED, SEMI-FOWLERS. PT IS NON-VERBAL, EYES OPEN SPONTANEOUSLY TO VERBAL AND TACTILE STIMULI, PT WITH TRACH ON MECHANICAL VENTILATOR, TOLERATING CURRENT SETTINGS. PT ON SUPERVISOR HAND SILVERING WITH SINUS RHYTHM OCCASIONAL PACS FOR THE DURATION OF THE SHIFT. RIGHT UPPER ARM MIDLINE IS PATENT, CLEAN, DRY AND INTACT, LEFT CHEST WALL HD ACCESS DRESSING IS CLEAN, DRY AND INTACT. PT HAD HD TODAY WITH ALBUMIN ADMINISTERED ORDERED WITH 1L OUT, VS HAVE REMAINED AT BASELINE SINCE COMPLETION. PT WITH G-TUBE, STOPPED AT 1800 ORDERED, TOLERATED FEEDING WITHOUT ABD DISTENSION, VOMITING AND RESIDUALS LESS THAN 5ML FOR THE DURATION OF THE SHIFT. WOUND CARE AND ADLS PROVIDED ORDERED AND PT TURNED AND REPOSITION Q2H FOR THE DURATION OF THE SHIFT, PT ON [employer]CI MATTRESS ALL NEEDS ATTENDED TO, ALL CLINICAL ALARMS CHECKED AND IN WORKING ORDER. CONTACT AND ASPIRATION PRECAUTIONS MAINTAINED, BED IS LOCKED AND IN LOWEST POSITION, SIDE RAILS UP X2, BED ALARM ON, CALL LIGHT AND POSSESSIONS WITHIN REACH. WILL ENDORSE TO DYNAMOMETER TESTER NURSE FOR CONTINUITY OF CARE.
--- NOTE | 2019-04-11 19:02 | NUR ---
RN OPENING NOTES: RECEIVED PATIENT COMFORTABLE IN BED. NON VERBAL. NOT IN RESPIRATORY DISTRESS. ON AIR MATTRESS. WITH CHINO CATH DRAINING CLEAR YELLOW URINE. CONTACT ISOLATION. HAD HD TODAY WITH 1L OUTPUT PER REPORTS. WITH TRACHEOSTOMY CLEAN AND DRY.
[2019-04-11 20:00] VITALS: BP 132/42
[2019-04-11] MEDS: ERGOCALCIFEROL (VITAMIN D 2) 50,000 UNIT CAPSULE GT SCH (22:26)
[2019-04-11] MEDS: *INSULIN REGULAR(HUMULIN R)HUM 100 UNIT/ML VIAL SQ PRN (22:44)
[2019-04-12] VITALS: BP 100/50
[2019-04-12] MEDS: METOCLOPRAMIDE HCL 10 MG TABLET PO SCH ×5 (01:28→23:55)
[2019-04-12] MEDS: NEPRO 1,000 ML BOTTLE GT PRN (01:33)
--- NOTE | 2019-04-12 01:50 | NUR ---
NEPRO G-TUBE FEEDING STARTED AT 45ML/HOUR. HOB ELEVATED. TURNED TO SIDES. G-TUBE FLUSHED WITH WATER PRIOR TO START.
[2019-04-12 04:05] VITALS: BP 116/42
[2019-04-12 04:08] VITALS: BP 116/42
--- NOTE | 2019-04-12 05:42 | NUR ---
RN CLOSING NOTES: PATIENT IS COMFORTABLE, NOT IN PAIN. NO MOANING. AWAKE, NON VERBAL. HEAD OF BED ELEVATED AT ALL TIMES. G-TUBE FEEDING (NEPRO) RUNNING AT 45ML/HOUR, TOLERATED. TRACH INTACT AND DRESSING IS DRY. NO ACUTE EVENTS OVERNIGHT. AIR MATTRESS ON. BED IN LOW AND LOCKED POSITION. NOT IN RESPIRATORY DISTRESS. NO COUGHING NOTED. WOUND CARE DAILY DRESSING WITH [employer] DONE BY THE RN DAYSHIFT YESTERDAY. DRESSING STILL INTACT.
[2019-04-12] MEDS: ISOSORBIDE MONONITRATE 20 MG TABLET PO SCH ×3 (06:23→21:32)
[2019-04-12] MEDS: PANTOPRAZOLE 40 MG/PACK PACK GT SCH (06:23)
[2019-04-12] MEDS: hydrALAZINE HCL 50 MG TABLET PO SCH ×3 (06:23→21:33)
[2019-04-12] MEDS: INSULIN REGULAR, HUMAN 100 UNIT/ML 3 ML VIAL SQ PRN ×3 (06:36→17:25)
[2019-04-12 06:54] LABS: CALCIUM, SERUM 8.5 mg/dL (8.5-10.1); CREATININE 2.7 mg/dL (0.6-1.3); PHOSPHORUS 3.1 mg/dL (2.5-4.9); POTASSIUM 3.5 mmol/L (3.5-5.1)
[2019-04-12 07:11] LABS: BASOPHILS % (AUTO) 0.6 % (0.0-2.0); EOSINOPHILS % (AUTO) 5.6 % (0.0-6.0); LYMPHOCYTES # (AUTO) 1.8 /CMM (0.8-4.8); LYMPHOCYTES % (AUTO) 27.2 % (20.0-44.0); MEAN CORPUSCULAR HGB CONC 34 g/dl (31.0-36.0); MEAN CORPUSCULAR VOLUME 92 fL (82-100); MONOCYTES # (AUTO) 0.4 /CMM (0.1-1.30); MONOCYTES % (AUTO) 6.7 % (2.0-12.0); NEUTROPHILS # (AUTO) 3.9 /CMM (1.8-8.9); NEUTROPHILS % (AUTO) 59.9 % (43.0-81.0); PLATELET COUNT (AUTO) 267 /CMM (150-450); RED BLOOD CELL COUNT(AUTO) 2.17 MIL/uL (4.0-5.2); WHITE BLOOD COUNT (AUTO) 6.6 K/uL (4.3-11.0)
--- NOTE | 2019-04-12 07:30 | NUR ---
SURGICAL TECHNOLOGY INSTRUCTOR OPENING NOTES RECEIVED PT LAYING IN BED WITH HOB ELEVATED. PT IS NONVERBAL, CURRENTLY ON VENT AND TOLERATING WELL. RESPIRATIONS ARE EVEN AND UNLABORED, NOT IN ANY ACUTE DISTRESS NOTED. NO FACIAL GRIMACING OR MOANING NOTED. ORLY MIDLINE INTACT, NO INFILTRATION NOTED. DRESSING KEPT CLEAN AND DRY. CHINO CATH IN PLACE, TUBING FREE OF KINKS, DRAINING YELLOW URINE. NO HEMATURIA OR SEDIMENTS NOTED. LEFT CHEST SHAVONNE CATH NOTED WITH DRESSING CLEAN AND DRY. SAFETY MEASURES ARE IN PLACE. WILL CONTINUE TO MONITOR THROUGHOUT SHIFT FOR CONTINUITY OF CARE.
[2019-04-12 07:45] LABS: HEMATOCRIT 20 % (33-45); HEMOGLOBIN 6.8 g/dL (11.5-14.8)
[2019-04-12] MEDS: BLOOD SUGAR DIAGNOSTIC 1 EACH STRIP VI SCH ×4 (07:49→22:29)
[2019-04-12 08:00] VITALS: BP_SYST 116; BP_SYST 161; BP_DIAS 47; BP_DIAS 68
[2019-04-12] MEDS: HYDROGEL DRESSING 90 GM TUBE TP SCH (08:46)
[2019-04-12] MEDS: DAKINS QUARTER STRENGTH (0.125%) 480 ML BOTTLE TOP SCH (08:46)
[2019-04-12] MEDS: PROSOURCE / PROSTAT (PYXIS) 30 ML UDC GT SCH ×2 (08:47→17:24)
[2019-04-12] MEDS: LACTULOSE 10 G/15 ML UDC (PYXIS) GT SCH (08:49)
[2019-04-12] MEDS: LINEZOLID 600 MG TABLET GT SCH ×2 (08:49→21:31)
[2019-04-12] MEDS: LACTOBACILLUS RHAMNOSUS GG 1 EACH CAP.SPRINK PO SCH ×2 (08:49→17:21)
[2019-04-12] MEDS: NIFEdipine (10MG) 10 MG CAPSULE PO SCH (08:50)
[2019-04-12] MEDS: CARVEDILOL 12.5 MG TABLET PO SCH ×2 (08:50→17:22)
[2019-04-12] MEDS: LOSARTAN POTASSIUM 50 MG TABLET PO SCH ×2 (08:51→21:32)
[2019-04-12] MEDS: FERROUS SULFATE UDC 300 MG/5 ML UDC GT SCH ×2 (08:53→17:24)
[2019-04-12 10:42] LABS: EOSINOPHILS % (MANUAL) 4 % (0-4); LYMPHOCYTES % (MANUAL) 26 % (16-48); MONOCYTES % (MANUAL) 10 % (0-11.0); NEUTROPHILS % (MANUAL) 60 (42-76)
[2019-04-12] MEDS: ACETAMINOPHEN 325 MG TABLET PO PRN (12:06)
--- NOTE | 2019-04-12 14:42 | NUR ---
PREPARATION CENTER COORDINATOR NOTES-- RECEIVED ORDER PER RACHNA LOZA FOR 1UNIT PRBC. READ BACK AND VERIFIED, NOTED AND CARRIED OUT.
--- NOTE | 2019-04-12 16:10 | NUR ---
CENTRAL SUPPLY ASSISTANT NOTES-- CONFIRMED WITH [facility] NURSE THAT PT WILL HAVE DIALYSIS TOMORROW. PER DENIA BRISCOE AND DR. VITAL, TO DO BLOOD TRANSFUSION TOMORROW WITH DIALYSIS. NOTIFIED RACHELLE FROM BLOOD BANK THAT TRANSFUSION WILL BE DONE TOMORROW.
--- NOTE | 2019-04-12 19:51 | NUR ---
PRESSURE DISPATCHER CLOSING NOTES ALL DUE MEDS GIVEN. NEEDS ANTICIPATED. PT REMAINS NONVERBAL, CURRENTLY ON VENT AND TOLERATING VENT SETTINGS WELL. RESPIRATIONS ARE EVEN AND UNLABORED, NOT IN ANY ACUTE DISTRESS NOTED. NO FACIAL GRIMACING NOTED. ORLY MIDLINE INTACT, NO INFILTRATION NOTED. DRESSING KEPT CLEAN AND DRY. CHINO CATH IN PLACE, NOTED WITH YELLOW URINE, TUBING FREE OF KINKS. DRESSING CHANGE DONE PRN. REPOSITIONED Q2H. GTUBE IN PLACE, TUBING FREE OF KINKS, FLUSHING WELL W/ NO RESIDUAL. SAFETY MEASURES ARE IN PLACE. CALL LIGHT LEFT WITHIN REACH. ENDORSED TO NEXT SHIFT FOR CONTINUITY OF CARE.
--- NOTE | 2019-04-12 19:58 | NUR ---
EMBOSSING CLERK OPENING NOTES RECEIVED PATIENT LAYING IN BED WITH HOB ELEVATED. ASPIRATION PRECAUTION OBSERVED, PATIENT IS NONVERBAL, VENT SETTINGS TOLERATING WELL,RESPIRATIONS ARE EVEN AND UNLABORED, NO SIGNS OF ACUTE RESPIRATORY DISTRESS NOTED. NO FACIAL GRIMACING OR MOANING NOTED. ORLY MIDLINE INTACT, NO INFILTRATION NOTED. DRESSING KEPT CLEAN AND DRY. CHINO CATH INTACT, IN PLACE, TUBING FREE OF KINKS, DRAINING YELLOW URINE. NO HEMATURIA OR SEDIMENTS NOTED. LEFT CHEST SHAVONNE CATH NOTED WITH DRESSING CLEAN AND DRY. SAFETY MEASURES ARE IN PLACE. WILL CONTINUE TO MONITOR WILL CONTINUE TO MONITOR ACCORDINGLY.
[2019-04-12 20:10] VITALS: BP 110/52
[2019-04-12] MEDS: FLUCONAZOLE (100 MG) 100 MG TABLET PO SCH (20:50)
--- NOTE | 2019-04-12 20:55 | NUR ---
RN NOTES CALLED AND SPOKE TO EMEKA FROM LAB THAT BLOOD TRANSFUSION WILL BE DONE WITH DIALYSIS. DIALYSIS IS SCHEDULE TOMORROW 04/13 IN THE MORNING CONFIRMED BY DIALYSIS NURSE EMILIO AND ENDORSED BY AM NURSE REFUGIO. CHARGE NURSE GALEN MADE AWARE OF PATIENT STATUS.
[2019-04-12] MEDS: *INSULIN REGULAR(HUMULIN R)HUM 100 UNIT/ML VIAL SQ PRN (23:00)
[2019-04-13] VITALS: BP 119/57
[2019-04-13] MEDS: NEPRO 1,000 ML BOTTLE GT PRN (02:39)
[2019-04-13 04:00] VITALS: BP 115/60
[2019-04-13] MEDS: ISOSORBIDE MONONITRATE 20 MG TABLET PO SCH ×3 (05:23→20:50)
[2019-04-13] MEDS: hydrALAZINE HCL 50 MG TABLET PO SCH ×3 (05:24→20:51)
[2019-04-13] MEDS: METOCLOPRAMIDE HCL 10 MG TABLET PO SCH ×4 (05:38→23:11)
[2019-04-13 06:53] LABS: BASOPHILS % (AUTO) 0.6 % (0.0-2.0); EOSINOPHILS % (AUTO) 7.9 % (0.0-6.0); HEMATOCRIT 22 % (33-45); HEMOGLOBIN 7.4 g/dL (11.5-14.8); LYMPHOCYTES # (AUTO) 1.7 /CMM (0.8-4.8); LYMPHOCYTES % (AUTO) 25.5 % (20.0-44.0); MEAN CORPUSCULAR HGB CONC 34 g/dl (31.0-36.0); MEAN CORPUSCULAR VOLUME 92 fL (82-100); MONOCYTES # (AUTO) 0.4 /CMM (0.1-1.30); MONOCYTES % (AUTO) 5.8 % (2.0-12.0); NEUTROPHILS # (AUTO) 4.1 /CMM (1.8-8.9); NEUTROPHILS % (AUTO) 60.2 % (43.0-81.0); PLATELET COUNT (AUTO) 289 /CMM (150-450); RED BLOOD CELL COUNT(AUTO) 2.39 MIL/uL (4.0-5.2); WHITE BLOOD COUNT (AUTO) 6.7 K/uL (4.3-11.0)
[2019-04-13] MEDS: PANTOPRAZOLE 40 MG/PACK PACK GT SCH (07:06)
[2019-04-13] MEDS: BLOOD SUGAR DIAGNOSTIC 1 EACH STRIP VI SCH ×4 (07:06→22:01)
[2019-04-13 07:07] LABS: CALCIUM, SERUM 8.8 mg/dL (8.5-10.1); CREATININE 3.1 mg/dL (0.6-1.3); MAGNESIUM 2.1 mg/dL (1.8-2.4); PHOSPHORUS 3.9 mg/dL (2.5-4.9); POTASSIUM 3.5 mmol/L (3.5-5.1)
[2019-04-13] MEDS: INSULIN REGULAR, HUMAN 100 UNIT/ML 3 ML VIAL SQ PRN ×2 (07:17→18:37)
--- NOTE | 2019-04-13 07:23 | NUR ---
RN NOTES ALL NEEDS ATTENDED AND MET, SAFETY MEASURES IN PLACE, VENT SETTINGS TOLERATING WELL, NO SIGNS OF ACUTE DISTRESS NOTED, ENDORSED TO AM NURSE FOR CONTINUITY OF CARE.
[2019-04-13 08:00] VITALS: BP 147/73
--- NOTE | 2019-04-13 08:06 | NUR ---
WOOLEN SUITING SHRINKER OPENING NOTES RECEIVED PATIENT IN BED, A/O X4, NO SOB OR ACUTE DISTRESS NOTED. HOB ELEVATED. ASPIRATION PRECAUTION OBSERVED, PATIENT IS NONVERBAL, VENT SETTINGS ORDERED BEING TOLERATING WELL, RESPIRATIONS ARE EVEN AND UNLABORED, ORLY MIDLINE INTACT AND PATENT. CHINO CATH INTACT AND PATENT DRAINING YELLOW URINE. LEFT CHEST SHAVONNE CATH NOTED WITH DRESSING CLEAN AND DRY. SAFETY MEASURES ARE IN PLACE. CALL LIGHT WITHIN REACH. WILL CONTINUE TO MONITOR.
[2019-04-13] MEDS: LACTULOSE 10 G/15 ML UDC (PYXIS) GT SCH (08:35)
[2019-04-13] MEDS: LACTOBACILLUS RHAMNOSUS GG 1 EACH CAP.SPRINK PO SCH ×2 (08:35→17:09)
[2019-04-13] MEDS: LINEZOLID 600 MG TABLET GT SCH ×2 (08:36→20:50)
[2019-04-13] MEDS: CARVEDILOL 12.5 MG TABLET PO SCH ×3 (08:36→17:10)
[2019-04-13] MEDS: NIFEdipine (10MG) 10 MG CAPSULE PO SCH (08:36)
[2019-04-13] MEDS: LOSARTAN POTASSIUM 50 MG TABLET PO SCH ×2 (08:37→20:51)
[2019-04-13] MEDS: FERROUS SULFATE UDC 300 MG/5 ML UDC GT SCH ×2 (08:47→17:08)
[2019-04-13] MEDS: PROSOURCE / PROSTAT (PYXIS) 30 ML UDC GT SCH ×2 (08:48→17:09)
[2019-04-13] MEDS: DAKINS QUARTER STRENGTH (0.125%) 480 ML BOTTLE TOP SCH (09:00)
[2019-04-13] MEDS: HYDROGEL DRESSING 90 GM TUBE TP SCH (10:00)
[2019-04-13] MEDS ORDERED: EPOETIN ALFA (10,000 UNIT) 10,000 UNIT/ML VIAL IV ONE (11:00)
[2019-04-13 12:00] VITALS: BP 121/46
[2019-04-13] MEDS: *INSULIN REGULAR(HUMULIN R)HUM 100 UNIT/ML VIAL SQ PRN ×2 (13:06→22:09)
--- NOTE | 2019-04-13 15:00 | NUR ---
MS RN NOTE WOUND CARE COMPLETED ORDERED.
[2019-04-13 16:00] VITALS: BP 120/49
--- NOTE | 2019-04-13 16:48 | NUR ---
RT Pt in stable condition. Trach care done. No respiratory distress or sob noted t/o shift. Addendum: 04/13/19 at 1845 by OLIVIER SALINAS RT Amended: Links added.
--- NOTE | 2019-04-13 19:18 | NUR ---
DRAPERY AND UPHOLSTERY MEASURER CLOSING NOTES PATIENT IN BED, A/O X 1, NON- VERBAL. NO SOB OR ACUTE DISTRESS NOTED. HOB ELEVATED. ASPIRATION PRECAUTION OBSERVED, PATIENT IS NONVERBAL, VENT SETTINGS ORDERED BEING TOLERATING WELL, RESPIRATIONS ARE EVEN AND UNLABORED, ORLY MIDLINE INTACT AND PATENT. WOUND CARE COMPLETED ORDERED. DIALYSIS IN PROCESS. CHINO CATH INTACT AND PATENT DRAINING YELLOW URINE. LEFT CHEST SHAVONNE CATH NOTED WITH DRESSING CLEAN AND DRY. SAFETY MEASURES ARE IN PLACE. CALL LIGHT WITHIN REACH. CARE ENDORSED TO DEAN OF WOMEN RN. .
--- NOTE | 2019-04-13 19:30 | NUR ---
HIGH SCHOOL BAND TEACHER NOTES RECEIVED PATIENT IN BED, A/O X 1, NON- VERBAL. NO SOB OR ACUTE DISTRESS NOTED. HOB ELEVATED. ASPIRATION PRECAUTION OBSERVED, PATIENT IS NONVERBAL, VENT SETTINGS ORDERED TOLERATING WELL, RESPIRATIONS ARE EVEN AND UNLABORED, ORLY MIDLINE INTACT AND PATENT. DIALYSIS IN PROCESS. CHINO CATH INTACT AND PATENT DRAINING YELLOW URINE. LEFT CHEST SHAVONNE CATH NOTED WITH DRESSING CLEAN AND DRY. SAFETY MEASURES ARE IN PLACE. CALL LIGHT WITHIN REACH. ALL NEEDS ANTICIPATED WILL CONTINUE TO MONITOR ACCORDINGLY.
--- NOTE | 2019-04-13 19:57 | NUR ---
COMMUNITY HEALTH NURSE STAFF NOTES DIALYSIS DONE AT THIS TIME, UF ( ULTRA FILTRATION ) OUTPUT 368 ENDORSED BY MASTER AUTOMOTIVE GLASS TECHNICIAN [place], LATEST VITAL SIGNS TAKEN FOLLOW: BP 120/59, HR 107 TEMP 98.9F, RR 18.NO SIGNS OF ACUTE CARDIAC AND RESPIRATORY DISTRESS NOTE. WILL CONTINUE TO MONITOR ACCORDINGLY.
[2019-04-13 20:00] VITALS: BP 131/54
[2019-04-13] MEDS: FLUCONAZOLE (100 MG) 100 MG TABLET PO SCH (20:46)
[2019-04-14] VITALS: BP 147/63
[2019-04-14 04:00] VITALS: BP 150/72
[2019-04-14] MEDS: hydrALAZINE HCL 50 MG TABLET PO SCH ×3 (05:02→20:27)
[2019-04-14] MEDS: ISOSORBIDE MONONITRATE 20 MG TABLET PO SCH ×3 (05:03→21:37)
[2019-04-14] MEDS: METOCLOPRAMIDE HCL 10 MG TABLET PO SCH ×4 (05:23→23:54)
--- NOTE | 2019-04-14 06:09 | NUR ---
RT NOTES TRACH TUBE IN PLACE, PATENT, AND SECURED. ALARMS ON AND AUDIBLE. VENT PLUGGED IN TO RED OUTLET. BACK UP TRACH TUBE AND AMBU BAG BY THE BEDSIDE. NO SIGNS OF ANY DISTRESS. Addendum: 04/14/19 at 0610 by MILADIS KUMARI RT Amended: Links added.
[2019-04-14] MEDS: INSULIN REGULAR, HUMAN 100 UNIT/ML 3 ML VIAL SQ PRN ×3 (06:22→17:45)
[2019-04-14 06:47] LABS: BASOPHILS % (AUTO) 0.7 % (0.0-2.0); EOSINOPHILS % (AUTO) 3.3 % (0.0-6.0); HEMATOCRIT 22 % (33-45); HEMOGLOBIN 7.4 g/dL (11.5-14.8); LYMPHOCYTES # (AUTO) 1.4 /CMM (0.8-4.8); LYMPHOCYTES % (AUTO) 21.6 % (20.0-44.0); MEAN CORPUSCULAR HGB CONC 34 g/dl (31.0-36.0); MEAN CORPUSCULAR VOLUME 92 fL (82-100); MONOCYTES # (AUTO) 0.4 /CMM (0.1-1.30); MONOCYTES % (AUTO) 5.6 % (2.0-12.0); NEUTROPHILS # (AUTO) 4.5 /CMM (1.8-8.9); NEUTROPHILS % (AUTO) 68.8 % (43.0-81.0); PLATELET COUNT (AUTO) 269 /CMM (150-450); RED BLOOD CELL COUNT(AUTO) 2.34 MIL/uL (4.0-5.2); WHITE BLOOD COUNT (AUTO) 6.5 K/uL (4.3-11.0)
[2019-04-14 06:49] LABS: CALCIUM, SERUM 9.1 mg/dL (8.5-10.1); MAGNESIUM 2.1 mg/dL (1.8-2.4); PHOSPHORUS 2.6 mg/dL (2.5-4.9); POTASSIUM 3.5 mmol/L (3.5-5.1)
--- NOTE | 2019-04-14 06:49 | NUR ---
RN NOTES ALL NEEDS ATTENDED AND MET, ABLE TO REST COMFORTABLY, NO SIGNS OF ACUTE DISTRESS NOTED, VENT SETTINGS TOLERATING WELL, CHINO CATH INTACT AND PATENT, FEEDING TOLERATING WELL, REPOSITIONED FOR COMFORT, WOUND DRESSING DONE ORDERED, SAFETY MEASURES INPLACE, CALL LIGHT WITHIN EASY REACH, WILL ENDORSE TO AM NURSE FOR CONTINUITY OF CARE.
[2019-04-14] MEDS: BLOOD SUGAR DIAGNOSTIC 1 EACH STRIP VI SCH ×4 (07:18→21:33)
[2019-04-14] MEDS: PANTOPRAZOLE 40 MG/PACK PACK GT SCH (07:19)
[2019-04-14 07:30] LABS: BAND % (MANUAL) 22 % (0.0-5.0); EOSINOPHILS % (MANUAL) 4 % (0-4); LYMPHOCYTES % (MANUAL) 23 % (16-48); MONOCYTES % (MANUAL) 7 % (0-11.0); NEUTROPHILS % (MANUAL) 44 (42-76)
[2019-04-14 08:00] VITALS: BP 137/57
[2019-04-14] MEDS: LACTOBACILLUS RHAMNOSUS GG 1 EACH CAP.SPRINK PO SCH ×2 (08:30→17:22)
[2019-04-14] MEDS: LACTULOSE 10 G/15 ML UDC (PYXIS) GT SCH (08:30)
[2019-04-14] MEDS: FERROUS SULFATE UDC 300 MG/5 ML UDC GT SCH ×2 (08:31→17:22)
[2019-04-14] MEDS: NIFEdipine (10MG) 10 MG CAPSULE PO SCH (08:43)
[2019-04-14] MEDS: LOSARTAN POTASSIUM 50 MG TABLET PO SCH ×2 (08:43→21:37)
[2019-04-14] MEDS: CARVEDILOL 12.5 MG TABLET PO SCH ×2 (08:45→17:27)
[2019-04-14] MEDS: LINEZOLID 600 MG TABLET GT SCH ×2 (08:51→20:27)
[2019-04-14] MEDS: PROSOURCE / PROSTAT (PYXIS) 30 ML UDC GT SCH ×2 (08:55→17:22)
[2019-04-14] MEDS: HYDROGEL DRESSING 90 GM TUBE TP PRN (08:56)
[2019-04-14] MEDS: HYDROGEL DRESSING 90 GM TUBE TP SCH (09:16)
[2019-04-14] MEDS ORDERED: MICAFUNGIN SODIUM 50 MG in IV NS 0.9% 100 ML IV SCH ×2 (11:00→11:56)
[2019-04-14] MEDS: DAKINS QUARTER STRENGTH (0.125%) 480 ML BOTTLE TOP SCH (11:04)
--- NOTE | 2019-04-14 12:01 | NUR ---
DIRECTOR SALES AND TRADE MARKETING NOTES MYCAMINE 50MG Q24H ADJUSTED TO 100ML/HR PER PHARMACIST.
[2019-04-14] MEDS: MICAFUNGIN SODIUM 50 MG in IV NS 0.9% 100 ML IV SCH (12:04)
[2019-04-14] MEDS: NEPRO 1,000 ML BOTTLE GT PRN (12:20)
[2019-04-14 16:00] VITALS: BP 140/56
--- NOTE | 2019-04-14 18:40 | NUR ---
DIRECTOR MEETINGS NOTES PATIENT RESTING IN BED, NO RESPIRATORY DISTRESS, VENT SETTINGS PRESCRIBED BY MD. NO S/S OF PAIN AT THIS TIME. SKIN WARM TO TOUCH. PATIENT'S IV ACCESS SITE INTACT AND PATENT. SHAVONNE CATH ON LT UPPER CHEST WALL, INTACT AND PATENT. PATIENT'S NEEDS ATTENDED. BED ON LOWEST LOCKED POSITION, CALL LIGHT WITHIN REACH. WILL ENDORSE TO ONCOMING NURSE.
--- NOTE | 2019-04-14 19:30 | NUR ---
TELE/RN OPENING NOTES PT RECEIVED WITH EYES CLOSED. NONVERBAL,OBTUNDED. TOLERATING VENT SETTINGS RR 12, TV 550, FIO2 30%, PEEP 5. TOLERATING WELL. ON TELE MONITOR SHOWING SR 72. CHINO IN PLACE AND DRAINING TO GRAVITY. GT FEEDING OFF AT THIS TIME, TO RESUME AT 0200. ORLY MIDLINE PATENT AND INTACT. BED IN LOW/LOCKED POSITION WITH CALL LIGHT IN REACH, HOB ELEVATED AND SIDE RAILS UPX3. WILL CONTINUE TO MONITOR
[2019-04-14 20:00] VITALS: BP 127/51
[2019-04-14] MEDS: *INSULIN REGULAR(HUMULIN R)HUM 100 UNIT/ML VIAL SQ PRN (21:40)
[2019-04-14] MEDS: INSULIN GLARGINE, 100 UNIT/ML CARTRIDGE SQ SCH (21:41)
--- NOTE | 2019-04-14 22:30 | NUR ---
TELE/RN NOTES PM MEDS ADMINISTERED. 30CC RESIDUALS NOTED. WILL CONTINUE TO MONITOR
[2019-04-15] VITALS (9 sets, daily range): BP systolic 125–158; BP diastolic 36–90
--- NOTE | 2019-04-15 02:00 | NUR ---
TELE/RN NOTES GT FEEDING INITIATED. NO RESIDUALS NOTED AT THIS TIME.
[2019-04-15] MEDS: hydrALAZINE HCL 50 MG TABLET PO SCH (04:18)
[2019-04-15] MEDS: ISOSORBIDE MONONITRATE 20 MG TABLET PO SCH (04:19)
[2019-04-15 06:21] LABS: BASOPHILS # (AUTO) 0.1 /CMM (0.0-0.2); BASOPHILS % (AUTO) 0.8 % (0.0-2.0); EOSINOPHILS % (AUTO) 4.5 % (0.0-6.0); LYMPHOCYTES # (AUTO) 1.9 /CMM (0.8-4.8); LYMPHOCYTES % (AUTO) 28.1 % (20.0-44.0); MEAN CORPUSCULAR HGB CONC 34 g/dl (31.0-36.0); MEAN CORPUSCULAR VOLUME 93 fL (82-100); MONOCYTES # (AUTO) 0.4 /CMM (0.1-1.30); MONOCYTES % (AUTO) 6.3 % (2.0-12.0); NEUTROPHILS % (AUTO) 60.3 % (43.0-81.0); PLATELET COUNT (AUTO) 242 /CMM (150-450); RED BLOOD CELL COUNT(AUTO) 2.05 MIL/uL (4.0-5.2); WHITE BLOOD COUNT (AUTO) 6.6 K/uL (4.3-11.0)
[2019-04-15 06:23] LABS: HEMOGLOBIN 6.4 g/dL (11.5-14.8)
[2019-04-15 06:24] LABS: HEMATOCRIT 19 % (33-45)
[2019-04-15 06:27] LABS: CALCIUM, SERUM 8.9 mg/dL (8.5-10.1); CREATININE 2.7 mg/dL (0.6-1.3); MAGNESIUM 2.1 mg/dL (1.8-2.4); POTASSIUM 3.1 mmol/L (3.5-5.1)
--- NOTE | 2019-04-15 06:40 | NUR ---
TELE/RN NOTES PAGED DR. CORDOBA REGARDING PT'S H/H OF 6.4 THIS MORNING. AWAITING ORDERS
[2019-04-15] MEDS: METOCLOPRAMIDE HCL 10 MG TABLET PO SCH (06:44)
[2019-04-15] MEDS: PANTOPRAZOLE 40 MG/PACK PACK GT SCH (06:45)
[2019-04-15] MEDS: BLOOD SUGAR DIAGNOSTIC 1 EACH STRIP VI SCH ×4 (06:45→21:18)
[2019-04-15] MEDS: INSULIN REGULAR, HUMAN 100 UNIT/ML 3 ML VIAL SQ PRN ×3 (06:51→17:26)
--- NOTE | 2019-04-15 07:03 | NUR ---
TELE/RN NOTES DR. CORDOBA WITH ORDERS FOR 1 UNIT PRBC WITH HD TODAY. ADD OB STOOL. ORDERS NOTED WILL CARRY OUT
--- NOTE | 2019-04-15 07:15 | NUR ---
TELE/RN CLOSING NOTES PT WITH EYES CLOSED, OBTUNDED. UNABLE TO MAKE NEEDS KNOWN. TOLERATING MECHANICAL VENT SETTINGS. SUCTIONED PRN. HOB ELEVATED. ON TELE MONITOR SHOWING SR 70'S. ORLY MIDLINE PATENT AND INTACT. CHINO IN PLACE AND DRAINING TO GRAVITY. LCW SHAVONNE CATH IN PLACE, DRESSING C/D/I. TURNED/REPOSITIONED Q2H. HEELS OFFLOADED. WOUND CARE PERFORMED ORDERED. GT FEEDING INFUSING AT 45ML/HR WITH NO RESIDUALS NOTED. HEELS OFFLOADED. BED IN LOW/LOCKED POSITION WITH CALL LIGHT IN REACH. BILAT. UPPER SIDE RAILS IN PLACE. WILL ENDORSE TO DAY SHIFT RN CHELSY
--- NOTE | 2019-04-15 07:30 | NUR ---
tele review consultant: initial assessment received pt in bed with eyes close, non-verbal and unable to comprehend. pt is vent dependent with settings: ac 12, tv 550, fio2 at 30%, and with peep 5. hob elevated. g-tube patent with 20ml of residual obtained. continue on g-tube feeding. will continue to monitor.
[2019-04-15 08:04] LABS: BAND % (MANUAL) 4 % (0.0-5.0); EOSINOPHILS % (MANUAL) 3 % (0-4); LYMPHOCYTES % (MANUAL) 24 % (16-48); METAMYELOCYTES % 1 % (0-0); MONOCYTES % (MANUAL) 5 % (0-11.0); NEUTROPHILS % (MANUAL) 63 (42-76)
[2019-04-15] MEDS ORDERED: ACETAMINOPHEN 650 MG/20.3 ML UDC GT PRN (08:30)
[2019-04-15] MEDS ORDERED: MAG HYDROX/AL HYDROX/SIMETH 30 ML UDC GT PRN (08:30)
[2019-04-15] MEDS ORDERED: PHARMACY TO CHANGE PO MEDS TO GT/NG XX PRN (08:30)
[2019-04-15] MEDS ORDERED: MAGNESIUM HYDROXIDE 30 ML UDC GT PRN (08:30)
--- NOTE | 2019-04-15 08:37 | NUR ---
RT NOTE PT RECEIVED TRACHED ON [facility] VENT ON CHARTED SETTINGS. NO SIGNS OF DISTRESS NOTED AT THIS TIME. VENT CONNECTED TO RED OUTLET. WILL MONITOR THROUGHOUT SHIFT. Addendum: 04/15/19 at 0837 by HERLINDA SPIVEY RT Amended: Links added.
[2019-04-15] MEDS: FERROUS SULFATE UDC 300 MG/5 ML UDC GT SCH ×2 (08:51→17:21)
[2019-04-15] MEDS: LACTOBACILLUS RHAMNOSUS GG 1 EACH CAP.SPRINK GT SCH ×2 (08:51→17:21)
[2019-04-15] MEDS: PROSOURCE / PROSTAT (PYXIS) 30 ML UDC GT SCH ×2 (08:51→17:21)
[2019-04-15] MEDS: LINEZOLID 600 MG TABLET GT SCH ×2 (08:52→20:02)
[2019-04-15] MEDS: LACTULOSE 10 G/15 ML UDC (PYXIS) GT SCH (08:52)
[2019-04-15] MEDS: HYDROGEL DRESSING 90 GM TUBE TP PRN ×2 (08:55→08:56)
[2019-04-15] MEDS: DAKINS QUARTER STRENGTH (0.125%) 480 ML BOTTLE TOP SCH (08:55)
[2019-04-15] MEDS: HYDROGEL DRESSING 90 GM TUBE TP SCH (08:58)
[2019-04-15] MEDS: LOSARTAN POTASSIUM 50 MG TABLET GT SCH ×2 (09:00→21:00)
[2019-04-15] MEDS: CARVEDILOL 12.5 MG TABLET GT SCH ×2 (09:00→17:22)
[2019-04-15] MEDS: NIFEdipine (10MG) 10 MG CAPSULE PO SCH (09:00)
--- NOTE | 2019-04-15 09:10 | NUR ---
tele clean room operator: notes antonio (hd nurse) notified and made aware re: 1 unit of prbc ordered with hd and blood is ready in lab, stated, "i'm on my way there." place a call to evin (daughter), spoke to her over the phone and obtained consent for blood tranfusion and hd tx today and also updated plan of care. per evin, not to call nadine (sister) 1st, but can call her on emergency cases only.
--- NOTE | 2019-04-15 10:00 | NUR ---
tele ice cream freezer: notes hd nurse here and preparing pt for hd tx. 1 unit of prbc verified with another nurse and vital signs taken. unit given to hd nurse to transfuse with hd tx. b/p meds held. will continue to monitor.
--- NOTE | 2019-04-15 10:30 | NUR ---
tele nursing faculty: md visit seen and examined by de (acnp) at this time with new orders. for d'c planning, still awaiting final resp. culture results.
--- NOTE | 2019-04-15 10:30 | NUR ---
tele business applications analyst: notes 1 unit of prbc completed with hd tx. hd tx in progress. vital signs taken and recorded. will continue to monitor.
--- NOTE | 2019-04-15 11:35 | NUR ---
tele court attendant: notes hd completed with 1 liter removed per antonio (hd nurse). vss. will continue to monitor.
[2019-04-15] MEDS: MICAFUNGIN SODIUM 50 MG in IV NS 0.9% 100 ML IV SCH (11:47)
[2019-04-15] MEDS: METOCLOPRAMIDE HCL 10 MG/10 ML UDC GT SCH ×3 (11:49→23:11)
[2019-04-15] MEDS: hydrALAZINE HCL 50 MG TABLET GT SCH ×2 (13:19→20:03)
[2019-04-15] MEDS: ISOSORBIDE DINITRATE (10MG) 10 MG TABLET GT SCH ×2 (13:20→21:39)
--- NOTE | 2019-04-15 14:00 | NUR ---
tele joist setter: notes turned and repositioned, kept comfortable. no apparent distress noted. will continue to monitor.
--- NOTE | 2019-04-15 16:00 | NUR ---
tele auto air conditioning installer: notes stool collected and lab called to pickling drum operator the specimen in ref, spoke to elijah.
[2019-04-15 17:29] LABS: OCCULT BLOOD STOOL NEGATIVE (NEGATIVE)
--- NOTE | 2019-04-15 18:00 | NUR ---
tele candy wrapping machine operator: notes g-tube feeding turned off. flushed with 30ml of water. needs attended. no apparent distress noted. tracheostomy remains intact and secured at midline via ventilator. hob elevated. will continue to monitor.
--- NOTE | 2019-04-15 19:20 | NUR ---
SEAMING MACHINE OPERATOR OPENING NOTES: RECEIVED PT WITH DTR AT BEDSIDE. PT ON VENT WITH SHILEY SLT #8, TV 550, FI02 30%, PEEP 5, AND AC 12. PT HAS CHINO CATH AND IS ATTACHED TO DRAINAGE BAG WITH YELLOW URINE RAINING. PT ALSO HAS G TUBE. FEEDING TURNED OFF AT THIS TIME. FEEDING TO BE RESTARTED AT 0200 AM. PT HAS ORLY MIDLINE #20G AND IS PATENT AND INTACT. CURRENTLY H/L. PT ALSO HAS LCW SHAVONNE CATH AND IS INTACT. PT ON TELE BOX AND READING SHOWS SR95. PT HAS JUST BEEN CLEANED AND REPOSITIONED. PT JUST HAD ANOTHER BM. BED KEPT IN LOW, LOCKED POSITION, AND SIDE RAILS X 2UP. WILL CONTINUE TO MONITOR PT. Addendum: 04/15/19 at 1944 by DWAYNE PEARL RN PT ON CONT PULSE OX AND SATURATING AT 100% Addendum: 04/15/19 at 1945 by DWAYNE PEARL RN GIOVANI AGUIRRE
--- NOTE | 2019-04-15 21:17 | NUR ---
telephone exchange operator notes: losarta 50mg held. current bp reading is 115/30 hr 80. diastolic low. will reassess bp again.
[2019-04-15] MEDS: INSULIN GLARGINE, 100 UNIT/ML CARTRIDGE SQ SCH (21:22)
[2019-04-15] MEDS: *INSULIN REGULAR(HUMULIN R)HUM 100 UNIT/ML VIAL SQ PRN (21:24)
--- NOTE | 2019-04-15 21:35 | NUR ---
COMPUTER SYSTEMS MANAGER NOTES: BLOOD SUGAR THIS PM WAS 217. 10 UNITS OF LANTUS WAS ADMINISTERED. 4 UNITS OF REGULAR INSULIN WAS ADMINISTERED. PT ON NEPRO FEEDING TO BE RESTARTED AT 0200AM. WILL CONTINUE TO MONITOR.
--- NOTE | 2019-04-15 21:45 | NUR ---
DAIRY SPECIALIST NOTES: ISORDIL 10MG WAS GIVEN FOR BP 161/69 HR 78. WILL CONTINUE TO MONITOR.
[2019-04-16] VITALS: BP 155/74
[2019-04-16 04:00] VITALS: BP 159/71
[2019-04-16] MEDS: hydrALAZINE HCL 50 MG TABLET GT SCH ×3 (04:34→20:09)
[2019-04-16] MEDS: NEPRO 1,000 ML BOTTLE GT PRN (04:44)
[2019-04-16] MEDS: ISOSORBIDE DINITRATE (10MG) 10 MG TABLET GT SCH ×3 (05:02→20:48)
[2019-04-16] MEDS: METOCLOPRAMIDE HCL 10 MG/10 ML UDC GT SCH ×4 (05:06→23:08)
[2019-04-16] MEDS: PANTOPRAZOLE 40 MG/PACK PACK GT SCH (06:02)
[2019-04-16] MEDS: INSULIN REGULAR, HUMAN 100 UNIT/ML 3 ML VIAL SQ PRN ×3 (06:08→17:02)
--- NOTE | 2019-04-16 06:30 | NUR ---
OPTICAL COATING TECHNICIAN CLOSING NOTES: ALL NEEDS WERE ATTENDED AND ANTICIPATED FOR. PT KEPT CLEAN, DRY, AND COMFORTABLE. PT REMAINS ON VENT AND OBTUNDED. PT ON SHILEY XLT#8 WITH SETTINGS AC 12, TV 550, FI02 30%, PEEP 5. PT ON CONT PULSE OX SATURATING AT 100%. PT SUCTIONED PRN. PT TURNED AND REPOSITIONED Q 2HRS. WOUND TX PERFORMED ORDERED. CHINO CATH REMAINS IN PLACE. OUTPUT WAS 125ML. PT ON NEPRO G TUBE FEEDING AT 45ML/HR. FEEDING TO BE SHUT OFF AT 1800PM. ORLY MIDLINE #20G HAS BEEN FLUSHED AND IS CURRENTLY H/L. PT ON TELE MONITOR AND READING SHOWS SR 92. PT'S LCW SHAVONNE CATH INTACT AND KEPT CLEAN AND DRY. WILL ENDORSE TO AM NURSE FOR CHELSY.
[2019-04-16] MEDS: BLOOD SUGAR DIAGNOSTIC 1 EACH STRIP VI SCH ×4 (06:41→21:10)
[2019-04-16 06:42] LABS: CALCIUM, SERUM 8.8 mg/dL (8.5-10.1); CREATININE 2.1 mg/dL (0.6-1.3); MAGNESIUM 2.2 mg/dL (1.8-2.4); PHOSPHORUS 2.5 mg/dL (2.5-4.9); POTASSIUM 3.5 mmol/L (3.5-5.1)
[2019-04-16 07:30] LABS: BASOPHILS % (AUTO) 0.6 % (0.0-2.0); EOSINOPHILS % (AUTO) 4.8 % (0.0-6.0); HEMATOCRIT 23 % (33-45); HEMOGLOBIN 7.8 g/dL (11.5-14.8); LYMPHOCYTES % (AUTO) 24.5 % (20.0-44.0); MEAN CORPUSCULAR HGB CONC 34 g/dl (31.0-36.0); MEAN CORPUSCULAR VOLUME 91 fL (82-100); MONOCYTES # (AUTO) 0.5 /CMM (0.1-1.30); MONOCYTES % (AUTO) 6.5 % (2.0-12.0); NEUTROPHILS # (AUTO) 5.1 /CMM (1.8-8.9); NEUTROPHILS % (AUTO) 63.6 % (43.0-81.0); PLATELET COUNT (AUTO) 256 /CMM (150-450)
[2019-04-16 08:00] VITALS: BP 141/62
--- NOTE | 2019-04-16 08:00 | NUR ---
Tele/RN - Assessment Patient is awake, no s/s of pain, not in any form of distress, trached and vent dependent with Shiley 8 xlt secured and intact, vent settings tolerated well. GT is patent and intact, no residual seen. Labs reviewed, hemoglobin improved post 1 unit PRBC transfusion, no active bleeding seen. Tele shows SR. Patient with multiple pressure ulcer, sauceda catheter in place for skin management, will do wound care as ordered, repositioned per protocol. Will continue with current medical management.
[2019-04-16] MEDS: LACTOBACILLUS RHAMNOSUS GG 1 EACH CAP.SPRINK GT SCH ×2 (08:17→16:32)
[2019-04-16] MEDS: LACTULOSE 10 G/15 ML UDC (PYXIS) GT SCH (08:17)
[2019-04-16] MEDS: NIFEdipine (10MG) 10 MG CAPSULE PO SCH (08:17)
[2019-04-16] MEDS: CARVEDILOL 12.5 MG TABLET GT SCH ×2 (08:19→16:32)
[2019-04-16] MEDS: LINEZOLID 600 MG TABLET GT SCH ×2 (08:19→20:09)
[2019-04-16] MEDS: PROSOURCE / PROSTAT (PYXIS) 30 ML UDC GT SCH ×2 (08:19→16:44)
[2019-04-16] MEDS: LOSARTAN POTASSIUM 50 MG TABLET GT SCH ×2 (08:19→21:00)
[2019-04-16] MEDS: FERROUS SULFATE UDC 300 MG/5 ML UDC GT SCH ×2 (08:27→16:31)
[2019-04-16] MEDS: HYDROGEL DRESSING 90 GM TUBE TP PRN (08:30)
[2019-04-16] MEDS: DAKINS QUARTER STRENGTH (0.125%) 480 ML BOTTLE TOP SCH (08:31)
[2019-04-16] MEDS: HYDROGEL DRESSING 90 GM TUBE TP SCH (08:32)
[2019-04-16] MEDS ORDERED: [UNRECOGNIZED DRUG - OTHER] IJ SCH (09:00)
[2019-04-16 09:07] LABS: BAND % (MANUAL) 1 % (0.0-5.0); EOSINOPHILS % (MANUAL) 3 % (0-4); LYMPHOCYTES % (MANUAL) 31 % (16-48); MONOCYTES % (MANUAL) 6 % (0-11.0); NEUTROPHILS % (MANUAL) 57 (42-76)
[2019-04-16 09:09] LABS: MYELOCYTES % 2 % (0-0)
--- NOTE | 2019-04-16 09:30 | NUR ---
Tele/RN - Notes Wound treatment done as ordered.
--- NOTE | 2019-04-16 11:30 | NUR ---
Tele/RN - Notes Patient awake, no s/s of pain, family at beside updated on pt's condition.
[2019-04-16] MEDS: MICAFUNGIN SODIUM 50 MG in IV NS 0.9% 100 ML IV SCH (11:46)
[2019-04-16] MEDS: Z GUARD REMEDY 2 OZ OINT TP PRN (11:46)
[2019-04-16 12:00] VITALS: BP 127/56
[2019-04-16 16:00] VITALS: BP 145/63
--- NOTE | 2019-04-16 17:38 | NUR ---
Tele/RN - End of shift summary Patient remain afebrile, in no acute distress, no s/s of pain, possible discharge tonight to [facility]. Will endorse to production shift supervisor accordingly.
--- NOTE | 2019-04-16 19:37 | NUR ---
SUPERINTENDENT BUILDING OPENING NOTES: RECEIVED PT ON VENT MACHINE ON SHILEY XLT #8 AND IS ON VENT SETTINGS AC 12, TV 550, FI02 30%, PEEP 5. PT ON CONT PULSE OX AND IS SATURATING AT 100%. G TUBE HAS BEEN FLUSHED AND IS PATENT. FEEDING TURNED OFF AT THIS TIME AND WILL BE RESUMED AT 0200AM. PT HAS CHINO CATH AND IS ATTACHED TO DRAINAGE BAG WITH YELLOW URINE DRAINING. PT HAS LCW SHAVONNE CATH AND IS PATENT AND INTACT; ALSO KEPT CLEAN AND DRY. PT HAS ORLY MIDLINE AND IS BEING INFUSED WITH TKO AT 5ML/HR. PT ON TELE MONITOR AND READING SHOWS SR. BED KEPT IN LOW, LOCKED POSITION, AND SIDE RAILS X2UP. WILL CONTINUE TO MONITOR PT.
[2019-04-16 20:00] VITALS: BP 130/60
--- NOTE | 2019-04-16 20:30 | NUR ---
MS WINTER NOTES: NOTED PT WARM TO TOUCH WITH TEMP OF 100.9 ; COOLING MEASURES INITIATED. WILL CONTINUE TO MONITOR. Addendum: 04/17/19 at 0437 by DWAYNE PEARL RN ASHLEY WINTER
[2019-04-16] MEDS: *INSULIN REGULAR(HUMULIN R)HUM 100 UNIT/ML VIAL SQ PRN (21:08)
[2019-04-16] MEDS: INSULIN GLARGINE, 100 UNIT/ML CARTRIDGE SQ SCH (21:08)
--- NOTE | 2019-04-16 21:09 | NUR ---
telegraph printer mechanic notes: Blood sugar this PM was 209. 10 units of Lantus was administered. 4 units of regular insulin was administered as well. Will resume feeding at 0200am. Will continue to monitor.
[2019-04-17] VITALS: BP 147/71
[2019-04-17 03:38] VITALS: BP 155/79
[2019-04-17 04:00] VITALS: BP 158/66
[2019-04-17] MEDS: hydrALAZINE HCL 50 MG TABLET GT SCH ×2 (04:06→13:24)
[2019-04-17] MEDS: ISOSORBIDE DINITRATE (10MG) 10 MG TABLET GT SCH (04:28)
[2019-04-17] MEDS: METOCLOPRAMIDE HCL 10 MG/10 ML UDC GT SCH ×2 (05:27→11:58)
[2019-04-17] MEDS: BLOOD SUGAR DIAGNOSTIC 1 EACH STRIP VI SCH (06:23)
[2019-04-17] MEDS: INSULIN REGULAR, HUMAN 100 UNIT/ML 3 ML VIAL SQ PRN (06:25)
--- NOTE | 2019-04-17 06:26 | NUR ---
MOTOR ADJUSTER NOTES ASSISTING WITH CARE ACCUCHECK DONE RECHECKED 183 3 UNITS GIVEN ORDERED PER SLIDING SCALE.
[2019-04-17 06:30] LABS: BASOPHILS % (AUTO) 0.6 % (0.0-2.0); EOSINOPHILS % (AUTO) 4.5 % (0.0-6.0); HEMATOCRIT 21 % (33-45); HEMOGLOBIN 7.1 g/dL (11.5-14.8); LYMPHOCYTES % (AUTO) 27.4 % (20.0-44.0); MEAN CORPUSCULAR HGB CONC 34 g/dl (31.0-36.0); MEAN CORPUSCULAR VOLUME 93 fL (82-100); MONOCYTES # (AUTO) 0.4 /CMM (0.1-1.30); MONOCYTES % (AUTO) 5.7 % (2.0-12.0); NEUTROPHILS # (AUTO) 4.4 /CMM (1.8-8.9); NEUTROPHILS % (AUTO) 61.8 % (43.0-81.0); PLATELET COUNT (AUTO) 259 /CMM (150-450); RED BLOOD CELL COUNT(AUTO) 2.25 MIL/uL (4.0-5.2); WHITE BLOOD COUNT (AUTO) 7.2 K/uL (4.3-11.0)
[2019-04-17] MEDS: PANTOPRAZOLE 40 MG/PACK PACK GT SCH (06:36)
[2019-04-17 06:56] LABS: CREATININE 2.7 mg/dL (0.6-1.3); POTASSIUM 3.5 mmol/L (3.5-5.1)
--- NOTE | 2019-04-17 07:00 | NUR ---
BLIND INSTALLER CLOSING NOTES: ALL NEEDS WERE ATTENDED AND ANTICIPATED FOR. PT REMAINS ON VENT SETTINGS SHILEY XLT #8, AC 12, TV 550, FIO2 30%, PEEP 5. PT KEPT CLEAN, DRY, AND COMFORTABLE. PT TURNED AND REPOSITIONED Q 2HRS. WOUND TX PERFORMED ORDERED. PT ON G TUBE NEPRO FEEDING AT 45ML/HR. 5ML OF RESIDUAL NOTED. PT HAS ORLY MIDLINE AND IS PATENT AND INTACT. L CHEST WALL SHAVONNE CATH REMAINS INTACT AND IS KEPT CLEAN AND DRY. PT ON TELE MONITOR AND READING SHOWS SR 80S. PT HAS CHINO CATH AND IS ATTACHED TO DRAINAGE BAG WITH URINE DRAINING. OUTPUT WAS 150ML/ BED KEPT IN LOW, LOCKED POSITION, AND SIDE RAILS X 2UP. WILL ENDORSE TO AM NURSE FOR CHELSY.
--- NOTE | 2019-04-17 07:10 | NUR ---
RN OPENING NOTES REPORT RECEIVED FROM CONVENTION SERVICES MANAGER RN. PT REMAINS ON VENT SETTINGS SHILEY XLT #8, AC 12, TV 550, FIO2 30%, PEEP 5. PT KEPT CLEAN, DRY, AND COMFORTABLE. PT NEEDS TO BE REPOSITIONED Q 2HRS. PT ON G TUBE NEPRO FEEDING AT 45ML/HR. 5ML OF RESIDUAL REPORTED BY CONVENTION SERVICES MANAGER RN. PT HAS ORLY MIDLINE AND IS PATENT AND INTACT. L CHEST WALL SHAVONNE CATH REMAINS INTACT AND IS KEPT CLEAN AND DRY. PT ON TELE MONITOR AND READING SHOWS SR 80S. PT HAS CHINO CATH AND IS ATTACHED TO DRAINAGE BAG WITH URINE DRAINING. , AND SIDE RAILS X 2UP. WILL CONTINUE TO MONITOR.
[2019-04-17 07:20] LABS: EOSINOPHILS % (MANUAL) 5 % (0-4); LYMPHOCYTES % (MANUAL) 32 % (16-48); METAMYELOCYTES % 1 % (0-0); MONOCYTES % (MANUAL) 7 % (0-11.0); MYELOCYTES % 1 % (0-0); NEUTROPHILS % (MANUAL) 53 (42-76)
[2019-04-17 08:00] VITALS: BP 165/67
[2019-04-17] MEDS: LACTULOSE 10 G/15 ML UDC (PYXIS) GT SCH (09:58)
[2019-04-17] MEDS: FERROUS SULFATE UDC 300 MG/5 ML UDC GT SCH (09:58)
[2019-04-17] MEDS: PROSOURCE / PROSTAT (PYXIS) 30 ML UDC GT SCH (09:58)
[2019-04-17] MEDS: LACTOBACILLUS RHAMNOSUS GG 1 EACH CAP.SPRINK GT SCH (09:58)
[2019-04-17] MEDS: NIFEdipine (10MG) 10 MG CAPSULE PO SCH (09:59)
[2019-04-17] MEDS: LOSARTAN POTASSIUM 50 MG TABLET GT SCH (09:59)
[2019-04-17] MEDS: CARVEDILOL 12.5 MG TABLET GT SCH (10:00)
[2019-04-17] MEDS: LINEZOLID 600 MG TABLET GT SCH (10:03)
[2019-04-17] MEDS: MICAFUNGIN SODIUM 50 MG in IV NS 0.9% 100 ML IV SCH (11:58)
[2019-04-17] MEDS: HYDROGEL DRESSING 90 GM TUBE TP PRN (11:59)
[2019-04-17] MEDS: DAKINS QUARTER STRENGTH (0.125%) 480 ML BOTTLE TOP SCH (11:59)
[2019-04-17 12:00] VITALS: BP 139/64
[2019-04-17] MEDS: HYDROGEL DRESSING 90 GM TUBE TP SCH (12:00)
[2019-04-17 13:24] VITALS: BP 168/54
--- NOTE | 2019-04-17 13:44 | NUR ---
RN D/C NOTES REPORT GIVEN TO LEA RN TOUR BUS DRIVER/GUIDE AT [facility] AT 1130. PER LEA TOUR BUS DRIVER/GUIDE MIDLINE OK TO GO WITH PT. PHOTOS TAKEN AND PLACED IN CHART. WOUNDS REDRESSED AND WOUND TX IMPLEMENTED. AMBULANCE ARRIVED AT 1215 REPORT GIVEN AND HELD DUE TO PT BLOOD PRESSURE ELEVATED. MEDICATION HYDRALIZINE GIVEN AND BP STARTED TO TREND DOWN. EMT OKAY WITH TAKEN PT. PT TOLERATING TRANSFER OF VENT SETTING TO EMT VENT. PT D/C VIA AMBULANCE. BELONGINGS LIST SIGNED AND PLACED IN CHART.
== END 2019-04-17 14:00 | DRG 710 ==
LOC: ER 18:50 → TELE 23:00 → MED 04-17 13:31
PROVIDERS: ADMIT Nurse Practitioner Acute Care; ATTEND Family Medicine
PROC: 5A1955Z Respiratory Ventilation, Greater than 96 Consecutive Hours (ICD-10-PCS; principal; 2019-04-02)
PROC: 30233N1 Transfusion of Nonautologous Red Blood Cells into Peripheral Vein, Percutaneous Approach (ICD-10-PCS; 2019-04-03)
PROC: 5A1D70Z Performance of Urinary Filtration, Intermittent, Less than 6 Hours Per Day (ICD-10-PCS; 2019-04-04)
PROC: 05HD33Z Insertion of Infusion Device into Right Cephalic Vein, Percutaneous Approach (ICD-10-PCS; 2019-04-06)
PROC: 0KBP0ZZ Excision of Left Hip Muscle, Open Approach (ICD-10-PCS; 2019-04-06)
PROC: 0QB10ZZ Excision of Sacrum, Open Approach (ICD-10-PCS; 2019-04-06)
PROC: 0JBL0ZZ Excision of Right Upper Leg Subcutaneous Tissue and Fascia, Open Approach (ICD-10-PCS; 2019-04-06)
DX: A41.9 Sepsis, unspecified organism (principal); E43 Unspecified severe protein-calorie malnutrition; G93.1 Anoxic brain damage, not elsewhere classified; Z99.11 Dependence on respirator [ventilator] status; J18.9 Pneumonia, unspecified organism; J96.10 Chronic respiratory failure, unspecified whether with hypoxia or hypercapnia; L89.154 Pressure ulcer of sacral region, stage 4; L89.224 Pressure ulcer of left hip, stage 4; E11.22 Type 2 diabetes mellitus with diabetic chronic kidney disease; L89.213 Pressure ulcer of right hip, stage 3; R53.2 Functional quadriplegia; I12.0 Hypertensive chronic kidney disease with stage 5 chronic kidney disease or end stage renal disease; N18.6 End stage renal disease; E87.1 Hypo-osmolality and hyponatremia; D63.1 Anemia in chronic kidney disease; I25.10 Atherosclerotic heart disease of native coronary artery without angina pectoris; E78.5 Hyperlipidemia, unspecified; R13.10 Dysphagia, unspecified; Z99.2 Dependence on renal dialysis; Z90.49 Acquired absence of other specified parts of digestive tract; Z79.4 Long term (current) use of insulin; Z79.84 Long term (current) use of oral hypoglycemic drugs; Z79.899 Other long term (current) drug therapy; Z86.74 Personal history of sudden cardiac arrest; Z88.5 Allergy status to narcotic agent; Z86.19 Personal history of other infectious and parasitic diseases; E66.01 Morbid (severe) obesity due to excess calories; Z68.31 Body mass index [BMI] 31.0-31.9, adult; E83.41 Hypermagnesemia; E87.6 Hypokalemia; Z93.1 Gastrostomy status; Z93.0 Tracheostomy status; B96.4 Proteus (mirabilis) (morganii) as the cause of diseases classified elsewhere; B96.20 Unspecified Escherichia coli [E. coli] as the cause of diseases classified elsewhere; Y95 Nosocomial condition; B37.49 Other urogenital candidiasis; E11.69 Type 2 diabetes mellitus with other specified complication; M86.9 Osteomyelitis, unspecified
CPT/HCPCS: 31720; 36415; 71045-TC; 80048-TC; 80061-TC; 80076-TC; 81000-TC; 82272-TC; 82962-TC; 83605-TC; 83735-TC; 84100-TC; 84443-TC; 84484-TC; 85025-TC; 85730-TC; 86706; 86850-TC; 86921-TC; 87040-TC; 87070-TC; 87081-TC; 87086-TC; 87186-TC; 87340; 90935-TC; 93307-TC; 94003-TC; 94760-TC; 94762-TC; 94799-TC; A4216; A4623; A6248; A6253; A6403; A7526; G0378; J0696; J0885; J1815; J2020; J2185; J2248; J2997; J3370; J7030; J7040; J7050; J7060; J8597; P9016-BL; P9047

== ENCOUNTER 2019-05-14 17:17 | Inpatient (IN) | payer OTHER ==
[2019-05-14] VITALS (7 sets, daily range): BP systolic 121–180; BP diastolic 39–167
[~2019-05-14] VITALS: Ht 167.6 cm; Wt 71.7 kg
[~2019-05-14 17:17] MED LIST changes: -CALC0.253 GT; +CARV25TA GT; +CHOL100044 GT; -CLON0.1T GT; -CRAN450C GT; -DIPH-530 GT; -ERGO500014 GT; +HYDR-4077 GT; -HYDR-4077 PO; -INSU100V39 SQ; +ISOS10TA8 GT; +LINE600T12 GT; +LOSA50TA39 GT; +MAGN400O6 GT; -NUT.237L67 GT; +Nepro GT; -ONDA4TAB5 GT; -VIT500LI GT; +ZINC220C8 GT
--- NOTE | 2019-05-14 17:35 | NUR ---
BIBRA WITH RT, FROM [facility], CAME IN DUE TO RESPIRATORY DISTRESS AND TACHY. PT WAS NOT DIALYZED. SHE IS NONVERBAL. HAS TRACH, GTUBE, AND CHINO IN PLACE. DIALYSIS ACCESS AT LEFT UPPER CHEST. GREAT LEFT TOE AMPUTATION. VENT SETTINGS: TIDAL VOL 500, PEEP 5, RATE 12, O2 30%. EXTREMITIES CONTRACTED. SKIN WARM AND DRY, SMALL RASH AT LEFT AC, CIRCULAR SORES AT RIGHT OUTER ANKLE. SACRAL ULCERS.
[2019-05-14] MEDS ORDERED: INSU100V39 SQ (17:47)
[2019-05-14] MEDS ORDERED: SACC250C PO (17:47)
[2019-05-14] MEDS ORDERED: CLON0.1T PO (17:47)
[2019-05-14] MEDS ORDERED: NIFE-2 PO (17:47)
[2019-05-14] MEDS ORDERED: METO-295 PO (17:47)
--- NOTE | 2019-05-14 17:49 | NUR ---
PT. PLACED INTO [facility] VENT VIA TRACH SIZE #8 XLT PROXIMAL WITH FOLLOWING PARAMETERS PER RT TRANSPORTER: AC 12, 550, FIO2 30%, PEEP +5. BREATH SOUNDS COARSE RHONCHI BILATERAL. AMBUBAG @ BEDSIDE. VENT PLUGGED INTO RED OUTLET WITH ALARMS ON AND FUNCTIONING. Addendum: 05/14/19 at 1753 by CRISTY MARION RT Amended: Links added.
[2019-05-14] MEDS ORDERED: ACETAMINOPHEN 650 MG/SUPP.RECT RC ONE ×2 (18:00→18:15)
[2019-05-14] MEDS ORDERED: IV NS 0.9% 500 ML BAG IV ONE (18:00)
[2019-05-14 18:07] LABS: CALCIUM, SERUM 8.8 mg/dL (8.5-10.1); CARBON DIOXIDE 22 mmol/L (21-32); CHLORIDE 98 mmol/L (98-107); CREATININE 2.3 mg/dL (0.6-1.3); GLUCOSE 186 mg/dL (74-106); POTASSIUM 3.5 mmol/L (3.5-5.1); SODIUM SERUM 134 mmol/L (136-145); UREA NITROGEN, BLOOD 46 mg/dL (7-18)
[2019-05-14 18:15] LABS: BASOPHILS # (AUTO) 0.1 /CMM (0.0-0.2); BASOPHILS % (AUTO) 0.5 % (0.0-2.0); EOSINOPHILS % (AUTO) 4.9 % (0.0-6.0); HEMATOCRIT 21 % (33-45); LYMPHOCYTES # (AUTO) 1.1 /CMM (0.8-4.8); LYMPHOCYTES % (AUTO) 10.8 % (20.0-44.0); MEAN CORPUSCULAR HGB CONC 34 g/dl (31.0-36.0); MEAN CORPUSCULAR VOLUME 95 fL (82-100); MONOCYTES # (AUTO) 0.4 /CMM (0.1-1.30); MONOCYTES % (AUTO) 4.2 % (2.0-12.0); NEUTROPHILS # (AUTO) 7.8 /CMM (1.8-8.9); NEUTROPHILS % (AUTO) 79.6 % (43.0-81.0); PLATELET COUNT (AUTO) 290 /CMM (150-450); RED BLOOD CELL COUNT(AUTO) 2.19 MIL/uL (4.0-5.2); WHITE BLOOD COUNT (AUTO) 9.8 K/uL (4.3-11.0)
[2019-05-14 18:20] LABS: ALANINE AMINOTRANSFERASE 11 U/L (12-78); ALKALINE PHOSPHATASE 160 U/L (46-116); ASPARTATE AMINOTRANSFERASE 17 U/L (15-37); B-TYPE NATRIURETIC PEPTIDE 5670 PG/ML (0-125); BILIRUBIN,DIRECT 0.1 mg/dL (0.0-0.2); BILIRUBIN,TOTAL 0.3 mg/dL (0.2-1.0); TOTAL PROTEIN, SERUM 7.1 g/dL (6.4-8.2)
[2019-05-14] MEDS ORDERED: CEFTRIAXONE 1GM BAG (ER ONLY) 50 ML IV ONE ×2 (18:30→19:34)
[2019-05-14 18:52] LABS: EOSINOPHILS % (MANUAL) 3 % (0-4); LYMPHOCYTES % (MANUAL) 10 % (16-48); MONOCYTES % (MANUAL) 4 % (0-11.0); NEUTROPHILS % (MANUAL) 83 (42-76)
--- NOTE | 2019-05-14 18:54 | NUR ---
RECIEVED BED 259
--- NOTE | 2019-05-14 19:34 | NUR ---
EPIC PERSONAL CAREGIVER PAGED
--- NOTE | 2019-05-14 20:08 | NUR ---
URINE SENT TO STAT LAB
--- NOTE | 2019-05-14 20:17 | NUR ---
REPORT GIVEN TO MOY CLEMENT FOR ICU 259
[2019-05-14] MEDS ORDERED: INSULIN REGULAR, HUMAN 100 UNIT/ML 3 ML VIAL SQ PRN (20:30)
[2019-05-14] MEDS ORDERED: ZOLPIDEM TARTRATE 5 MG TABLET PO PRN (20:30)
[2019-05-14] MEDS ORDERED: MAG HYDROX/AL HYDROX/SIMETH 30 ML UDC PO PRN (20:30)
[2019-05-14] MEDS ORDERED: ONDANSETRON HCL/PF 4 MG/2 ML VIAL IVP PRN (20:30)
[2019-05-14] MEDS ORDERED: DEXTROSE 50%-WATER 50 ML DISP.SYRIN IV PRN (20:30)
[2019-05-14] MEDS ORDERED: CLONIDINE HCL 0.1 MG TABLET PO PRN ×2 (20:30)
[2019-05-14] MEDS ORDERED: *INSULIN REGULAR(HUMULIN R)HUM 100 UNIT/ML VIAL SQ PRN (20:30)
[2019-05-14] MEDS ORDERED: HYDROCODONE/APAP 5/325MG 1 EACH TABLET PO PRN (20:30)
[2019-05-14] MEDS ORDERED: HYDROMORPHONE INJ 2 MG/ML DISP.SYRIN IV PRN (20:30)
[2019-05-14] MEDS ORDERED: BISACODYL SUPP (10 MG) 10 MG/SUPP.RECT SUPP.RECT RC PRN (20:30)
[2019-05-14] MEDS ORDERED: ALBUTEROL FS 2.5 MG/3 ML VIAL.NEB NEB PRN (20:30)
--- NOTE | 2019-05-14 20:36 | NUR ---
[facility]
[2019-05-14 20:41] LABS: APPEARANCE,URINE Cloudy (CLEAR); BILIRUBIN,URINE Negative (NEGATIVE); BLOOD, URINE Large Ery/uL (NEGATIVE); COLOR,URINE Yellow (YELLOW); KETONES,URINE Trace (NEGATIVE); LEUKOCYTE ESTERASE ,URINE Moderate (NEGATIVE); NITRITE, URINE Negative (NEGATIVE); PH,URINE 7.5 (5.0-8.0); PROTEIN,URINE >=300 mg/dl (NEGATIVE); UGLUCOSE Negative (NEGATIVE); UROBILINOGEN,URINE 0.2 EU/dL (0.2)
[2019-05-14 20:50] LABS: BACTERIA,URINE Many /HPF (None Seen); SQUAMOUS EPITHELIAL CELL,UR Few /HPF (None Seen)
[2019-05-14 20:51] LABS: RBC,URINE 21-50 /HPF (0-2)
[2019-05-14] MEDS: HEPARIN SODIUM, PORCINE 5000 UNITS/1 ML VIAL SQ SCH (21:00)
[2019-05-14] MEDS: hydrALAZINE HCL 50 MG TABLET GT SCH (21:45)
[2019-05-14] MEDS: BLOOD SUGAR DIAGNOSTIC 1 EACH STRIP VI SCH (21:47)
[2019-05-14] MEDS: glipiZIDE 10 MG TABLET GT SCH (21:47)
[2019-05-14] MEDS: LOSARTAN POTASSIUM 50 MG TABLET GT SCH (21:49)
--- NOTE | 2019-05-14 22:20 | NUR ---
RN NOTES ADMITTED A FEMALE PATIENT FROM ER CAME FROM SNF. WITH TRACH AND VENT; TRACH SHILEY 8 VENT SETTING AC 12 TV 500 FIO2 30% PEEP 5. NO ACUTE RESPIRATORY DISTRESS, RHONCHI ON BILATERAL BREATH SOUND. WITH STRONG PULSES. ON FULL CODE STATUS. PT IS NON VERBAL. RESPONSIVE TO PAIN STIMULI. DIAGNOSED OF ANEMIA , SOB AND FLUID OVERLOAD. PLACED ON TELE MONITOR ANS READ SR HR 90'S. PATIENT HAS GT CLAMPED INTACT AND PATENT. IV SITE ON LEFT WRIST G 20 CLEAN AND FLUSHED WELL. HD CATH ON EWA CHEST WALL W/ CLEAN AND DRY DRESSING. PATIENT PRESENT WITH MULTIPLE PRESSURE SORE ( SEE CHART) INITIAL TREATMENT DONE AND WILL F/U WOUND NURSE IN AM. VSS. TEMPERATURE 99.7. KEPT PT CLEAN AND DRY, BED LOCKED AND SECURED. WILL CONTINUE TO MONITOR.
[2019-05-14] MEDS: ISOSORBIDE MONONITRATE 20 MG TABLET PO SCH (22:30)
--- NOTE | 2019-05-14 23:04 | NUR ---
horticulture instructor. heparin not given. h&h is 7. made aware.
[2019-05-14] MEDS ORDERED: ISOSORBIDE DINITRATE (20MG) 20 MG TABLET ONE (23:50)
[2019-05-15] VITALS (31 sets, daily range): BP systolic 110–171; BP diastolic 32–119
[2019-05-15 04:39] LABS: BASOPHILS % (AUTO) 0.4 % (0.0-2.0); EOSINOPHILS % (AUTO) 3.9 % (0.0-6.0); LYMPHOCYTES # (AUTO) 1.6 /CMM (0.8-4.8); LYMPHOCYTES % (AUTO) 17.4 % (20.0-44.0); MEAN CORPUSCULAR HGB CONC 34 g/dl (31.0-36.0); MEAN CORPUSCULAR VOLUME 94 fL (82-100); MONOCYTES # (AUTO) 0.6 /CMM (0.1-1.30); NEUTROPHILS # (AUTO) 6.7 /CMM (1.8-8.9); NEUTROPHILS % (AUTO) 72.3 % (43.0-81.0); PLATELET COUNT (AUTO) 270 /CMM (150-450); WHITE BLOOD COUNT (AUTO) 9.3 K/uL (4.3-11.0)
[2019-05-15 04:52] LABS: ALBUMIN 1.8 g/dL (3.4-5.0); BILIRUBIN,TOTAL 0.3 mg/dL (0.2-1.0); CALCIUM, SERUM 8.9 mg/dL (8.5-10.1); CREATININE 2.7 mg/dL (0.6-1.3); MAGNESIUM 2.2 mg/dL (1.8-2.4); PHOSPHORUS 2.3 mg/dL (2.5-4.9); POTASSIUM 3.7 mmol/L (3.5-5.1); TOTAL PROTEIN, SERUM 6.7 g/dL (6.4-8.2)
[2019-05-15 04:54] LABS: RED BLOOD CELL COUNT(AUTO) 1.84 MIL/uL (4.0-5.2)
[2019-05-15] MEDS: ISOSORBIDE MONONITRATE 20 MG TABLET PO SCH ×3 (05:00→21:39)
[2019-05-15 05:18] LABS: HEMOGLOBIN 5.9 g/dL (11.5-14.8)
[2019-05-15 05:19] LABS: HEMATOCRIT 17 % (33-45)
--- NOTE | 2019-05-15 05:25 | NUR ---
RN NOTES RECEIVED A CALL FROM [facility] REPORTED CRITICAL VALUES OF HEMOGLOBIN 5.9. INFORMED CORINA WITH NEW ORDER OF 1 UNIT OF PRBC ACKNOWLEDGE ORDER
[2019-05-15] MEDS: hydrALAZINE HCL 50 MG TABLET GT SCH ×3 (05:26→21:40)
[2019-05-15 05:49] LABS: EOSINOPHILS % (MANUAL) 3 % (0-4); LYMPHOCYTES % (MANUAL) 14 % (16-48); MONOCYTES % (MANUAL) 5 % (0-11.0); NEUTROPHILS % (MANUAL) 78 (42-76)
--- NOTE | 2019-05-15 07:15 | NUR ---
RECEIVED CARE OF PATIENT FROM MOY CLEMENT. PATIENT NON VERBAL SERBIAN SPEAKING OBTUNDED AND OPENS EYES TO TOUCH. PER FAMILY PATIENT NORMAL MENTATION SHE IS ABLE TO NOD YES AND NO TO QUESTIONS ASKED OF HER. PENDING 1 UNIT OF PRBC TODAY AND HD. FLACC 0. TOLERATING VENT WITHOUT DISTRESS OR SOB NOTED. PATIENT WITH G TUBE PATENT AND CLAMPED. CHINO CATH (REPLACED PM SHIFT) INTACT AND PATENT. SKIN, SAFETY, ASPIRATION PRECAUTIONS IN PLACE AND MONITORING
--- NOTE | 2019-05-15 07:22 | NUR ---
RN NOTES PATIENT STABLE WITH EPISODE OF HIGH BP, ALL DUE MEDICINE GIVEN ORDERED VIA GT EXCEPT ISOSORBIDE IS NOT ON THE FLOOR. NO ACTIVE BLEEDING NOTED. HBG 5.9 TODAY WAITING FOR BLOOD TO GET READY TO TRANSFUSE. IV SITE INTACT AND PATENT. NO STOOL COLLECTED ENDORSED TO AM SHIFT TO COLLECT . KEPT PT CLEAN AND DRY . ENDORSED CONTINUITY OF CARE.
--- NOTE | 2019-05-15 07:28 | NUR ---
DOCTOR LEONARD MRORISSEY AT BEDSIDE AND UPDATED ON PATIENT CONDITION, LABS, VITAL SIGNS. PER DOCTOR PLACE MIDLINE AND TRANSFUSE 1 UNIT OF PACKED RED BLOOD CELLS WITH HEMO DIALYSIS TODAY. NO ACTIVE SIGNS AND BLEEDING BLEEDING AT THIS TIME AND WILL MONITOR. NOTIFIED DOCTOR OF PATIENT ELEVATED BLOOD PRESSURE PER MD HE WILL ORDER NEEDED BLOOD PRESSURE MEDICATIONS
[2019-05-15] MEDS ORDERED: LABETALOL HCL IV 100MG VIAL IV PRN (07:30)
[2019-05-15] MEDS: FERROUS SULFATE UDC 300 MG/5 ML UDC GT SCH ×2 (08:05→16:56)
[2019-05-15] MEDS: CHOLECALCIFEROL 1,000 UNIT TABLET (VIT D3) GT SCH (08:05)
[2019-05-15] MEDS: LACTULOSE 10 G/15 ML UDC (PYXIS) GT SCH (08:05)
[2019-05-15] MEDS: VIT B CMPLX 3/FA/VIT C/BIOTIN 1 TAB TABLET GT SCH (08:06)
[2019-05-15] MEDS: glipiZIDE 10 MG TABLET GT SCH ×2 (08:06→21:40)
[2019-05-15] MEDS: Z GUARD REMEDY 2 OZ OINT TP PRN ×3 (08:06→21:50)
[2019-05-15] MEDS: ACIDOPHILUS/BULGARICUS 1 EACH TAB.CHEW PO SCH (08:06)
[2019-05-15] MEDS: BLOOD SUGAR DIAGNOSTIC 1 EACH STRIP VI SCH ×4 (08:29→21:41)
--- NOTE | 2019-05-15 08:56 | NUR ---
PER DOCTOR YUNI OK TO GIVE HEPARIN 5000 UNITS SCHEDULED ALSO OK TO START TUBE FEEDING PER DIETARY RECOMENNDATION
[2019-05-15] MEDS: LOSARTAN POTASSIUM 50 MG TABLET GT SCH ×2 (09:00→21:40)
[2019-05-15] MEDS: NIFEdipine XL (30MG) 30 MG TAB PO SCH (09:00)
--- NOTE | 2019-05-15 09:42 | NUR ---
WOUND CARE CONSULT: PT PRESENTS WITH MULTIPLE WOUNDS INCLUDING UNSTAGEABLE ULCER TO RT BUTTOCK, STAGE 4 ULCERS TO LEFT BUTTOCK, RT HIP AND SACRUM, DRY WOUNDS TO RT LATERAL HEEL AND ANKLE, REDNESS WITH MOIST SKIN TO BREASTFOLDS, ALL PRESENT ON ADMISSION. RECOMMENDATIONS MADE FOR SKIN PROTECTION AND WOUND CARE. DISCUSSED WITH NURSING STAFF. DEFER TO DPM FOR LOWER EXTREMITY WOUNDS. DR LERNER AWARE OF DPM CONSULT REQUEST. DR KAVYA AGUILAR NOTIFIED OF SURGICAL CONSULT REQUEST. PT ON FIRST STEP [facility]. WILL SEE PRN. TRIPLETT IN AGREEMENT WITH PLAN OF CARE. Addendum: 05/15/19 at 0945 by PRASHANTH ADAN WNDNU Amended: Links added.
[2019-05-15] MEDS: PANTOPRAZOLE 40 MG/PACK PACK GT SCH ×2 (09:58→16:56)
[2019-05-15] MEDS: HEPARIN SODIUM, PORCINE 5000 UNITS/1 ML VIAL SQ SCH ×2 (09:59→21:38)
--- NOTE | 2019-05-15 10:35 | NUR ---
PER DOCTOR LAUREN ASHTON TO INSERT MIDLINE
--- NOTE | 2019-05-15 11:42 | NUR ---
BLOOD SUGAR 66 G TUBE SUGAR GIVEN TO SUPPLEMENT PENDING G TUBE FEEDING RESUMPTION
[2019-05-15] MEDS: DAKINS QUARTER STRENGTH (0.125%) 480 ML BOTTLE TOP SCH (12:51)
--- NOTE | 2019-05-15 12:53 | NUR ---
HOLDING BP MEDS PER DR AGUILAR PATIENT PENDING HEMODIALYSIS
[2019-05-15] MEDS ORDERED: Sodium Phosphate 15 MMOL in IV D5W 250 ML IV ONE (14:00)
--- NOTE | 2019-05-15 14:45 | NUR ---
NOTIFIED [employer] OF PATIENT RASH AND PER FAMILY IS NEW ABOUT 2 WEEKS. PER [employer]EB[employer] SANTANA FOR SCRAPINGS. NOTIFIED ALVARO SHEA.
--- NOTE | 2019-05-15 18:48 | NUR ---
ALL DUE MEDS GIVEN AND NEEDS ASSESSED. PATIENT IS MORE ALERT AND NODDING YES AND NO TO QUESTIONS ASKED OF HER WITH FAMILY AT BEDSIDE. HD CURRENTLY IN PROGRESS. PENDING MIDLINE INSERTION PER DR LEONARD MORRISSEY ORDER AND OKAY WITH AIMEE RUFF. PATIENT FLACC 0. VS STABLE AT THIS TIME. AFEBRILE. TOLERATING VENT WITHOUT SOB, DIFFICULTY BREATHING AND NO S/S DISTRESS NOTED. SKIN, SAFETY, ASPIRATION PRECAUTIONS IN PLACE AND MONITORED.
--- NOTE | 2019-05-15 19:08 | NUR ---
PATIENT TOLERATING BLOOD TRANSFUSION; PER ORDER GIVING THROUGH HD WITH HD RN. CARE ENDORSED TO MOY ATKINS
--- NOTE | 2019-05-15 20:00 | NUR ---
RN NOTES BLOOD TRANSFUSION ENDED BY HD RN, NO REACTIONS REPORTED.
--- NOTE | 2019-05-15 20:50 | NUR ---
RN INITIAL NOTES RECEIVED PT IN BED. PT RECEIVING HD, 1 UNIT PRBC COMPLETED BY HD RN . TRACH SHILEY 8 VENT SETTING AC 12 TV 500 FIO2 30% PEEP 5. NO ACUTE RESPIRATORY DISTRESS NOTED. PT IS NON VERBAL. ST HR 101. PATIENT HAS GT CLAMPED INTACT AND PATENT. IV SITE ON LEFT WRIST G 20 CLEAN AND FLUSHED WELL. HD CATH ON EWA CHEST WALL W/ CLEAN AND DRY DRESSING. CHINO IN PLACE. PT KEPT CLEAN AND DRY, BED LOCKED AND SECURED. WILL CONTINUE TO MONITOR.
[2019-05-15] MEDS ORDERED: CEFTRIAXONE 1 G in IV D5W 50 ML IV SCH (21:00)
[2019-05-15] MEDS: NEPRO 1,000 ML BOTTLE GT PRN (22:38)
[2019-05-16] VITALS (11 sets, daily range): BP systolic 103–148; BP diastolic 35–73
[2019-05-16 04:29] LABS: BASOPHILS # (AUTO) 0.1 /CMM (0.0-0.2); BASOPHILS % (AUTO) 1.2 % (0.0-2.0); HEMATOCRIT 23 % (33-45); HEMOGLOBIN 7.8 g/dL (11.5-14.8); LYMPHOCYTES # (AUTO) 1.5 /CMM (0.8-4.8); LYMPHOCYTES % (AUTO) 17.7 % (20.0-44.0); MEAN CORPUSCULAR HGB CONC 35 g/dl (31.0-36.0); MEAN CORPUSCULAR VOLUME 94 fL (82-100); MONOCYTES # (AUTO) 0.4 /CMM (0.1-1.30); MONOCYTES % (AUTO) 4.9 % (2.0-12.0); NEUTROPHILS # (AUTO) 6.3 /CMM (1.8-8.9); NEUTROPHILS % (AUTO) 72.2 % (43.0-81.0); PLATELET COUNT (AUTO) 284 /CMM (150-450); RED BLOOD CELL COUNT(AUTO) 2.39 MIL/uL (4.0-5.2); WHITE BLOOD COUNT (AUTO) 8.7 K/uL (4.3-11.0)
[2019-05-16 04:46] LABS: CALCIUM, SERUM 8.6 mg/dL (8.5-10.1); CREATININE 2.1 mg/dL (0.6-1.3); MAGNESIUM 2.1 mg/dL (1.8-2.4); PHOSPHORUS 2.6 mg/dL (2.5-4.9); POTASSIUM 3.6 mmol/L (3.5-5.1)
--- NOTE | 2019-05-16 05:13 | NUR ---
Pt rec'd trached via shiley XLT sz 8 proximal. on [facility] vent settings as charted. no resp distress or sob noted. Trach is patent and secured. Sx'd for thick moderate amount of pale yellow secretions. Alarms are set and audible. vent plugged into red outlet. ambu bag bedside. will continue to monitor. Addendum: 05/16/19 at 0513 by HANNAH MARIANO RT Amended: Links added.
[2019-05-16 05:20] LABS: OCCULT BLOOD STOOL NEGATIVE (NEGATIVE)
[2019-05-16] MEDS: hydrALAZINE HCL 50 MG TABLET GT SCH ×3 (05:34→21:24)
[2019-05-16] MEDS: ISOSORBIDE MONONITRATE 20 MG TABLET PO SCH ×3 (05:34→21:24)
--- NOTE | 2019-05-16 06:00 | NUR ---
BUILDING ENGINEER NOTES TRANSFERRED PT IN BED TO [facility], REPORT GIVEN TO ARIELLE WINTER. PT REMAINED STABLE OVERNIGHT. PT LEFT FLOOR WITH TAMI VICE PRESIDENT QUALITY IMPROVEMENT AND RT, IN BED. TRACH SHILEY 8 VENT SETTING AC 12 TV 500 FIO2 30% PEEP 5. NO ACUTE RESPIRATORY DISTRESS NOTED. PT IS NON VERBAL. ST HR 10O. PATIENT HAS GT INTACT AND PATENT WITH T FEEDING ORDERED. IV SITE ON LEFT WRIST G 20 CLEAN AND FLUSHED WELL. R UA MIDLINE. HD CATH ON EWA CHEST WALL W/ CLEAN AND DRY DRESSING. CHINO IN PLACE. PT KEPT CLEAN AND DRY. MEDS AND CHART SENT WITH PT. ALL SAFETY PRECAUTIONS TAKEN. PT TRANSFERRED PER PROTOCOL.
--- NOTE | 2019-05-16 06:00 | NUR ---
RECEIVED REPORT FROM MOY ATKINS FOR CHELSY.
--- NOTE | 2019-05-16 06:10 | NUR ---
FREDDY RN OPENING/CLOSING NOTES RECEIVED PATIENT IN BED, NONVERBAL, OPENS EYES. TRACH VENT SETTING SHILEY #8, AC 12, TV 500, FIO2 30%, PEEP 5. NO ACUTE RESPIRATORY DISTRESS NOTED. SATURATION 100%. ON TELE MONITOR SR WITH PACS WITH HR 90S. VITAL SIGNS; BP 152/44, HR 91, TEMP 99.8, RR 18. PATIENT HAS GT FLUSHING AND PATENT, NO RESIDUAL NOTED, GTF RUNNING AT 30ML/HR, PER REPORT GOAL IS 45ML/HR. IV SITE ON ORLY MIDLINE, LEFT WRIST G20 BOTH CLEAN AND FLUSHED WELL. HD CATH ON LEFT CHEST WALL W/ CLEAN AND DRY DRESSING. CHINO IN PLACE. PT KEPT CLEAN AND DRY, BED LOCKED AND SECURED. WILL CONTINUE TO MONITOR PT AND WILL ENDORSE TO AM RN FOR CHELSY.
[2019-05-16] MEDS: ACETAMINOPHEN 325 MG TABLET PO PRN ×2 (07:01→09:02)
--- NOTE | 2019-05-16 07:30 | NUR ---
FREDDY RN NOTES RECEIVED PT IN BED, OPENS EYES SPONTANEOUSLY. ON TELE SR. PT ON MECH VENT WITH NO S/SX OF RESP DISTRESS; SETTINGS MD ORDERED. VS STABLE WITH LOW GRADE FEVER. ORLY MIDLINE FLUSHED/PATENT. NEPRO RUNNING AT 30ML/HR. NO RESIDUAL. CHINO CATH DRAINING MINIMAL URINE,. ON ISOLATION PRECAUTIONS R/O SCABIES. BED IN LOCKED/LOWEST POSITION. CALL LIGHT IN REACH. WILL CONT TO MONITOR.
[2019-05-16] MEDS ORDERED: DEXTROSE 50%-WATER 50 ML DISP.SYRIN IV PRN (08:00)
[2019-05-16] MEDS: LOSARTAN POTASSIUM 50 MG TABLET GT SCH ×2 (09:00→21:26)
[2019-05-16] MEDS: NIFEdipine XL (30MG) 30 MG TAB PO SCH (09:00)
[2019-05-16] MEDS: FERROUS SULFATE UDC 300 MG/5 ML UDC GT SCH ×2 (09:01→16:35)
[2019-05-16] MEDS: VIT B CMPLX 3/FA/VIT C/BIOTIN 1 TAB TABLET GT SCH (09:01)
[2019-05-16] MEDS: LACTULOSE 10 G/15 ML UDC (PYXIS) GT SCH (09:01)
[2019-05-16] MEDS: glipiZIDE 10 MG TABLET GT SCH ×2 (09:01→21:25)
[2019-05-16] MEDS: ACIDOPHILUS/BULGARICUS 1 EACH TAB.CHEW PO SCH (09:01)
[2019-05-16] MEDS: PANTOPRAZOLE 40 MG/PACK PACK GT SCH ×2 (09:02→16:35)
[2019-05-16] MEDS: CHOLECALCIFEROL 1,000 UNIT TABLET (VIT D3) GT SCH (09:02)
[2019-05-16] MEDS: HEPARIN SODIUM, PORCINE 5000 UNITS/1 ML VIAL SQ SCH ×2 (09:04→21:22)
[2019-05-16] MEDS: DAKINS QUARTER STRENGTH (0.125%) 480 ML BOTTLE TOP SCH (09:14)
[2019-05-16] MEDS ORDERED: SILVER NITRATE APPLICATOR 1 EA BOX TP ONE (09:30)
[2019-05-16] MEDS ORDERED: LIDOCAINE 2%-EPI 1:100,000 30 ML VIAL TP ONE (09:30)
[2019-05-16] MEDS: INSULIN REGULAR, HUMAN 100 UNIT/ML 3 ML VIAL SQ PRN ×3 (13:03→23:58)
[2019-05-16] MEDS: BLOOD SUGAR DIAGNOSTIC 1 EACH STRIP IN SCH ×3 (13:04→23:58)
--- NOTE | 2019-05-16 14:36 | NUR ---
telecommunication equipment repairer notes summer, pathology, called to report positive scabies report. notified charge nurse.
[2019-05-16] MEDS ORDERED: PERMETHRIN 5% CRM 60 GM TUBE TP ONE (15:00)
[2019-05-16] MEDS ORDERED: IVERMECTIN 3 MG TABLET GT ONE (15:00)
[2019-05-16] MEDS ORDERED: MEROPENEM 500 MG in IV NS 0.9% 50 ML IV SCH ×4 (16:00)
[2019-05-16] MEDS ORDERED: MEROPENEM 1 G in IV NS 0.9% 100 ML IV ONE (16:00)
--- NOTE | 2019-05-16 16:00 | NUR ---
CONTRACT PROGRAMMER NOTES APPLIED ELIMITE CREAM.
[2019-05-16] MEDS: NIFEdipine (10MG) 10 MG CAPSULE GT SCH (16:37)
--- NOTE | 2019-05-16 16:49 | NUR ---
Patient is trach/vent dependent. Resident of [facility] [phone]. She is bedbound and totally dependent with adl's. Spoke with charge nurse at the facility- confirmed bed hold x7days . Patient receives her routine hemodialysis 3x/week every TTH[facility] at [facility] [phone]. Current dc plan is to return to [facility]. Addendum: 05/16/19 at 1649 by ADRIANNA FISCHER RN Amended: Links added.
--- NOTE | 2019-05-16 19:30 | NUR ---
PIER HAND HELPER END OF SHIFT NOTES PT IN BED, OPENS EYES SPONTANEOUSLY. ON TELE SR. PT ON MECH VENT WITH NO S/SX OF RESP DISTRESS; SETTINGS MD ORDERED. VS STABLE WITH NO FEVER. ORLY MIDLINE FLUSHED/PATENT. NEPRO RUNNING AT 45ML/HR. NO RESIDUAL. CHINO CATH DRAINING MINIMAL URINE,. ON ISOLATION PRECAUTIONS- SCABIES. BED IN LOCKED/LOWEST POSITION. CALL LIGHT IN REACH. WILL CONT TO MONITOR.
--- NOTE | 2019-05-16 20:00 | NUR ---
FREDDY NOTES RECEIVED PT AWAKE W/ EYES OPEN,DOES NOT TRACK,DOES NOT FOLLOW COMMANDS. ON VENT PER TRACH.W/ SHILEY #8,FIO2 30%,A/C 12 TV 550.&PEEP OF 5.SATURATING 100%.SUCTIONED FOR SCANT YELLOW SECRETIONS.ORAL CARE DONE.PT. NON-VERBAL.MONITOR SHOWS SR WITH PAC'S.RECEIVING NEPHRO VIA G-TUBE,TOLERATING FEEDING WELL W/NO RESIDUAL TO SCANT RESIDUAL..CHINO INTACT.INCONTINENT OF MODERATE SOFT BROWN STOOL,BED BATH GIVEN.
[2019-05-17] VITALS (7 sets, daily range): BP systolic 116–141; BP diastolic 38–70
--- NOTE | 2019-05-17 03:31 | NUR ---
FREDDY NOTES SUCTIONED FOR SCANT PALEYELLOW SECRETIONS.ORAL CARE DONE
[2019-05-17] MEDS: ISOSORBIDE MONONITRATE 20 MG TABLET PO SCH ×3 (04:40→20:40)
[2019-05-17] MEDS: hydrALAZINE HCL 50 MG TABLET GT SCH ×3 (04:41→20:40)
[2019-05-17] MEDS: NEPRO 1,000 ML BOTTLE GT PRN (05:19)
[2019-05-17] MEDS: BLOOD SUGAR DIAGNOSTIC 1 EACH STRIP IN SCH ×3 (06:00→18:31)
--- NOTE | 2019-05-17 06:16 | NUR ---
FREDDY NOTES BED BATH DONE.XEROFORM X2 THEN COVERED W/MEPILEX TO SACRAL AREA.VITAL SIGNS STABLE.
--- NOTE | 2019-05-17 06:57 | NUR ---
TELE NOTES SCABIES ISOLATION FOLLOWED.FOR SERIAL EXCISIONAL DEBRIDEMENT OF BILATERAL ISCHIAL AND SACRAL WOUND TODAY..
--- NOTE | 2019-05-17 07:30 | NUR ---
SILK FINISHER OPENING NOTES RECEIVED PT IN BED, OPENS EYES SPONTANEOUSLY. ON TELE ST 102. ON [facility] VENT TO TRACH. SETTINGS TOLERATED PER MD ORDER. PT HAS LOW GRADE FEVER. CHINO CATH IN PLACE DRAINING DENISE COLORED URINE. NEPRO RUNNING AT 45ML/HR. NO RESIDUAL NOTED. ORLY MIDLINE PATENT/FLUSHED. LEFT CHEST WALL HD CATH. BED IN LOCKED/LOWEST POSITION. CALL LIGHT IN REACH. WILL CONT TO MONITOR.
[2019-05-17 07:34] LABS: BASOPHILS # (AUTO) 0.1 /CMM (0.0-0.2); BASOPHILS % (AUTO) 0.8 % (0.0-2.0); EOSINOPHILS % (AUTO) 4.9 % (0.0-6.0); HEMATOCRIT 23 % (33-45); HEMOGLOBIN 7.6 g/dL (11.5-14.8); LYMPHOCYTES # (AUTO) 1.8 /CMM (0.8-4.8); LYMPHOCYTES % (AUTO) 24.2 % (20.0-44.0); MEAN CORPUSCULAR HGB CONC 33 g/dl (31.0-36.0); MEAN CORPUSCULAR VOLUME 95 fL (82-100); MONOCYTES # (AUTO) 0.5 /CMM (0.1-1.30); MONOCYTES % (AUTO) 6.1 % (2.0-12.0); NEUTROPHILS # (AUTO) 4.9 /CMM (1.8-8.9); PLATELET COUNT (AUTO) 287 /CMM (150-450); WHITE BLOOD COUNT (AUTO) 7.6 K/uL (4.3-11.0)
[2019-05-17 08:22] LABS: CALCIUM, SERUM 8.5 mg/dL (8.5-10.1); CREATININE 3.1 mg/dL (0.6-1.3); MAGNESIUM 2.2 mg/dL (1.8-2.4); PHOSPHORUS 3.4 mg/dL (2.5-4.9); POTASSIUM 3.3 mmol/L (3.5-5.1)
[2019-05-17] MEDS: ACIDOPHILUS/BULGARICUS 1 EACH TAB.CHEW PO SCH (08:31)
[2019-05-17] MEDS: glipiZIDE 10 MG TABLET GT SCH ×2 (08:31→20:39)
[2019-05-17] MEDS: VIT B CMPLX 3/FA/VIT C/BIOTIN 1 TAB TABLET GT SCH (08:31)
[2019-05-17] MEDS: CHOLECALCIFEROL 1,000 UNIT TABLET (VIT D3) GT SCH (08:32)
[2019-05-17] MEDS: LACTULOSE 10 G/15 ML UDC (PYXIS) GT SCH (08:32)
[2019-05-17] MEDS: PANTOPRAZOLE 40 MG/PACK PACK GT SCH ×2 (08:32→18:02)
[2019-05-17] MEDS: ACETAMINOPHEN 325 MG TABLET PO PRN ×2 (08:32→20:39)
[2019-05-17] MEDS: FERROUS SULFATE UDC 300 MG/5 ML UDC GT SCH ×2 (08:32→18:01)
--- NOTE | 2019-05-17 08:43 | NUR ---
PRINT PRESS OPERATOR NOTES WILL HOLD BP MEDS/HEPARIN. PT SCHEDULED FOR DEBRIDEMENT AND HD TODAY.
[2019-05-17] MEDS: NIFEdipine (10MG) 10 MG CAPSULE GT SCH ×2 (09:00→18:02)
[2019-05-17] MEDS: POTASSIUM CHLORIDE 20 MEQ TAB.PRT.SR PO ONE ×2 (09:00→10:52)
[2019-05-17] MEDS: LOSARTAN POTASSIUM 50 MG TABLET GT SCH ×2 (09:00→20:40)
[2019-05-17] MEDS: HEPARIN SODIUM, PORCINE 5000 UNITS/1 ML VIAL SQ SCH ×2 (09:00→21:56)
[2019-05-17] MEDS: DAKINS QUARTER STRENGTH (0.125%) 480 ML BOTTLE TOP SCH (09:06)
--- NOTE | 2019-05-17 10:00 | NUR ---
ELECTRO MECHANICAL TECHNOLOGIST NOTES DID NOT GIVE PO POTASSIUM 40MEQ; PT IS RECEIVING HD TODAY.
[2019-05-17] MEDS: MEROPENEM 500 MG in IV NS 0.9% 50 ML IV SCH ×2 (11:08→20:41)
--- NOTE | 2019-05-17 12:30 | NUR ---
CREOSOTING ENGINEER NOTES PT TRANSFERRED TO ROOM 120-1 D/T DIALYSIS. PT TRANSFERRED SAFELY WITH EDGER TAILER, RN AND RT.
--- NOTE | 2019-05-17 13:31 | NUR ---
telesales advisor notes did not give hydralazine/isorbide nitrate 1300 d/t pt being dialyzed
--- NOTE | 2019-05-17 17:53 | NUR ---
RT PATIENT REMAINS ORALLY INTUBATED ON [facility] VENT. WEANING ATTEMPTS FAILED TODAY. PATIENT REMAINS ON FULL VENT SUPPORT CHUCKIE WELL. CONT CURRENT PLAN OF CARE. Addendum: 05/17/19 at 1754 by ELPIDIO MORENO RT Amended: Links added. Addendum: 05/17/19 at 1756 by ELPIDIO MORENO RT NOTE MADE ON WRONG PATIENT.
[2019-05-17] MEDS: INSULIN REGULAR, HUMAN 100 UNIT/ML 3 ML VIAL SQ PRN (18:26)
--- NOTE | 2019-05-17 19:07 | NUR ---
FARM CONTRACTOR NOTES PT IN BED, ON VENT. NO RESP DISTRESS NOTED. ISOLATION PRECAUTIONS MAINTAINED THROUGHOUT SHIFT. ENDORSED TO PM NURSE FOR CHELSY.
--- NOTE | 2019-05-17 19:44 | NUR ---
OUTREACH WORKER NOTE: RECEIVED PT ON BED AWAKE BUT NON VERBAL. NO APPARENT DISTRESS NOTED. NO FACIAL GRIMACING OR ANY SIGNS OF PAIN NOTED. ON [facility] VENT, SETTINGS ORDERED. SATURATING WELL. ON TELE MONITOR SINUS RHYTHM HR 97BPM. RIGHT UPPER ARM MIDLINE INTACT AND PATENT, FLUSHING WELL. ON GTF NEPRO RUNNING AT 45ML/HR, ABLE TO TOLERATE WELL. NO RESIDUAL NOTED AT THIS TIME. CHINO CATH INTACT AND DRAINING WELL. KEPT CLEAN, DRY AND COMFORTABLE. SAFETY AND FALL PRECAUTIONS OBSERVED AND MAINTAINED. WILL CONTINUE TO MONITOR PT.
[2019-05-18] VITALS: BP 112/45
[2019-05-18] MEDS: BLOOD SUGAR DIAGNOSTIC 1 EACH STRIP IN SCH ×5 (00:35→23:47)
[2019-05-18] MEDS: INSULIN REGULAR, HUMAN 100 UNIT/ML 3 ML VIAL SQ PRN ×5 (00:36→23:48)
[2019-05-18 04:00] VITALS: BP 133/60
[2019-05-18] MEDS: ISOSORBIDE MONONITRATE 20 MG TABLET PO SCH ×3 (05:28→20:47)
[2019-05-18] MEDS: hydrALAZINE HCL 50 MG TABLET GT SCH ×3 (05:28→20:47)
--- NOTE | 2019-05-18 06:52 | NUR ---
POT FIREMAN NOTE: NO CHANGES NOTED THROUGHOUT THE SHIFT. NO APPARENT DISTRESS NOTED. NO FACIAL GRIMACING OR ANY SIGNS OF PAIN NOTED. ON [facility] VENT, SETTINGS ORDERED. NO SOB NOTED. SATURATING WELL. SINUS RHYTHM ON TELE MONITOR HR 97BPM. ON GTF NEPRO AT 45ML/HR, ABLE TO TOLERATE WELL, NO SIGNS/SYMPTOMS OF ASPIRATION NOTED. CHINO CATH INTACT, DRAINING WELL. KEPT CLEAN, DRY AND COMFORTABLE. SAFETY AND FALL PRECAUTIONS OBSERVED AND MAINTAINED. WILL ENDORSE TO DAY SHIFT RN FOR CONTINUITY OF CARE.
[2019-05-18 08:00] VITALS: BP 130/68
[2019-05-18] MEDS: LOSARTAN POTASSIUM 50 MG TABLET GT SCH ×2 (08:45→20:47)
[2019-05-18] MEDS: ACIDOPHILUS/BULGARICUS 1 EACH TAB.CHEW PO SCH (08:46)
[2019-05-18] MEDS: PANTOPRAZOLE 40 MG/PACK PACK GT SCH ×2 (08:46→17:32)
[2019-05-18] MEDS: FERROUS SULFATE UDC 300 MG/5 ML UDC GT SCH ×2 (08:46→17:33)
[2019-05-18] MEDS: CHOLECALCIFEROL 1,000 UNIT TABLET (VIT D3) GT SCH (08:46)
[2019-05-18] MEDS: VIT B CMPLX 3/FA/VIT C/BIOTIN 1 TAB TABLET GT SCH (08:46)
[2019-05-18] MEDS: MEROPENEM 500 MG in IV NS 0.9% 50 ML IV SCH ×2 (08:47→20:48)
[2019-05-18] MEDS: DAKINS QUARTER STRENGTH (0.125%) 480 ML BOTTLE TOP SCH (08:47)
[2019-05-18] MEDS: NIFEdipine (10MG) 10 MG CAPSULE GT SCH ×2 (08:47→17:39)
[2019-05-18] MEDS: glipiZIDE 10 MG TABLET GT SCH ×2 (08:47→20:47)
[2019-05-18] MEDS: HEPARIN SODIUM, PORCINE 5000 UNITS/1 ML VIAL SQ SCH ×2 (08:51→20:49)
[2019-05-18] MEDS: LACTULOSE 10 G/15 ML UDC (PYXIS) GT SCH (09:00)
[2019-05-18 10:38] LABS: BASOPHILS # (AUTO) 0.1 /CMM (0.0-0.2); BASOPHILS % (AUTO) 0.6 % (0.0-2.0); EOSINOPHILS % (AUTO) 6.2 % (0.0-6.0); HEMATOCRIT 23 % (33-45); HEMOGLOBIN 7.8 g/dL (11.5-14.8); LYMPHOCYTES # (AUTO) 1.8 /CMM (0.8-4.8); LYMPHOCYTES % (AUTO) 20.2 % (20.0-44.0); MEAN CORPUSCULAR HGB CONC 34 g/dl (31.0-36.0); MEAN CORPUSCULAR VOLUME 96 fL (82-100); MONOCYTES # (AUTO) 0.4 /CMM (0.1-1.30); MONOCYTES % (AUTO) 4.9 % (2.0-12.0); NEUTROPHILS % (AUTO) 68.1 % (43.0-81.0); PLATELET COUNT (AUTO) 322 /CMM (150-450); RED BLOOD CELL COUNT(AUTO) 2.42 MIL/uL (4.0-5.2); WHITE BLOOD COUNT (AUTO) 8.8 K/uL (4.3-11.0)
[2019-05-18 10:49] LABS: CALCIUM, SERUM 8.8 mg/dL (8.5-10.1); CREATININE 2.9 mg/dL (0.6-1.3); MAGNESIUM 2.2 mg/dL (1.8-2.4); PHOSPHORUS 2.7 mg/dL (2.5-4.9); POTASSIUM 3.8 mmol/L (3.5-5.1)
[2019-05-18 11:43] LABS: BAND % (MANUAL) 5 % (0.0-5.0); EOSINOPHILS % (MANUAL) 10 % (0-4); LYMPHOCYTES % (MANUAL) 23 % (16-48); MONOCYTES % (MANUAL) 4 % (0-11.0); NEUTROPHILS % (MANUAL) 58 (42-76)
[2019-05-18 12:00] VITALS: BP 115/41
[2019-05-18] MEDS: PROSOURCE / PROSTAT (PYXIS) 30 ML UDC GT SCH (13:43)
[2019-05-18] MEDS: NEPRO 1,000 ML BOTTLE GT PRN (13:45)
[2019-05-18 16:00] VITALS: BP 113/43
--- NOTE | 2019-05-18 19:45 | NUR ---
PLATE FILLER NOTE: RECEIVED PT ON BED NON VERBAL. NO APPARENT DISTRESS NOTED. NO FACIAL GRIMACING OR ANY SIGNS OF PAIN NOTED. ON [facility] VENT, SETTINGS ORDERED. SATURATING WELL. ON TELE MONITOR SINUS RHYTHM HR 83BPM. RIGHT UPPER ARM MIDLINE AND RIGHT HAND #22 INTACT AND PATENT, FLUSHING WELL. ON GTF NEPRO RUNNING AT 45ML/HR, ABLE TO TOLERATE WELL. NO RESIDUAL NOTED AT THIS TIME. CHINO CATH INTACT AND DRAINING WELL. KEPT CLEAN, DRY AND COMFORTABLE. SAFETY AND FALL PRECAUTIONS OBSERVED AND MAINTAINED. WILL CONTINUE TO MONITOR PT.
[2019-05-18 20:00] VITALS: BP 127/42
[2019-05-18] MEDS: ACETAMINOPHEN 325 MG TABLET PO PRN (21:00)
[2019-05-19] VITALS: BP 110/54
[2019-05-19 04:00] VITALS: BP_SYST 109; BP_SYST 117; BP_DIAS 50; BP_DIAS 53
[2019-05-19] MEDS: ISOSORBIDE MONONITRATE 20 MG TABLET PO SCH ×3 (05:00→20:10)
[2019-05-19] MEDS: hydrALAZINE HCL 50 MG TABLET GT SCH ×3 (05:00→21:00)
[2019-05-19] MEDS: INSULIN REGULAR, HUMAN 100 UNIT/ML 3 ML VIAL SQ PRN ×4 (05:43→23:28)
[2019-05-19] MEDS: BLOOD SUGAR DIAGNOSTIC 1 EACH STRIP IN SCH ×4 (05:43→23:26)
--- NOTE | 2019-05-19 06:44 | NUR ---
GRANTS MANAGER NOTE: NO CHANGES NOTED THROUGHOUT THE SHIFT. ONGOING HD AT THIS TIME. NO APPARENT DISTRESS NOTED. NO FACIAL GRIMACING OR ANY SIGNS OF PAIN NOTED. ON MECH VENT, SETTINGS ORDERED. NO SOB NOTED. SATURATING WELL. SINUS RHYTHM ON TELE MONITOR HR 99BPM. ON GTF NEPRO AT 45ML/HR, ABLE TO TOLERATE WELL, NO SIGNS/SYMPTOMS OF ASPIRATION NOTED. CHINO CATH INTACT, DRAINING WELL. KEPT CLEAN, DRY AND COMFORTABLE. SAFETY AND FALL PRECAUTIONS OBSERVED AND MAINTAINED. WILL ENDORSE TO DAY SHIFT RN FOR CONTINUITY OF CARE.
[2019-05-19 06:56] LABS: BASOPHILS # (AUTO) 0.1 /CMM (0.0-0.2); BASOPHILS % (AUTO) 0.9 % (0.0-2.0); EOSINOPHILS % (AUTO) 7.6 % (0.0-6.0); HEMATOCRIT 26 % (33-45); HEMOGLOBIN 8.8 g/dL (11.5-14.8); LYMPHOCYTES # (AUTO) 1.7 /CMM (0.8-4.8); LYMPHOCYTES % (AUTO) 16.8 % (20.0-44.0); MEAN CORPUSCULAR HGB CONC 34 g/dl (31.0-36.0); MEAN CORPUSCULAR VOLUME 95 fL (82-100); MONOCYTES # (AUTO) 0.3 /CMM (0.1-1.30); MONOCYTES % (AUTO) 2.6 % (2.0-12.0); NEUTROPHILS # (AUTO) 7.1 /CMM (1.8-8.9); NEUTROPHILS % (AUTO) 72.1 % (43.0-81.0); PLATELET COUNT (AUTO) 380 /CMM (150-450); RED BLOOD CELL COUNT(AUTO) 2.78 MIL/uL (4.0-5.2); WHITE BLOOD COUNT (AUTO) 9.8 K/uL (4.3-11.0)
[2019-05-19 07:25] LABS: CALCIUM, SERUM 8.8 mg/dL (8.5-10.1); CREATININE 2.4 mg/dL (0.6-1.3); MAGNESIUM 2.1 mg/dL (1.8-2.4); PHOSPHORUS 1.8 mg/dL (2.5-4.9); POTASSIUM 3.6 mmol/L (3.5-5.1)
--- NOTE | 2019-05-19 07:30 | NUR ---
RN NOTES RECEIVED PATIENT IN BED,OBTUNDED, TRACH TO VENT, TRACH ON MIDLINE POSITION, TOLERATING CURRENT VENT SETTINGS, BREATHING UNLABORED. SATING FINE, NO INDICATION OF PAIN NOTED. SINUS TACHY ON THE MONITOR WITH HR ON THE 120S. IV ACCESS ON THE ORLY MIDLINE AND R HAND: BOTH IN PLACE AND INTACT: SL. NO SIGNS OF INFECTION NOTED. L CHEST WALL HD CATH IN PLACE, DRESSING CDI. WITH GTF OF NEPRO AT 40CC/HR, GT PLACEMENT CHECK BY CHECKING GASTRI RESIDUAL. NO GASTRIC RESIDUAL TAKEN AT THIS TIME. HOB ELEVATED FOR ASPIRATION PRECAUTION. PATIENT CURRENTLY ON DIALYSIS TREATMENT. SAFETY MEASURES OBSERVED AND MAINTAINED, CALL LIGHT PLACED WITHIN REACH. BED LOW AND LOCKED POSITION. WILL CONTINUE TO MONITOR PATIENT AND ANTICIPATE NEEDS
[2019-05-19 08:00] VITALS: BP 115/38
[2019-05-19] MEDS: NIFEdipine (10MG) 10 MG CAPSULE GT SCH ×2 (09:00→17:00)
[2019-05-19] MEDS: LOSARTAN POTASSIUM 50 MG TABLET GT SCH ×2 (09:00→21:00)
--- NOTE | 2019-05-19 09:00 | NUR ---
RN NOTES BLOOD PRESSURE NOT GIVEN DUE TO PATIENT ON DIALYSIS TREATMENT AT THIS TIME
[2019-05-19] MEDS: CHOLECALCIFEROL 1,000 UNIT TABLET (VIT D3) GT SCH (09:43)
[2019-05-19] MEDS: LACTULOSE 10 G/15 ML UDC (PYXIS) GT SCH (09:43)
[2019-05-19] MEDS: FERROUS SULFATE UDC 300 MG/5 ML UDC GT SCH ×2 (09:43→17:09)
[2019-05-19] MEDS: glipiZIDE 10 MG TABLET GT SCH ×2 (09:44→20:10)
[2019-05-19] MEDS: PANTOPRAZOLE 40 MG/PACK PACK GT SCH ×2 (09:45→17:09)
[2019-05-19] MEDS: ACIDOPHILUS/BULGARICUS 1 EACH TAB.CHEW PO SCH (09:45)
[2019-05-19] MEDS: VIT B CMPLX 3/FA/VIT C/BIOTIN 1 TAB TABLET GT SCH (09:45)
[2019-05-19] MEDS: DAKINS QUARTER STRENGTH (0.125%) 480 ML BOTTLE TOP SCH (09:46)
[2019-05-19] MEDS: HEPARIN SODIUM, PORCINE 5000 UNITS/1 ML VIAL SQ SCH ×2 (09:46→20:12)
[2019-05-19] MEDS: MEROPENEM 500 MG in IV NS 0.9% 50 ML IV SCH ×2 (09:49→20:09)
[2019-05-19] MEDS: PROSOURCE / PROSTAT (PYXIS) 30 ML UDC GT SCH (09:57)
[2019-05-19] MEDS ORDERED: ALBUMIN 25% 25 GM in PREMIX 1 EA IV PRN (11:00)
[2019-05-19 12:00] VITALS: BP 127/55
--- NOTE | 2019-05-19 13:00 | NUR ---
RN NOTES BLOOD PRESSURE MEDICATION NOT GIVEN DUE TO DIASTOLIC BLOOD PRESSURE BELOW THE PARAMETER
[2019-05-19] MEDS ORDERED: MERO500V3 IV (13:42)
[2019-05-19] MEDS: NEPRO 1,000 ML BOTTLE GT PRN (14:05)
--- NOTE | 2019-05-19 17:00 | NUR ---
RN NOTES BLOOD PRESSURE MEDICATION NOT GIVEN DUE TO DIASTOLIC BLOOD PRESSURE BELOW THE PARAMETER
--- NOTE | 2019-05-19 17:56 | NUR ---
PT RECEIVED TRACHED ON [facility] VENT ON CHARTED SETTINGS. NO SIGNS OF RESP DISTRESS NOTED. AMBUBAG AT BEDSIDE. VENT CONNECTED TO RED OUTLET. WILL CONT TO MONITOR. Addendum: 05/19/19 at 2122 by BRYANNA HENNESSY RT Amended: Links added.
[2019-05-19 18:00] VITALS: BP 124/50
--- NOTE | 2019-05-19 19:31 | NUR ---
RN NOTES ENDORSED FOR CONTINUITY OF CARE. ALL NURSING NEEDS ATTENDED AND MET. NOT ON ANY FORM OF DISTRESS. ALL NURSING NEEDS ATTENDED AND MET. SAFETY MEASURES IN PLACE AT ALL TIMES. CALL LIGHT WITHIN REACH
--- NOTE | 2019-05-19 19:40 | NUR ---
RN NOTES RECEIVED PATIENT IN BED, WITH EYES OPEN , NONVERBAL, UNABLE TO VERBALIZED NEEDS, ON MECHANICAL VENTILATOR, TOLERATED SETTINGS WELL, NO S/S OF PAIN OR DISCOMFORT, NO FACIAL GRIMACING NOTED, SINUS RHYTHM-SINUS TACHY ON THE MONITOR WITH HR THE 120S THE HIGHEST, ORLY MIDLINE AND R HAND IV ACCESS, PATENT AND INTACT, NO SIGNS OF INFECTION OR INFILTRATION NOTED, LEFT CHEST WALL HD CATH IN PLACE, DRESSING INTACT, NO ACTIVE BLEEDING NOTED AR ANY ABNORMALITY AT SITE, GT IN PLACED, NEPRO INFUSING AT 40CC/HR,WELL AND PATIENT TOLERATED WELL, NO RESIDUAL AT THIS TIME, HOB ELEVATED FOR ASPIRATION PRECAUTION AT ALL TIMES, ALL SAFETY SAFETY MEASURES MAINTAINED, CALL LIGHT WITHIN REACH, BED LOCKED AND IN LOW POSITION, WILL CONTINUE TO MONITOR PATIENT CLOSELY.
[2019-05-19 20:00] VITALS: BP 108/56
[2019-05-19] MEDS: ACETAMINOPHEN 325 MG TABLET PO PRN (20:01)
[2019-05-20] VITALS: BP 99/59
[2019-05-20 04:00] VITALS: BP 159/49
[2019-05-20] MEDS: ISOSORBIDE MONONITRATE 20 MG TABLET PO SCH ×2 (04:48→12:52)
[2019-05-20] MEDS: hydrALAZINE HCL 50 MG TABLET GT SCH ×2 (04:48→12:52)
[2019-05-20] MEDS: BLOOD SUGAR DIAGNOSTIC 1 EACH STRIP IN SCH ×3 (05:19→17:40)
[2019-05-20] MEDS: INSULIN REGULAR, HUMAN 100 UNIT/ML 3 ML VIAL SQ PRN ×2 (05:23→12:51)
--- NOTE | 2019-05-20 06:49 | NUR ---
RN NOTES, PATIENT IN BED, WITH EYES CLOSED AT THIS TIME, ON MECHANICAL VENTILATOR, NO SOB/ACUTE DISTRESS NOTED AT THIS TIME, NO SIGNIFICANT CHANCE IN CONDITION DURING THE NIGHT, CALL LIGHT W/I REACH, BED LOCKED AND IN LOW POSITION, WILL ENDORSE CONTINUITY OF CARE TO ONCOMING NURSE.
[2019-05-20 07:26] LABS: CALCIUM, SERUM 9.1 mg/dL (8.5-10.1); MAGNESIUM 2.4 mg/dL (1.8-2.4); PHOSPHORUS 1.6 mg/dL (2.5-4.9); POTASSIUM 4.1 mmol/L (3.5-5.1)
[2019-05-20 07:29] LABS: BASOPHILS # (AUTO) 0.1 /CMM (0.0-0.2); BASOPHILS % (AUTO) 0.5 % (0.0-2.0); EOSINOPHILS % (AUTO) 4.7 % (0.0-6.0); HEMATOCRIT 28 % (33-45); HEMOGLOBIN 9.2 g/dL (11.5-14.8); LYMPHOCYTES # (AUTO) 3.4 /CMM (0.8-4.8); LYMPHOCYTES % (AUTO) 25.4 % (20.0-44.0); MEAN CORPUSCULAR HGB CONC 33 g/dl (31.0-36.0); MEAN CORPUSCULAR VOLUME 96 fL (82-100); NEUTROPHILS # (AUTO) 8.5 /CMM (1.8-8.9); NEUTROPHILS % (AUTO) 62.4 % (43.0-81.0); PLATELET COUNT (AUTO) 391 /CMM (150-450); RED BLOOD CELL COUNT(AUTO) 2.93 MIL/uL (4.0-5.2); WHITE BLOOD COUNT (AUTO) 13.6 K/uL (4.3-11.0)
--- NOTE | 2019-05-20 07:30 | NUR ---
RN NOTES RECEIVED PATIENT IN BED, NOT ON ANY FORM OF DISTRESS, TOLERATING VENT SETTINGS. NO SOB NOTED. NO INDICATION OF PAIN. GTF RUNNING AT DESIRED RATE. GT CLOGGED AND HAS TO BE UNCLOG FOR PATENCY. CHINO CATETHER IN PLACE AND DRAINING TO TEA COLORED URINE. HOB KEPT ELEVATED. SAFETY MEASURES IN PLACED. CALL WILGHT WITHIN REACH, WILL CONTINUE TO MONITOR AND ANTICIPATE NEEDS
[2019-05-20 08:00] VITALS: BP 146/58
[2019-05-20] MEDS: LACTULOSE 10 G/15 ML UDC (PYXIS) GT SCH (08:53)
[2019-05-20] MEDS: CHOLECALCIFEROL 1,000 UNIT TABLET (VIT D3) GT SCH (08:54)
[2019-05-20] MEDS: PANTOPRAZOLE 40 MG/PACK PACK GT SCH ×2 (08:54→17:40)
[2019-05-20] MEDS: FERROUS SULFATE UDC 300 MG/5 ML UDC GT SCH ×2 (08:54→17:39)
[2019-05-20] MEDS: ACIDOPHILUS/BULGARICUS 1 EACH TAB.CHEW PO SCH (08:54)
[2019-05-20] MEDS: HEPARIN SODIUM, PORCINE 5000 UNITS/1 ML VIAL SQ SCH (08:55)
[2019-05-20] MEDS: DAKINS QUARTER STRENGTH (0.125%) 480 ML BOTTLE TOP SCH (08:56)
[2019-05-20] MEDS: NIFEdipine (10MG) 10 MG CAPSULE GT SCH ×2 (08:57→17:40)
[2019-05-20] MEDS: LOSARTAN POTASSIUM 50 MG TABLET GT SCH (08:57)
[2019-05-20] MEDS: MEROPENEM 500 MG in IV NS 0.9% 50 ML IV SCH (08:57)
[2019-05-20] MEDS: VIT B CMPLX 3/FA/VIT C/BIOTIN 1 TAB TABLET GT SCH (08:57)
[2019-05-20] MEDS: glipiZIDE 10 MG TABLET GT SCH (08:57)
[2019-05-20] MEDS: PROSOURCE / PROSTAT (PYXIS) 30 ML UDC GT SCH (08:58)
--- NOTE | 2019-05-20 09:00 | NUR ---
RN NOTES BLOOD PRESSURE MEDICINE NOT GIVEN DUE TO DIASTOLIC BLOOD PRESSURE BELOW PARAMETER
[2019-05-20 12:00] VITALS: BP 142/58
[2019-05-20] MEDS ORDERED: NEUTRA PHOS 1 POWD.PACKET GT ONE (12:00)
--- NOTE | 2019-05-20 13:00 | NUR ---
RN NOTES BLOOD PRESSURE MEDICINE NOT GIVEN DUE TO DIASTOLIC BLOOD PRESSURE BELOW PARAMETER
--- NOTE | 2019-05-20 14:10 | NUR ---
RT NOTE RECEIVED PT MECHANICALLY VENTILATED VIA CUFFED TRACHEOSTOMY TUBE. CUFF INFLATED. TRACH TUBE MIDLINE AND SECURE. VENTILATOR SETTINGS PRESCRIBED. ALARMS SET PER PROTOCOL AND AUDIBLE. VENT PLUGGED IN TO RED OUTLET. AMBU BAG AT BED SIDE. NO DISTRESS NOTED. Addendum: 05/20/19 at 1411 by ELLIS GAMEZ RT Amended: Links added.
[2019-05-20] MEDS ORDERED: HEPARIN SODIUM, PORCINE 5000 UNITS/1 ML VIAL SQ SCH (14:30)
--- NOTE | 2019-05-20 14:30 | NUR ---
RN NOTES CALLED TAHMINA BADILLO NP TO OBTAIN LOVENOX ORDER IN EXCHANGE OF HEPARIN. OBTAINED ORDER FOR LOVENOX 40MG SQ DAILY. ORDERS NOTED AND CARRIED OUT
--- NOTE | 2019-05-20 15:00 | NUR ---
RN NOTES CALLED [facility] TO GIVE REPORT, SPOKE TO JOSEE. PER JOSEE, SHE HAS TO OBTAIN AUTHORIZATION THEN SHE'LL CALL ME FOR THE REPORT.
[2019-05-20 16:00] VITALS: BP 155/45
--- NOTE | 2019-05-20 16:45 | NUR ---
RN NOTES CALLED TAHMINA BADILLO NP TO OBTAIN ELIQUIS ORDER IN EXCHANGE OF LOVENOX. OBTAINED ORDER FOR ELIQUIS 5 MG VIA GT BID. ORDERS NOTED AND CARRIED OUT
--- NOTE | 2019-05-20 17:30 | NUR ---
RN NOTES CALLED [facility] AND SPOKE TO LEA FOR REPORT. INFORMED LEA SPECIALLY THAT BLOOD PRESSURE IS WELEVATED BUT BLOOD PRESSURE MEDICINE AND PRN CATAPRES HAD BEEN GIVEN TO ADDRESSED BLOOD PRESSURE
[2019-05-20 17:40] VITALS: BP 173/77
--- NOTE | 2019-05-20 18:15 | NUR ---
RN NOTES PATIENT WHEELED OUT OF THE UNIT ACCOMPANIED BY 2EMT ANT RT.
== END 2019-05-20 18:15 | DRG 951 ==
LOC: ER 17:21 → ICU 19:16 → TELE-TD 05-16 06:10 → TELE1 05-16 09:30
PROVIDERS: ADMIT Nurse Practitioner Acute Care; ATTEND Nurse Practitioner Acute Care
PROC: 5A1955Z Respiratory Ventilation, Greater than 96 Consecutive Hours (ICD-10-PCS; principal; 2019-05-14)
PROC: 5A1D70Z Performance of Urinary Filtration, Intermittent, Less than 6 Hours Per Day (ICD-10-PCS; 2019-05-15)
PROC: 30233P1 Transfusion of Nonautologous Frozen Red Cells into Peripheral Vein, Percutaneous Approach (ICD-10-PCS; 2019-05-15)
PROC: 0QB10ZZ Excision of Sacrum, Open Approach (ICD-10-PCS; 2019-05-16)
PROC: 05HB33Z Insertion of Infusion Device into Right Basilic Vein, Percutaneous Approach (ICD-10-PCS; 2019-05-16)
PROC: 5A1D70Z Performance of Urinary Filtration, Intermittent, Less than 6 Hours Per Day (ICD-10-PCS; 2019-05-17)
PROC: 0JBL0ZZ Excision of Right Upper Leg Subcutaneous Tissue and Fascia, Open Approach (ICD-10-PCS; 2019-05-18)
PROC: 5A1D70Z Performance of Urinary Filtration, Intermittent, Less than 6 Hours Per Day (ICD-10-PCS; 2019-05-19)
DX: J96.22 Acute and chronic respiratory failure with hypercapnia (principal); E43 Unspecified severe protein-calorie malnutrition; G93.1 Anoxic brain damage, not elsewhere classified; Z99.11 Dependence on respirator [ventilator] status; L89.154 Pressure ulcer of sacral region, stage 4; L89.329 Pressure ulcer of left buttock, unspecified stage; R53.2 Functional quadriplegia; D68.59 Other primary thrombophilia; E11.22 Type 2 diabetes mellitus with diabetic chronic kidney disease; I12.0 Hypertensive chronic kidney disease with stage 5 chronic kidney disease or end stage renal disease; R13.10 Dysphagia, unspecified; E87.1 Hypo-osmolality and hyponatremia; E87.70 Fluid overload, unspecified; N18.6 End stage renal disease; Z93.0 Tracheostomy status; N39.0 Urinary tract infection, site not specified; Z16.24 Resistance to multiple antibiotics; D63.1 Anemia in chronic kidney disease; Z68.25 Body mass index [BMI] 25.0-25.9, adult; Z99.2 Dependence on renal dialysis; Z86.74 Personal history of sudden cardiac arrest; Z93.1 Gastrostomy status; E78.5 Hyperlipidemia, unspecified; E87.6 Hypokalemia; B86 Scabies; I25.10 Atherosclerotic heart disease of native coronary artery without angina pectoris; M24.562 Contracture, left knee; M24.561 Contracture, right knee; Z74.01 Bed confinement status; E11.69 Type 2 diabetes mellitus with other specified complication; M46.28 Osteomyelitis of vertebra, sacral and sacrococcygeal region; L89.890 Pressure ulcer of other site, unstageable
CPT/HCPCS: 31720; 36415; 71045-TC; 80048-TC; 80053-TC; 80076-TC; 81000-TC; 82272-TC; 82962-TC; 83605-TC; 83735-TC; 83880; 84100-TC; 84484-TC; 85025-TC; 85730-TC; 86850-TC; 86921-TC; 87040-TC; 87081-TC; 87086-TC; 87186-TC; 88305-TC; 88311-TC; 88312-TC; 90935-TC; 94002-TC; 94003-TC; 94760-TC; 94762-TC; 94799-TC; 99082-TC; A4216; A4217; A4623; A6253; A6403; A7526; A9563; G0378; J0696; J1644; J1815; J2185; J3490; J7030; J7040; J7050; J7060; P9016-BL; P9047

== ENCOUNTER 2019-07-11 19:03 | Inpatient (IN) | payer OTHER ==
[~2019-07-11] VITALS: Ht 154.9 cm; Wt 67.6 kg
[~2019-07-11 19:03] MED LIST changes: -ATOR10TA GT; -CARV25TA GT; +CLON0.1T PO; -INSU100I26 SQ; +INSU100V39 SQ; -LINE600T12 GT; +MERO500V3 IV; +METO-295 PO; -NA P133E RC; +NIFE-2 PO; -Nepro GT; +SACC250C PO; -ZINC220C8 GT
--- NOTE | 2019-07-11 19:15 | NUR ---
ELI [facility] "Tachycardia". PATIENT OBTUNDED, DEPENDENT ON MECHANICAL VENTILATOR. NO RESP DISTRESS AT THIS TIME. PATIENT FELT HOT TO TOUCH. RECTAL TEMP AT 101.5. PATIENT WITH BOWEL MOVEMENT, CHANGED DIAPER, PERICARE PROVIDED. PATIENT NOTED WITH PRESSURE ULCER ON SACRAL AREA. ATTACHED TO THE BEATER ROOM SUPERVISOR.
--- NOTE | 2019-07-11 19:30 | NUR ---
RT TRACHED PLACED ON HOSPITAL VENT WITH NOTED SETTING, PROVIDED BY TRANSPORT. PT TOLERATING SETTING WELL. VENT TO RED OUTLET. AMBU BAG AT HOB. TRACH PATENT AND SECURE. ALARMS SET AND AUDIBLE. DISCONNECT ALARM VERIFIED. Addendum: 07/11/19 at 1932 by ALEKSANDAR PURVIS RT Amended: Links added.
[2019-07-11 20:00] VITALS: BP 126/61
[2019-07-11 20:09] LABS: BASOPHILS # (AUTO) 0.1 /CMM (0.0-0.2); BASOPHILS % (AUTO) 0.8 % (0.0-2.0); EOSINOPHILS % (AUTO) 1.4 % (0.0-6.0); HEMATOCRIT 22 % (33-45); HEMOGLOBIN 7.4 g/dL (11.5-14.8); LYMPHOCYTES # (AUTO) 1.5 /CMM (0.8-4.8); LYMPHOCYTES % (AUTO) 16.7 % (20.0-44.0); MEAN CORPUSCULAR HGB CONC 34 g/dl (31.0-36.0); MEAN CORPUSCULAR VOLUME 98 fL (82-100); MONOCYTES # (AUTO) 0.5 /CMM (0.1-1.30); MONOCYTES % (AUTO) 5.3 % (2.0-12.0); NEUTROPHILS % (AUTO) 75.8 % (43.0-81.0); PLATELET COUNT (AUTO) 384 /CMM (150-450); RED BLOOD CELL COUNT(AUTO) 2.27 MIL/uL (4.0-5.2); WHITE BLOOD COUNT (AUTO) 9.2 K/uL (4.3-11.0)
[2019-07-11] MEDS ORDERED: ACETAMINOPHEN 650 MG/20.3 ML UDC ONE (20:11)
[2019-07-11] MEDS: ACETAMINOPHEN 650 MG/20 ML UDC- SA PATIENTS-PAIN ONLY GT PRN ×2 (20:15→20:17)
[2019-07-11 20:17] LABS: APPEARANCE,URINE Cloudy (CLEAR); BILIRUBIN,URINE Negative (NEGATIVE); BLOOD, URINE Moderate Ery/uL (NEGATIVE); COLOR,URINE Yellow (YELLOW); KETONES,URINE Negative (NEGATIVE); LEUKOCYTE ESTERASE ,URINE Large (NEGATIVE); NITRITE, URINE Negative (NEGATIVE); PROTEIN,URINE 100 mg/dl (NEGATIVE); UGLUCOSE Negative (NEGATIVE); UROBILINOGEN,URINE 0.2 EU/dL (0.2)
--- NOTE | 2019-07-11 20:18 | NUR ---
CONTACTED CHUCKIE FROM [facility]. NURSE STATED SHE WILL FAX PT INFO
[2019-07-11 20:19] LABS: CALCIUM, SERUM 9.2 mg/dL (8.5-10.1); CARBON DIOXIDE 21 mmol/L (21-32); CHLORIDE 101 mmol/L (98-107); CREATININE 1.3 mg/dL (0.6-1.3); GLUCOSE 92 mg/dL (74-106); POTASSIUM 3.3 mmol/L (3.5-5.1); SODIUM SERUM 137 mmol/L (136-145); UREA NITROGEN, BLOOD 17 mg/dL (7-18)
[2019-07-11 20:25] LABS: ALANINE AMINOTRANSFERASE < 6 U/L (12-78); ALBUMIN 1.7 g/dL (3.4-5.0); ALKALINE PHOSPHATASE 159 U/L (46-116); ASPARTATE AMINOTRANSFERASE 12 U/L (15-37); BILIRUBIN,DIRECT 0.1 mg/dL (0.0-0.2); BILIRUBIN,TOTAL 0.3 mg/dL (0.2-1.0)
[2019-07-11 20:31] LABS: WBC,URINE TOO NUMEROUS TO COUN /HPF (0-3)
[2019-07-11 20:32] LABS: BACTERIA,URINE Many /HPF (None Seen); SQUAMOUS EPITHELIAL CELL,UR Moderate /HPF (None Seen)
[2019-07-11 20:33] LABS: YEAST,URINE Moderate /HPF (None Seen)
[2019-07-11] MEDS ORDERED: PIPERACILLIN /TAZOBACTAM 3.375 G in IV D5W 50 ML IV ONE (21:00)
[2019-07-11] MEDS ORDERED: PIPERACILLIN /TAZOBACTAM 3.375 G VIAL IV ONE (21:09)
--- NOTE | 2019-07-11 21:43 | NUR ---
RECEIVED VERBAL AUTHORIZATION FROM NILSA SILVER WRAPPER, [facility] AND [employer] FAXED TO [phone] PHONE# [phone]
[2019-07-11 21:50] LABS: LYMPHOCYTES % (MANUAL) 17 % (16-48); NEUTROPHILS % (MANUAL) 83 (42-76)
--- NOTE | 2019-07-11 21:58 | NUR ---
CALLED FOR FREDDY BED
--- NOTE | 2019-07-11 22:03 | NUR ---
RECIEVED BED 102
--- NOTE | 2019-07-11 22:27 | NUR ---
REPORT GIVEN TO HERMINIA WINTER FOR CHELSY.
[2019-07-11 22:40] VITALS: BP 132/90
--- NOTE | 2019-07-11 22:40 | NUR ---
FREDDY RN NOTE PATIENT RECEIVED FROM ER OBTUNDED NON VERBAL UNABLE TO FOLLOW INSTRUCTIONS OR TRACK WITH EYES. PATIENT PATIENT HR NOTED TO BE 145-160 [facility] AWARE AND NOTIFIED. PATIENT HAS 20 G IN LEFT WRIST WITH RIJ SHAVONNE CATH FOR DIALYSIS. IV PATENT AND INTACT NO S/S OF INFECTION AND INFILTRATION. PATIENT NOTED TO HAVE SEVERAL LARGE WOUNDS WITH ON THE SACRUM, BUTTOCKS, COCCYX AND FEET. WOUND DOCUMENTED AND MEASURED. PATIENT CHINO PATENT WITH DARK DENISE COLORED URINE. PATIENT NOTED TO HAVE COPIOUS AMOUNTS OF YELLOW BROWN MUCOID STOOL. PATIENT GIVEN BED BATH AND REPOSITIONED. PATIENT TOLERATING CURRENT VENT SETTINGS. AWAITING ADMISSION ORDERS FOR PATIENT FROM [facility].
--- NOTE | 2019-07-11 22:44 | NUR ---
PATIENT SEEN BY LEONARD MORRISSEY'S STUDENTS PRIOR TO TRANSFER, ENDORSED HR OF 160, WHILE PATIENT VOMITED X1. PATIENT TRANSFERRED TO ROOM 102 VIA ACLS PROTOCOL, RT AT BEDSIDE. PATIENT ENDORSED TO GIGI WINTER.
[2019-07-12] VITALS (9 sets, daily range): BP systolic 104–159; BP diastolic 37–77
[2019-07-12] MEDS ORDERED: Z GUARD REMEDY 2 OZ OINT TP PRN (00:30)
[2019-07-12] MEDS ORDERED: ONDANSETRON HCL/PF 4 MG/2 ML VIAL IVP PRN (00:30)
[2019-07-12] MEDS ORDERED: MEROPENEM 500 MG in IV NS 0.9% 50 ML IV SCH ×2 (00:30→05:00)
[2019-07-12] MEDS ORDERED: POTASSIUM CHLORIDE 20 MEQ POWDER PACKET GT ONE (00:30)
[2019-07-12] MEDS ORDERED: MEROPENEM 500 MG VIAL IV ONE (00:54)
[2019-07-12] MEDS: IV NS 0.9% 1,000 ML IV PRN (01:03)
[2019-07-12] MEDS: MEROPENEM 500 MG in IV NS 0.9% 50 ML IV SCH (01:47)
[2019-07-12] MEDS: ACETAMINOPHEN 650 MG/20.3 ML UDC GT PRN (01:47)
[2019-07-12] MEDS ORDERED: VANCOMYCIN 1 GM in IV D5W 250ml IV ONE (02:00)
--- NOTE | 2019-07-12 02:05 | NUR ---
FREDDY WINTER NOTE COOLING MEASURES IMPLEMENTED, TYLENOL GIVEN FOR FEVER Addendum: 07/12/19 at 0205 by HERMINIA GODOY RN Amended: Links added.
[2019-07-12] MEDS ORDERED: VANCOMYCIN 1 GM VIAL ONE (02:09)
[2019-07-12] MEDS ORDERED: NEPRO 1,000 ML BOTTLE GT PRN (03:30)
[2019-07-12] MEDS ORDERED: DEXTROSE 50%-WATER 50 ML DISP.SYRIN IV PRN (04:30)
[2019-07-12 06:18] LABS: BASOPHILS % (AUTO) 0.4 % (0.0-2.0); EOSINOPHILS % (AUTO) 0.5 % (0.0-6.0); LYMPHOCYTES # (AUTO) 1.1 /CMM (0.8-4.8); MEAN CORPUSCULAR HGB CONC 33 g/dl (31.0-36.0); MEAN CORPUSCULAR VOLUME 96 fL (82-100); MONOCYTES # (AUTO) 0.5 /CMM (0.1-1.30); MONOCYTES % (AUTO) 5.3 % (2.0-12.0); NEUTROPHILS # (AUTO) 7.4 /CMM (1.8-8.9); NEUTROPHILS % (AUTO) 81.8 % (43.0-81.0); PLATELET COUNT (AUTO) 308 /CMM (150-450); WHITE BLOOD COUNT (AUTO) 9.1 K/uL (4.3-11.0)
[2019-07-12 06:22] LABS: RED BLOOD CELL COUNT(AUTO) 1.85 MIL/uL (4.0-5.2)
[2019-07-12 06:23] LABS: HEMATOCRIT 18 % (33-45); HEMOGLOBIN 5.9 g/dL (11.5-14.8)
--- NOTE | 2019-07-12 06:25 | NUR ---
0625 DR. MORRISSEY NOTIFIED OF CRITICAL HGB 5.9 HCT 18 WITH ORDER TO TRANSFUSE 1 UNIT PRBC. ORDER NOTED.
[2019-07-12] MEDS: NEPRO 1,000 ML BOTTLE GT SCH (06:35)
--- NOTE | 2019-07-12 06:40 | NUR ---
FREDDY WINTER NOTE ENDORSED TO DAY SHIFT ORLIN FOR CHELSY. PATIENT SR HR 84 ON THE MONITOR. PATIENT TOLERATING VENT SETTINGS. LABS DRAWN FOR TYPE AND SCREEN. ORLIN AWARE OF PATIENTS CRITICAL LABS AND BLOOD TRANSFUSION. CONSENTS GIVEN TO DAY TO OBTAIN. Addendum: 07/12/19 at 0716 by HERMINIA GODOY RN ENDORSED TO DAY SHIFT COVERAGE WAS NOT GIVEN FOR 0600 ACCU CHECK NO INSULIN IN CASSETTE
[2019-07-12 06:41] LABS: IRON, SERUM 22 ug/dl (50-175); TOTAL IRON BINDING CAPACITY 53 ug/dl (250-450)
[2019-07-12 06:42] LABS: ALANINE AMINOTRANSFERASE < 6 U/L (12-78); ALKALINE PHOSPHATASE 138 U/L (46-116); ASPARTATE AMINOTRANSFERASE 13 U/L (15-37); BILIRUBIN,TOTAL 0.3 mg/dL (0.2-1.0); CALCIUM, SERUM 8.2 mg/dL (8.5-10.1); CARBON DIOXIDE 23 mmol/L (21-32); CHLORIDE 105 mmol/L (98-107); GLUCOSE 283 mg/dL (74-106); PHOSPHORUS 1.7 mg/dL (2.5-4.9); POTASSIUM 3.6 mmol/L (3.5-5.1); SODIUM SERUM 140 mmol/L (136-145); TOTAL PROTEIN, SERUM 5.8 g/dL (6.4-8.2); UREA NITROGEN, BLOOD 16 mg/dL (7-18)
[2019-07-12 06:45] LABS: CHOLESTEROL 52 mg/dL (<200); HDL CHOLESTEROL 19 mg/dL (40-60); LDL 20 mg/dL (0-99); THYROID STIMULATING HORMONE 2.417 uIU/mL (0.358-3.74); TRIGLYCERIDES 144 mg/dL (30-150)
[2019-07-12 06:48] LABS: ALBUMIN 1.3 g/dL (3.4-5.0)
[2019-07-12] MEDS: BLOOD SUGAR DIAGNOSTIC 1 EACH STRIP IN SCH ×3 (06:54→16:28)
[2019-07-12] MEDS ORDERED: FEE PK DOSING 1 MIN EA MC ONE (07:13)
[2019-07-12] MEDS ORDERED: VANCOMYCIN 500 MG in IV D5W 100 ML IV PRN (07:30)
[2019-07-12 07:53] LABS: BAND % (MANUAL) 1 % (0.0-5.0); LYMPHOCYTES % (MANUAL) 14 % (16-48); MONOCYTES % (MANUAL) 3 % (0-11.0); NEUTROPHILS % (MANUAL) 81 (42-76)
[2019-07-12 07:54] LABS: MYELOCYTES % 1 % (0-0)
--- NOTE | 2019-07-12 08:46 | NUR ---
WOUND CARE CONSULT: PT PRESENTS WITH MULTIPLE WOUNDS, PRESENT ON ADMISSION INCLUDING RT HIP AND RT BUTTOCK STAGE 4 ULCERS WHICH ARE JOINED TOGETHER AT THIS TIME, SACRAL STAGE 4 ULCER, LEFT BUTTOCK FOUL PURULENT STAGE 4 ULCER, LEFT EAR DRY ESCHAR, LEFT HAND WOUND AND LOWER EXTREMITY WOUNDS TO RT ANKLE AND HEEL. RECOMMEND DPM CONSULT AND SURGICAL CONSULT. FIRST STEP LOW AIRLOSS MATTRESS ORDERED. WILL SEE PRN. TRIPLETT IN AGREEMENT WITH PLAN OF CARE. Addendum: 07/12/19 at 0850 by PRASHANTH ADAN WNDNU Amended: Links added. Addendum: 07/12/19 at 0926 by [address]TH ADAN WNDNU DR MADISON NOTIFIED OF NEED FOR DPM CONSULT AND DR KAVYA AGUILAR NOTIFIED OF SURGICAL CONSULT REQUEST.
[2019-07-12] MEDS: NEOMY SULF/BACITRAC ZN/POLY 15 GM TUBE TP SCH (11:21)
[2019-07-12] MEDS: PANTOPRAZOLE 40 MG/PACK PACK GT SCH (11:21)
[2019-07-12] MEDS: INSULIN REGULAR, HUMAN 100 UNIT/ML 3 ML VIAL SQ PRN ×2 (11:59→16:35)
[2019-07-12] MEDS: DAKINS QUARTER STRENGTH (0.125%) 480 ML BOTTLE TOP SCH (12:30)
--- NOTE | 2019-07-12 19:15 | NUR ---
barbara/steel inspector Received pt getting blood transfusion. Will continue to monitor this pt
--- NOTE | 2019-07-12 19:45 | NUR ---
FREDDY/ROLL UP HELPER RECEIVED REPORT FROM DAY SHIFT NURSE. SEE FLOWSHEET FOR ASSESSMENT. THERE ARE A FEW SKIN ISSUES THAT PT HAS, WHICH IS ADDRESSED ON FLOWSHEET ALONG WITH THE INTERVENTION TO EACH.PT HAS G/TUBE TOLERATING FEEDING. PT WAS THEN TURNED AND REPOSITIONED FOR COMFORT AND CARE. WILL MONITOR THIS PT.
[2019-07-12] MEDS ORDERED: SILVER NITRATE APPLICATOR 1 EA BOX TP ONE (20:00)
[2019-07-12] MEDS ORDERED: LIDOCAINE 1%-EPI 1:100,000 20 ML VIAL TP ONE (20:00)
--- NOTE | 2019-07-12 20:30 | NUR ---
barbara/shift mgr Supplies are bedside for S. Ivis, pt requires debridement. CONSENT IS SIGNED
--- NOTE | 2019-07-12 20:45 | NUR ---
FREDDY/DOORPERSON TRANSFUSION IS COMPLETED
[2019-07-13] VITALS: BP 142/46
--- NOTE | 2019-07-13 01:00 | NUR ---
FREDDY/CLOTH WINDER PT'S MIDNIGHT BLOOD SUGAR WAS 241, THIS WAS COVERED WITH THE SLIDING SCALE. WILL CONTINUE TO MONITOR THE BLOOD SUGAR ORDERED. PT WAS TUNED AND REPOSITIONED FOR COMFORT AND CARE.
[2019-07-13] MEDS: BLOOD SUGAR DIAGNOSTIC 1 EACH STRIP IN SCH ×5 (01:23→23:41)
[2019-07-13] MEDS: IV NS 0.9% 1,000 ML IV PRN ×2 (01:24→14:54)
[2019-07-13] MEDS: INSULIN REGULAR, HUMAN 100 UNIT/ML 3 ML VIAL SQ PRN ×5 (01:25→23:42)
[2019-07-13] MEDS: MEROPENEM 500 MG in IV NS 0.9% 50 ML IV SCH (01:28)
--- NOTE | 2019-07-13 03:00 | NUR ---
FREDDY/GAS ROLLER OPERATOR PT WAS GIVEN AM CARE, ALONG WITH ORAL CARE. PT TOLERATED THIS WELL REMAINS ON CURRENT VENT SETTINGS WITH SATURATION AT 100%. PT WAS TUNED AND REPOSITIONED FOR COMFORT AND CARE. WILL CONTINUE TO MONITOR THIS PT. NO ACUTE DISTRESS SEEN.ALL DRESSINGS WERE DONE AT THIS TIME, DUE TO THE SOILED DRESSING.
[2019-07-13 04:00] VITALS: BP 153/80
[2019-07-13] MEDS: NEPRO 1,000 ML BOTTLE GT SCH (04:13)
--- NOTE | 2019-07-13 06:00 | NUR ---
FREDDY/SENIOR ENTERPRISE ARCHITECT PT'S MORNING BLOOD SUGAR WAS 171, THIS WAS COVERED WITH THE SLIDING SCALE. WILL CONTINUE TO MONITOR THE BLOOD SUGAR ORDERED. PT WAS TUNED AND REPOSITIONED FOR COMFORT AND CARE.
[2019-07-13 07:00] LABS: BASOPHILS % (AUTO) 0.6 % (0.0-2.0); EOSINOPHILS % (AUTO) 2.6 % (0.0-6.0); HEMATOCRIT 25 % (33-45); HEMOGLOBIN 8.2 g/dL (11.5-14.8); LYMPHOCYTES # (AUTO) 1.1 /CMM (0.8-4.8); LYMPHOCYTES % (AUTO) 15.9 % (20.0-44.0); MEAN CORPUSCULAR HGB CONC 33 g/dl (31.0-36.0); MEAN CORPUSCULAR VOLUME 95 fL (82-100); MONOCYTES # (AUTO) 0.4 /CMM (0.1-1.30); MONOCYTES % (AUTO) 5.7 % (2.0-12.0); NEUTROPHILS # (AUTO) 5.2 /CMM (1.8-8.9); NEUTROPHILS % (AUTO) 75.2 % (43.0-81.0); PLATELET COUNT (AUTO) 296 /CMM (150-450); RED BLOOD CELL COUNT(AUTO) 2.65 MIL/uL (4.0-5.2)
[2019-07-13 07:27] LABS: CALCIUM, SERUM 8.1 mg/dL (8.5-10.1); CREATININE 2.6 mg/dL (0.6-1.3); POTASSIUM 3.2 mmol/L (3.5-5.1)
--- NOTE | 2019-07-13 07:30 | NUR ---
Patient bedbound, with decerebrate posturing, obtunded, and does not follow commands. SR with PACs per tele monitor. With trach intact connected to vent, on A/CMV volume control mode. With Gtube intact and patent, Nephro feeding @ 40 ml/hour. With right wrist PIVL, 0.9% NS infusing well @ 60 ml/hr, site no phlebitis/infiltration noted. With left IJ HD cath intact. Scheduled for HD today.
[2019-07-13 08:00] VITALS: BP 127/64
[2019-07-13] MEDS: PANTOPRAZOLE 40 MG/PACK PACK GT SCH (08:25)
[2019-07-13 08:39] LABS: NEUTROPHILS % (MANUAL) 55 (42-76)
[2019-07-13 08:40] LABS: BAND % (MANUAL) 16 % (0.0-5.0); EOSINOPHILS % (MANUAL) 4 % (0-4); LYMPHOCYTES % (MANUAL) 18 % (16-48); MONOCYTES % (MANUAL) 7 % (0-11.0)
[2019-07-13] MEDS: NEOMY SULF/BACITRAC ZN/POLY 15 GM TUBE TP SCH (09:31)
[2019-07-13] MEDS: HYDROGEL DRESSING 90 GM TUBE TP SCH (09:31)
[2019-07-13] MEDS: DAKINS QUARTER STRENGTH (0.125%) 480 ML BOTTLE TOP SCH (09:31)
[2019-07-13] MEDS ORDERED: EPOETIN ALFA (10,000 UNIT) 10,000 UNIT/ML VIAL IV ONE (11:30)
[2019-07-13 12:00] VITALS: BP_SYST 133; BP_DIAS 61; BP_DIAS 80
[2019-07-13] MEDS ORDERED: POTASSIUM CHLORIDE 20 MEQ TAB.PRT.SR PO ONE (12:00)
[2019-07-13] MEDS ORDERED: DEXTROSE 50%-WATER 50 ML DISP.SYRIN IV PRN (12:00)
[2019-07-13 16:00] VITALS: BP 148/61
[2019-07-13] MEDS: LACTOBACILLUS RHAMNOSUS GG 1 EACH CAP.SPRINK PO SCH (16:50)
--- NOTE | 2019-07-13 19:00 | NUR ---
Report given to manufacturing shift supervisor RN. Patient remains on vent settings per trach. Gtube feeding running @ 60 ml per hour. No emesis, no residual. Patient is post dialysis, zero UF. Wound dressings done per order.
--- NOTE | 2019-07-13 19:40 | NUR ---
SAPPHIRE STYLUS GRINDER: RECEIVED PT CHRONIC VENT DEPENDENT TO TRACH WT VENT SETTINGS ORDERED. NO ACUTE DISTRESS, NO EVIDENCE OF DISCOMFORT. GTF TOLERATING WELL WT NO RESIDUAL. CONTINUE ON NS AT 60ML/HR WT NO S/S OF IV INFILTRATION. BED IN LOWEST POSITION WT BRAKES ON. SIDE RAILS UP X 2HOB AT 35 DEGREES. WILL CONTINUE TO MONITOR.
[2019-07-13 20:00] VITALS: BP 132/76
[2019-07-13] MEDS: ACETAMINOPHEN 650 MG/20.3 ML UDC GT PRN (20:57)
[2019-07-13] MEDS: HEPARIN SODIUM, PORCINE 5000 UNITS/1 ML VIAL SQ SCH (20:59)
[2019-07-14] VITALS (7 sets, daily range): BP systolic 119–169; BP diastolic 45–88
--- NOTE | 2019-07-14 00:30 | NUR ---
GAME PROGRAMER: NOTIFIED DR. MORRISSEY OF PT. HAVING HIGH BP SINCE START OF SHIFT. TYLENOL GIVEN FOR FACIAL GRIMACE WT GOOD EFFECT. DNP WT NO NEW ORDER. WILL CONTINUE TO MONITOR.
[2019-07-14] MEDS: MEROPENEM 500 MG in IV NS 0.9% 50 ML IV SCH (01:39)
[2019-07-14] MEDS: NEPRO 1,000 ML BOTTLE GT SCH (04:06)
[2019-07-14] MEDS: ACETAMINOPHEN 650 MG/20.3 ML UDC GT PRN ×2 (04:08→21:22)
--- NOTE | 2019-07-14 05:15 | NUR ---
SOCIOLOGY PROFESSOR: REASSESSED AFTER GIVEN TYLENOL FOR FACIAL GRIMACE AND ELEVATED HR WT GOOD EFFECT. NO S/S OF DISCOMFORT, HR IN THE 90s. WILL CONTINUE TO MONITOR. GT FEEDING TOLERATING WELL. HOB AT 35 DEGREES. SAFETY PRECAUTION NOTED AT ALL TIMES.
[2019-07-14] MEDS: BLOOD SUGAR DIAGNOSTIC 1 EACH STRIP IN SCH ×3 (06:10→17:03)
[2019-07-14] MEDS: INSULIN REGULAR, HUMAN 100 UNIT/ML 3 ML VIAL SQ PRN ×3 (06:14→17:04)
[2019-07-14 06:24] LABS: BASOPHILS % (AUTO) 0.7 % (0.0-2.0); EOSINOPHILS % (AUTO) 1.6 % (0.0-6.0); HEMATOCRIT 25 % (33-45); HEMOGLOBIN 8.3 g/dL (11.5-14.8); LYMPHOCYTES # (AUTO) 1.4 /CMM (0.8-4.8); LYMPHOCYTES % (AUTO) 18.6 % (20.0-44.0); MEAN CORPUSCULAR HGB CONC 34 g/dl (31.0-36.0); MEAN CORPUSCULAR VOLUME 94 fL (82-100); MONOCYTES # (AUTO) 0.4 /CMM (0.1-1.30); NEUTROPHILS # (AUTO) 5.4 /CMM (1.8-8.9); NEUTROPHILS % (AUTO) 73.1 % (43.0-81.0); PLATELET COUNT (AUTO) 280 /CMM (150-450); RED BLOOD CELL COUNT(AUTO) 2.62 MIL/uL (4.0-5.2); WHITE BLOOD COUNT (AUTO) 7.3 K/uL (4.3-11.0)
[2019-07-14 06:44] LABS: CALCIUM, SERUM 8.4 mg/dL (8.5-10.1); CREATININE 1.8 mg/dL (0.6-1.3); POTASSIUM 3.5 mmol/L (3.5-5.1)
--- NOTE | 2019-07-14 07:00 | NUR ---
FLOOR COVERING CONTRACTOR OPENING NOTES RECEIVED PT LYING ON BED,OBTUNDED AND NONVERBAL.CAN OPEN EYES.ON TELE HR IS 77 WITH NSR.TRACH AND VENT DEPENDENT WITH SHILEY XLT 8,AC 12 TV 550 FIO2 40% AND PEEP 5.TOLERATING WELL.NO SOBA ND ACUTE DISTRESS NOTED.ON G TUBE FEEDING WITH FORMULA NEPRO @40CC/HR,MINIMAL GASTRIC RESIDUAL NOTED.TOLERATING WELL.CHINO CATH PRESENT WITH DARK YELLOW COLOR URINE.IV LINE IS ON RIGHT WRIST G 20 WITH IV NS .9% @60CC/HR IS RUNNING AND HD CATH IS ON LEFT IJ.SITE IS CLEAN,DRY AND INTACT.NO INFILTRATION NOTED.SAFETY IS MAINTAINED AT ALL TIMES.BED IS IN LOW POSITION AND LOCKED.CALL LIGHT IS WITHIN REACH.WILL CONTINUE TO MONITOR THE PT CLOSELY.
[2019-07-14] MEDS: PANTOPRAZOLE 40 MG/PACK PACK GT SCH (08:12)
[2019-07-14] MEDS: LACTOBACILLUS RHAMNOSUS GG 1 EACH CAP.SPRINK PO SCH ×2 (08:12→16:49)
[2019-07-14] MEDS: HEPARIN SODIUM, PORCINE 5000 UNITS/1 ML VIAL SQ SCH ×2 (08:13→20:25)
[2019-07-14] MEDS: DAKINS QUARTER STRENGTH (0.125%) 480 ML BOTTLE TOP SCH (08:17)
[2019-07-14] MEDS: HYDROGEL DRESSING 90 GM TUBE TP SCH (08:18)
[2019-07-14] MEDS: NEOMY SULF/BACITRAC ZN/POLY 15 GM TUBE TP SCH (08:18)
[2019-07-14 08:56] LABS: BAND % (MANUAL) 5 % (0.0-5.0); EOSINOPHILS % (MANUAL) 2 % (0-4); LYMPHOCYTES % (MANUAL) 16 % (16-48); MONOCYTES % (MANUAL) 7 % (0-11.0); MYELOCYTES % 2 % (0-0); NEUTROPHILS % (MANUAL) 68 (42-76)
[2019-07-14] MEDS: IV NS 0.9% 1,000 ML IV PRN (10:03)
[2019-07-14] MEDS ORDERED: LIDOCAINE 1%-EPI 1:100,000 20 ML VIAL TP STA (10:12)
[2019-07-14] MEDS ORDERED: SILVER NITRATE APPLICATOR 1 EA BOX TP STA (10:12)
--- NOTE | 2019-07-14 11:00 | NUR ---
SCHOOL CROSSING GUARD SUPERVISOR NOTES DR.KASHANI RUDD DONE THE WOUND DEBRIDEMENT AND SENT THE RIGHT BUTTOCK TISSUE FOR ANALYSIS AND LEFT BUTTOCK BONE TO R/O OSTEOMYELITIS.PT TOLERATED WELL.NEW ORDERS NOTED AND CARRIED OUT.
--- NOTE | 2019-07-14 18:45 | NUR ---
ASHLEY WINTER NOTES CHINO CATHETER AND FLEXISEAL REPLACED BECAUSE ITS LEAKING. Addendum: 07/14/19 at 2000 by DAVID GARCIA RN WRONG PT CHARTING
--- NOTE | 2019-07-14 19:30 | NUR ---
MS RN OPENING NOTE RECEIVED PATIENT A/OX0. PATIENT IS OBTUNDED BUT OPENS EYES SPONTANEOUSLY. PATIENT HAS TRACH WITH A SHILEY #8, AC 12, TV 550, FIO2 40%, AND PEEP 5. PATIENT SEEMS TO BE HANDLING TRACH WITH NO SIGNS OF COMPLICATIONS. PATIENT HAS A R WRIST IV 20g WITH NS RUNNING AT 60ML/HR. GT TUBE WITH NEPRO RUNNING AT 60ML FOR 16HRS, NO SIGNS OF COMPLICATIONS. HD CATH ON LEFT. PATIENT HAS MULTIPLE WOUNDS. WILL APPLY WOUND CARE PRESCRIBED. CHINO CATHETER RUNNING WITH NO SIGN OF OBSTRUCTION. ALL SAFETY PRECAUTIONS APPLIED. WILL CONTINUE TO MONITOR PATIENT.
--- NOTE | 2019-07-14 20:00 | NUR ---
AUTISM TEACHER CLOSING NOTES PT IS LYING ON BED WITH TRACH AND VENT DEPEND.TOLERATING WELL.RESPIRATION IS EVEN AND NONLABORED.NO SIGNIFICANT CHANGES NOTED IN THE SHIFT.ENDORSED TO SUPERVISOR CONCRETE PIPE PLANT RN FOR CHELSY.
[2019-07-15] VITALS: BP 147/70
[2019-07-15] MEDS: INSULIN REGULAR, HUMAN 100 UNIT/ML 3 ML VIAL SQ PRN ×3 (00:43→12:23)
[2019-07-15] MEDS: BLOOD SUGAR DIAGNOSTIC 1 EACH STRIP IN SCH ×3 (00:45→12:22)
[2019-07-15] MEDS: MEROPENEM 500 MG in IV NS 0.9% 50 ML IV SCH (01:44)
[2019-07-15 04:00] VITALS: BP 154/76
[2019-07-15] MEDS: IV NS 0.9% 1,000 ML IV PRN (05:50)
[2019-07-15 06:23] LABS: BASOPHILS # (AUTO) 0.1 /CMM (0.0-0.2); BASOPHILS % (AUTO) 0.8 % (0.0-2.0); EOSINOPHILS % (AUTO) 1.7 % (0.0-6.0); HEMATOCRIT 28 % (33-45); HEMOGLOBIN 9.2 g/dL (11.5-14.8); LYMPHOCYTES % (AUTO) 21.7 % (20.0-44.0); MEAN CORPUSCULAR HGB CONC 33 g/dl (31.0-36.0); MEAN CORPUSCULAR VOLUME 95 fL (82-100); MONOCYTES # (AUTO) 0.5 /CMM (0.1-1.30); MONOCYTES % (AUTO) 5.2 % (2.0-12.0); NEUTROPHILS # (AUTO) 6.4 /CMM (1.8-8.9); NEUTROPHILS % (AUTO) 70.6 % (43.0-81.0); PLATELET COUNT (AUTO) 318 /CMM (150-450); RED BLOOD CELL COUNT(AUTO) 2.91 MIL/uL (4.0-5.2); WHITE BLOOD COUNT (AUTO) 9.1 K/uL (4.3-11.0)
[2019-07-15 06:59] LABS: CALCIUM, SERUM 8.8 mg/dL (8.5-10.1); CREATININE 2.4 mg/dL (0.6-1.3); POTASSIUM 4.3 mmol/L (3.5-5.1)
--- NOTE | 2019-07-15 07:00 | NUR ---
X RAY PHYSICIAN OPENING NOTES RECEIVED PT LYING ON BED,OBTUNDED AND NONVERBAL.CAN OPEN EYES.ON TELE HR IS 103 WITH SINUS TACHYCARDIA.TRACH AND VENT DEPENDENT WITH SHILEY XLT 8,AC 12 TV 550 FIO2 40% AND PEEP 5.TOLERATING WELL.NO SOB AND ACUTE DISTRESS NOTED.ON G TUBE FEEDING WITH FORMULA NEPRO @40CC/HR,MINIMAL GASTRIC RESIDUAL NOTED.TOLERATING WELL.CHINO CATH PRESENT WITH DARK YELLOW COLOR URINE.IV LINE IS ON RIGHT WRIST G 20 WITH IV NS .9% @60CC/HR IS RUNNING AND HD CATH IS ON LEFT IJ.SITE IS CLEAN,DRY AND INTACT.INFILTRATION NOTED.SAFETY IS MAINTAINED AT ALL TIMES.BED IS IN LOW POSITION AND LOCKED.CALL LIGHT IS WITHIN REACH.WILL CONTINUE TO MONITOR THE PT CLOSELY.
--- NOTE | 2019-07-15 07:38 | NUR ---
SOLID WASTE ENGINEER NOTES PATIENT IN BED WITH SLIGHT INCREASE IN HR. ENDORSED INFOR TO MORNING NURSE. TOLREATING VENT WITH NO SIGNS OF SOB. ALL SAFETY PRECATUIONS APPLIED. ENDORSED PATIENT TO SADI Medeiros
[2019-07-15 08:00] VITALS: BP 135/65
--- NOTE | 2019-07-15 09:30 | NUR ---
SLIDER ASSEMBLER MAURI NORWOOD,INFECTION CONTROL NURSE CALLED AND ORDERED TO RECOLLECT THE URINE FOR URINE C&A THE PREVIOUS URINE IS CONTAMINATED.NEW ORDERS NOTED AND CARRIED OUT.
--- NOTE | 2019-07-15 10:30 | NUR ---
PROVIDER EDUCATION SPECIALIST NOTES HEMODIALYSIS HAS DONE AND 1L FLUID OUT.PT TOLERATED WELL.
[2019-07-15] MEDS: PANTOPRAZOLE 40 MG/PACK PACK GT SCH (10:40)
[2019-07-15] MEDS: HEPARIN SODIUM, PORCINE 5000 UNITS/1 ML VIAL SQ SCH (10:41)
[2019-07-15] MEDS ORDERED: NEPRO 1,000 ML BOTTLE GT SCH (11:00)
[2019-07-15] MEDS: DAKINS QUARTER STRENGTH (0.125%) 480 ML BOTTLE TOP SCH (11:13)
[2019-07-15] MEDS: HYDROGEL DRESSING 90 GM TUBE TP SCH (11:13)
[2019-07-15] MEDS: NEOMY SULF/BACITRAC ZN/POLY 15 GM TUBE TP SCH (11:14)
[2019-07-15 12:00] VITALS: BP 150/48
--- NOTE | 2019-07-15 12:00 | NUR ---
CERTIFIED HYPERBARIC TECHNOLOGIST NOTES URINE IS COLLECTED AND SEND TO LAB.
[2019-07-15] MEDS: LACTOBACILLUS RHAMNOSUS GG 1 EACH CAP.SPRINK PO SCH (12:22)
[2019-07-15] MEDS ORDERED: VANC1PLA9 IV (12:26)
[2019-07-15] MEDS ORDERED: MERO500V3 IV (12:38)
[2019-07-15 13:15] LABS: APPEARANCE,URINE Cloudy (CLEAR); BILIRUBIN,URINE MODERATE (NEGATIVE); BLOOD, URINE Moderate Ery/uL (NEGATIVE); COLOR,URINE Yellow (YELLOW); KETONES,URINE 15 (NEGATIVE); LEUKOCYTE ESTERASE ,URINE Small (NEGATIVE); NITRITE, URINE Positive (NEGATIVE); PH,URINE 7.5 (5.0-8.0); PROTEIN,URINE >=300 mg/dl (NEGATIVE); UGLUCOSE Negative (NEGATIVE); UROBILINOGEN,URINE 0.2 EU/dL (0.2)
[2019-07-15 13:25] LABS: BACTERIA,URINE Moderate /HPF (None Seen); SQUAMOUS EPITHELIAL CELL,UR Few /HPF (None Seen); WBC,URINE 20-50 /HPF (0-3); YEAST,URINE Hyphal filaments /HPF (None Seen)
--- NOTE | 2019-07-15 15:35 | NUR ---
CUSTOMER SUPPORT PROFESSIONAL NOTES PT TRANSFER REPORT GIVEN TO MOY TATE BLIND STITCH MACHINE OPERATOR IN [facility].
--- NOTE | 2019-07-15 16:00 | NUR ---
UTILITY GELATIN MAKER NOTES PICC LINE TELEPHONE CONSENT OBTAINED FROM HUSSEIN NICHOLS.
--- NOTE | 2019-07-15 16:05 | NUR ---
CHIEF CLERK NOTES PICC LINE IS INSERTED ON LEFT UPPER ARM 35CM.
--- NOTE | 2019-07-15 16:15 | NUR ---
YOUTH NUTRITIONAL MONITORNIB INSPECTOR NOTES PT IS DISCHARGED TO [facility] BY AMBULANCE.ALL THE WOUND CARE HAS DONE.PT IS CLEAN AND DRY.PICC LINE SI IN PLACE AND PERIPHERAL IV LINE IS REMOVED FROM RIGHT WRIST.NO BLEEDING NOTED.TRACH AND VENT DEPEND.TOLERATING WELL.NO SOB AND ACUTE DISTRESS NOTED.G TUBE IS IN PLACE.FAMILY IS INFORMED ABOUT THE DISCHARGE.NO COMPLICATIONS NOTED.
[2019-07-15] MEDS ORDERED: VANCOMYCIN 1 GM in IV D5W 250 ML IV ONE (16:30)
[2019-07-16] MEDS ORDERED: VANCOMYCIN 500 MG in IV D5W 100 ML IV PRN (06:00)
[2019-07-16] MEDS ORDERED: PROSOURCE / PROSTAT (PYXIS) 30 ML UDC GT SCH (09:00)
== END 2019-07-15 16:15 | DRG 710 ==
LOC: ER 19:06 → TELE-TD 22:10 → TELE1 07-12 10:01
PROVIDERS: ADMIT Nurse Practitioner Acute Care; ATTEND Hospitalist
PROC: 5A1945Z Respiratory Ventilation, 24-96 Consecutive Hours (ICD-10-PCS; principal; 2019-07-11)
PROC: 5A1D70Z Performance of Urinary Filtration, Intermittent, Less than 6 Hours Per Day (ICD-10-PCS; 2019-07-12)
PROC: 30233P1 Transfusion of Nonautologous Frozen Red Cells into Peripheral Vein, Percutaneous Approach (ICD-10-PCS; 2019-07-12)
PROC: 0KBN0ZZ Excision of Right Hip Muscle, Open Approach (ICD-10-PCS; 2019-07-14)
PROC: 5A1D70Z Performance of Urinary Filtration, Intermittent, Less than 6 Hours Per Day (ICD-10-PCS; 2019-07-14)
PROC: 0JBJ0ZZ Excision of Right Hand Subcutaneous Tissue and Fascia, Open Approach (ICD-10-PCS; 2019-07-14)
PROC: 0QB30ZZ Excision of Left Pelvic Bone, Open Approach (ICD-10-PCS; 2019-07-14)
PROC: 0KBN0ZZ Excision of Right Hip Muscle, Open Approach (ICD-10-PCS; 2019-07-15)
PROC: 0KBP0ZZ Excision of Left Hip Muscle, Open Approach (ICD-10-PCS; 2019-07-15)
DX: A41.9 Sepsis, unspecified organism (principal); E43 Unspecified severe protein-calorie malnutrition; G93.1 Anoxic brain damage, not elsewhere classified; Z99.11 Dependence on respirator [ventilator] status; L89.154 Pressure ulcer of sacral region, stage 4; J96.11 Chronic respiratory failure with hypoxia; K83.1 Obstruction of bile duct; R53.2 Functional quadriplegia; I12.0 Hypertensive chronic kidney disease with stage 5 chronic kidney disease or end stage renal disease; N18.6 End stage renal disease; N39.0 Urinary tract infection, site not specified; Z99.2 Dependence on renal dialysis; I25.10 Atherosclerotic heart disease of native coronary artery without angina pectoris; Z86.73 Personal history of transient ischemic attack (TIA), and cerebral infarction without residual deficits; Z86.74 Personal history of sudden cardiac arrest; Z93.0 Tracheostomy status; E11.22 Type 2 diabetes mellitus with diabetic chronic kidney disease; E78.5 Hyperlipidemia, unspecified; D63.1 Anemia in chronic kidney disease; E87.6 Hypokalemia; E11.69 Type 2 diabetes mellitus with other specified complication; D53.9 Nutritional anemia, unspecified; Z93.1 Gastrostomy status; R13.10 Dysphagia, unspecified; Z74.01 Bed confinement status; Z68.28 Body mass index [BMI] 28.0-28.9, adult; M46.28 Osteomyelitis of vertebra, sacral and sacrococcygeal region; E11.51 Type 2 diabetes mellitus with diabetic peripheral angiopathy without gangrene; I70.233 Atherosclerosis of native arteries of right leg with ulceration of ankle; L97.319 Non-pressure chronic ulcer of right ankle with unspecified severity; L89.890 Pressure ulcer of other site, unstageable; I34.0 Nonrheumatic mitral (valve) insufficiency; I35.8 Other nonrheumatic aortic valve disorders
CPT/HCPCS: 31720; 36415; 71045-TC; 73610-TC; 80048-TC; 80053-TC; 80061-TC; 80076-TC; 80202-TC; 81000-TC; 82962-TC; 83540-TC; 83605-TC; 83735-TC; 84100-TC; 84443-TC; 84484-TC; 85025-TC; 85045-TC; 85652-TC; 85730-TC; 86706; 86850-TC; 86921-TC; 87040-TC; 87045-TC; 87070-TC; 87081-TC; 87086-TC; 87186-TC; 87340; 89055; 90935-TC; 94002-TC; 94003-TC; 94760-TC; 94762-TC; 99082-TC; A4216; A6248; A6253; A6403; G0378; J0885; J1644; J1815; J2185; J2543; J3370; J3490; J7030; J7060; P9016-BL

== ENCOUNTER 2019-08-15 18:49 | Inpatient (IN) | payer OTHER ==
[~2019-08-15] VITALS: Ht 154.9 cm; Wt 71.7 kg
[~2019-08-15 18:49] MED LIST changes: -NIFE-2 PO; +NIFE-57 PO; +OMEP40CA13 GT; -OMEP40CA37 GT; +VANC1PLA9 IV
[2019-08-15 19:17] LABS: BASOPHILS # (AUTO) 0.1 /CMM (0.0-0.2); BASOPHILS % (AUTO) 0.7 % (0.0-2.0); EOSINOPHILS % (AUTO) 2.2 % (0.0-6.0); HEMATOCRIT 28 % (33-45); HEMOGLOBIN 8.9 g/dL (11.5-14.8); LYMPHOCYTES # (AUTO) 1.3 /CMM (0.8-4.8); LYMPHOCYTES % (AUTO) 13.6 % (20.0-44.0); MEAN CORPUSCULAR HGB CONC 33 g/dl (31.0-36.0); MEAN CORPUSCULAR VOLUME 99 fL (82-100); MONOCYTES # (AUTO) 0.4 /CMM (0.1-1.30); MONOCYTES % (AUTO) 3.8 % (2.0-12.0); NEUTROPHILS # (AUTO) 7.9 /CMM (1.8-8.9); NEUTROPHILS % (AUTO) 79.7 % (43.0-81.0); PLATELET COUNT (AUTO) 331 /CMM (150-450); RED BLOOD CELL COUNT(AUTO) 2.78 MIL/uL (4.0-5.2); WHITE BLOOD COUNT (AUTO) 9.9 K/uL (4.3-11.0)
[2019-08-15] MEDS ORDERED: ALBUTEROL FS 2.5 MG/3 ML VIAL.NEB ONE (19:17)
[2019-08-15] MEDS ORDERED: IPRATROPIUM NEB FS 0.5 MG/2.5 ML AMPUL.NEB ONE (19:17)
[2019-08-15] MEDS ORDERED: PIPERACILLIN /TAZOBACTAM 3.375 G VIAL IV ONE (19:28)
[2019-08-15] MEDS ORDERED: ACETAMINOPHEN 650 MG/SUPP.RECT RC ONE ×2 (19:28→19:30)
[2019-08-15] MEDS ORDERED: VANCOMYCIN 1 GM VIAL ONE (19:28)
[2019-08-15 19:30] LABS: ABG BASE EXCESS -4.7 mmol/L; ABG OXYGEN SATURATION 94.3 % (92.0-98.5); ABG PO2 73.4 mmHg (75.0-100.0); AaDO2 608.6 mmHg; COHb 0.1 % (0.5-1.5); MetHb 0.4 % (0.0-1.5); O2Hb 93.8 % (94.0-97.0); SITE, ABG Right Radial
[2019-08-15] MEDS ORDERED: IPRATROPIUM NEB FS 0.5 MG/2.5 ML AMPUL.NEB NEB ONE (19:30)
[2019-08-15] MEDS ORDERED: VANCOMYCIN 1 GM in IV D5W 250 ML IV ONE (19:30)
[2019-08-15] MEDS ORDERED: PIPERACILLIN /TAZOBACTAM 3.375 G in IV D5W 50 ML IV ONE (19:30)
[2019-08-15] MEDS ORDERED: ALBUTEROL FS 2.5 MG/3 ML VIAL.NEB NEB ONE (19:30)
--- NOTE | 2019-08-15 19:31 | NUR ---
Patient Came to ED BIB EMS from per report dialysis not completed SOB ,patient on Trach Vent Rt @ bedside ,101.5 rectally ,lesion to both buttocks ,permacath LCW, noted edematous bilateral arms and lower extr. ok to place heplock to foot per
[2019-08-15 19:32] LABS: CARBON DIOXIDE 20 mmol/L (21-32); CHLORIDE 100 mmol/L (98-107); CREATININE 1.5 mg/dL (0.6-1.3); GLUCOSE 179 mg/dL (74-106); POTASSIUM 3.2 mmol/L (3.5-5.1); SODIUM SERUM 135 mmol/L (136-145); UREA NITROGEN, BLOOD 28 mg/dL (7-18)
[2019-08-15 19:37] LABS: ALANINE AMINOTRANSFERASE 9 U/L (12-78); ALBUMIN 1.5 g/dL (3.4-5.0); ASPARTATE AMINOTRANSFERASE 14 U/L (15-37); BILIRUBIN,DIRECT 0.1 mg/dL (0.0-0.2); BILIRUBIN,TOTAL 0.3 mg/dL (0.2-1.0); TOTAL PROTEIN, SERUM 6.8 g/dL (6.4-8.2)
[2019-08-15] MEDS ORDERED: MIDAZOLAM HCL 5 MG/5ML VIAL ONE (19:41)
[2019-08-15 19:59] LABS: ALKALINE PHOSPHATASE 168 U/L (46-116)
[2019-08-15] MEDS ORDERED: MIDAZOLAM HCL 2 MG/2ML VIAL IV ONE (20:00)
[2019-08-15] MEDS ORDERED: MIDAZOLAM HCL 100 MG in IV NS 0.9% 80 ML IV PRN (20:00)
--- NOTE | 2019-08-15 20:00 | NUR ---
VI FROM HD. TO ER BED 8. AWAKE AND ORIENTED X0. PT IS W/ TRACH ON VENT, TACHYPNEIC UPON RECEIVED AND HR OF 115. BROUGHT IN FOR RAPID HR AND TACHYPNEA. PT IS BREATHING LABORED AND ABDOMINAL MUSCLE USE. PT IS NOTED WITH RECTAL TEMP 101.5. PRESSURE INURY NOTED ON SACRAL AREA EXTENDING TO LEFT AND RIGHT BUTTOCK RED WITH SLOUGH STAGE 4, L HAND BELOW THE THUMB PRESSURE INJURY STAGE 4, R HEEL PRESSURE INJURY AND OLD AMPUTATION ON R GREAT TOE. PT IS PRESENTED WITH GT. F/C IN USE WIGS SALESPERSON. L UPPER CHEST PERMACATH SITE. WAS AT BEDSIDE FOR EVAL. ORDERS RECEIVED NOTED AND CARREID OUT. WILL CONTINUE TO MONITOR PT
[2019-08-15 20:30] LABS: APPEARANCE,URINE Cloudy (CLEAR); BILIRUBIN,URINE Negative (NEGATIVE); BLOOD, URINE Moderate Ery/uL (NEGATIVE); COLOR,URINE Yellow (YELLOW); KETONES,URINE Negative (NEGATIVE); LEUKOCYTE ESTERASE ,URINE Large (NEGATIVE); NITRITE, URINE Negative (NEGATIVE); PH,URINE 5.5 (5.0-8.0); PROTEIN,URINE 100 mg/dl (NEGATIVE); UGLUCOSE Negative (NEGATIVE); UROBILINOGEN,URINE 0.2 EU/dL (0.2)
--- NOTE | 2019-08-15 20:47 | NUR ---
RECIEVED BED 258
[2019-08-15] MEDS ORDERED: LORAZEPAM INJ 2 MG/ML VIAL ONE (20:49)
[2019-08-15 20:57] LABS: BACTERIA,URINE 2+ /HPF (None Seen); SQUAMOUS EPITHELIAL CELL,UR Few /HPF (None Seen); WBC,URINE 21-50 /HPF (0-3)
--- NOTE | 2019-08-15 21:58 | NUR ---
REPORT GIVEN TO MOY BARKSDALE FOR CHELSY.
[2019-08-15 22:00] VITALS: BP 87/27
[2019-08-15] MEDS ORDERED: MAG HYDROX/AL HYDROX/SIMETH 30 ML UDC PO PRN (22:00)
[2019-08-15] MEDS ORDERED: HYDROCODONE/APAP 5/325MG 1 EACH TABLET PO PRN (22:00)
[2019-08-15] MEDS ORDERED: Z GUARD REMEDY 2 OZ OINT TP PRN (22:00)
[2019-08-15] MEDS ORDERED: ONDANSETRON HCL/PF 4 MG/2 ML VIAL IVP PRN (22:00)
[2019-08-15] MEDS ORDERED: ZOLPIDEM TARTRATE 5 MG TABLET PO PRN (22:00)
[2019-08-15] MEDS ORDERED: MAGNESIUM HYDROXIDE 30 ML UDC PO PRN (22:00)
--- NOTE | 2019-08-15 22:00 | NUR ---
rn notes admitted a 64 y/o female obtunded , non verbal , report given by CURRICULUM COUNSELORMOY silverman , with admitting dx of sepsis , pts is vent dependent ac setting well tolerated , pts came from [facility] , with hx of htn ,vdrf , esrd on hd (TTHS)DM ,ENCEPHALOPATHY ,HLD ,CHRONIC RESP FAILURE , G TUBE ,MULTIPLE PRESSURE SORE . V/S BP 87/27 HR 90 RR 30 TEMP 100.1 , NO SOB NO DISTRESS NOTED , ADMISSION ROUTINE CARE RENDERED , ADMISSION ORDER NOTED AND CARRIED OUT ,PTS RECEIVED FROM ER WITH VERSED AT AT 2MG /HR, F/C CHANGED INTACT AND PATENT , WITH YELLOWISH URINE OUTPUT .IV SITE ON LEFT FOOT G 20 INTACT AND PATENT , PTS NOTED WITH EDEMA ON MANISHA UPPER EXTREMITIES , PTS WITH GT NEPHRO AT 45CC/HR WELL TOLERATED , NO RESIDUAL NOTED , MULTIPLE WOUND TX DONE ,AND COVER WTH ABDOMINAL PAD. TURNED AND REPOSITION 2 HRS AND PRN , HOB ELEVATED AT ALL TIMES FOR ASPIRATION PRECAUTION. KEPT PTS CLEAN AND DRY , WILL CONTINUE TO MONITOR PTS.
--- NOTE | 2019-08-15 22:05 | NUR ---
pt transported to unit on [facility] [place] with EMT, RN and RT at bedside w/ ACLS protocol. nad noted during transport.
--- NOTE | 2019-08-15 22:50 | NUR ---
RN NOTES VERSED INCREASED TO 3MG/HR .WILL CONTINUE TO MONITOR PTS.
[2019-08-15 23:00] VITALS: BP 106/42
[2019-08-15] MEDS: ALBUTEROL FS 2.5 MG/0.5 ML VIAL.NEB NEB SCH (23:28)
[2019-08-15] MEDS: IPRATROPIUM NEB FS 0.5 MG/2.5 ML AMPUL.NEB NEB SCH (23:29)
[2019-08-16] VITALS (43 sets, daily range): BP systolic 81–156; BP diastolic 27–83
[2019-08-16] MEDS ORDERED: DEXTROSE 50%-WATER 50 ML DISP.SYRIN IV PRN (01:00)
[2019-08-16] MEDS: NEPRO 1,000 ML BOTTLE GT PRN (02:50)
[2019-08-16] MEDS ORDERED: PIPERACILLIN /TAZOBACTAM 3.375 G VIAL IV ONE (02:54)
[2019-08-16] MEDS ORDERED: PIPERACILLIN /TAZOBACTAM 3.375 G in IV D5W 50 ML IV ONE (03:00)
[2019-08-16] MEDS: IPRATROPIUM NEB FS 0.5 MG/2.5 ML AMPUL.NEB NEB SCH ×6 (04:18→23:23)
[2019-08-16] MEDS: ALBUTEROL FS 2.5 MG/0.5 ML VIAL.NEB NEB SCH ×7 (04:18→23:23)
[2019-08-16 04:27] LABS: BASOPHILS # (AUTO) 0.1 /CMM (0.0-0.2); BASOPHILS % (AUTO) 0.8 % (0.0-2.0); EOSINOPHILS % (AUTO) 0.7 % (0.0-6.0); HEMATOCRIT 22 % (33-45); HEMOGLOBIN 7.2 g/dL (11.5-14.8); LYMPHOCYTES # (AUTO) 1.3 /CMM (0.8-4.8); LYMPHOCYTES % (AUTO) 16.2 % (20.0-44.0); MEAN CORPUSCULAR HGB CONC 33 g/dl (31.0-36.0); MEAN CORPUSCULAR VOLUME 98 fL (82-100); MONOCYTES # (AUTO) 0.3 /CMM (0.1-1.30); MONOCYTES % (AUTO) 3.6 % (2.0-12.0); NEUTROPHILS # (AUTO) 6.5 /CMM (1.8-8.9); NEUTROPHILS % (AUTO) 78.7 % (43.0-81.0); PLATELET COUNT (AUTO) 307 /CMM (150-450); RED BLOOD CELL COUNT(AUTO) 2.21 MIL/uL (4.0-5.2); WHITE BLOOD COUNT (AUTO) 8.3 K/uL (4.3-11.0)
[2019-08-16 04:39] LABS: CALCIUM, SERUM 8.6 mg/dL (8.5-10.1); CREATININE 2.1 mg/dL (0.6-1.3); MAGNESIUM 2.2 mg/dL (1.8-2.4); PHOSPHORUS 2.1 mg/dL (2.5-4.9); POTASSIUM 3.5 mmol/L (3.5-5.1)
[2019-08-16] MEDS ORDERED: FOLI0.8T2 GT (04:43)
[2019-08-16] MEDS ORDERED: APIX5TAB GT (04:43)
[2019-08-16] MEDS ORDERED: CHOL100044 GT (04:43)
[2019-08-16] MEDS ORDERED: AMIO200T4 GT (04:43)
[2019-08-16] MEDS ORDERED: CRAN450C GT (04:43)
[2019-08-16] MEDS ORDERED: ZINC220T4 GT (04:43)
[2019-08-16] MEDS ORDERED: DILT180C93 GT (04:43)
[2019-08-16 05:06] LABS: THYROID STIMULATING HORMONE 5.204 uIU/mL (0.358-3.74)
--- NOTE | 2019-08-16 06:00 | NUR ---
MOY NOTES BLOOD SUGAR FOR 6AM IS 225MG/DL 4 UNITS OF REGULAR INSULIN GIVEN PER SLIDING SCALE. Addendum: 08/16/19 at 0658 by CARRINGTON MORELOS RN 6 UNITS OF REGULAR INSULIN GIVEN NOT 4 UNITS.
[2019-08-16] MEDS: BLOOD SUGAR DIAGNOSTIC 1 EACH STRIP IN SCH ×4 (06:31→23:59)
[2019-08-16] MEDS: INSULIN REGULAR, HUMAN 100 UNIT/ML 3 ML VIAL SQ PRN (06:31)
[2019-08-16] MEDS ORDERED: FEE PK DOSING 1 MIN EA MC ONE (07:14)
[2019-08-16 07:22] LABS: BAND % (MANUAL) 3 % (0.0-5.0); EOSINOPHILS % (MANUAL) 1 % (0-4); LYMPHOCYTES % (MANUAL) 12 % (16-48); MONOCYTES % (MANUAL) 6 % (0-11.0); MYELOCYTES % 1 % (0-0); NEUTROPHILS % (MANUAL) 77 (42-76)
--- NOTE | 2019-08-16 07:40 | NUR ---
ACCOUNTS PAYABLE ADMINISTRATOR: pt.is good sedated with 3 mg/h Versed, reactive by pain stimuli/grimacing, SR, SBP over 90, no SOB, O2sat. over 96% on FiO2 50%, GTF residual WNL, has one L.foot PIVL, needs PICC/charge nurse notified, change Versed for AWNING MAKER AND INSTALLER pump
--- NOTE | 2019-08-16 07:55 | NUR ---
SUPERVISOR COLOR PASTE MIXING: T 101.1, cooling measures initiated
--- NOTE | 2019-08-16 08:00 | NUR ---
RAIL DOWELING MACHINE OPERATOR: Mariia w/c nurse evaluated all wounds, see new orders, recommended to place in rectal flexitube
[2019-08-16] MEDS ORDERED: NA P133E RC (08:42)
[2019-08-16] MEDS ORDERED: LINE600T13 PO (08:42)
[2019-08-16] MEDS ORDERED: INSU100V7 SQ (08:42)
[2019-08-16] MEDS ORDERED: ONDA4TAB5 PO (08:42)
[2019-08-16] MEDS: ACETAMINOPHEN 325 MG TABLET PO PRN (08:57)
[2019-08-16 08:59] LABS: ABG BASE EXCESS -4.9 mmol/L; ABG OXYGEN SATURATION 98.9 % (92.0-98.5); ABG PCO2 26.4 mmHg (35.0-45.0); ABG PH 7.457 (7.350-7.450); AaDO2 112.8 mmHg; COHb 0.1 % (0.5-1.5); MetHb 1.1 % (0.0-1.5); O2Hb 97.7 % (94.0-97.0); SITE, ABG Left Radial; VENT MODE, BG AC 15 400 50% +5
--- NOTE | 2019-08-16 08:59 | NUR ---
WOUND CARE CONSULT: PT PRESENTS WITH MULTIPLE WOUNDS AND SKIN ISSUES INCLUDING STAGE 4 ULCERS TO SACRUM AND BILATERAL BUTTOCKS WHICH EXTEND TO HIPS, LEFT HAND WOUND, LOWER EXTREMITY WOUNDS, INCONTINENCE ASSOCIATED SKIN DAMAGE TO PERINEUM AND PERIANAL AREA, RASH TO LEFT ABDOMINAL FOLD/FLANK AREA AND LEFT EAR FRAGILE SCAR, ALL PRESENT ON ADMISSION. RECOMMEND DPM CONSULT AND SURGICAL CONSULT. DR MADISON NOTIFIED OF DPM CONSULT REQUEST. DR KAVYA AGUILAR NOTIFIED OF SURGICAL CONSULT REQUEST. DEFER TO DPM FOR WOUND TREATMENT PLAN OF LOWER EXTREMITIES. RECOMMENDATIONS MADE FOR OTHER WOUNDS AND SKIN ISSUES. DISCUSSED WITH NURSING STAFF. PT ON BEATRICE ISOFLEX LOW AIRLOSS BED. PT INCONTINENT OF LIQUID STOOL. RECTAL TUBE WAS INSERTED BY RN. CHINO CATH NOTED. CURRENT DEBBY SCORE IS 9. Addendum: 08/16/19 at 0904 by PRASHANTH ADAN WNDNU Amended: Links added.
--- NOTE | 2019-08-16 09:00 | NUR ---
NURSING HOME ASSISTANT: updated with pt.current condition, VS, resp.status, vent setting, suction amount, meds, ordered: ABG
--- NOTE | 2019-08-16 09:15 | NUR ---
SENIOR BI ARCHITECT: is in room, updated with pt.VS, sedation level/versed gtt, I/O, GTF, meds, labs, all wounds, agree for rectal tube, midline placement, home meds verification need, see new orders
--- NOTE | 2019-08-16 10:09 | NUR ---
BOILERMAKER PIPE FITTER: pharmacy called to ER Versed order for ICU
[2019-08-16] MEDS ORDERED: MIDAZOLAM HCL 100 MG in IV NS 0.9% 80 ML IV PRN (10:45)
--- NOTE | 2019-08-16 11:00 | NUR ---
CONVENTION PLANNER: unable to remove ROPE COILING MACHINE OPERATOR pump keys from [employer], got info keys were missed week ago, pharmacy, charge nurse are aware
[2019-08-16] MEDS: DAKINS QUARTER STRENGTH (0.125%) 480 ML BOTTLE TOP SCH (11:42)
[2019-08-16] MEDS: NEOMY SULF/BACITRAC ZN/POLY 15 GM TUBE TP SCH (11:42)
[2019-08-16] MEDS: CLOTRIMAZOLE 1% 15 GM TUBE TP SCH ×2 (11:42→17:11)
[2019-08-16] MEDS ORDERED: PIPERACILLIN /TAZOBACTAM 2.25 G in IV D5W 50 ML IV SCH (13:00)
--- NOTE | 2019-08-16 13:30 | NUR ---
HORN PLAYER: Doppler US done, rad.dep. called: L.brachial vein DVT positive, is notified, no new order now, pt.has R.arm IV midline, L.chest sc HD cath
--- NOTE | 2019-08-16 14:00 | NUR ---
STAKING PRESS OPERATOR: pt.is deeply sedated, grimacing, coughing with suction, started Versed gtt thought HAND OR MACHINE PASTER pump, decreased dose to 2 mg/h, verified with MOY Chu, with charge nurse
--- NOTE | 2019-08-16 14:13 | NUR ---
ENGINE HOUSE HELPER: HD nurse is in room, got consent, updated with pt.current VS, labs, meds
[2019-08-16] MEDS ORDERED: ALBUMIN 25% 25 GM in PREMIX 1 EA IV PRN (17:00)
--- NOTE | 2019-08-16 17:00 | NUR ---
CAR PARKER: SBP 85-95, MAP 60-70, SR/ST, O2sat. WNL, getting HD, order for Albumin IV placed in by HD nurse request, GTF residual 10ml, same neuro status, deeply sedated/reactive by pain stimuli with slightly grimacing with TT suction, continue titrate Versed down
--- NOTE | 2019-08-16 17:35 | NUR ---
Readmitted in 30 days due to sepsis. Patient is trach/vent dependent resides at [facility] in [place] [phone]. She is bedbound, requires totally dependent with adl's. Receives hemodialysis every TThS 2:15pm at [facility] [phone]. Current dc plan is to return to [facility]. Addendum: 08/16/19 at 1736 by ADRIANNA FISCHER RN Amended: Links added.
--- NOTE | 2019-08-16 18:25 | NUR ---
CUSHION INSTALLER: GHAZAL Salazar is in room, updated, ordered BCx2 from HD cath/done, HD done/1L out, pt is tolerated well, Vanco morning level 21, hold dose after HD, SR/ST 115, SBP over 90, O2sat. over 96%, Versed gtt 1mg/h now, called to pharmacy to get next bag, flexiseal rectal tube is intact/patent, pt.is anuric now, GTF residual WNL
--- NOTE | 2019-08-16 18:37 | NUR ---
TOMATO PASTE MAKER: tiffany safe is broken, got Versed bag from pharmacy and will give next nurse by hand to hand
--- NOTE | 2019-08-16 19:40 | NUR ---
RT Pt received trached on the vent with noted settings. Vent is plugged into red outlet. Pt does not follow commands. No SOB or respiratory distress noted. Addendum: 08/17/19 at 0152 by ALEXIS MARCELO RT Amended: Links added.
--- NOTE | 2019-08-16 19:52 | NUR ---
SENIOR ORACLE ADF DEVELOPER. INITIAL ASSESSMENT. RECEIVED THE PT REST ON THE BED. TRACH TO VENT CONNECTED, PT IS OBTUNDED. SHILEY#8, AC 15,TV 400,FIO2 50%,PEEP 5, SAT 98%NOT ACUTE DISTRESS NOTED, SENIOR CUSTOMER SERVICE REPRESENTATIVE SHOWING S TACH GT FEEING NEPHRO 45ML/H.RT UPPER ARM MID LINE,VERSED 1MG/H. HOB ELEVATED, WILL CONTINUE TO MONITOR VITALS.
[2019-08-16] MEDS: COLISTIMETHATE SODIUM 100 MG in IV NS 0.9% 50 ML IV SCH (21:10)
[2019-08-17] VITALS (36 sets, daily range): BP systolic 101–152; BP diastolic 31–79
[2019-08-17] MEDS: ALBUTEROL FS 2.5 MG/0.5 ML VIAL.NEB NEB SCH ×5 (03:08→20:03)
[2019-08-17] MEDS: IPRATROPIUM NEB FS 0.5 MG/2.5 ML AMPUL.NEB NEB SCH ×5 (03:08→20:03)
[2019-08-17] MEDS: NEPRO 1,000 ML BOTTLE GT PRN (03:38)
--- NOTE | 2019-08-17 05:10 | NUR ---
RN NOTE: PATIENT NOTED WITH FACIAL GRIMACING AND INCREASED HR. TYLENOL GIVEN. WILL MONITOR FOR CHANGES. Addendum: 08/18/19 at 0732 by DONTRELL SHARMA RN WRONG DATE
--- NOTE | 2019-08-17 05:29 | NUR ---
agricultural purchasing agent. am care, oral care, bed abth given. linen eder nged, remaining same vent setting tolerated well. sat 99&. no acute distress noted. ekg monitor showing s tach, iv rt hand versed 0.5ml/h fc patent, flexa seal intact. loose stool draining, temperature 100. tylenol given. gt feeding tolerated well. turn and reposition q2h. will continue to monitor vitals.
[2019-08-17] MEDS: ACETAMINOPHEN 325 MG TABLET PO PRN ×3 (06:02→20:20)
[2019-08-17] MEDS: INSULIN REGULAR, HUMAN 100 UNIT/ML 3 ML VIAL SQ PRN ×3 (06:04→17:25)
[2019-08-17] MEDS: BLOOD SUGAR DIAGNOSTIC 1 EACH STRIP IN SCH ×3 (06:24→17:32)
--- NOTE | 2019-08-17 07:45 | NUR ---
BUILDING PRESSURE WASHER: pt.is deeply sedated, trace legs activity, slightly grimacing with pain stimuli, suction, cough reflex+, on 0.5 mg/h Versed gtt, will stop sedation gtt to see reaction, ST now 110-120, T 100.9, SBP over 100, O2sat. over 96%, GTF residual 10ml, Tylenol was given, RT updated
--- NOTE | 2019-08-17 08:30 | NUR ---
BILLER: sedation is off, same neuro status, grimacing, coughing with suction, trace legs activity, sluggish pupils reaction, was in unit/updated, ordered HD 08/18
[2019-08-17] MEDS: DAKINS QUARTER STRENGTH (0.125%) 480 ML BOTTLE TOP SCH (08:31)
[2019-08-17] MEDS: THERAHONEY GEL 1.5 OZ TUBE TP SCH (08:31)
[2019-08-17] MEDS: CLOTRIMAZOLE 1% 15 GM TUBE TP SCH ×2 (08:32→17:07)
[2019-08-17] MEDS: NEOMY SULF/BACITRAC ZN/POLY 15 GM TUBE TP SCH (08:32)
--- NOTE | 2019-08-17 09:00 | NUR ---
MEDICAL SCIENTIST: is in room, updated with pt.current condition/sedation off, neuro status, VS, I/O, GTF, wounds, meds, L.brachial vein DVT, ordered: jesus Mckee keep pt sedation off and monitoring, see new orders
[2019-08-17 09:52] LABS: BASOPHILS % (AUTO) 0.8 % (0.0-2.0); EOSINOPHILS % (AUTO) 1.8 % (0.0-6.0); LYMPHOCYTES # (AUTO) 1.3 /CMM (0.8-4.8); LYMPHOCYTES % (AUTO) 21.6 % (20.0-44.0); MEAN CORPUSCULAR HGB CONC 33 g/dl (31.0-36.0); MEAN CORPUSCULAR VOLUME 100 fL (82-100); MONOCYTES # (AUTO) 0.3 /CMM (0.1-1.30); MONOCYTES % (AUTO) 4.2 % (2.0-12.0); NEUTROPHILS # (AUTO) 4.4 /CMM (1.8-8.9); NEUTROPHILS % (AUTO) 71.6 % (43.0-81.0); PLATELET COUNT (AUTO) 291 /CMM (150-450); WHITE BLOOD COUNT (AUTO) 6.1 K/uL (4.3-11.0)
[2019-08-17 09:58] LABS: CALCIUM, SERUM 9.7 mg/dL (8.5-10.1); POTASSIUM 3.5 mmol/L (3.5-5.1)
[2019-08-17 10:05] LABS: RED BLOOD CELL COUNT(AUTO) 1.98 MIL/uL (4.0-5.2)
[2019-08-17 10:07] LABS: HEMOGLOBIN 6.4 g/dL (11.5-14.8)
[2019-08-17 10:08] LABS: HEMATOCRIT 20 % (33-45)
--- NOTE | 2019-08-17 10:15 | NUR ---
INTEGRATED LOGISTICS SUPPORT MANAGER: H/H 6.01/19, ordered one PRBC unit, hold Rafi
[2019-08-17 11:41] LABS: EOSINOPHILS % (MANUAL) 2 % (0-4); LYMPHOCYTES % (MANUAL) 26 % (16-48); MONOCYTES % (MANUAL) 8 % (0-11.0); NEUTROPHILS % (MANUAL) 64 (42-76)
--- NOTE | 2019-08-17 11:45 | NUR ---
OPTOMETRIC AIDE: is in room, updated with pt.current status, neurostatus/sedation off, VS, O2sat., suction amount, GTF, I/O, meds, labs, H/H, orders, wounds, ordered: CBC, BMP tomorrow, d/c Versed
--- NOTE | 2019-08-17 12:00 | NUR ---
REINSURANCE ACCOUNTANT: T 102.2, cooling measures implemented, Tylenol given
--- NOTE | 2019-08-17 15:07 | NUR ---
IC DESIGN ENGINEER: pt.is more awake, able to open eyes for seconds with reposition, no eyes contact, trace arms/legs activity, grimacing with suction, no SOB, O2 sat WNL, SR/ST, SBP over 100, all wounds care done per orders, charge nurse updated, waiting PRBC unit
[2019-08-17] MEDS: APIXABAN 2.5 MG TABLET PO SCH (17:00)
[2019-08-17] MEDS: LACTOBACILLUS RHAMNOSUS GG 1 EACH CAP.SPRINK GT SCH (17:07)
--- NOTE | 2019-08-17 18:30 | NUR ---
SWITCHBOARD AND CONTROL ROOM OPERATOR: all PM/skin/wounds care done, BS 157/covered by ISS, rectal tube is intact/patent, SR/ST max 120, SBP over 100, O2sat. over 96%, neurostatus: pt. is more reactive/can grimacing, open eyes for seconds by pain stimuli, spoke with blood bank: one PRBC unit is pending, herb blood x2 for T/S and waiting unit from [place] d/t CW antibody positive, probably on Monday, will endorse next nurses to notify Rafi TRIPLETT on hold, no external bleeding evidence, Nera, IDNP was in room/updated
--- NOTE | 2019-08-17 19:15 | NUR ---
RN OPENING NOTES: PATIENT ON VENT TRACH SETTING ORDERED AND TOLERATING WELL. NONVERBAL/OBTUNDED. NO RESPIRATORY DISTRESS. SATTING 100%. NOTIFIED DR. DUMONT REGARDING AM SHIFT NURSE'S ENDORSEMENT THAT HE SPOKE WITH BLOOD BANK, 1 PRBC IS PENDING BUT PATIENT IS CW ANTIBODY POSITIVE AND WAITING UNIT FROM [facility] PROBABLY MONDAY. SAFETY PRECAUTIONS IMPLEMENTED. ON YARN DRY ROOM WORKER SHOWING SINUS TACHY. WILL CONT TO MONITOR FOR CHANGES.
--- NOTE | 2019-08-17 19:21 | NUR ---
AERONAUTICAL DRAFTER: full report was given for MOY Cast, included [facility] blood bank report: pt.is positive for CW antibody, waiting PRBC unit from [place]
[2019-08-17] MEDS: COLISTIMETHATE SODIUM 100 MG in IV NS 0.9% 50 ML IV SCH (20:19)
--- NOTE | 2019-08-17 21:40 | NUR ---
RN NOTE: PER POLI SINGLETARY TO DO BLOOD TRANSFUSION. NOTIFIED WITH PATIENT'S TEMP 100.8F. PRE-MEDICATED WITH TYLENOL 650 MG AND BENADRYL 25 MG IV ORDERED. WILL CONT. TO MONITOR.
[2019-08-17] MEDS ORDERED: diphenhydrAMINE HCL 50 MG/ML VIAL IV PRN (21:42)
--- NOTE | 2019-08-17 22:03 | NUR ---
RN NOTE: 1 UNIT OF PRBC STARTED. WITNESSED BY ALFREDO WINTER. V/S TAKEN. NO ASE NOTED AT THIS TIME. WILL CONT. TO MONITOR.
[2019-08-18] VITALS (25 sets, daily range): BP systolic 76–163; BP diastolic 29–94
[2019-08-18] MEDS: IPRATROPIUM NEB FS 0.5 MG/2.5 ML AMPUL.NEB NEB SCH ×7 (00:02→23:43)
[2019-08-18] MEDS: ALBUTEROL FS 2.5 MG/0.5 ML VIAL.NEB NEB SCH ×7 (00:02→23:43)
[2019-08-18] MEDS: BLOOD SUGAR DIAGNOSTIC 1 EACH STRIP IN SCH ×5 (00:36→23:38)
[2019-08-18] MEDS: INSULIN REGULAR, HUMAN 100 UNIT/ML 3 ML VIAL SQ PRN ×4 (00:40→23:41)
--- NOTE | 2019-08-18 01:00 | NUR ---
RN NOTE: 1 UNIT OF PRBC BLOOD TRANSFUSION COMPLETED. NO ADVERSE REACTIONS NOTED. WILL CONT. TO MONITOR.
[2019-08-18 04:32] LABS: BASOPHILS # (AUTO) 0.1 /CMM (0.0-0.2); BASOPHILS % (AUTO) 0.9 % (0.0-2.0); EOSINOPHILS % (AUTO) 3.3 % (0.0-6.0); HEMATOCRIT 25 % (33-45); HEMOGLOBIN 8.3 g/dL (11.5-14.8); LYMPHOCYTES # (AUTO) 1.8 /CMM (0.8-4.8); LYMPHOCYTES % (AUTO) 23.1 % (20.0-44.0); MEAN CORPUSCULAR HGB CONC 33 g/dl (31.0-36.0); MEAN CORPUSCULAR VOLUME 98 fL (82-100); MONOCYTES # (AUTO) 0.3 /CMM (0.1-1.30); MONOCYTES % (AUTO) 3.4 % (2.0-12.0); NEUTROPHILS # (AUTO) 5.4 /CMM (1.8-8.9); NEUTROPHILS % (AUTO) 69.3 % (43.0-81.0); PLATELET COUNT (AUTO) 282 /CMM (150-450); RED BLOOD CELL COUNT(AUTO) 2.56 MIL/uL (4.0-5.2); WHITE BLOOD COUNT (AUTO) 7.8 K/uL (4.3-11.0)
[2019-08-18 04:50] LABS: CALCIUM, SERUM 10.1 mg/dL (8.5-10.1); CREATININE 2.4 mg/dL (0.6-1.3); POTASSIUM 3.5 mmol/L (3.5-5.1)
--- NOTE | 2019-08-18 05:00 | NUR ---
RN NOTE: PATIENT NOTED WITH HR 151. CHARGE NURSE CALLED DR. DUMONT. ORDERED IV LOPRESSOR 10 MG AND IV ATIVAN 1 MG. WILL CONT. TO MONITOR FOR CHANGES. Addendum: 08/18/19 at 0647 by DONTRELL SHARMA RN PATIENT'S HR CAME DOWN TO 112. IN NO ACUTE DISTRESS. WILL CONT. TO MONITOR.
--- NOTE | 2019-08-18 05:10 | NUR ---
RN NOTE: PATIENT NOTED WITH FACIAL GRIMACING AND INCREASED HR. TYLENOL GIVEN. WILL MONITOR FOR CHANGES.
[2019-08-18] MEDS: ACETAMINOPHEN 325 MG TABLET PO PRN ×2 (05:11→08:29)
[2019-08-18] MEDS ORDERED: METOPROLOL TARTRATE INJ 5 MG/5 ML AMPUL IVP STA (05:37)
[2019-08-18] MEDS: LORAZEPAM INJ 2 MG/ML VIAL IV PRN (05:48)
--- NOTE | 2019-08-18 07:00 | NUR ---
RN NOTE: HAND OFF REPORT GIVEN TO AM SHIFT NURSE FOR CONTINUITY OF CARE. Addendum: 08/18/19 at 0749 by DONTRELL SHARMA RN RN CLOSING NOTE
--- NOTE | 2019-08-18 07:24 | NUR ---
arboriculturist note received patient in bed , with trach to vent setting as ordered , on tele monitor st hr 116 , with Santiago cath to gravity with yelloe color urine noted m with flexi seal rectal tube in place , on g ru be feeding as ordered keep hob elevated at all time, rt upper arm mid line in place and intact, bed in lowest and locked position , call light within reach , will cont to monitor closely
[2019-08-18] MEDS: DAKINS QUARTER STRENGTH (0.125%) 480 ML BOTTLE TOP SCH (08:16)
[2019-08-18] MEDS: NEOMY SULF/BACITRAC ZN/POLY 15 GM TUBE TP SCH (08:16)
[2019-08-18] MEDS: LACTOBACILLUS RHAMNOSUS GG 1 EACH CAP.SPRINK GT SCH ×2 (08:19→17:45)
[2019-08-18] MEDS: CLOTRIMAZOLE 1% 15 GM TUBE TP SCH ×2 (08:20→16:18)
[2019-08-18] MEDS: THERAHONEY GEL 1.5 OZ TUBE TP SCH (08:20)
[2019-08-18] MEDS: APIXABAN 2.5 MG TABLET PO SCH ×2 (08:24→16:16)
[2019-08-18] MEDS ORDERED: hydrALAZINE HCL 50 MG TABLET GT PRN (08:30)
[2019-08-18] MEDS ORDERED: BISACODYL SUPP (10 MG) 10 MG/SUPP.RECT SUPP.RECT RC PRN (08:30)
--- NOTE | 2019-08-18 08:34 | NUR ---
INDUSTRIAL EDITOR NOTE NOTIFIED TO DR RUSH THAT T ON TELE MONITOR ST 122 AND HAS FEVER 103.0 STATED OK TO GIVE TYLENOL FOR NOW AWARE THAT TYLENOL WAS GIVEN AT 0500, ALSO ORDERED HOLD ELIQUIS AT THIS TIME HOLD DOSE FOR NOW ALSO AWARE THAT LAST NIGHT HAD EPISODE SVT, METOPROLOL AND ATIVAN WAS GIVEN ,GAVE ORDER FOR FOR CARDIZEM AND AMIODARONE
[2019-08-18] MEDS: FERROUS SULFATE UDC 300 MG/5 ML UDC GT SCH ×2 (08:53→17:45)
[2019-08-18] MEDS: AMIODARONE HCL 200 MG TABLET GT SCH ×2 (08:54→20:09)
[2019-08-18] MEDS: DILTIAZEM HCL 30 MG TABLET GT SCH ×3 (08:54→17:56)
[2019-08-18] MEDS: CHOLECALCIFEROL 1,000 UNIT TABLET (VIT D3) GT SCH (09:00)
[2019-08-18] MEDS: PANTOPRAZOLE 40 MG/PACK PACK GT SCH ×2 (09:03→16:17)
--- NOTE | 2019-08-18 09:39 | NUR ---
RETAIL COSMETICS SALES COUNTER MANAGER NOTE T NOW 10.6 AT THIS TIME, WILL CONT COOLING MEASURE TOLERATED Addendum: 08/18/19 at 1559 by CYDNEY HELMS RN T 100.6 AT THIS TIME
--- NOTE | 2019-08-18 09:42 | NUR ---
MANAGER DISTRIBUTION NOTE CALLED TO PHARMACY X2 TO REFILL VIT D, STILL, NOT DONE ,WILL F\U
--- NOTE | 2019-08-18 10:17 | NUR ---
COMBINER OPERATOR NOTE ON TELE MONITOR ST 137 ,SAT 100% BP 147/42 T 100.6 AWARE THAT CARDIZEM AND AMIO AMIODARONE VIA F TUBE GIVEN , ORDERE STAT ABG AND CHEST X HINA AND DR CAZARES MACHINIST FIRST CLASS CONSULT, CALLED RT NOW Addendum: 08/18/19 at 1021 by CYDNEY HELMS RN SPOKE WITH DR LYLE MACHINIST FIRST CLASS NOTIFIED ABOUT PATIENT CONDITION STATED THAT WILL SEE PATIENT SOON
[2019-08-18 10:25] LABS: ABG BASE EXCESS -2.1 mmol/L; ABG OXYGEN SATURATION 97.6 % (92.0-98.5); ABG PCO2 29.4 mmHg (35.0-45.0); ABG PH 7.469 (7.350-7.450); ABG PO2 104.9 mmHg (75.0-100.0); AaDO2 74.5 mmHg; COHb 0.1 % (0.5-1.5); MetHb 0.6 % (0.0-1.5); O2Hb 96.9 % (94.0-97.0); PEEP,BG 5 cm H2O; SITE, ABG Right Femoral; VT, ABG 400 mL
[2019-08-18] MEDS ORDERED: APIXABAN 5 MG TABLET PO SCH (11:00)
[2019-08-18 11:08] LABS: BASOPHILS % (AUTO) 0.5 % (0.0-2.0); HEMATOCRIT 22 % (33-45); HEMOGLOBIN 7.3 g/dL (11.5-14.8); LYMPHOCYTES # (AUTO) 1.3 /CMM (0.8-4.8); LYMPHOCYTES % (AUTO) 16.5 % (20.0-44.0); MEAN CORPUSCULAR HGB CONC 33 g/dl (31.0-36.0); MEAN CORPUSCULAR VOLUME 98 fL (82-100); MONOCYTES # (AUTO) 0.2 /CMM (0.1-1.30); MONOCYTES % (AUTO) 3.2 % (2.0-12.0); NEUTROPHILS % (AUTO) 77.8 % (43.0-81.0); PLATELET COUNT (AUTO) 288 /CMM (150-450); RED BLOOD CELL COUNT(AUTO) 2.22 MIL/uL (4.0-5.2); WHITE BLOOD COUNT (AUTO) 7.7 K/uL (4.3-11.0)
--- NOTE | 2019-08-18 11:08 | NUR ---
PAPER PATTERN FOLDER NOTE SPOKE WITH DR RUSH TO NOTIFIED ABG RESULT, NO NEW ORDER GIVEN AT THIS TIME , DR AKHTAR CONCEPTOR ORDERED STAT EKG , DONE ORDERED ,AWARE THAT T NOW AGAIN 103.0 , COOLING MEASURE PROVIDED , CHEST X RAY DONE ORDERED , DR AKHTAR AWARE OF EKG RESULT
--- NOTE | 2019-08-18 12:00 | NUR ---
SPRAY CEMENTER NOTE PLACED ON COOLING BLANKET, KEEP CLEAN DRY TURN REPOSITION DONE ,WILL MONITOR CLOSELY
--- NOTE | 2019-08-18 14:08 | NUR ---
INSOLE DEPARTMENT WORKER NOTE ON HD AT THIS TIME, T 101.0 FOR NOW
[2019-08-18] MEDS ORDERED: VANCOMYCIN 1 GM in IV D5W 250 ML IV ONE (15:00)
--- NOTE | 2019-08-18 15:16 | NUR ---
LIBRARIAN HELPER NOTE ALBUMIN DONE BY HD NURSE BP 99/35 Addendum: 08/18/19 at 1634 by CYDNEY HELMS RN Amber UNABLE TO DO VANCO PATIENT STILL ON HD AT THIS TIME , WILL GIVE AFTER HD COMPLETED
--- NOTE | 2019-08-18 16:00 | NUR ---
LAW ENFORCEMENT INSTRUCTOR NOTE STILL ON HD, T NOW T 99.9, WILL CONT TO MONITOR CLOSELY
--- NOTE | 2019-08-18 17:41 | NUR ---
NIGHT SHIFT SUPERVISOR NOTE HD COMPLETED, 1L OF FLUIDS OUT , BP 111/65 HR 110 T 98.3
--- NOTE | 2019-08-18 18:15 | NUR ---
DAY CARE DIRECTOR NOTE T NOW 98.6 ,CONT O G TUBE FEEDING ORDERED ,WILL MONITOR CLOSELY ON MONITOR ST ST \AFIB HR 110 Addendum: 08/18/19 at 1848 by CYDNEY HELMS RN T 99.1 NOW ,CONT ON COOLING MEASURE , WILL MONITOR
--- NOTE | 2019-08-18 18:57 | NUR ---
SALVAGE INSPECTOR WOOD PARTS NOTE PER DR SAMAN IBARRA FOR NOW , ORDER LEVY OUT
[2019-08-18] MEDS: COLISTIMETHATE SODIUM 100 MG in IV NS 0.9% 50 ML IV SCH (20:09)
--- NOTE | 2019-08-18 21:10 | NUR ---
RN NOTES, RECEIVED PATIENT FROM MOY HERZOG FOR CONTINUATION OF CARE, PATIENT OBTUNDED, NONVERBAL ON MECHANICAL VENTILATOR TOLERATING SETTING WELL, NOS OB/ACUTE DISTRESS NOTED, ORLY MIDLINE IN PLACED S/L PATENT AND INTACT, ST IN THE TELE MONITOR WITH HR IN 100S, 109 AT THIS TIME, LCW CATH FOR HD, INTACT NO ABNORMALITIES NOTED, FLEXISEAL IN PLACED WITH BROWNISH STOOL NOTED, 99.9-100F BODY TEMP AT THIS TIME, ON COOLING MEASURES, AND COOLING BLANKET AT THIS TIME, S/P HD TODAY 1L OUT FORM REPORT, CALL LIGHT W/I REACH, ALL SAFETY MEASURES IN PLACED, WILL CONTINUE TO MONITOR CLOSELY.
[2019-08-18] MEDS: INSULIN GLARGINE, 100 UNIT/ML CARTRIDGE SQ SCH (22:28)
[2019-08-19] VITALS (27 sets, daily range): BP systolic 90–160; BP diastolic 29–88
[2019-08-19] MEDS: NEPRO 1,000 ML BOTTLE GT PRN (04:02)
[2019-08-19] MEDS: IPRATROPIUM NEB FS 0.5 MG/2.5 ML AMPUL.NEB NEB SCH ×6 (04:08→23:33)
[2019-08-19] MEDS: ALBUTEROL FS 2.5 MG/0.5 ML VIAL.NEB NEB SCH ×6 (04:08→23:33)
[2019-08-19] MEDS: LORAZEPAM INJ 2 MG/ML VIAL IV PRN ×2 (05:53→15:27)
[2019-08-19] MEDS: BLOOD SUGAR DIAGNOSTIC 1 EACH STRIP IN SCH ×4 (05:53→23:48)
[2019-08-19] MEDS: INSULIN REGULAR, HUMAN 100 UNIT/ML 3 ML VIAL SQ PRN ×3 (05:55→23:47)
[2019-08-19] MEDS: ACETAMINOPHEN 650 MG/20.3 ML UDC GT PRN ×2 (06:48→15:27)
--- NOTE | 2019-08-19 07:00 | NUR ---
RN NOTES, PATIENT OBTUNDED, NONVERBAL ON MECHANICAL VENTILATOR TOLERATING SETTING WELL, PATIENT MOST OF THE NIGHT WITH HR 70-80S, AT THIS TIME, HR IN 110S-120S, ATIVAN GIVEN THIS MORNING, WELL TYLENOL, COOLING MEASURES IN PLACED, BODY TEMP 99.0 AT THIS TIME, ORLY MIDLINE IN PLACED S/L PATENT AND INTACT, LCW CATH FOR HD, INTACT NO ABNORMALITIES NOTED, FLEXISEAL WITH 150ML FOR THE SHIFT, CHANGED BAG, CALL LIGHT W/I REACH, ALL SAFETY MEASURES IN PLACED, PRELIMINARY FOR BLOOD CX RESULT REPORTED BY LAB FOR GRAM NEGATIVE BACILLI, REPORTED TO JULIA, WITH NO NEW ORDER AT THIS TIME, REPOSITIONED Q2HRS AND TREATMENT FOR WOUND DONE, PER CHARGE NURSE ED NOT TO TAKE PICTURES SINCE THEY TOOK THEM 3 DAYS AGO, ON ADMISSION, WILL ENDORSED CONTINUITY OF CARE TO ONCOMING NURSE.
--- NOTE | 2019-08-19 07:00 | NUR ---
RN NOTES RECEIVED PT ON BED ,VENT/TRACH DEPENDENT , OBTUNDED, NONVERBAL ON MECHANICAL VENTILATOR TOLERATING SETTING WELL, NOS OB/ACUTE DISTRESS NOTED, O2 SAT WNL, ORLY MIDLINE SITE CLEAN, DRY AND INTACT, ON TELE ST, HR IN 110'S, L CW CATH FOR HD, INTACT, FLEXISEAL IN PLACED WITH BROWNISH STOOL NOTED, T= 100.3 AT THIS TIME, ON COOLING MEASURES, AND BLANKET AT THIS TIME, CALL LIGHT WITHIN EASY REACH, BED LOCKED AND IN LOWEST POSITION, ALL SAFETY MEASURES IN PLACED, CONTINUE TO MONITOR CLOSELY.
[2019-08-19] MEDS: FERROUS SULFATE UDC 300 MG/5 ML UDC GT SCH ×2 (08:18→17:11)
[2019-08-19] MEDS: CHOLECALCIFEROL 1,000 UNIT TABLET (VIT D3) GT SCH (08:19)
[2019-08-19] MEDS: LACTOBACILLUS RHAMNOSUS GG 1 EACH CAP.SPRINK GT SCH ×2 (08:22→17:11)
[2019-08-19] MEDS: PANTOPRAZOLE 40 MG/PACK PACK GT SCH ×2 (08:22→17:11)
[2019-08-19] MEDS: INSULIN GLARGINE, 100 UNIT/ML CARTRIDGE SQ SCH ×2 (08:29→21:13)
[2019-08-19] MEDS: DAKINS QUARTER STRENGTH (0.125%) 480 ML BOTTLE TOP SCH (08:30)
[2019-08-19] MEDS: THERAHONEY GEL 1.5 OZ TUBE TP SCH (08:31)
[2019-08-19] MEDS: NEOMY SULF/BACITRAC ZN/POLY 15 GM TUBE TP SCH (08:31)
[2019-08-19] MEDS: AMIODARONE HCL 200 MG TABLET GT SCH ×2 (08:33→21:00)
[2019-08-19] MEDS: CLOTRIMAZOLE 1% 15 GM TUBE TP SCH ×2 (08:43→17:12)
[2019-08-19 08:46] LABS: BASOPHILS % (AUTO) 0.4 % (0.0-2.0); EOSINOPHILS % (AUTO) 1.8 % (0.0-6.0); HEMATOCRIT 24 % (33-45); HEMOGLOBIN 7.7 g/dL (11.5-14.8); LYMPHOCYTES % (AUTO) 15.1 % (20.0-44.0); MEAN CORPUSCULAR HGB CONC 33 g/dl (31.0-36.0); MEAN CORPUSCULAR VOLUME 97 fL (82-100); MONOCYTES # (AUTO) 0.2 /CMM (0.1-1.30); MONOCYTES % (AUTO) 3.4 % (2.0-12.0); NEUTROPHILS # (AUTO) 5.4 /CMM (1.8-8.9); NEUTROPHILS % (AUTO) 79.3 % (43.0-81.0); PLATELET COUNT (AUTO) 219 /CMM (150-450); RED BLOOD CELL COUNT(AUTO) 2.42 MIL/uL (4.0-5.2); WHITE BLOOD COUNT (AUTO) 6.9 K/uL (4.3-11.0)
[2019-08-19 08:49] LABS: CALCIUM, SERUM 10.1 mg/dL (8.5-10.1); CREATININE 2.1 mg/dL (0.6-1.3); POTASSIUM 4.1 mmol/L (3.5-5.1)
[2019-08-19 09:52] LABS: BAND % (MANUAL) 12 % (0.0-5.0); EOSINOPHILS % (MANUAL) 5 % (0-4); LYMPHOCYTES % (MANUAL) 15 % (16-48); MONOCYTES % (MANUAL) 4 % (0-11.0); MYELOCYTES % 1 % (0-0); NEUTROPHILS % (MANUAL) 63 (42-76)
[2019-08-19] MEDS: DILTIAZEM HCL 30 MG TABLET GT SCH ×3 (12:02→20:09)
--- NOTE | 2019-08-19 12:02 | NUR ---
RN NOTES OK OT GIVE AMIODARONE AND CARDIZEM PER DR WALSH. CONTINUE TO MONITOR .
--- NOTE | 2019-08-19 14:00 | NUR ---
RN NOTES TRACH CARE DONE, PT STABLE, TOLERATING TF WELL, CONTINUE TO MONITOR .
--- NOTE | 2019-08-19 17:14 | NUR ---
RT END OF THE SHIFT REPORT, PT. 64 Y OLD FEMALE REMAIN TRACH'S SHILEY XLT # 8 WITH NOTED VENT SETTINGS, BILATERALLY CHEST RISE NOTED, B/S BILATERALLY RALES AND SUX'S FOR VERY SMALL AMT OF WHITE SECRETIONS, PT. STABLE NO VENT CHANGES T/O DAY VENT PLUGGED INTO RED OUT LET AND HME CHANGED, BUTCHER FISH DONE. PT. STABLE TX'S GIVEN INLINE CHUCKIE. WELL. NO ADVERSE REACTION NOTED. CONTINUE TO MONITOR CLOSELY AND REPORT WILL PASS TO PM SHIFT. Addendum: 08/19/19 at 1716 by SEYMOUR TURNER RT Amended: Links added.
--- NOTE | 2019-08-19 18:00 | NUR ---
RN NOTES T=100.7, COOLING BLANKET ON, SUPPORTIVE FAMILY AT THE BEDSIDE, NO SIGNIFICANT CHANGES NOTED ON THIS SHIFT WILL ENDORSE TO ANTHROPOLOGICAL LINGUIST NURSE FOR CONTINUITY OF CARE.
--- NOTE | 2019-08-19 19:30 | NUR ---
ICU NOTES RECEIVED PT OBTUNDED,RESPONDS WHEN SUCTIONED BY GRIMACING,DOES NOT OPEN EYES TO COMMAND.ON VENT PER TRACH W/ FIO2 30%,A/C 15PEEP OF 5 TRACH TUBE IS SHILEY XLT.PT SATURATING 100%.RECEIVING TUBE FEEDING OF NEPHRO AT 45 ML/HR,CHECK FOR PATENCY,RESIDUAL SCANT AMOUNT.MONITOR SHOWS NSR W/O ECTOPICS.CHINO INTACT DRAINING SCANT TEA COLORED URINE.FLEXI SEAL INTACT W/OUT DRAINAGE AT THIS TIME.W/ MULTIPLE WOUNDS,WELL DOCUMENTED IN ICU FLOW SHEET.
[2019-08-19] MEDS: COLISTIMETHATE SODIUM 100 MG in IV NS 0.9% 50 ML IV SCH (20:01)
[2019-08-19] MEDS: CEFEPIME 2 GM in IV D5W 100 ML IV SCH (21:03)
--- NOTE | 2019-08-19 22:00 | NUR ---
ICU NOTES HYPOTHERMIA BLANKET DC'D. CORE TEMP=98.8 FRO 100.2 AT 2OOO.
[2019-08-20] VITALS (46 sets, daily range): BP systolic 75–166; BP diastolic 24–84
--- NOTE | 2019-08-20 01:52 | NUR ---
ICU NOTES COMPLETE BED BATH GIVEN.G-TUBE STOMA DRAINING PURULENT SECRETIONS CLEANSED W/ SALINE AND APPLIED KERLIX AND NON WOVEN SPONGE.WOUND BESIDE GT CLEANSED W/ SALINE AND COVERED W/ FOLDED GAUZE.DRESSING TO BILATERAL BUTTOCKS/SACRUM INTACT.
--- NOTE | 2019-08-20 03:00 | NUR ---
ICU NOTES PLACED ON HYPOTHERMIA MACHINE T=100.3 ICE BAG TO BILATERAL GROIN AND AXILLA.WASHED W/ COOL H2O.WILL MONITOR.
[2019-08-20] MEDS: IPRATROPIUM NEB FS 0.5 MG/2.5 ML AMPUL.NEB NEB SCH ×6 (03:24→23:09)
[2019-08-20] MEDS: ALBUTEROL FS 2.5 MG/0.5 ML VIAL.NEB NEB SCH ×6 (03:25→23:09)
--- NOTE | 2019-08-20 04:00 | NUR ---
ICU/ NOTES TEMP =101.5 REMAINS ON COOLING BLANKET,GIVEN 650MG TYLENOL VIA G-TUBE.WILL MONITOR.
[2019-08-20] MEDS: ACETAMINOPHEN 650 MG/20.3 ML UDC GT PRN ×2 (04:22→16:33)
[2019-08-20 04:47] LABS: CALCIUM, SERUM 10.9 mg/dL (8.5-10.1); CREATININE 2.2 mg/dL (0.6-1.3); POTASSIUM 3.6 mmol/L (3.5-5.1)
--- NOTE | 2019-08-20 05:00 | NUR ---
ICU NOTES TEMP.DOWN TO 101.5 POST TYLENOL.COOLING BLANKET ON.
[2019-08-20] MEDS: BLOOD SUGAR DIAGNOSTIC 1 EACH STRIP IN SCH ×4 (05:34→23:39)
[2019-08-20] MEDS: INSULIN REGULAR, HUMAN 100 UNIT/ML 3 ML VIAL SQ PRN ×3 (05:38→23:39)
--- NOTE | 2019-08-20 07:00 | NUR ---
ICU NOTES REPORT AND CARE OF PT. GIVEN TO JORGE LUIS Regalado
--- NOTE | 2019-08-20 07:05 | NUR ---
RN NOTES RECEIVED PT ON BED ,VENT/TRACH DEPENDENT , OBTUNDED, NONVERBAL ON MECHANICAL VENTILATOR TOLERATING SETTING WELL, NOS OB/ACUTE DISTRESS NOTED, O2 SAT WNL, ORLY MIDLINE SITE CLEAN, DRY AND INTACT, ON TELE ST, HR IN 100'S, L CW CATH FOR HD, INTACT, FLEXISEAL IN PLACED WITH BROWNISH LOOSE STOOL NOTED, T= 101.1 AT THIS TIME , ON COOLING MEASURES, AND BLANKET AT THIS TIME, CALL LIGHT WITHIN EASY REACH, BED LOCKED AND IN LOWEST POSITION, ALL SAFETY MEASURES IN PLACED, CONTINUE TO MONITOR CLOSELY.
[2019-08-20] MEDS: PANTOPRAZOLE 40 MG/PACK PACK GT SCH ×2 (08:45→16:33)
[2019-08-20] MEDS: CHOLECALCIFEROL 1,000 UNIT TABLET (VIT D3) GT SCH (08:45)
[2019-08-20] MEDS: LACTOBACILLUS RHAMNOSUS GG 1 EACH CAP.SPRINK GT SCH ×2 (08:45→16:34)
[2019-08-20] MEDS: FERROUS SULFATE UDC 300 MG/5 ML UDC GT SCH ×2 (08:45→16:33)
[2019-08-20] MEDS: DILTIAZEM HCL 30 MG TABLET GT SCH ×3 (08:47→16:34)
[2019-08-20] MEDS: AMIODARONE HCL 200 MG TABLET GT SCH ×2 (08:48→22:00)
--- NOTE | 2019-08-20 08:48 | NUR ---
RT PT RECEIVED TRACHED WITH SHILEY XLT SIZE 8. CURRENTLY TOLERATING VENT SETTINGS. VENT ALARMS CHECKED AND AUDIBLE. CUFF PRESSURE CHECKED, ELIGIBILITY SPECIALIST. PT AIRWAY SUCTIONED AND PATENT. SMALL, THICK, YELLOW SECRETIONS SUCTIONED. BREATH SOUNDS CLEAR. AMBU BAG AT HEAD OF BED. HOB AT 30 DEGREES. CONTINUING CURRENT PLAN OF RESPIRATORY CARE. Addendum: 08/20/19 at 1040 by YOLY MEADE RT Amended: Links added.
[2019-08-20] MEDS: THERAHONEY GEL 1.5 OZ TUBE TP SCH (08:49)
[2019-08-20] MEDS: INSULIN GLARGINE, 100 UNIT/ML CARTRIDGE SQ SCH ×3 (08:49→21:44)
[2019-08-20] MEDS: DAKINS QUARTER STRENGTH (0.125%) 480 ML BOTTLE TOP SCH (08:50)
[2019-08-20] MEDS: CLOTRIMAZOLE 1% 15 GM TUBE TP SCH ×2 (08:51→16:34)
[2019-08-20] MEDS: NEOMY SULF/BACITRAC ZN/POLY 15 GM TUBE TP SCH (08:52)
[2019-08-20] MEDS: CEFEPIME 2 GM in IV D5W 100 ML IV SCH ×3 (08:55→21:37)
[2019-08-20] MEDS: NEPRO 1,000 ML BOTTLE GT PRN (09:53)
--- NOTE | 2019-08-20 14:11 | NUR ---
RN NOTES PT RECEIVING HD AT THIS TIME, HR IN 130'S , CONTINUE TO MONITOR
[2019-08-20] MEDS: LORAZEPAM INJ 2 MG/ML VIAL IV PRN (16:35)
--- NOTE | 2019-08-20 17:00 | NUR ---
RN NOTES SBP IN 80'S , DR MORRISSEY NOTIFED , ORDER RECEIVED FOR LEVO GTT , CONTINUE TO MONITOR.
--- NOTE | 2019-08-20 18:07 | NUR ---
RN NOTES PT'S DAUGHTER REQUESTING TO TALK TO DR MORRISSEY. DR MORRISSEY NOTIFED ,
--- NOTE | 2019-08-20 18:30 | NUR ---
RN NOTES POST HD IV VANCO NOT AVAILABLE FOR PHARMACY YET, PHARMACY NOTIFED, REPORT GIVEN TO MASON FOR CONTINUITY OF CARE .
--- NOTE | 2019-08-20 18:52 | NUR ---
RN NOTES 183 RECEIVED PT FROM HOWARD Samson RN. PT OBTUNDED, TRACH IN PLACE. TOLERATING VENT WELL. NO RESPIRATORY DISTRESS NOTED. NO SOB NOTED. NO SIGNS OF PAIN NOTED. HOB ELEVATED. SINUS TACH ON MONITOR. BP ON LOW SIDE. HAS LEVO ORDER PRN. GT IN PLACE. TOLERATING GTF WELL. ORLY MIDLINE IN PLACE. HD DONE TODAY, NO OUTPUT. PT CLEAN AND DRY. REPOSITIONED. PT COMFORTABLE. AWAITING PHARMACY TO DELIVER VANCO. WILL ENDORSE FOR CONTINUITY OF CARE.
--- NOTE | 2019-08-20 19:00 | NUR ---
ICU NOTES RECEIVED PT ON VENT PER TRACH,OBTUNDED,RESPONDS ONLY TO MODERATE TACTILE STIMULATION THROUGH SUCTIONING PT.VQDR=370.5 ON COOLING BLANKET,ICE TO BILATERAL AXILLA APPLIED.BP LOW,AWAITING FOR PHARMACY TO DELIVER LEVOPHED.MONITOR SHOWS SINUS TACHYCARDIA.
--- NOTE | 2019-08-20 19:15 | NUR ---
ICU NOTES STARTED ON LEVOPHED DRIP AT 1MCG/MIN. FOR BP OF 84/37MMH.WILL CONTINUE TO MONITOR CLOSELY.
[2019-08-20] MEDS: NOREPINEPHRINE 8 MG in IV D5W 500 ML IV PRN (19:18)
[2019-08-20] MEDS: VANCOMYCIN 500 MG in IV D5W 100 ML IV PRN (19:32)
[2019-08-20] MEDS: COLISTIMETHATE SODIUM 100 MG in IV NS 0.9% 50 ML IV SCH (20:35)
--- NOTE | 2019-08-20 23:00 | NUR ---
ICU NOTES SUCTIONED FOR SCANT YELLOW TO BEIGE SECRETIONS.ORAL CARE DONE.TRACH CARE DONE.
[2019-08-21] VITALS (70 sets, daily range): BP systolic 80–162; BP diastolic 25–118
--- NOTE | 2019-08-21 02:30 | NUR ---
ICU NOTES COMPLETE BED BATH DONE.DRESSING TO BILATERAL SACRUM AND BILATERAL BUTTOCKS DONE.
--- NOTE | 2019-08-21 03:15 | NUR ---
ICU NOTES LEVOPHED TURNED OFF [id number].
[2019-08-21] MEDS: IPRATROPIUM NEB FS 0.5 MG/2.5 ML AMPUL.NEB NEB SCH ×6 (03:17→23:55)
[2019-08-21] MEDS: ALBUTEROL FS 2.5 MG/0.5 ML VIAL.NEB NEB SCH ×6 (03:17→23:55)
--- NOTE | 2019-08-21 04:15 | NUR ---
ICU NOTES LEVOPHED RESTARTED AT IMCG/MIN. FOR SBP OF 80MMHG.
[2019-08-21 04:27] LABS: CALCIUM, SERUM 10.1 mg/dL (8.5-10.1); POTASSIUM 3.8 mmol/L (3.5-5.1)
[2019-08-21] MEDS: ACETAMINOPHEN 650 MG/20.3 ML UDC GT PRN ×2 (05:20→18:03)
[2019-08-21] MEDS: INSULIN REGULAR, HUMAN 100 UNIT/ML 3 ML VIAL SQ PRN ×3 (05:32→17:13)
--- NOTE | 2019-08-21 05:45 | NUR ---
PT RECEIVED TRACH ON VENT. NO RESP DISTRESS THE WHOLE NIGHT. SX'D FOR MOD AMT OF THICK YELLOW SECRETIONS. VENT ALARMS SET AND AUDIBLE. AMBU BAG AT BEDSIDE. CONTINUE [facility] VENT SUPPORT. Addendum: 08/21/19 at 0547 by TALHA SUERO RT Amended: Links added.
[2019-08-21] MEDS: BLOOD SUGAR DIAGNOSTIC 1 EACH STRIP IN SCH ×3 (06:15→17:11)
--- NOTE | 2019-08-21 07:00 | NUR ---
ICU NOTES REMAINS ON LEVOPHED DRIP AT 1MCG/MIN.ON COOLING BLANKET FOR TEMP 0F 101.7.GIVEN TYLENOL 650 MG VIA G-TUBE.TOLERATING TUBE FEEDING WELL.REPORT AND CARE OF PT. GIVEN TO SUMI WINTER. Addendum: 08/21/19 at 0725 by MANUEL MTZ RN REPORT GIVEN TO CHAYO WINTER INSTEAD OF SUMI WINTER.
--- NOTE | 2019-08-21 07:25 | NUR ---
ENGINE BUILDUP MECHANIC OPENING NOTE RECEIVED REPORT FROM PM NURSE.PATIENT IN BED.NON VERBAL.RESPONDS TO PAIN FUL STIMULI.ON TRACH TO VENT DEPENDANT.TOLERATING SETTINGS WELL.SATURATING 99%.ON TELE MONITOR SR WITH PAC'S HR 84.ORLY MIDLINE WITH LEVO ON 1MCG.CHINO CATH DRAINING DARK YELLOW URINE.HAS TEMP OF 101.5F WITH COOLING BLANKET.BED IS LOW AND IN LOCKED POSITION.SRX3.SAFETY AND ASPIRATION MEASURES IN PLACE.WILL CONTINUE TO MONITOR.
[2019-08-21] MEDS: CEFEPIME 2 GM in IV D5W 100 ML IV SCH ×2 (08:49→21:35)
[2019-08-21] MEDS: PANTOPRAZOLE 40 MG/PACK PACK GT SCH ×2 (08:50→16:54)
[2019-08-21] MEDS: LACTOBACILLUS RHAMNOSUS GG 1 EACH CAP.SPRINK GT SCH ×2 (08:50→16:55)
[2019-08-21] MEDS: FERROUS SULFATE UDC 300 MG/5 ML UDC GT SCH ×2 (08:50→16:54)
[2019-08-21] MEDS: CHOLECALCIFEROL 1,000 UNIT TABLET (VIT D3) GT SCH (08:50)
[2019-08-21] MEDS: DILTIAZEM HCL 30 MG TABLET GT SCH ×3 (08:52→16:55)
[2019-08-21] MEDS: AMIODARONE HCL 200 MG TABLET GT SCH ×2 (08:52→21:24)
[2019-08-21] MEDS: INSULIN GLARGINE, 100 UNIT/ML CARTRIDGE SQ SCH ×2 (08:53→21:38)
[2019-08-21] MEDS: THERAHONEY GEL 1.5 OZ TUBE TP SCH (08:54)
[2019-08-21] MEDS: DAKINS QUARTER STRENGTH (0.125%) 480 ML BOTTLE TOP SCH (08:54)
[2019-08-21] MEDS: CLOTRIMAZOLE 1% 15 GM TUBE TP SCH ×2 (08:55→16:55)
[2019-08-21] MEDS: NEOMY SULF/BACITRAC ZN/POLY 15 GM TUBE TP SCH (08:55)
[2019-08-21] MEDS: NEPRO 1,000 ML BOTTLE GT PRN (08:56)
[2019-08-21] MEDS ORDERED: FLUCONAZOLE IN NS,PREMIX 200 MG in PREMIX 1 EA IV SCH ×2 (10:00)
--- NOTE | 2019-08-21 10:00 | NUR ---
PERFORMING ARTIST NOTE SEEN BY ,UPODATED ABOUT PATIENT CONDITION WITH LABS.GOT NEW ORDER TO TAKE OFF PEEP.
--- NOTE | 2019-08-21 11:00 | NUR ---
MAC DEVELOPER NOTE SEEN BY .RECOMMENDED TO DO CBC.NNO.WILL HAVE FAMILY MEETING TOMORROW .WILL CONTINUE TO MONITOR.
--- NOTE | 2019-08-21 11:15 | NUR ---
TRACTOR DISTRIBUTOR NOTE SEEN BY ,UPDATED ABOUT PATIENT CONDITION WITH LABS.RELAYED EKG RESULT AND MADE AWARE ABOUT LOW DIASTOLIC BP.WILL CONTINUE TO MONITOR.
[2019-08-21] MEDS: MICAFUNGIN SODIUM 100 MG in IV NS 0.9% 100 ML IV SCH (12:13)
--- NOTE | 2019-08-21 12:20 | NUR ---
CARRY ALL DRIVER NOTE BP MEDS ON HOLD BECAUSE OF PATIENT S/P OFF FROM LEVOPHED.WILL CONTINUE TO MONITOR.
--- NOTE | 2019-08-21 19:44 | NUR ---
KILN PACKER CLOSING NOTE PATIENT IN BED.VITAL SIGNS STABLE.FAMILY WAS AT BEDSIDE.REQUESTING TO CALL DAUGHTER MAGDALENA FIRST.AND TO GET CALL FROM SOCIAL SERVICE REGARDING MEETING TOMORROW.ENDORSED PATIENT TO PM NURSE FOR CHELSY.
[2019-08-21] MEDS: COLISTIMETHATE SODIUM 100 MG in IV NS 0.9% 50 ML IV SCH (21:18)
[2019-08-22] VITALS (41 sets, daily range): BP systolic 69–146; BP diastolic 25–73
[2019-08-22] MEDS: INSULIN REGULAR, HUMAN 100 UNIT/ML 3 ML VIAL SQ PRN ×4 (01:05→23:07)
--- NOTE | 2019-08-22 01:22 | NUR ---
PT RECEIVED TRACHED WITH SHILEY 8 XLT ON VENT WITH NOTED SETTINGS. PT TOLERATING VENT SETTINGS. VENT ALARMS CHECKED AND AUDIBLE. AUDIO ENGINEER CUFF PRESSURE CHECKED . SX MODERATE AMOUNT OF YELLOW THICK SECRETIONS . BREATH SOUNDS CLEAR. AMBU BAG AT HEAD OF BED. HOB AT 30 DEGREES. WILL CONTINUE TO MONITOR T/O SHIFT.
[2019-08-22] MEDS: IPRATROPIUM NEB FS 0.5 MG/2.5 ML AMPUL.NEB NEB SCH ×6 (03:33→23:22)
[2019-08-22] MEDS: ALBUTEROL FS 2.5 MG/0.5 ML VIAL.NEB NEB SCH ×6 (03:33→23:22)
[2019-08-22 05:13] LABS: BASOPHILS # (AUTO) 0.1 /CMM (0.0-0.2); BASOPHILS % (AUTO) 0.8 % (0.0-2.0); EOSINOPHILS % (AUTO) 2.7 % (0.0-6.0); LYMPHOCYTES # (AUTO) 1.6 /CMM (0.8-4.8); LYMPHOCYTES % (AUTO) 21.6 % (20.0-44.0); MEAN CORPUSCULAR HGB CONC 33 g/dl (31.0-36.0); MEAN CORPUSCULAR VOLUME 96 fL (82-100); MONOCYTES # (AUTO) 0.5 /CMM (0.1-1.30); MONOCYTES % (AUTO) 6.2 % (2.0-12.0); NEUTROPHILS # (AUTO) 5.2 /CMM (1.8-8.9); NEUTROPHILS % (AUTO) 68.7 % (43.0-81.0); PLATELET COUNT (AUTO) 140 /CMM (150-450); WHITE BLOOD COUNT (AUTO) 7.5 K/uL (4.3-11.0)
[2019-08-22 05:29] LABS: CALCIUM, SERUM 10.3 mg/dL (8.5-10.1); CREATININE 2.6 mg/dL (0.6-1.3); POTASSIUM 3.8 mmol/L (3.5-5.1)
[2019-08-22 05:43] LABS: PHOSPHORUS 0.2 mg/dL (2.5-4.9)
[2019-08-22 06:04] LABS: HEMATOCRIT 18 % (33-45); HEMOGLOBIN 6.1 g/dL (11.5-14.8); RED BLOOD CELL COUNT(AUTO) 1.88 MIL/uL (4.0-5.2)
[2019-08-22 06:15] LABS: EOSINOPHILS % (MANUAL) 1 % (0-4); LYMPHOCYTES % (MANUAL) 31 % (16-48); MONOCYTES % (MANUAL) 6 % (0-11.0); NEUTROPHILS % (MANUAL) 62 (42-76)
[2019-08-22] MEDS: BLOOD SUGAR DIAGNOSTIC 1 EACH STRIP IN SCH ×5 (06:17→23:05)
--- NOTE | 2019-08-22 07:52 | NUR ---
BATTERY INSTALLER OPENING NOTE RECEIVED REPORT FROM PM NURSE.PATIENT IN BED.NON VERBAL.RESPONDS TO PAIN FUL STIMULI.ON TRACH TO VENT DEPENDANT.TOLERATING SETTINGS WELL.SATURATING 100%.ON TELE MONITOR SR WITH PAC'S HR 88.ORLY MIDLINE WITH TKO.CHINO CATH DRAINING DARK YELLOW URINE.BED IS LOW AND IN LOCKED POSITION.SRX3.SAFETY AND ASPIRATION MEASURES IN PLACE.AWAITING FAMILY MEETING TODAY.WILL CONTINUE TO MONITOR.
--- NOTE | 2019-08-22 08:30 | NUR ---
OTHER SPORTS COACH OR INSTRUCTOR NOTE LESA FROM [employer] MADE AWARE ABOUT FAMILY REQUEST TO INFORM THE PLACE FOR MEETING.SHE SAID SHE WILL FOLLOW UP WITH FAMILY AFTER 9 AM MEETING WITH .
[2019-08-22] MEDS: CLOTRIMAZOLE 1% 15 GM TUBE TP SCH ×2 (08:40→16:36)
[2019-08-22] MEDS: CEFEPIME 2 GM in IV D5W 100 ML IV SCH ×2 (08:40→21:29)
[2019-08-22] MEDS: FERROUS SULFATE UDC 300 MG/5 ML UDC GT SCH ×2 (08:41→16:35)
[2019-08-22] MEDS: ACETAMINOPHEN 650 MG/20.3 ML UDC GT PRN ×2 (08:41→16:35)
[2019-08-22] MEDS: CHOLECALCIFEROL 1,000 UNIT TABLET (VIT D3) GT SCH (08:41)
[2019-08-22] MEDS: DILTIAZEM HCL 30 MG TABLET GT SCH ×3 (08:41→16:36)
[2019-08-22] MEDS: LACTOBACILLUS RHAMNOSUS GG 1 EACH CAP.SPRINK GT SCH ×2 (08:42→16:36)
[2019-08-22] MEDS: PANTOPRAZOLE 40 MG/PACK PACK GT SCH ×2 (08:42→16:36)
[2019-08-22] MEDS: AMIODARONE HCL 200 MG TABLET GT SCH ×2 (08:42→20:22)
[2019-08-22] MEDS: DAKINS QUARTER STRENGTH (0.125%) 480 ML BOTTLE TOP SCH (08:43)
[2019-08-22] MEDS: NEOMY SULF/BACITRAC ZN/POLY 15 GM TUBE TP SCH (08:43)
[2019-08-22] MEDS: THERAHONEY GEL 1.5 OZ TUBE TP SCH (08:44)
--- NOTE | 2019-08-22 08:45 | NUR ---
DARLYN contacted pt's RN Dusty and informed her that SW did not arrange for the meeting. The family meeting was initiated and arranged by Dr. Pritchett. Meeting room will be [facility].
[2019-08-22] MEDS: INSULIN GLARGINE, 100 UNIT/ML CARTRIDGE SQ SCH ×2 (08:47→21:57)
[2019-08-22] MEDS: MICAFUNGIN SODIUM 100 MG in IV NS 0.9% 100 ML IV SCH (11:20)
[2019-08-22] MEDS: LORAZEPAM INJ 2 MG/ML VIAL IV PRN (11:42)
--- NOTE | 2019-08-22 11:45 | NUR ---
WHARF TALLY CLERK NOTE FAMILY MEETING DONE WITH .FAMILY CAME TO BEDSIDE AND SEEN PATIENT'S WOUND AND EXPLAINED PROGNOSIS OF THE PATIENT. PER FAMILY DAUGHTER CAROL NO BLOOD TRANSFUSION AND NO SURGERY FOR NOW.THEY WILL LET US KNOW ABOUT FURTHER PLAN FOR PATIENT.WILL CONTINUE TO MONITOR.
[2019-08-22] MEDS: Potassium Phosphate meq 11 MEQ in IV D5W 100 ML IV SCH ×2 (12:23→15:40)
--- NOTE | 2019-08-22 17:00 | NUR ---
APPRAISER LAND NOTE PATIENT HAS TACHYPNEA. NOTIFIED.WILL CONTINUE TO MONITOR.
--- NOTE | 2019-08-22 19:14 | NUR ---
ERP DEVELOPER NOTE .PATIENT IN BED.ONGOING HD.BLOOD CULTURE DONE WITH HD.LAB COLLECTED SPECIMEN.PATIENT NON VERBAL.RESPONDS TO PAIN FUL STIMULI.ON TRACH TO VENT DEPENDANT.TOLERATING SETTINGS WELL.SATURATING 100%.ON TELE MONITOR SR WITH PAC'S HR 97.ORLY MIDLINE WITH TKO.CHINO CATH DRAINING DARK YELLOW URINE.BED IS LOW AND IN LOCKED POSITION.SRX3.SAFETY AND ASPIRATION MEASURES IN PLACE.GOT CALL FROM DAUGHTER MAGDALENA.THEY WILL LET US KNOW ABOUT FAMILY DECISION REGARDING PATIENT TOMORROW .ENDORSED TO PM NURSE FOR CHELSY.
--- NOTE | 2019-08-22 19:37 | NUR ---
GRANITE WORKER NOTES GRANITE WORKER NOTES RECEIVED PT ON BED. OBTUNDED. [facility] , SATURATING 100%. CHINO CATH DRAINING YELLOW URINE. ON TELE MONITOR ST 110. GTUBE FEEDING RUNNING @ 45CC/HR, NO RESIDUAL NOTED. HEAD OF BED ELEVATED. SIDE RAILS UP. BED IN LOW AND LOCKED POSITION. CALL LIGHT WITHIN REACH. WILL MONITOR PT CLOSELY.
[2019-08-22] MEDS: COLISTIMETHATE SODIUM 100 MG in IV NS 0.9% 50 ML IV SCH (20:20)
--- NOTE | 2019-08-22 20:40 | NUR ---
RT NOTE PT RECEIVED TRACHED ON MECHANICAL VENTILATION. AMBU BAG/BACK UP TRACH @ BEDSIDE. TX GIVEN, NO ADVERSE REACTIONS NOTED. SX DONE, TRACH SECURED AND PATENT. ALARMS ON AND AUDIBLE. NO SOB NOTED. WILL CONTINUE TO MONITOR. Addendum: 08/22/19 at 2041 by MAREN ZAMUDIO RT Amended: Links added.
[2019-08-22] MEDS: VANCOMYCIN 500 MG in IV D5W 100 ML IV PRN (20:54)
[2019-08-23] VITALS (39 sets, daily range): BP systolic 90–150; BP diastolic 31–70
[2019-08-23] MEDS: IPRATROPIUM NEB FS 0.5 MG/2.5 ML AMPUL.NEB NEB SCH ×6 (03:42→23:29)
[2019-08-23] MEDS: ALBUTEROL FS 2.5 MG/0.5 ML VIAL.NEB NEB SCH ×6 (03:42→23:29)
[2019-08-23] MEDS: INSULIN REGULAR, HUMAN 100 UNIT/ML 3 ML VIAL SQ PRN ×4 (05:09→23:23)
[2019-08-23] MEDS: BLOOD SUGAR DIAGNOSTIC 1 EACH STRIP IN SCH ×4 (05:10→23:25)
[2019-08-23 05:48] LABS: BASOPHILS % (AUTO) 0.5 % (0.0-2.0); EOSINOPHILS % (AUTO) 1.4 % (0.0-6.0); LYMPHOCYTES # (AUTO) 1.6 /CMM (0.8-4.8); MEAN CORPUSCULAR HGB CONC 33 g/dl (31.0-36.0); MEAN CORPUSCULAR VOLUME 97 fL (82-100); MONOCYTES # (AUTO) 0.5 /CMM (0.1-1.30); MONOCYTES % (AUTO) 5.2 % (2.0-12.0); NEUTROPHILS % (AUTO) 75.9 % (43.0-81.0); PLATELET COUNT (AUTO) 141 /CMM (150-450); WHITE BLOOD COUNT (AUTO) 9.3 K/uL (4.3-11.0)
[2019-08-23 05:56] LABS: RED BLOOD CELL COUNT(AUTO) 1.81 MIL/uL (4.0-5.2)
[2019-08-23 05:58] LABS: CALCIUM, SERUM 9.1 mg/dL (8.5-10.1); CREATININE 2.2 mg/dL (0.6-1.3); HEMATOCRIT 18 % (33-45); HEMOGLOBIN 5.8 g/dL (11.5-14.8); MAGNESIUM 1.9 mg/dL (1.8-2.4); POTASSIUM 3.8 mmol/L (3.5-5.1)
[2019-08-23 06:07] LABS: BAND % (MANUAL) 12 % (0.0-5.0); EOSINOPHILS % (MANUAL) 1 % (0-4); LYMPHOCYTES % (MANUAL) 25 % (16-48); METAMYELOCYTES % 1 % (0-0); MONOCYTES % (MANUAL) 6 % (0-11.0); MYELOCYTES % 1 % (0-0); NEUTROPHILS % (MANUAL) 54 (42-76)
--- NOTE | 2019-08-23 06:09 | NUR ---
INFORMATION TECHNOLOGY ASSOCIATE NOTES PAGED EPIC HOSIERY LOOPER REGARDING H/H OF 5.8, AWAITING CALL BACK.
[2019-08-23 06:15] LABS: PHOSPHORUS 0.3 mg/dL (2.5-4.9)
--- NOTE | 2019-08-23 06:34 | NUR ---
UI UX ENGINEER NOTES PER DR LOZADA, REPLACED PHOS WITH 2 PACKETS OF NEUTRAPHOS TO BE GIVEN ONE PACK EACH HOUR FOR 2 HOURS. NO NEW ORDERS REGARDING HEMOGLOBIN AND HEMATOCRIT SINCE PT FAMILY WAS REFUSING YESTERDAY. WILL ENDORSE TO THE AM NURSE REGARDING CURRENT SITUATION.
--- NOTE | 2019-08-23 06:49 | NUR ---
DIVER PUMPER NOTES NO ACUTE CHANGES NOTED DURING THE SHIFT. PROVIDED COMFORT AND SAFETY. WILL ENDORSE TO THE AM NURSE FOR CONTINUITY OF CARE.
--- NOTE | 2019-08-23 07:30 | NUR ---
RN NOTES RECEIVED PATIENT ON BED. OBTUNDED. NOT ON ANY FORM OF DISTRESS. ON [facility] VENT ,TOLERATING SETTING WELL. SATURATING 100%. ON TELE MONITOR SINUS RHYTHM ON THE MONITOR, HR ON THE 90. GTUBE FEEDING RUNNING @ 45CC/HR, NO RESIDUAL NOTED ON CHECK. HEAD OF BED ELEVATED. CHINO CATHETER DRAINING WITH TO DENISE URINE. SAFETY MEASURES OBSERVED AND MAINTAINED. SIDE RAILS UP. BED IN LOW AND LOCKED POSITION. CALL LIGHT WITHIN REACH. WILL CONTINUE TO MONITOR PATIENT CLOSELY AND ANTICIPATE NEEDS.
[2019-08-23] MEDS ORDERED: NEUTRA PHOS 1 POWD.PACKET PO ONE ×2 (09:00→10:00)
[2019-08-23] MEDS: DILTIAZEM HCL 30 MG TABLET GT SCH ×3 (09:05→16:19)
[2019-08-23] MEDS: CEFEPIME 2 GM in IV D5W 100 ML IV SCH ×2 (09:05→20:04)
[2019-08-23] MEDS: CHOLECALCIFEROL 1,000 UNIT TABLET (VIT D3) GT SCH (09:05)
[2019-08-23] MEDS: PANTOPRAZOLE 40 MG/PACK PACK GT SCH ×2 (09:05→16:19)
[2019-08-23] MEDS: AMIODARONE HCL 200 MG TABLET GT SCH ×2 (09:05→20:05)
[2019-08-23] MEDS: LACTOBACILLUS RHAMNOSUS GG 1 EACH CAP.SPRINK GT SCH ×2 (09:06→16:19)
[2019-08-23] MEDS: FERROUS SULFATE UDC 300 MG/5 ML UDC GT SCH ×2 (09:06→16:18)
[2019-08-23] MEDS: NEOMY SULF/BACITRAC ZN/POLY 15 GM TUBE TP SCH (09:07)
[2019-08-23] MEDS: THERAHONEY GEL 1.5 OZ TUBE TP SCH (09:07)
[2019-08-23] MEDS: DAKINS QUARTER STRENGTH (0.125%) 480 ML BOTTLE TOP SCH (09:07)
[2019-08-23] MEDS: INSULIN GLARGINE, 100 UNIT/ML CARTRIDGE SQ SCH ×2 (09:09→21:54)
[2019-08-23] MEDS: CLOTRIMAZOLE 1% 15 GM TUBE TP SCH ×2 (09:09→16:19)
[2019-08-23] MEDS: MICAFUNGIN SODIUM 100 MG in IV NS 0.9% 100 ML IV SCH (12:02)
[2019-08-23] MEDS: ACETAMINOPHEN 650 MG/20.3 ML UDC GT PRN ×2 (12:16→20:08)
--- NOTE | 2019-08-23 14:00 | NUR ---
RN NOTES SPOKE TO DAUGHTER, UPDATED ON THE CURRENT SITUATION. TALKED ABOUT BLOOD TRANSFUSION AND INFORMED THEM THAT I AM AWARE OF THEIR DECISION FROM YESTERDAY. BUT I JUST WANT TO MAKE THEM AWARE THAT THE HEMOGLOBIN WENT LOWER TODAY FROM YESTERDAY'S LEVEL. DAUGHTER VERBALIZED "I KNOW SHE GOT DIALYSIS YESTERDAY THAT MIGHT BE THE REASON. ASKED THE DOCTOR AND HE THINKS SHE STILL NEED IT, THEN CALL ME BACK". PAGED DR. MORRISSEY TO INFORM HIM ABOUT IT.AWAITING RESPONSE
--- NOTE | 2019-08-23 15:38 | NUR ---
RN NOTES PT RECEIVED FROM JEYSON RN FOR CONTINUITY OF CARE. VSS STABLE, CONTINUE TO MONITOR .
--- NOTE | 2019-08-23 15:38 | NUR ---
RN NOTES HANDS OFF. REPORT GIVEN TO MOY KANG. INFORMED HER THAT STILL WAITING FOR DR. MORRISSEY'S RESPONSE
--- NOTE | 2019-08-23 15:42 | NUR ---
RN NOTES PER DR MORRISSEY ORDER AND JEYSON RN REPORT , NO BLOOD TRANSFUSION AT THIS TIME .
[2019-08-23] MEDS: NEPRO 1,000 ML BOTTLE GT PRN (16:09)
--- NOTE | 2019-08-23 17:00 | NUR ---
RN NOTES PT'S DAUGHTER AT THE BEDSIDE , REQUESTING DNR/ DNI STATUS FOR HER MOTHER . DR MORRISSEY NOTIFED AND DNR/DNI ORDER PLACED ON THE CHART PER DR MORRISSEY ORDER .
--- NOTE | 2019-08-23 18:27 | NUR ---
RN NOTES NO SIGNIFICANT CHANGES NOTED , SUPPORTIVE FAMILY AT THE BEDSIDE, VSS STABLE, WILL ENDOSE TO TAKE DOWN SORTER NURSE FOR CONTINUITY OF CARE
--- NOTE | 2019-08-23 19:00 | NUR ---
CEMENTER OIL WELL NOTES RECEIVED PATIENT IN BED. OBTUNDED. NO SOB NO DISTRESS NOTED. [facility] ,TOLERATING SETTING WELL. SATURATING 98%.V/S STABLE TEMP IS 100.1 PTS ON COOLING BLANKET . ON TELE MONITOR SINUS RHYTHM 90 ON THE MONITOR, GTUBE FEEDING RUNNING @ 45CC/HR, NO RESIDUAL NOTED ON CHECK. HEAD OF BED ELEVATED. CHINO CATHETER INTACT AND PATENT. SAFETY MEASURES OBSERVED AND MAINTAINED. SIDE RAILS UP. BED IN LOW AND LOCKED POSITION. CALL LIGHT WITHIN REACH. WILL CONTINUE TO MONITOR PATIENT CLOSELY AND ANTICIPATE NEEDS.
[2019-08-23] MEDS: COLISTIMETHATE SODIUM 100 MG in IV NS 0.9% 50 ML IV SCH (20:05)
--- NOTE | 2019-08-23 21:00 | NUR ---
PART TIME RECEPTIONIST NOTES DUE MEDS GIVEN ORDERED .PTS TURNED AND REPOSITION .STILL ON SINUS RHYTHM ON THE MONITOR , FAMILY AT BEDSIDE UPDATED WITH PTS CURRENT CONDITION .PTS IS DNR DNI STATUS.,WILL CONTINUE TO MONITOR PTS.
--- NOTE | 2019-08-23 22:00 | NUR ---
LACE SEWER NOTES BLOOD SUGAR FOR 2100 HRS IS 325 MG/DL 5 UNITS OF LANTUS GIVEN ORDERED.
--- NOTE | 2019-08-23 23:31 | NUR ---
SCRAPER TENDER NOTES BLOOD SUGAR FOR 12MN IS 360MG/DL 15 UNITS OF REGULAR INSULIN GIVEN PER SLIDING SCALE . PTS ION GT FEEDING.
[2019-08-24] VITALS (55 sets, daily range): BP systolic 65–131; BP diastolic 30–69
[2019-08-24] MEDS: IPRATROPIUM NEB FS 0.5 MG/2.5 ML AMPUL.NEB NEB SCH ×4 (03:28→15:59)
[2019-08-24] MEDS: ALBUTEROL FS 2.5 MG/0.5 ML VIAL.NEB NEB SCH ×4 (03:28→15:59)
[2019-08-24] MEDS: ACETAMINOPHEN 650 MG/20.3 ML UDC GT PRN ×3 (03:51→14:32)
[2019-08-24 05:17] LABS: BASOPHILS % (AUTO) 0.6 % (0.0-2.0); EOSINOPHILS % (AUTO) 1.4 % (0.0-6.0); LYMPHOCYTES # (AUTO) 0.8 /CMM (0.8-4.8); LYMPHOCYTES % (AUTO) 12.7 % (20.0-44.0); MEAN CORPUSCULAR HGB CONC 33 g/dl (31.0-36.0); MEAN CORPUSCULAR VOLUME 97 fL (82-100); MONOCYTES # (AUTO) 0.2 /CMM (0.1-1.30); MONOCYTES % (AUTO) 2.6 % (2.0-12.0); NEUTROPHILS # (AUTO) 5.1 /CMM (1.8-8.9); NEUTROPHILS % (AUTO) 82.7 % (43.0-81.0); PLATELET COUNT (AUTO) 137 /CMM (150-450); WHITE BLOOD COUNT (AUTO) 6.2 K/uL (4.3-11.0)
[2019-08-24 05:37] LABS: RED BLOOD CELL COUNT(AUTO) 1.86 MIL/uL (4.0-5.2)
[2019-08-24 05:38] LABS: HEMATOCRIT 18 % (33-45); HEMOGLOBIN 5.9 g/dL (11.5-14.8)
[2019-08-24 05:39] LABS: CREATININE 2.9 mg/dL (0.6-1.3); POTASSIUM 4.2 mmol/L (3.5-5.1)
[2019-08-24 05:42] LABS: PHOSPHORUS 0.4 mg/dL (2.5-4.9)
--- NOTE | 2019-08-24 06:00 | NUR ---
CONSUMER EXPERIENCE CONSULTANT NOTES BLOOD SUGAR AT 6AM IS 235 6 UNITS OF REGULAR INSULIN GIVEN PER SLIDING SCALE . PTS ON GT FEEDING.
[2019-08-24] MEDS: INSULIN REGULAR, HUMAN 100 UNIT/ML 3 ML VIAL SQ PRN ×2 (06:04→12:58)
[2019-08-24] MEDS: BLOOD SUGAR DIAGNOSTIC 1 EACH STRIP IN SCH ×2 (06:08→12:52)
[2019-08-24 06:14] LABS: BAND % (MANUAL) 11 % (0.0-5.0); EOSINOPHILS % (MANUAL) 3 % (0-4); LYMPHOCYTES % (MANUAL) 13 % (16-48); MONOCYTES % (MANUAL) 6 % (0-11.0); NEUTROPHILS % (MANUAL) 67 (42-76)
--- NOTE | 2019-08-24 06:20 | NUR ---
SUPERVISOR PAINT ROLLER COVERS NOTES CRITICAL LABS RELAYED TO DR LOZADA WITH ORDER NOTED AND CARRIED OUT.
[2019-08-24] MEDS ORDERED: NEUTRA PHOS 1 POWD.PACKET PO ONE (07:00)
[2019-08-24] MEDS ORDERED: NEUTRA PHOS 1 POWD.PACKET GT ONE (07:00)
[2019-08-24] MEDS: NOREPINEPHRINE 8 MG in IV D5W 500 ML IV PRN (08:42)
[2019-08-24] MEDS: DILTIAZEM HCL 30 MG TABLET GT SCH ×2 (09:00→13:00)
--- NOTE | 2019-08-24 09:00 | NUR ---
Cardizem 60 mg was not given because of low blood pressure: 80/41 mmhg. Levophed restarted @ 0850.
[2019-08-24] MEDS: FERROUS SULFATE UDC 300 MG/5 ML UDC GT SCH (09:50)
[2019-08-24] MEDS: CHOLECALCIFEROL 1,000 UNIT TABLET (VIT D3) GT SCH (09:50)
[2019-08-24] MEDS: PANTOPRAZOLE 40 MG/PACK PACK GT SCH (09:52)
[2019-08-24] MEDS: INSULIN GLARGINE, 100 UNIT/ML CARTRIDGE SQ SCH (10:22)
[2019-08-24] MEDS: AMIODARONE HCL 200 MG TABLET GT SCH (11:15)
[2019-08-24] MEDS: CEFEPIME 2 GM in IV D5W 100 ML IV SCH (11:15)
[2019-08-24] MEDS: LACTOBACILLUS RHAMNOSUS GG 1 EACH CAP.SPRINK GT SCH (11:15)
[2019-08-24] MEDS: MICAFUNGIN SODIUM 100 MG in IV NS 0.9% 100 ML IV SCH (11:16)
[2019-08-24] MEDS: DAKINS QUARTER STRENGTH (0.125%) 480 ML BOTTLE TOP SCH (14:12)
[2019-08-24] MEDS: NEOMY SULF/BACITRAC ZN/POLY 15 GM TUBE TP SCH (14:13)
[2019-08-24] MEDS: CLOTRIMAZOLE 1% 15 GM TUBE TP SCH ×2 (14:13→18:41)
[2019-08-24] MEDS: THERAHONEY GEL 1.5 OZ TUBE TP SCH (14:13)
[2019-08-24] MEDS ORDERED: HYDROMORPHONE IV PRN ×2 (16:00→16:30)
[2019-08-24] MEDS ORDERED: NS 0.9% IV PRN (16:00)
[2019-08-24] MEDS ORDERED: D5W IV PRN (16:30)
--- NOTE | 2019-08-24 18:42 | NUR ---
Dilaudid drip started @ 2mg/hr and titrate every 30 mins for comfort measures. All meds discontinued per Dr. Pritchett's order except dilaudid drip.
--- NOTE | 2019-08-24 19:00 | NUR ---
Report given to Jolene WINTER in Med-Surg ([id number]) with all questions answered (SBAR).
--- NOTE | 2019-08-24 19:37 | NUR ---
SUPERINTENDENT BOARD MILL OPENING NOTE RECEIVED PATIENT STABLE AND TOLERATING VENT. RECEIVED REPORT FROM ICU NURSE ALL COMFORT MEASURES WILL BE APPLIED. DILAUDID RUNNING IV DRIP INCREASED BY 5MG Q3OM ORDERED. WILL CONTINUE TO MONITOR PATIENT.
--- NOTE | 2019-08-24 20:19 | NUR ---
RN NOTES VERIFIED WITH DR. LEONARD LACEY; CARRIED OUT Addendum: 08/24/19 at 2050 by ELFEGO PEREZ RN SHIP LINER CHARTED ON Reg REDD BY MISTAKE
--- NOTE | 2019-08-25 07:22 | NUR ---
PROGRAM MANAGER CLOSING NOTES PATIENT IN BED NO DISTRESS SHOWN, ALL COMFORT MEASURES HAVE BEEN APPLIED. WOUND CARE PROVIDED, LINEN CHANGE, AND DILAUDID ON DRIP MONITORED. FAMILY IS AT BEDSIDE. ENDORSED PATIENT TO MORNING SHIFT NURSE FOR CHELSY.
--- NOTE | 2019-08-25 07:30 | NUR ---
RN NOTE RECEIVED PATIENT ON COMFORT MEASURES, FAMILY AT BEDSIDE. @0729 HR SINUS KELLI 49, @0730 ASYSTOLE. NO PALPABLE PULSES, PATIENT PALE. FAMILY DOES NOT WANT VENT TURNED OFF. GENESIS ESQUIVEL TURNED OFF BY SOON LABORATORY ANALYST. CALLED [facility], SPOKE TO FER, REF # [id number]. NURSING ARCHEOLOGY FACULTY MEMBER AWARE Addendum: 08/25/19 at 0757 by JOLLY CABALLERO RN TURNED OFF VENT PER FAMILY REQUEST.
--- NOTE | 2019-08-25 07:35 | NUR ---
at 0730,Telemetry show Asystolic no palpable pulses noted prounced at present [facility] nursing tool machine shop supervisor TAYLOR Finneywas notified family at bed side attending physician Gualberto wilkinson was notified at present time
--- NOTE | 2019-08-25 10:30 | NUR ---
patient bagged, identified x3 toe, wrist, bag. remains release signed by juan miguel. to be picked up in two hours from mortuary.
[2019-08-25] MEDS ORDERED: KEY,NONCONTROL,TO KEEP IN PYXI 1 EA MC ONE (10:50)
--- NOTE | 2019-08-25 11:08 | NUR ---
patient escorted with nurse and security to [facility]. patient chart given to nursing vending stand supervisor. no belongings
--- NOTE | 2019-08-25 11:15 | NUR ---
Ayaan pretty wasted with charge entry clerk, waste document signed, faxed to pharmacy, 180ml wasted
== END 2019-08-25 07:25 | disposition expired | DRG 720 ==
LOC: ER 18:51 → ICU 21:00 → MEDSG1 08-24 19:18 → TELE1 08-24 19:54
PROVIDERS: ADMIT Student in an Organized Health Care Education/Training Program; ATTEND Nurse Practitioner Acute Care
PROC: 5A1955Z Respiratory Ventilation, Greater than 96 Consecutive Hours (ICD-10-PCS; principal; 2019-08-15)
PROC: 5A1D70Z Performance of Urinary Filtration, Intermittent, Less than 6 Hours Per Day (ICD-10-PCS; 2019-08-16)
PROC: 05HB33Z Insertion of Infusion Device into Right Basilic Vein, Percutaneous Approach (ICD-10-PCS; 2019-08-16)
PROC: 30233N1 Transfusion of Nonautologous Red Blood Cells into Peripheral Vein, Percutaneous Approach (ICD-10-PCS; 2019-08-17)
DX: A41.50 Gram-negative sepsis, unspecified (principal); Z66 Do not resuscitate; Z51.5 Encounter for palliative care; J96.21 Acute and chronic respiratory failure with hypoxia; R65.21 Severe sepsis with septic shock; E43 Unspecified severe protein-calorie malnutrition; Z99.11 Dependence on respirator [ventilator] status; L89.154 Pressure ulcer of sacral region, stage 4; G93.1 Anoxic brain damage, not elsewhere classified; I82.622 Acute embolism and thrombosis of deep veins of left upper extremity; R53.2 Functional quadriplegia; I12.0 Hypertensive chronic kidney disease with stage 5 chronic kidney disease or end stage renal disease; N18.6 End stage renal disease; N39.0 Urinary tract infection, site not specified; Z93.0 Tracheostomy status; R13.10 Dysphagia, unspecified; Z93.1 Gastrostomy status; Z99.2 Dependence on renal dialysis; Z86.718 Personal history of other venous thrombosis and embolism; Z79.4 Long term (current) use of insulin; Z74.01 Bed confinement status; Z68.30 Body mass index [BMI] 30.0-30.9, adult; Z86.74 Personal history of sudden cardiac arrest; Z79.899 Other long term (current) drug therapy; Z79.84 Long term (current) use of oral hypoglycemic drugs; E11.51 Type 2 diabetes mellitus with diabetic peripheral angiopathy without gangrene; E11.22 Type 2 diabetes mellitus with diabetic chronic kidney disease; D63.8 Anemia in other chronic diseases classified elsewhere; M86.9 Osteomyelitis, unspecified; G93.41 Metabolic encephalopathy; E87.6 Hypokalemia; E83.39 Other disorders of phosphorus metabolism; E78.5 Hyperlipidemia, unspecified; E11.69 Type 2 diabetes mellitus with other specified complication; L97.909 Non-pressure chronic ulcer of unspecified part of unspecified lower leg with unspecified severity; E87.1 Hypo-osmolality and hyponatremia; I25.10 Atherosclerotic heart disease of native coronary artery without angina pectoris; D62 Acute posthemorrhagic anemia; L89.899 Pressure ulcer of other site, unspecified stage; B96.5 Pseudomonas (aeruginosa) (mallei) (pseudomallei) as the cause of diseases classified elsewhere; R00.0 Tachycardia, unspecified
CPT/HCPCS: 31720; 36415; 36600; 71045-TC; 80048-TC; 80061-TC; 80076-TC; 80202-TC; 81000-TC; 82803-TC; 82962-TC; 83605-TC; 83735-TC; 84100-TC; 84443-TC; 84484-TC; 85025-TC; 85730-TC; 86706; 86850-TC; 86921-TC; 87040-TC; 87070-TC; 87081-TC; 87086-TC; 87186-TC; 87340; 90935-TC; 94002-TC; 94003-TC; 94760-TC; 99082-TC; A4216; A4217; A6253; A6403; G0378; J0692; J0770; J1170; J1200; J1450; J1815; J2060; J2248; J2250; J2543; J3370; J3490; J7030; J7040; J7050; J7060; P9016-BL; P9047